=== PATIENT | male | born 1955 | race Caucasian/White ===

== ENCOUNTER 2018-04-15 19:11 | Emergency (ER) | payer SELFPAY ==
--- NOTE | 2018-04-15 20:57 | ER ---
Nurse's Notes [facility] Name: Jose Baig Age: 63 yrs Sex: Male : 1955 Arrival Date: 04/15/2018 Time: 19:13 Bed Waiting Private MD: Diagnosis: Presentation: 04/15 19:26 Presenting complaint: Patient states: swelling, redness to right elbow an forearm. pt ak1 stated swelling started 5 days DOWELER. pt with full ROM to right arm. Transition of care: patient was not received from another setting of care. Onset of symptoms is unknown. Risk Assessment: Do you want to hurt yourself or someone else? Patient reports no desire to harm self or others. Initial Sepsis Screen: Does the patient meet any 2 criteria? No. Patient's initial sepsis screen is negative. Does the patient have a suspected source of infection? No. Patient's initial sepsis screen is negative. Care prior to arrival: None. 19:26 Method Of Arrival: Ambulatory ak1 19:26 Acuity: SONIA 3 ak1 Triage Assessment: 19:28 General: Appears in no apparent distress. Behavior is cooperative, anxious. Pain: ak1 Complains of pain in right arm. EENT: No signs and/or symptoms were reported regarding the EENT system. Neuro: Level of Consciousness is awake, alert, obeys commands, Oriented to person, place, time, situation, Artificial Flowers [place] are equal bilaterally Moves all extremities. Cardiovascular: No deficits noted. Respiratory: No deficits noted. GI: No signs and/or symptoms were reported involving the gastrointestinal system. : No signs and/or symptoms were reported regarding the genitourinary system. Derm: No signs and/or symptoms reported regarding the dermatologic system. Musculoskeletal: Range of motion: intact in all extremities, Swelling present in right arm pt with swelling and redness to right elbow and right forearm. Historical: - Allergies: 19:28 No Known Allergies; ak1 - Home Meds: 19:28 Cymbalta 30 mg oral cpDR 1 cap once daily [Active]; ak1 - PMHx: 19:28 Bipolar disorder; Anxiety; ak1 - PSHx: 19:28 None; ak1 - Immunization history:: Adult Immunizations unknown. - Social history:: Smoking status: Patient uses tobacco products, smokes one pack cigarettes per day. - Ebola Screening: : No symptoms or risks identified at this time. Vital Signs: 19:28 BP 135 / 90; Pulse 90; Resp 18; Temp 98.3(TE); Pulse Ox 95% on R/A; Weight 79.38 kg ak1 (R); Height 5 ft. 10 in. (177.80 cm) (R); Pain 10/10; 19:28 Body Mass Index 25.11 (79.38 kg, 177.80 cm) ak1 ED Course: 19:13 Patient arrived in ED. es 19:27 Triage completed. ak1 19:28 Arm band placed on Patient placed in waiting room, Patient notified of wait time. ak1 20:46 Patient's name was called from ER lobby. No response. ak1 Administered Medications: No medications were administered Outcome: 20:57 Patient left the ED. ak1 Signatures: Kathryn Tirado Amber, RN RN ak1
[2018-04-15 22:41] VITALS: BP 135/90; TEMP 98.3; O2SAT 95
== END 2018-04-15 20:57 | disposition left against medical advice (07) ==
LOC: ER 19:11
DX: Z53.21 Procedure and treatment not carried out due to patient leaving prior to being seen by health care provider (principal)
CPT/HCPCS: 99281

== ENCOUNTER 2018-06-30 19:49 | Inpatient (IN) | payer OTHER ==
[2018-06-30] MEDS ORDERED: THIAMINE 200 MG/2 ML INJ ONE (20:04)
[2018-06-30] MEDS ORDERED: MULTIVITAMINS 10 ML VIAL (INJ) IV ONE (20:04)
[2018-06-30] MEDS ORDERED: NA CHLORIDE 0.9% 2,000 ML ONE (20:05)
[2018-06-30] MEDS ORDERED: FOLIC ACID 5 MG/ML VIAL ONE (20:05)
[2018-06-30] MEDS ORDERED: DIAZEPAM 10 MG/2 ML INJ SYRINGE ONE (20:15)
--- NOTE | 2018-06-30 20:36 | RAD REPORT ---
EXAM DESCRIPTION: RAD - Chest Single View - 06/30/2018 8:19 pm CLINICAL HISTORY: confusion, tachypnea Chest pain. COMPARISON: Chest Single View dated 12/14/2017; Chest Single View dated 12/13/2017; Chest Single View da saad 12/12/2017; Chest Single View dated 12/10/2017 FINDINGS: Portable technique limits examination quality. A small calcified granuloma seen in the left upper lobe. The lungs are otherwise grossly clear. The h eart is normal in size. No displaced fractures.Mildly tortuous thoracic aorta. IMPRESSION: No acute intrathoracic process suspected.
[2018-06-30 20:47] LABS: Absolute Lymphocytes (CBC) 0.9 K/uL (0.7-4.9); Absolute Neutrophil 15.7 K/uL (1.8-8.0); Basophils % 0.2 % (0-1.3); Hematocrit 44.3 % (39.6-49.0); MCH 34.1 pg (27.0-35.0); MCV 97.3 fL (80-100); MPV 8.5 fL (7.6-11.3); Monocytes % 10.9 % (3.3-12.3); RBC Red Blood Cell Count 4.56 M/uL (4.33-5.43)
[2018-06-30 20:53] LABS: Protime INR 1.11
--- NOTE | 2018-06-30 21:04 | RAD REPORT ---
EXAM DESCRIPTION: CT - Head Brain Wo Cont - 06/30/2018 8:44 pm CLINICAL HISTORY: CONFUSED Drowsiness COMPARISON: <Comparisons> TECHNIQUE: All CT scans are performed using dose optimization technique as appropriate and may inclu de automated exposure control or mA/KV adjustment according to patient size. FINDINGS: No intracranial hemorrhage, hydrocephalus or extra-axial fluid collection.Advanced general ized brain atrophy is present with mild periventricular and deep white matter chronic microvascular i schemic changes.No areas of brain edema or evidence of midline shift. The paranasal sinuses and mastoids are clear. The calvarium is intact. IMPRESSION: No acute intracranial abnormality.
--- NOTE | 2018-06-30 21:58 | ER ---
Nurse's Notes [facility] Name: Jose Baig Age: 63 yrs Sex: Male : 1955 Arrival Date: 06/30/2018 Time: 19:54 Bed 3 Private MD: Diagnosis: Alcohol dependence with withdrawal delirium;Dehydration Presentation: 06/30 19:50 Presenting complaint: EMS states: that pt is withdrawing from alcohol. He was found by fc his friends today that came down for a visit. Pt has had no alcohol in 2 days. Having tremors and is unable to walk. Has bite issa to his left tongue. Transition of care: patient was not received from another setting of care. Onset of symptoms was June 30, 2018. Risk Assessment: Do you want to hurt yourself or someone else? Patient reports no desire to harm self or others. Initial Sepsis Screen: Does the patient meet any 2 criteria? HR > 90 bpm. Yes Does the patient have a suspected source of infection? No. Patient's initial sepsis screen is negative. Care prior to arrival: Medication(s) given: Normal saline infusion, 500 mL, IV initiated. 18 GA, in the right forearm. 19:50 Method Of Arrival: EMS: [facility] 19:50 Acuity: SONIA 2 fc Historical: - Allergies: 20:06 No Known Allergies; fc - Home Meds: 20:06 Prozac Oral [Active]; fc - PMHx: 20:06 Anxiety; Bipolar disorder; Hepatitis; COPD; Ulcers; fc - Immunization history:: Last tetanus immunization: unknown. - Social history:: Smoking status: Patient uses tobacco products, smokes one-half pack cigarettes per day, Patient uses alcohol, on a daily basis. - Family history:: not pertinent. - Ebola Screening: : Patient negative for fever greater than or equal to 101.5 degrees Fahrenheit, and additional compatible Ebola Virus Disease symptoms Patient denies exposure to infectious person Patient denies travel to an Ebola-affected area in the 21 days before illness onset. - Hospitalizations: : No recent hospitalization is reported. Screenin:50 Abuse screen: Denies threats or abuse. Nutritional screening: No deficits noted. Tuberculosis screening: No symptoms or risk factors identified. Fall Risk Fall in past 12 months (25 points). Secondary diagnosis (15 points) ETOH abuse. IV access (20 points). Ambulatory Aid- Furniture (30 pts.). Gait- Weak (10 pts.). Mental Status- Overestimates/Forgets Limitations (15 pts.). Total Soler Fall Scale indicates High Risk Score (45 or more points). Fall prevention measures have been instituted. Side Rails Up X 2 Placed Close to Nursing Station Frequent Obs/Assessments Occuring As available patient and family educated on Fall Prevention Program and Strategies. Assessment: 20:00 General: Appears in no apparent distress. uncomfortable, Behavior is anxious, ao inappropriate for age. Pain: Denies pain. Neuro: Level of Consciousness is awake, alert, obeys commands, Oriented to person, place, time, situation, Appropriate for age Weakness Speech is normal, Facial symmetry appears normal, Pupils are PERRLA. Neuro: Cardiovascular: Heart tones S1 S2 Capillary refill < 3 seconds. Respiratory: Airway is patent Respiratory effort is even, unlabored, Respiratory pattern is regular, symmetrical. GI: Abdomen is non-distended. : No signs and/or symptoms were reported regarding the genitourinary system. EENT: No signs and/or symptoms were reported regarding the EENT system. Derm: No signs and/or symptoms reported regarding the dermatologic system. Musculoskeletal: Circulation, motion, and sensation intact. 21:07 Reassessment: Patient appears in no apparent distress at this time. Patient states ak1 symptoms have improved. pt resting with eyes closed, resp even and unlabored. will continue to monitor. . 22:27 Reassessment: Patient appears in no apparent distress at this time. Patient and/or ao family updated on plan of care and expected duration. Pain level reassessed. Patient sleeping with no SS of distress. Patient to be admitted to the hospital. Waiting on room assignment. Vital Signs: 19:50 BP 142 / 109; Pulse 101; Resp 20; Temp 99.0(O); Pulse Ox 96% on R/A; Weight 81.65 kg fc (R); Height 5 ft. 11 in. (180.34 cm) (R); Pain 3/10; 21:06 BP 135 / 98; Pulse 88; Resp 20; Temp 99; Pulse Ox 100% on R/A; Pain 0/10; ak1 22:27 BP 169 / 97; Pulse 91; Resp 16; Pulse Ox 92% ; ao 22:36 BP 158 / 86; Pulse 97; Resp 18; Pulse Ox 99% on R/A; Pain 0/10; ak1 19:50 Body Mass Index 25.10 (81.65 kg, 180.34 cm) ED Course: 19:50 Arm band placed on Patient placed in an exam room, on a stretcher. fc 19:50 Patient has correct armband on for positive identification. Bed in low position. Call fc light in reach. Side rails up X2. equipment monitor phototypesetting on. Pulse ox on. NIBP on. 19:50 Maintain EMS IV. Dressing intact. Good blood return noted. Site clean \T\ dry. Gauge \T\ fc site: 18 gauge to right forearm. 19:54 Patient arrived in ED. ao 19:54 Ian Reynaga MD is Attending Physician. rn 19:56 Fox Stein RN is Primary Nurse. ao 20:01 Triage completed. fc 20:18 XRAY Chest (1 view) In Process Unspecified. EDMS 20:27 Inserted saline lock: 22 gauge in right wrist, using aseptic technique. Blood collected.ao 20:44 CT Head Brain wo Cont In Process Unspecified. EDMS 21:56 Freddy Merchant MD is Hospitalizing Provider. rn 23:50 No provider procedures requiring assistance completed. Patient admitted, IV remains in ao place. Administered Medications: 20:26 Drug: Valium 10 mg Route: IVP; Site: right forearm; ao 22:00 Follow up: Response: No adverse reaction ao 22:37 Follow up: Response: No adverse reaction ak1 20:26 Drug: NS 0.9% 1000 ml Route: IV; Rate: 1 bolus; Site: right hand; ao 07/01 00:00 Follow up: IV Status: Completed infusion; IV Intake: 1000ml ao 06/30 20:27 Drug: Banana Bag - (NS 0.9% 1000 ml, foLIC Acid 1 mg, Thiamine 100 mg, Multivitamin 1 ao amp) Route: IV; Rate: calculated rate; Site: right forearm; 07/01 00:20 Follow up: IV Status: Infusion continued upon admission ao 00:10 Drug: Potassium Chloride 20 mEq Route: IV; Rate: calculated rate; Site: right ao antecubital; 00:19 Follow up: IV Status: Infusion continued upon admission ao Point of Care Testing: Blood Glucose: 06/30 20:37 Blood Glucose: 101 mg/dL; oe Ranges: Intake: 07/01 00:00 IV: 1000ml; Total: 1000ml. ao Outcome: 06/30 21:57 Decision to Hospitalize by Provider. rn 23:51 Admitted to ICU accompanied by nurse, room 1, on monitor, with chart. ao 23:51 Condition: stable 23:51 Instructed on the need for admit. 07/01 00:00 Patient left the ED. ao Signatures: Dispatcher [employer] EDMS Yenifer Maldonado RN RN Ian Hawley MD MD rn Krenek, Amber, RN RN ak1 Fox Stein RN RN ao Espinosa, Orlando oe
--- NOTE | 2018-06-30 21:58 | EDPHYS ---
Physician Documentation [facility] Name: Jose Baig Age: 63 yrs Sex: Male : 1955 Arrival Date: 06/30/2018 Time: 19:54 Bed 3 Private MD: ED Physician Ian Reynaga HPI: 06/30 19:58 This 63 yrs old Male presents to ER via Unassigned with complaints of Alcohol rn Withdrawal. 19:58 The patient presents with confusion, disorientation. Onset: The symptoms/episode rn began/occurred at an unknown time. Possible causes: alcohol, has apparently stopped drinking, for 2 day(s). Associated signs and symptoms: Pertinent positives: confusion, dizziness, palpitations. Current symptoms: In the emergency department the patient's symptoms are unchanged from the initial presentation. The patient has experienced similar episodes in the past. The patient has not recently seen a physician. Historical: - Allergies: 20:06 No Known Allergies; fc - Home Meds: 20:06 Prozac Oral [Active]; fc - PMHx: 20:06 Anxiety; Bipolar disorder; Hepatitis; COPD; Ulcers; fc - Immunization history:: Last tetanus immunization: unknown. - Social history:: Smoking status: Patient uses tobacco products, smokes one-half pack cigarettes per day, Patient uses alcohol, on a daily basis. - Family history:: not pertinent. - Ebola Screening: : Patient negative for fever greater than or equal to 101.5 degrees Fahrenheit, and additional compatible Ebola Virus Disease symptoms Patient denies exposure to infectious person Patient denies travel to an Ebola-affected area in the 21 days before illness onset. - Hospitalizations: : No recent hospitalization is reported. ROS: 19:58 Constitutional: Negative for fever, chills, and weight loss, Eyes: Negative for injury, rn pain, redness, and discharge, ENT: + tongue pain Neck: Negative for injury, pain, and swelling, Cardiovascular: + palpitations, no chest pain Respiratory: Negative for shortness of breath Abdomen/GI: + nausea, no abd pain Back: Negative for injury and pain, MS/Extremity: Negative for injury and deformity, Skin: Negative for injury, rash, and discoloration, Neuro: Negative for headache, and seizure. Exam: 19:58 Constitutional: This is a thin male appears poorly nourished Head/Face: rn Normocephalic, atraumatic. Eyes: Pupils equal round and reactive to light, extra-ocular motions intact ENT: dry blood on tongue, no deep lacerations noted Neck: Trachea midline, no thyromegaly or masses palpated, and no cervical lymphadenopathy. Supple, full range of motion without nuchal rigidity, or vertebral point tenderness. No Meningismus. Cardiovascular: tachycardic, regular, no murmur Respiratory: + faint exp wheezing noted bilaterally with mild tachypnea, speaking full sentences Abdomen/GI: Soft, non-tender Skin: + multiple ecchymosis pre-tibial regions MS/ Extremity: Pulses equal, no cyanosis. Neurovascular intact. 3/5 strength bilateral lower ext Neuro: awake, alert, oriented to person/place/time, 3/5 strength lower extremities, 5/5 strength bilateral upper ext, + extremity tremor, + tongue fasciculations. Vital Signs: 19:50 BP 142 / 109; Pulse 101; Resp 20; Temp 99.0(O); Pulse Ox 96% on R/A; Weight 81.65 kg fc (R); Height 5 ft. 11 in. (180.34 cm) (R); Pain 3/10; 21:06 BP 135 / 98; Pulse 88; Resp 20; Temp 99; Pulse Ox 100% on R/A; Pain 0/10; ak1 22:27 BP 169 / 97; Pulse 91; Resp 16; Pulse Ox 92% ; ao 22:36 BP 158 / 86; Pulse 97; Resp 18; Pulse Ox 99% on R/A; Pain 0/10; ak1 19:50 Body Mass Index 25.10 (81.65 kg, 180.34 cm) MDM: 19:54 Patient medically screened. rn 21:55 Differential Diagnosis: electrolyte abnormality, intracranial bleed, pneumonia, volume rn depletion, ETOH w/d. DT. Data reviewed: vital signs, nurses notes, lab test result(s), EKG, radiologic studies, CT scan, plain films, and as a result, I will admit patient. Counseling: I had a detailed discussion with the patient and/or guardian regarding: the historical points, exam findings, and any diagnostic results supporting the discharge/admit diagnosis, lab results, radiology results, the need for further work-up and treatment in the hospital. Response to treatment: the patient's symptoms have mildly improved after treatment, and as a result, I will admit patient. Admission orders: after a detailed discussion of the patient's condition and case, the admit orders are written by me. 06/30 19:55 Order name: CBC with Diff; Complete Time: 21:02 06/30 19:55 Order name: Basic Metabolic Panel 06/30 19:55 Order name: Protime (+inr); Complete Time: 21:02 06/30 19:55 Order name: Ptt, Activated; Complete Time: 21:02 06/30 19:55 Order name: AMMONIA; Complete Time: 21:51 06/30 19:55 Order name: Magnesium 06/30 19:55 Order name: CT Head Brain wo Cont; Complete Time: 21:11 06/30 19:57 Order name: CK 06/30 20:03 Order name: Creatine Phosphokinase [facility] 06/30 22:41 Order name: Alcohol Serum/Plasma [facility] 06/30 23:55 Order name: Basic Metabolic Panel [facility] 06/30 23:55 Order name: Creatine Phosphokinase [facility] 06/30 23:55 Order name: Magnesium [facility] 06/30 19:55 Order name: IV Start; Complete Time: 20:27 06/30 19:55 Order name: Glucose Level; Complete Time: 20:27 06/30 19:55 Order name: EKG; Complete Time: 19:56 06/30 19:55 Order name: EKG - Nurse/Tech; Complete Time: 21:17 06/30 19:56 Order name: XRAY Chest (1 view); Complete Time: 21:02 rn Administered Medications: 20: Drug: Valium 10 mg Route: IVP; Site: right forearm; ao 22:00 Follow up: Response: No adverse reaction ao 22:37 Follow up: Response: No adverse reaction ak1 20: Drug: NS 0.9% 1000 ml Route: IV; Rate: 1 bolus; Site: right hand; ao 07/01 00:00 Follow up: IV Status: Completed infusion; IV Intake: 1000ml ao 06/30 20:27 Drug: Banana Bag - (NS 0.9% 1000 ml, foLIC Acid 1 mg, Thiamine 100 mg, Multivitamin 1 ao amp) Route: IV; Rate: calculated rate; Site: right forearm; 07/01 00:20 Follow up: IV Status: Infusion continued upon admission ao 00:10 Drug: Potassium Chloride 20 mEq Route: IV; Rate: calculated rate; Site: right ao antecubital; 00:19 Follow up: IV Status: Infusion continued upon admission ao Point of Care Testing: Blood Glucose: 06/30 20:37 Blood Glucose: 101 mg/dL; oe Ranges: Critical Glucose Levels:Adult <50 mg/dl or >400 mg/dl <40 mg/dl or >180 mg/dl Disposition: 06/30/18 21:57 Hospitalization ordered by Freddy Merchant for Inpatient Admission. Preliminary diagnosis are Alcohol dependence with withdrawal delirium, Dehydration. - Bed requested for Intensive Care Unit. - Status is Inpatient Admission. ao - Condition is Stable. - Problem is new. - Symptoms have improved. UTI on Admission? No Signatures: Dispatcher [employer] EDUT Yenifer Maldonado RN RN fc Nieto, Roman, MD MD rn Ortiz, Alex, RN RN ao Thompson, Moriah mt Krenek, Amber RN ak1 Corrections: (The following items were deleted from the chart) 20:02 19:58 Creatine Phosphokinase ordered. [facility] EDUT 22:56 21:57 Hospitalization Ordered by Freddy Merchant MD for Inpatient Admission. Preliminary mi diagnosis is Alcohol dependence with withdrawal delirium; Dehydration. Bed requested for Intensive Care Unit. Status is Inpatient Admission. Condition is Stable. Problem is new. Symptoms have improved. UTI on Admission? No. rn 07/01 00:00 06/30 22:56 06/30/2018 21:57 Hospitalization Ordered by Freddy Merchant MD for Inpatient ao Admission. Preliminary diagnosis is Alcohol dependence with withdrawal delirium; Dehydration. Bed requested for Intensive Care Unit. Status is Inpatient Admission. Condition is Stable. Problem is new. Symptoms have improved. UTI on Admission? No. mt
--- NOTE | 2018-06-30 22:40 | P.HP ---
Certification for Inpatient Patient admitted to: Inpatient With expected LOS: >2 Midnights Practitioner: I am a practitioner with admitting privileges, knowledge of patient current condition, hospital course, and medical plan of care. Services: Services provided to patient in accordance with Admission requirements found in Title 42 Section 412.3 of the Code of Federal Regulations Patient History Date of Service: 06/30/18 Reason for admission: Acute encephalopathy, alcohol withdrawal History of Present Illness: Mr Baig is a 63-year-old male with history of alcohol abuse, hepatitis, hypertension, bipolar disorder, COPD, who was brought to the ED due to altered mental status. Apparently the patient last drink was 2 days ago, and he is now having alcohol withdrawal. The patient is sedated and unable to provide any history. At this point is unknown whether the patient intention is to quit drinking alcohol or not. Lab work remarkable for leukocytosis 18.7, chemistry is still pending Allergies No Known Allergies Allergy (Verified 04/07/14 16:40) Home medications list reviewed: Yes Home Medications: Duloxetine HCl 1 cap PO DAILY 12/08/17 Albuterol Sulfate [Ventolin Hfa] 1 puff IH TID PRN #1 hfa.aer.ad 12/14/17 Fluticasone/Salmeterol [Advair 250-50 Diskus] 1 each IH BID #1 blst.w.dev Folic Acid 1 mg PO DAILY #90 tablet 12/14/17 Furosemide [Lasix*] 40 mg PO BIDL #60 tab 12/14/17 Magnesium Oxide [Mag 0X*] 400 mg PO BID #60 tab 12/14/17 Metoprolol Tartrate [Lopressor*] 50 mg PO BID 6AM 6PM #120 tab 12/14/17 Pantoprazole [Protonix Tab*] 40 mg PO DAILYAC #30 tab 12/14/17 Penicillin Vk [Veetids (Pen-Vee K)*] 500 mg PO QID #40 tab 12/14/17 Potassium Oral Tab [Klor-Con 10 mEq Tab*] 20 meq PO BID #60 tab 12/14/17 Thiamine HCl [Vitamin B-1*] 100 mg PO DAILY #90 tablet 12/14/17 chlordiazePOXIDE HCl [Librium*] 10 mg PO BID #60 cap 12/14/17 metroNIDAZOLE [Flagyl*] 500 mg PO TID #30 tablet 12/14/17 predniSONE [Deltasone*] 10 mg PO SEECOM #15 tab 12/14/17 - Past Medical/Surgical History Diabetic: No -: Depression -: neuropathy -: bruised ribs -: torn rotator cuff(bilateral) -: Back surgery -: Tonsillectomy -: hand sx - Family History Mother -: Heart disease - Social History Alcohol use: Yes CD- Drugs: Yes Caffeine use: Yes Physical Examination - Studies Laboratory Data (last 24 hrs) 06/30/18 20:23: PT 13.1 H, INR 1.11, APTT 28.1 06/30/18 20:23: WBC 18.7 H, Hgb 15.5, Hct 44.3, Plt Count 277 Assessment and Plan - Problems (Diagnosis) (1) Acute encephalopathy Current Visit: Yes Status: Acute - Plan The patient will be admitted to ICU due to acute encephalopathy, possible secondary to alcohol withdrawal. Will order CIWA protocol. Pending alcohol level and urinary drug screen panel. - Advance Directives Does patient have a Living Will: No Does patient have a Durable POA for Healthcare: No - Code Status/Comfort Care Code Status Assessed: Yes Code Status: Full Code
[2018-06-30 23:53] LABS: Alcohol Serum/Plasma < 3 mg/dL (<3); BUN Blood Urea Nitrogen 35 mg/dL (7-18); Bicarbonate 31 mmol/L (21-32); Glucose Level 107 mg/dL (74-106); Magnesium 1.5 mg/dL (1.8-2.4); Sodium Level 141 mmol/L (136-145)
[2018-06-30 23:54] LABS: Creatine Phosphokinase 4958 U/L (39-308); Potassium 1.7 mmol/L (3.5-5.1)
[2018-06-30] MEDS ORDERED: FLUMAZENIL 0.1 MG/ML (5 mL VIAL) IV PRN (23:58)
[2018-06-30] MEDS ORDERED: HALOPERIDOL LACT 5 MG/ML INJ IM PRN (23:58)
[2018-06-30] MEDS ORDERED: LORazepam 2 MG/ML VIAL IV PRN (23:58)
[2018-06-30] MEDS ORDERED: ONDANSETRON 4 MG/2 ML VIAL IV PRN (23:58)
[2018-07-01] MEDS ORDERED: Magnesium Sulfate 2gm IVPB 2 G/50 ML BAG IV ONE (00:52)
[2018-07-01] MEDS: KCL 20 MEQ/100 mL IVPB 20 MEQ/100 ML BAG IV SCH ×8 (01:26→22:50)
[2018-07-01 05:08] LABS: Absolute Lymphocytes (CBC) 1.8 K/uL (0.7-4.9); Absolute Monocytes 2.3 K/uL (0.1-1.3); Absolute Neutrophil 11.4 K/uL (1.8-8.0); Basophils % 0.3 % (0-1.3); Eosinophils % 0.2 % (0-4.4); Hematocrit 37.9 % (39.6-49.0); Lymphocytes % 11.8 % (15.3-44.8); MCH 34.7 pg (27.0-35.0); MCV 95.3 fL (80-100); Monocytes % 14.5 % (3.3-12.3); RBC Red Blood Cell Count 3.98 M/uL (4.33-5.43)
[2018-07-01 05:55] LABS: Magnesium 2.4 mg/dL (1.8-2.4); Potassium 1.7 mmol/L (3.5-5.1)
[2018-07-01] MEDS ORDERED: D5 0.9 NS 1,000 ML IV SCH (06:00)
--- NOTE | 2018-07-01 09:41 | EKG ---
Test Date: 2018-06-30 Test Time: 20:25:49 Fitness Management Director: ASHLEY MEASUREMENT RESULTS: Intervals: Rate: 109 AZ: 214 QRSD: 102 QT: 306 QTc: 412 [place]: P: 91 AZ: 214 QRS: 70 T: 250 INTERPRETIVE STATEMENTS: Sinus tachycardia with 1st degree AV block with occasional premature ventricular complexes Cannot rule out Inferior infarct, age undetermined ST & T wave abnormality, consider lateral ischemia Abnormal ECG Compared to ECG 12/07/2017 19:16:47 Ventricular premature complex(es) now present First degree AV block now present Prolonged QT interval no longer present Myocardial infarct finding still present ST (T wave) deviation still present Possible ischemia still present Electronically Signed On 07-01-18 09:41:04 CDT by Cuong Morales
[2018-07-01] MEDS: IPRATROPIUM BROM 0.5MG/2.5ML NEB PRN (10:56)
[2018-07-01] MEDS: ALBUTEROL 2.5 MG/3 ML NEB SOL NEB PRN (10:56)
[2018-07-01] MEDS: NS KCL 20MEQ 20 MEQ/1,000 ML BAG IV SCH ×2 (14:00→22:50)
[2018-07-01] MEDS: HYDROCODONE/APAP 5/325 MG TAB PO PRN (14:09)
[2018-07-01] MEDS: FOLIC ACID 1 MG, MULTIVITAMINS INJ 10 ML, THIAMINE HCL 100 MG in NA CHLORIDE 0.9% 1,000 ML IV SCH (14:10)
[2018-07-01] MEDS: LORazepam 2 MG/ML VIAL IV PRN (14:44)
[2018-07-01] MEDS ORDERED: POTASSIUM CL SA 10 MEQ TAB PO ONE (16:00)
[2018-07-01] MEDS ORDERED: ENOXAPARIN 30 MG/0.3 ML SQ SCH (17:00)
--- NOTE | 2018-07-01 18:47 | PN ---
Date of Progress Note: 07/01/2018 Subjective: The patient seen and examined. Chart reviewed and case discussed with RN. The patient much more awake and alert this afternoon compared to this morning. He states that he has some severe neuropathy and fell and tripped over the stairs. However, he is a daily drinker and actively withdrawing currently. Review of Systems: Negative except as above. Medications: List reviewed. Physical Examination: Vital Signs: Temperature 98.1, heart rate 80, blood pressure 137/82, respirations 14. O2 98% on room air. General: Awake, alert, oriented x3, in some mild distress, appears older than stated age. Ill-appearing male. CV: S1, S2. No murmurs. Regular rate and rhythm. Peripheral pulses present. Respiratory: Moving air well bilaterally. No wheezing. No stridor. No use of accessory muscles. Gastrointestinal: Abdomen is soft, nontender, nondistended. Positive bowel sounds. Extremities: No clubbing, cyanosis, or edema. Neurologic: Nonfocal. Speech is somewhat slurred due to his alcohol withdrawal. The patient is having active tremors. Laboratory Data: Sodium 143, potassium 1.7, chloride 100, CO2 31, BUN 35, creatinine 1.9, glucose 93, calcium 7.3, magnesium 2.4. CK level 4200. WBC 15.6, H and H showed 13.8 and 37.9, platelets 225, neutrophils 73%. Assessment And Plan: A 63-year-old male with: 1. Acute metabolic encephalopathy, likely related to alcohol. We will continue with CIWA protocol. We will adjust Ativan level. Continue multivitamins. UDS pending. 2. Degenerative disk disease, cervical, lumbar spine with neuropathy. We will add [place] for pain. 3. Major depressive disorder. 4. Gastrointestinal and deep venous thrombosis prophylaxis addressed. 5. Hypokalemia, severe. We will replace and monitor. We will check potassium level this afternoon. 6. Acute rhabdomyolysis. traumatic. CK level improving. We will continue with IV fluid resuscitation. 7. Acute kidney injury. Creatinine is improving, currently 1.9. We will continue IV fluids and monitor kidney function. Continue monitoring in the ICU setting for withdrawal symptoms and active delirium tremens. SA/MODL Voice ID: [id number] Report ID: [id number] MTDD
[2018-07-02] MEDS: LORazepam 2 MG/ML VIAL IV PRN ×2 (01:10→09:55)
[2018-07-02] MEDS: HYDROCODONE/APAP 5/325 MG TAB PO PRN ×2 (03:32→20:48)
[2018-07-02 03:40] LABS: Barbiturates NEGATIVE (NEGATIVE); Benzodiazepines POSITIVE (NEGATIVE); Cocaine NEGATIVE (NEGATIVE); METHAMPHETAM NEGATIVE (NEGATIVE); Methadone NEGATIVE (NEGATIVE); Opiates NEGATIVE (NEGATIVE); Phencyclidine NEGATIVE (NEGATIVE); THC Cannibis NEGATIVE (NEGATIVE)
[2018-07-02 06:06] LABS: Absolute Lymphocytes (CBC) 1.7 K/uL (0.7-4.9); Absolute Monocytes 1.6 K/uL (0.1-1.3); Absolute Neutrophil 6.5 K/uL (1.8-8.0); Basophils % 0.9 % (0-1.3); Eosinophils % 1.4 % (0-4.4); Hematocrit 36.8 % (39.6-49.0); Lymphocytes % 16.6 % (15.3-44.8); MCH 34.5 pg (27.0-35.0); MCV 93.7 fL (80-100); MPV 8.1 fL (7.6-11.3); Monocytes % 15.7 % (3.3-12.3); RBC Red Blood Cell Count 3.93 M/uL (4.33-5.43)
[2018-07-02 07:01] LABS: ALT/SGPT 44 U/L (12-78); AST/SGOT 127 U/L (15-37); Albumin 2.7 g/dL (3.4-5.0); Alkaline Phosphatase 39 U/L (45-117); BUN Blood Urea Nitrogen 23 mg/dL (7-18); Bicarbonate 33 mmol/L (21-32); Bilirubin Total 1.3 mg/dL (0.2-1.0); Creatine Phosphokinase 1807 U/L (39-308); Glucose Level 93 mg/dL (74-106); Phosphorus 0.7 mg/dL (2.5-4.9); Protein, Total 6.2 g/dL (6.4-8.2); Sodium Level 144 mmol/L (136-145)
[2018-07-02 07:03] LABS: Potassium 1.9 mmol/L (3.5-5.1)
[2018-07-02] MEDS ORDERED: POTASSIUM PHOS 30 MM in NA CHLORIDE 0.9% 500 ML IV ONE ×2 (07:16→17:14)
[2018-07-02] MEDS ORDERED: POTASSIUM 25 MEQ EFFERV TAB PO ONE ×2 (07:48→17:14)
[2018-07-02] MEDS: NS KCL 20MEQ 20 MEQ/1,000 ML BAG IV SCH ×2 (07:51→17:27)
[2018-07-02] MEDS: PANTOPRAZOLE 40MG TABLET PO SCH (07:51)
[2018-07-02] MEDS: DULOXETINE 30 MG CAP PO SCH (07:51)
[2018-07-02 08:28] LABS: Blood Morphology Comment NOT SEEN (NOT SEEN); Platelet Estimate ADEQ
[2018-07-02 08:33] LABS: Urine White Blood Cell Casts OK
[2018-07-02] MEDS: chlordiazePOXIDE HCl 25 MG CAP PO SCH ×3 (08:42→17:27)
[2018-07-02] MEDS: FOLIC ACID 1 MG, MULTIVITAMINS INJ 10 ML, THIAMINE HCL 100 MG in NA CHLORIDE 0.9% 1,000 ML IV SCH (09:55)
[2018-07-02] MEDS ORDERED: KCL 20 MEQ/100 mL IVPB 20 MEQ/100 ML BAG IV SCH (13:00)
--- NOTE | 2018-07-02 13:20 | PN ---
Date of Progress Note: 07/02/2018 Subjective: The patient seen and examined, chart reviewed, and case discussed with RN. The patient having some back pain. Also complains of generalized muscle weakness. Has refractory hypokalemia. Able to tolerate his diet. Review of Systems: Negative except as above. Medications: List reviewed. Objective: Vital Signs: Temperature 98.6, heart rate 68, blood pressure 152/94, respirations 19, O2 99% on 2 L via nasal cannula. General: Awake, alert, oriented x3, in some acute distress, appears older than stated age, ill-appea ring male. CV: S1 and S2. No murmurs. Regular rate and rhythm. Peripheral pulses present. Respiratory: Moving air well bilaterally. No wheezing. Gastrointestinal: Abdomen is soft, nontender, nondistended. Positive bowel sounds. No guarding or rigidity. Extremities: No clubbing, cyanosis, or edema. Neuro: Generalized muscle weakness. Able to move all 4 extremities. Speech is normal. Has some tr emors from his withdrawal. Laboratory Data: Sodium 144, potassium 1.9, chloride 104, CO2 33, BUN 23, creatinine 0.8, glucose 93 , calcium 7.5, phosphorus 0.7, total bilirubin 1.3, AST 127, ALT 44, alkaline phosphatase 39. CK lev el down to 1807. Albumin 2.7. WBC 10, H and H 13.6, 36.8, platelets 223, neutrophils 65%. Assessment And Plan: A 63-year-old male with: 1.Acute metabolic encephalopathy related to alcohol dependence, in withdrawal, improving. The patie nt is now alert and oriented. We will continue IV fluids with banana bag. We will switch to Librium as the patient is tolerating p.o. Use Ativan p.r.n. 2.Acute alcohol withdrawal. Continue with Librium taper. The patient drinks a pint of whiskey with liquor daily. The patient has been counseled. 3.Refractive severe hypokalemia. We will replace. Continue to monitor. 4.Severe hypophosphatemia. We will replace and monitor. 5.Degenerative disk disease, cervical and lumbar spine with neuropathy. Continue to use [place] for p ain. 6.Major depressive disorder, on Cymbalta. 7.Acute rhabdomyolysis. CK levels trending down. We will continue IV fluids. 8.Acute kidney injury. Creatinine has normalized secondary to above. 9.Gastrointestinal and deep venous thrombosis prophylaxis, addressed. 10.Will need continued monitoring in the ICU setting, risk for arrhythmias due to his electrolyte di sturbances. Once improved, can step down. /LAURA Voice ID: [id number] Report ID: [id number]
[2018-07-02 16:51] LABS: Phosphorus 1.4 mg/dL (2.5-4.9)
[2018-07-02 16:56] LABS: Potassium 1.8 mmol/L (3.5-5.1)
[2018-07-02] MEDS: ENOXAPARIN 40 MG/0.4 ML SQ SCH (17:26)
[2018-07-02] MEDS ORDERED: POTASSIUM PHOS IN 0.9 % NACL 15 MMOL/250 ML BAG IV ONE (18:15)
[2018-07-02] MEDS: KCL 20 MEQ/100 mL IVPB 20 MEQ/100 ML BAG IV SCH ×2 (18:34→20:43)
[2018-07-02] MEDS: POTASSIUM 25 MEQ EFFERV TAB PO SCH ×3 (18:34→22:39)
[2018-07-02 18:42] LABS: Thyroid Stimulating Hormone 2.14 uIU/mL (0.36-3.74)
[2018-07-02] MEDS: Ringers Lactate 1,000 ML with POTASSIUM CL 20 MEQ IV SCH ×2 (22:38)
[2018-07-03] MEDS: chlordiazePOXIDE HCl 25 MG CAP PO SCH ×5 (00:44→23:33)
[2018-07-03] MEDS: POTASSIUM 25 MEQ EFFERV TAB PO SCH ×8 (02:00→14:00)
[2018-07-03] MEDS: LORazepam 2 MG/ML VIAL IV PRN (03:37)
[2018-07-03 06:03] LABS: Absolute Lymphocytes (CBC) 1.9 K/uL (0.7-4.9); Absolute Monocytes 1.8 K/uL (0.1-1.3); Absolute Neutrophil 6.2 K/uL (1.8-8.0); Basophils % 1.1 % (0-1.3); Eosinophils % 2.2 % (0-4.4); Hematocrit 35.8 % (39.6-49.0); Lymphocytes % 18.6 % (15.3-44.8); MCH 34.7 pg (27.0-35.0); MCV 94.2 fL (80-100); MPV 8.1 fL (7.6-11.3)
[2018-07-03] MEDS: Ringers Lactate 1,000 ML with POTASSIUM CL 20 MEQ IV SCH ×4 (06:23→14:12)
[2018-07-03 06:25] LABS: ALT/SGPT 44 U/L (12-78); AST/SGOT 109 U/L (15-37); Albumin 2.5 g/dL (3.4-5.0); Alkaline Phosphatase 41 U/L (45-117); BUN Blood Urea Nitrogen 8 mg/dL (7-18); Bicarbonate 39 mmol/L (21-32); Bilirubin Total 1.1 mg/dL (0.2-1.0); Glucose Level 88 mg/dL (74-106); Protein, Total 5.9 g/dL (6.4-8.2); Sodium Level 144 mmol/L (136-145)
[2018-07-03 06:26] LABS: Creatine Phosphokinase 1741 U/L (39-308); Potassium 2.5 mmol/L (3.5-5.1)
[2018-07-03 07:35] LABS: Phosphorus 2.6 mg/dL (2.5-4.9)
[2018-07-03 07:37] LABS: Magnesium 1.2 mg/dL (1.8-2.4)
[2018-07-03] MEDS ORDERED: Magnesium Sulfate 2gm IVPB 2 G/50 ML BAG IV ONE (07:41)
[2018-07-03] MEDS: SPIRONOLACTONE 25 MG TABLET PO SCH ×2 (08:13→20:09)
[2018-07-03] MEDS: DULOXETINE 30 MG CAP PO SCH (08:14)
[2018-07-03] MEDS: KCL 20 MEQ/100 mL IVPB 20 MEQ/100 ML BAG IV SCH ×4 (08:14→20:08)
[2018-07-03] MEDS: PANTOPRAZOLE 40MG TABLET PO SCH (08:14)
[2018-07-03] MEDS: FOLIC ACID 1 MG, MULTIVITAMINS INJ 10 ML, THIAMINE HCL 100 MG in NA CHLORIDE 0.9% 1,000 ML IV SCH (09:41)
[2018-07-03] MEDS ORDERED: MAGNESIUM 50% 3 GM in NA CHLORIDE 0.9% 100 ML IV ONE (09:51)
[2018-07-03] MEDS ORDERED: MAGNESIUM SULFATE 1 gm IVPB 1 GM/100 ML BAG IV ONE (10:29)
--- NOTE | 2018-07-03 12:40 | PN ---
Date of Progress Note: 07/03/2018 Subjective: The patient seen and examined, chart reviewed, and case discussed with RN and Dr. Claudia church. The patient is feeling slightly better, still complaining of some pain in his back and weakness. Review of Systems: Negative except as above. Medications: List reviewed. Objective: Vital Signs: Temperature 98.1, heart rate 78, blood pressure 144/98, respirations 19, O2 99% on room air. General: Awake, alert, oriented x3, in some mild distress. Appears older than stated age, ill-appea ring male. CV: S1, S2. No murmurs. Peripheral pulses present. respiratory: moving air well bilaterally. No wheezing or stridor. Gastrointestinal: Abdomen is soft, nontender, nondistended. Positive bowel sounds. Extremities: No clubbing, cyanosis, or edema. Neuro: The patient has generalized muscular weakness. No tremors. Psych: Mood is somewhat dysphoric. Affect is congruent with mood. Insight and judgment are poor. Laboratory Data: Sodium 144, potassium 2.5, chloride 99, CO2 39, BUN 8, creatinine 0.6, glucose 88, calcium 7.2, phosphorus 2.6, magnesium 1.2. CK level is 1741. WBC 10.3, H and H 13.2, 35.8, platele ts 16.1, neutrophils 60%, 18% monocytes. Assessment: A 63-year-old male with: 1.Acute metabolic encephalopathy related to alcohol withdrawal, resolved. 2.Acute alcohol withdrawal. Continue with Librium taper. Use Ativan p.r.n. No further tremors. 3.Severe hypokalemia. Continue to replace, improving, up to 2.5 today. 4.Hypophosphatemia, replaced. We will continue to monitor. 5.Hypomagnesemia. Replace and recheck in the afternoon. 6.Degenerative disk disease, cervical and lumbar spine with neuropathy. Continue [place] for pain. 7.Major depressive disorder, on Cymbalta. 8.Acute rhabdomyolysis, traumatic. CK levels improving. Continue with IV fluids. 9.Acute kidney injury. Creatinine normalized. We will continue to monitor. Avoid NSAIDs. 10.Gastrointestinal and deep venous thrombosis prophylaxis with PPI and Lovenox. Plan: Step-down to telemetry floor. Dr. York with Nephrology was consulted for severe refractor y electrolyte disturbances. Appreciate his input. /LAURA Voice ID: [id number] Report ID: [id number]
[2018-07-03 15:45] LABS: BUN Blood Urea Nitrogen 5 mg/dL (7-18); Bicarbonate 39 mmol/L (21-32); Glucose Level 104 mg/dL (74-106); Magnesium 2.1 mg/dL (1.8-2.4); Phosphorus 2.1 mg/dL (2.5-4.9); Potassium 3.1 mmol/L (3.5-5.1); Sodium Level 143 mmol/L (136-145)
[2018-07-03] MEDS: ENOXAPARIN 40 MG/0.4 ML SQ SCH (17:17)
[2018-07-03 19:36] LABS: Urine Appearance CLEAR; Urine Bilirubin NEGATIVE (NEG); Urine Blood TRACE (NEG); Urine Color YELLOW; Urine Glucose NEGATIVE (NEG); Urine Protein NEGATIVE (NEG); Urine pH 8.5 (5.0-7.0)
--- NOTE | 2018-07-03 20:01 | CON ---
Date of Consultation: 07/03/2018 Consulting Physician: Dr. Alexandra Ware. Reason For Consultation: Hypokalemia, hypomagnesemia, hypophosphatemia, rhabdo. History Of Present Illness: This is a pleasant 63-year-old gentleman with significant past medical h istory of alcohol abuse, hepatitis, hypertension, bipolar, COPD. The patient was brought to the ER a fter he fall almost 3 days back, found after 3 days, found to have severe rhabdo and alcohol withdraw al. For that reason, he was admitted, started on hydration. Got complicated with severe hypokalemia , hypomagnesemia, and hypophosphatemia even with aggressive replacement. For that reason, we have be en consulted. According to the patient, the patient denied taking any liquor, denied taking any herb al medication, or any diuretic. Over the night, his potassium was around 1.9. With aggressive supplement his potassium today is 2.5. Magnesium, received 2 g of yesterday, today magnesium up to 1.9. Hypophosphatemia started being co rrected. The patient denied any nausea, any vomiting, any shortness of breath. Allergies: NO KNOWN DRUG ALLERGIES. Home Medications: Include: 1.Folic acid. 2.Advair. 3.Lasix 40 b.i.d. 4.Metoprolol. 5.Pantoprazole. 6.Insulin. 7.KCl. 8.Metronidazole. Past Medical History: Include neuropathy, hypertension, back surgery, bipolar, COPD. Family History: Positive for carotid artery disease. Social History: Active alcohol and active smoker. Denies drug abuse. Review of Systems: Head and Neck: No red eye. No ear pain. GI: No nausea, no vomiting. : No polyuria. No dysuria. No hematuria. METAL SPINNER: Not applicable. Respiratory: No shortness of breath. Cardiovascular: No chest pain. Neuro: no weakness, confused. Has muscle cramps. Endocrine: No polydipsia. Skin: no rash. Physical Examination: General: When I saw the patient lying in bed, slow Vital Signs: blood pressure 130/78, pulse of 81 afebrile. The patient had good urine output of 1400 , positive of 3 L. Chest: Clear to auscultation. Heart: S1, S2 regular. Abdomen: Soft, nontender. EXTREMITIES: Trace edema with venous stasis bilateral Laboratory Data: WBC 10.3, H and H 13.2/35.8, platelets of 248. Sodium 144, potassium 2.5, bicarb 3 9, BUN 8, creatinine 0.6 calcium 7.2, phos 2.6, magnesium 1.2. CK down from 1800 to 1700. On admiss ion his CK was 4900. TSH 2.1. Urine drug screen was positive for benzo. INR 1.1. Current Medications: In the hospital include spironolactone, Lovenox, flumazenil, haloperidol loraze jena, breathing treatment Zofran, pantoprazole, sodium phosphate oral, LR with 20 KCl. Assessment And Plan: 1.Rhabdomyolysis secondary to fall secondary to alcohol drink, on recovery. I going to continue hyd ration, continue with the LR to establish more alkaline urine and will follow up. 2.Severe hypokalemia, hypomagnesemia, and hypophosphatemia. Hyperthyroidism have been ruled out. M ostly secondary to malnourished secondary to alcohol consumption. I am going to continue aggressive supplement. The patient is going to receive 140 mEq of potassium in the next 6 hours. We will reche ck. For the hypomagnesemia, we will replace for another 3 g and we will recheck. 3.For hypophosphatemia, start being corrected. 4.Alcohol withdrawal. Follow up with the primary. 5.Hypertension, controlled, optimal, keep holding the diuresis given the electrolyte wasting. Thank you Dr. Ware for allowing us to participate in the care of your patient. ALEK/LAURA Voice ID: [id number] Report ID: [id number]
[2018-07-03] MEDS: HYDROCODONE/APAP 5/325 MG TAB PO PRN (20:08)
[2018-07-03 20:32] LABS: Urine Microscopic Reflex ORDER UMIC
[2018-07-03 23:07] LABS: Urine Bacteria <20 /HPF (NONE SEEN); Urine Culture Reflex Order NOT NEEDED; Urine RBC <5 /HPF (NONE SEEN)
[2018-07-04] MEDS: Ringers Lactate 1,000 ML with POTASSIUM CL 20 MEQ IV SCH ×8 (00:18→20:30)
[2018-07-04] MEDS: LORazepam 2 MG/ML VIAL IV PRN ×6 (05:12→23:11)
[2018-07-04 05:29] LABS: Absolute Lymphocytes (CBC) 2.1 K/uL (0.7-4.9); Absolute Monocytes 3.2 K/uL (0.1-1.3); Absolute Neutrophil 8.7 K/uL (1.8-8.0); Basophils % 0.7 % (0-1.3); Eosinophils % 0.4 % (0-4.4); Hematocrit 40.6 % (39.6-49.0); Lymphocytes % 14.6 % (15.3-44.8); MCH 34.3 pg (27.0-35.0); MCV 96.4 fL (80-100); MPV 8.2 fL (7.6-11.3); Monocytes % 22.8 % (3.3-12.3); RBC Red Blood Cell Count 4.21 M/uL (4.33-5.43)
[2018-07-04] MEDS: chlordiazePOXIDE HCl 25 MG CAP PO SCH (05:49)
[2018-07-04 06:18] LABS: Blood Morphology Comment NOT SEEN (NOT SEEN); Platelet Estimate ADEQ
[2018-07-04 06:24] LABS: ALT/SGPT 48 U/L (12-78); AST/SGOT 103 U/L (15-37); Albumin 2.7 g/dL (3.4-5.0); Alkaline Phosphatase 48 U/L (45-117); BUN Blood Urea Nitrogen 3 mg/dL (7-18); Bicarbonate 35 mmol/L (21-32); Bilirubin Total 1.3 mg/dL (0.2-1.0); Glucose Level 98 mg/dL (74-106); Potassium 3.4 mmol/L (3.5-5.1); Protein, Total 6.7 g/dL (6.4-8.2); Sodium Level 138 mmol/L (136-145)
[2018-07-04 06:25] LABS: Creatine Phosphokinase 1891 U/L (39-308)
[2018-07-04 07:06] LABS: Magnesium 1.5 mg/dL (1.8-2.4); Phosphorus 2.4 mg/dL (2.5-4.9)
[2018-07-04] MEDS: HYDROCODONE/APAP 5/325 MG TAB PO PRN (07:22)
[2018-07-04] MEDS ORDERED: Magnesium Sulfate 2gm IVPB 2 G/50 ML BAG IV ONE (07:36)
[2018-07-04] MEDS ORDERED: POTASSIUM CL SA 10 MEQ TAB PO ONE (07:37)
[2018-07-04] MEDS: SPIRONOLACTONE 25 MG TABLET PO SCH ×2 (08:13→22:07)
[2018-07-04] MEDS: DULOXETINE 30 MG CAP PO SCH (08:14)
[2018-07-04] MEDS: PANTOPRAZOLE 40MG TABLET PO SCH (08:14)
[2018-07-04] MEDS: IPRATROPIUM BROM 0.5MG/2.5ML NEB PRN (08:21)
[2018-07-04] MEDS: ALBUTEROL 2.5 MG/3 ML NEB SOL NEB PRN (08:21)
[2018-07-04] MEDS: DULERA 100/5 (MOMETASONE/FORMOTEROL) INHALER IH SCH ×2 (09:20→22:15)
[2018-07-04] MEDS: LOPERAMIDE HCL 2 MG CAPSULE PO PRN (09:20)
[2018-07-04] MEDS: FOLIC ACID 1 MG, MULTIVITAMINS INJ 10 ML, THIAMINE HCL 100 MG in NA CHLORIDE 0.9% 1,000 ML IV SCH (09:54)
[2018-07-04] MEDS: chlordiazePOXIDE HCl 5 MG CAP PO SCH ×2 (09:54→22:07)
--- NOTE | 2018-07-04 10:57 | RAD REPORT ---
EXAM DESCRIPTION: RAD - Chest Single View - 07/04/2018 8:58 am CLINICAL HISTORY: cough Chest pain. COMPARISON: Chest Single View dated 06/30/2018; Chest Single View dated 12/14/2017; Chest Single View d ated 12/13/2017; Chest Single View dated 12/12/2017 FINDINGS: Portable technique limits examination quality. Airspace opacity present in both lung bases, greater on the left likely representing pneumonia/aspira tion. The heart is normal in size. No displaced fractures.Tortuous thoracic aorta. IMPRESSION: Bibasilar lung opacities are present, greater on the left, likely representing pneumonia /aspiration.
--- NOTE | 2018-07-04 13:23 | PN ---
Date of Progress Note: 07/04/2018 Subjective: The patient seen and examined, chart reviewed, and case discussed with RN and Dr. Claudia church. The patient is having some cough and asking for his inhalers. Review of Systems: Negative except as above. Medications: Reviewed. Physical Examination: Vital Signs: Temperature 99.1, heart rate 106, blood pressure 144/98, respirations 22, O2 94% on 2 L via nasal cannula. General: Awake, alert, oriented x3. Some mild distress. Appears older than stated age male. CV: S1, S2. Sinus tachycardia. No murmurs. Peripheral pulses present. Respiratory: Moving air well bilaterally. No wheezing. Gastrointestinal: Abdomen is soft, nontender, nondistended. Positive bowel sounds. Extremities: No clubbing, cyanosis, edema. Neurologic: Nonfocal. No tremors. Laboratory Data: Sodium 138, potassium 3.4, chloride 97, CO2 35, BUN 3, creatinine 0.7, glucose 98, calcium 7.6, phosphorus 2.4, magnesium 1.5. CK level is 1891. Albumin 2.7. WBC 14.2, H and H 14.5 and 40.6, platelets 305, neutrophils 61%. Assessment And Plan: A 63-year-old male with: 1.Acute metabolic encephalopathy secondary to alcohol withdrawal, resolved. 2.Acute alcohol withdrawal. Continue with Librium taper. Use Ativan p.r.n. 3.Severe hypokalemia, improved. We will continue to monitor and replace as needed. 4.Hypophosphatemia. We will replace. We will monitor. 5.Hypomagnesemia. We will replete and recheck. 6.Cough, dyspnea. The patient is on supplemental oxygen. We will obtain chest x-ray. We will add [place]al[place] Perles and continue with albuterol nebulizer. The patient does take Advair as an outpatient , and we will add Advair. 7.Major depressive disorder. Continue Cymbalta. 8.Degenerative disk disease, cervical lumbar spine with neuropathy. Continue [place]. 9.Acute rhabdomyolysis, traumatic. CK level is still elevated. Continue with IV fluid and hydratio n. 10.Acute kidney injury, resolved. Continue to monitor creatinine level. Gastrointestinal and deep vein thrombosis prophylaxis with PPI and Lovenox. Plan: The patient has been step-down yesterday, however, no beds available on the regular floor. We will continue to monitor electrolytes closely and obtain chest x-ray and followup. /LAURA Voice ID: [id number] Report ID: [id number]
[2018-07-04 14:19] LABS: Magnesium 1.8 mg/dL (1.8-2.4); Potassium 3.4 mmol/L (3.5-5.1)
[2018-07-04] MEDS: PIPER/TAZO/NS 3.375gm 3.375 GM/100 ML BAG IVPB SCH (16:48)
[2018-07-04] MEDS: ENOXAPARIN 40 MG/0.4 ML SQ SCH (16:51)
[2018-07-04] MEDS: POTASSIUM CL SA 10 MEQ TAB PO ONE ×2 (18:01→18:14)
[2018-07-04] MEDS ORDERED: MAGNESIUM SULFATE 1 gm IVPB 1 GM/100 ML BAG IV ONE (18:02)
[2018-07-04] MEDS: KCL 20 MEQ/100 mL IVPB 20 MEQ/100 ML BAG IV SCH ×2 (22:00→22:17)
[2018-07-04] MEDS ORDERED: LORazepam 2 MG/ML VIAL ONE (23:14)
[2018-07-05] MEDS ORDERED: POTASSIUM CL SA 10 MEQ TAB PO ONE (00:14)
[2018-07-05] MEDS: PIPER/TAZO/NS 3.375gm 3.375 GM/100 ML BAG IVPB SCH ×3 (00:48→17:01)
--- NOTE | 2018-07-05 02:26 | PN ---
Date of Progress Note: 07/04/2018 Chief Complaint: Electrolytes abnormalities, prerenal azotemia. History Of Present Illness: The patient has multiple medical problems. He has history of COPD, hype rtension, bipolar disorder, hepatitis, and alcohol abuse. He was brought to emergency room after sta tus post fall. He was found to have rhabdomyolysis and has been treated for alcohol withdrawal. Review of Systems: Unobtainable. The patient remains confused. He is arousable, follows some commands. He was found t o have severe hypokalemia. Potassium was 1.9. The patient received replacement for hypomagnesemia, hypophosphatemia, and hypokalemia. Physical Examination: Lungs: Clear to auscultation bilaterally. Heart: S1, S2. Abdomen: Soft, benign. Extremities: No edema. Laboratory Data: Sodium 138, potassium 3.4, chloride 97, CO2 35, BUN 3, creatinine 0.7, phosphorus 2 .4, calcium 7.6. CK level 1891. Impression And Plan: 1.Rhabdomyolysis. Continue IV fluids and monitor electrolytes closely. Replace potassium, magnesiu m, and phosphorus according to lab results. 2.Alcohol withdrawal. Treatment per primary team. 3.Hypertension. Monitor blood pressure. Adjust medications. EB/MODL Voice ID: [id number] Report ID: [id number]
[2018-07-05] MEDS: LORazepam 2 MG/ML VIAL IV PRN ×4 (03:01→13:10)
[2018-07-05] MEDS: Ringers Lactate 1,000 ML with POTASSIUM CL 20 MEQ IV SCH ×6 (03:01→16:42)
[2018-07-05] MEDS: LOPERAMIDE HCL 2 MG CAPSULE PO PRN (03:35)
[2018-07-05] MEDS: BENZONATATE 100 MG CAP PO PRN (03:35)
[2018-07-05 06:46] LABS: Absolute Lymphocytes (CBC) 1.5 K/uL (0.7-4.9); Absolute Monocytes 2.9 K/uL (0.1-1.3); Absolute Neutrophil 9.1 K/uL (1.8-8.0); Basophils % 1.1 % (0-1.3); Eosinophils % 0.2 % (0-4.4); Hematocrit 39.5 % (39.6-49.0); Lymphocytes % 11.2 % (15.3-44.8); MCH 34.8 pg (27.0-35.0); MCV 97.4 fL (80-100); Monocytes % 20.9 % (3.3-12.3); RBC Red Blood Cell Count 4.06 M/uL (4.33-5.43)
[2018-07-05 07:06] LABS: ALT/SGPT 43 U/L (12-78); AST/SGOT 87 U/L (15-37); Albumin 2.6 g/dL (3.4-5.0); Alkaline Phosphatase 44 U/L (45-117); BUN Blood Urea Nitrogen 5 mg/dL (7-18); Bicarbonate 30 mmol/L (21-32); Bilirubin Total 1.4 mg/dL (0.2-1.0); Glucose Level 106 mg/dL (74-106); Magnesium 1.9 mg/dL (1.8-2.4); Potassium 4.1 mmol/L (3.5-5.1); Protein, Total 6.6 g/dL (6.4-8.2); Sodium Level 138 mmol/L (136-145)
[2018-07-05 07:14] LABS: Creatine Phosphokinase 1732 U/L (39-308)
[2018-07-05] MEDS: PANTOPRAZOLE 40MG TABLET PO SCH (07:57)
[2018-07-05] MEDS: SPIRONOLACTONE 25 MG TABLET PO SCH ×2 (08:33→21:50)
[2018-07-05] MEDS: chlordiazePOXIDE HCl 5 MG CAP PO SCH ×2 (08:33→21:50)
[2018-07-05] MEDS: DULOXETINE 30 MG CAP PO SCH (08:34)
[2018-07-05] MEDS: DULERA 100/5 (MOMETASONE/FORMOTEROL) INHALER IH SCH ×2 (08:35→21:51)
[2018-07-05] MEDS: FOLIC ACID 1 MG, MULTIVITAMINS INJ 10 ML, THIAMINE HCL 100 MG in NA CHLORIDE 0.9% 1,000 ML IV SCH (13:05)
[2018-07-05] MEDS: ENOXAPARIN 40 MG/0.4 ML SQ SCH (17:00)
--- NOTE | 2018-07-05 22:24 | PN ---
Date of Progress Note: 07/05/2018 Subjective: The patient seen and examined. Chart reviewed and case discussed with RN. The patient looking more confused today, was found urinating on himself in the bed this morning, still having getachew e cough, but no sputum production. Review of Systems: Limited due to the patient's medical condition. Medications: List reviewed. Physical Examination: Vital Signs: Temperature 97.8, heart rate 117, respirations 20, O2 93% on room air, blood pressure 1 11/78. General: Awake, alert, oriented to self and place, some mild distress, ill-appearing male. CV: S1, S2. Sinus tachycardia. No murmurs. Peripheral pulses present. Respiratory: Moving air well. Bilateral apices. Some diminished breath sounds at the bases. Gastrointestinal: Abdomen is soft, nontender, nondistended. Positive bowel sounds. No guarding or rigidity. Extremities: No clubbing, cyanosis. The patient does have some trace pedal edema. NEURO: Nonfocal, some generalized muscular weakness. Laboratory Data: Sodium 138, potassium 4.1, chloride 101, CO2 30, BUN 5, creatinine 0.8, glucose 106 , lactate 1.6, calcium 8, magnesium 1.9. CK 1732. WBC 13.7, H and H 14.1/39.5, platelets 320, neutr ophils 56%. Blood cultures pending. Assessment And Plan: A 63-year-old male with: 1.Acute metabolic encephalopathy secondary to alcohol withdrawal, fluctuating. 2.Acute alcohol withdrawal. Continue Librium taper. The patient was switched over to Librium 10 q. 12. The patient is currently tachycardic and tachypneic and slightly more confused. Will use Ativan p.r.n., keep at 10 mg b.i.d. 3.Severe hypokalemia, corrected. We will continue to monitor. 4.Hypophosphatemia, replaced. 5.Hypomagnesemia, replaced. We will monitor. 6.Bibasilar pneumonia, likely aspiration pneumonia. We will continue IV antibiotics. Follow up on cultures. 7.Major depressive disorder. Continue Cymbalta. 8.Degenerative disk disease, cervical, lumbar spine with neuropathy. Continue pain medications. 9.Acute rhabdomyolysis, traumatic. We will monitor CK level, improving slightly. Continue IV fluid hydration. 10.Acute kidney injury, resolved. Appreciate Nephrology input. 11.Gastrointestinal and deep venous thrombosis prophylaxis addressed. SA/MODL Voice ID: [id number] Report ID: [id number]
[2018-07-06] MEDS: LORazepam 2 MG/ML VIAL IV PRN (01:54)
--- NOTE | 2018-07-06 04:14 | PN ---
Date of Progress Note: 07/05/2018 Subjective: The patient confused, today agitated. Physical Examination: Vital Signs: Blood pressure of 105/66, pulse of 92, afebrile. Chest: Clear to auscultation. Heart: S1, S2. Regular. Abdomen: Soft, nontender. Extremities: Trace edema. Laboratory Data: WBC 13.7, H and H 14.1/39.4, sodium 139, potassium 4.1, bicarb 30, BUN 5, creatinin e 0.8, calcium 8. CK 1700. Current Medications: The patient on its include: 1.Zosyn. 2.Albuterol. 3.Lovenox. 4.Wellbutrin. 5.Flumazenil. 6.Lorazepam. 7.Breathing treatment. 8.Loperamide. 9.Pantoprazole. Assessment And Plan: 1.Acute kidney injury secondary to rhabdomyolysis, recovered, resolved. 2.Rhabdomyolysis on the recovery. 3.Hypokalemia, hypomagnesemia, hypophosphatemia, start improving, resolved. Continue supplement as needed. 4.Hypertension, controlled, optimal. Continue current medication. 5.Alcohol withdrawal as by primary. ALEK/LAURA Voice ID: [id number] Report ID: [id number]
[2018-07-06] MEDS: LOPERAMIDE HCL 2 MG CAPSULE PO PRN (05:55)
[2018-07-06 06:10] LABS: BUN Blood Urea Nitrogen 7 mg/dL (7-18); Bicarbonate 29 mmol/L (21-32); Creatine Phosphokinase 719 U/L (39-308); Glucose Level 90 mg/dL (74-106); Magnesium 1.7 mg/dL (1.8-2.4); Potassium 3.4 mmol/L (3.5-5.1); Sodium Level 140 mmol/L (136-145)
[2018-07-06] MEDS ORDERED: MAGNESIUM SULFATE 1 gm IVPB 1 GM/100 ML BAG IV ONE ×2 (06:22→11:59)
[2018-07-06] MEDS ORDERED: POTASSIUM 25 MEQ EFFERV TAB PO ONE (06:24)
[2018-07-06] MEDS: chlordiazePOXIDE HCl 5 MG CAP PO SCH ×2 (08:08→20:51)
[2018-07-06] MEDS: PANTOPRAZOLE 40MG TABLET PO SCH (08:08)
[2018-07-06] MEDS: DULOXETINE 30 MG CAP PO SCH (08:08)
[2018-07-06] MEDS: SPIRONOLACTONE 25 MG TABLET PO SCH ×2 (08:08→20:51)
[2018-07-06] MEDS: PIPER/TAZO/NS 3.375gm 3.375 GM/100 ML BAG IVPB SCH ×3 (08:08→16:11)
[2018-07-06] MEDS: DULERA 100/5 (MOMETASONE/FORMOTEROL) INHALER IH SCH ×2 (09:40→20:52)
[2018-07-06] MEDS: FOLIC ACID 1 MG, MULTIVITAMINS INJ 10 ML, THIAMINE HCL 100 MG in NA CHLORIDE 0.9% 1,000 ML IV SCH (09:40)
--- NOTE | 2018-07-06 11:44 | P.PN ---
Subjective Date of Service: 07/06/18 Chief Complaint: Acute encephalopathy, alcohol withdrawal Subjective: Improving (Is doing well is somewhat alert although confused status post alcohol withdrawal) Review of Systems is unable to be obtained Physical Examination - Vital Signs Temperature: 99.5 F Blood Pressure: 142/104 Pulse: 110 Respirations: 20 Pulse Ox (%): 98 - Physical Exam General: Alert, Cooperative Neck: Supple Respiratory: Clear to auscultation bilaterally Cardiovascular: No edema, Regular rate/rhythm, Normal S1 S2 Assessment & Plan - Problems (Diagnosis) (1) Alcohol withdrawal Onset Date: 12/10/17 Current Visit: No Status: Acute Plan: Patient is 63 years of age admitted with alcohol withdrawal Qualifiers: Complication of substance-induced condition: uncomplicated Qualified Code(s ): F10.230 - Alcohol dependence with withdrawal, uncomplicated (2) Rhabdomyolysis Onset Date: 12/10/17 Current Visit: No Status: Acute Plan: Patient's CBG is improving continue with IV fluids Qualifiers: Rhabdomyolysis type: non-traumatic Qualified Code(s): M62.82 - Rhabdomyolysis
[2018-07-06] MEDS: Ringers Lactate 1,000 ML with POTASSIUM CL 20 MEQ IV SCH ×6 (15:23→23:00)
[2018-07-06] MEDS: ENOXAPARIN 40 MG/0.4 ML SQ SCH (16:11)
[2018-07-06] MEDS ORDERED: POTASSIUM CL SA 10 MEQ TAB PO ONE (19:16)
[2018-07-07] MEDS: Ringers Lactate 1,000 ML with POTASSIUM CL 20 MEQ IV SCH ×6 (01:42→19:12)
[2018-07-07] MEDS: PIPER/TAZO/NS 3.375gm 3.375 GM/100 ML BAG IVPB SCH ×2 (01:43→08:36)
[2018-07-07] MEDS: BENZONATATE 100 MG CAP PO PRN (02:18)
--- NOTE | 2018-07-07 02:26 | PN ---
Date of Progress Note: 07/06/2018 Subjective: The patient more awake today. Still has tremor on the hands. Physical Examination: Vital Signs: Blood pressure of 131/90, pulse of 83, T-max of 101. Chest: Clear to auscultation. Heart: S1, S2. Regular. Abdomen: Soft, nontender. Extremities: Trace edema. Laboratory Data: WBC 13.7, H and H 14.1/39.5, platelet 320. Sodium 140, potassium 3.4, bicarb 29, BUN 7, creatinine 0.8, calcium of 8, magnesium of 1.7. CK of 700. Assessment And Plan: 1. Rhabdomyolysis, recovered, resolved. 2. Hypokalemia, hypophosphatemia, and hypomagnesemia. We will continue supplement. 3. Hypertension, controlled, optimal. 4. Alcohol withdrawal as by primary. LUDA Voice ID: [id number] Report ID: [id number] JORDIN
[2018-07-07] MEDS ORDERED: POTASSIUM CL SA 10 MEQ TAB PO ONE ×3 (02:51→11:17)
[2018-07-07] MEDS: HYDROCODONE/APAP 5/325 MG TAB PO PRN ×2 (04:21→16:32)
[2018-07-07 06:16] LABS: Magnesium 1.8 mg/dL (1.8-2.4); Potassium 3.8 mmol/L (3.5-5.1)
[2018-07-07] MEDS ORDERED: MAGNESIUM SULFATE 1 gm IVPB 1 GM/100 ML BAG IV ONE ×2 (07:12→11:16)
[2018-07-07] MEDS: DULERA 100/5 (MOMETASONE/FORMOTEROL) INHALER IH SCH ×2 (08:35→21:00)
[2018-07-07] MEDS: SPIRONOLACTONE 25 MG TABLET PO SCH ×2 (08:36→21:00)
[2018-07-07] MEDS: PANTOPRAZOLE 40MG TABLET PO SCH (08:36)
[2018-07-07] MEDS: DULOXETINE 30 MG CAP PO SCH (08:36)
[2018-07-07] MEDS: chlordiazePOXIDE HCl 5 MG CAP PO SCH (08:37)
[2018-07-07] MEDS: FOLIC ACID 1 MG, MULTIVITAMINS INJ 10 ML, THIAMINE HCL 100 MG in NA CHLORIDE 0.9% 1,000 ML IV SCH (10:27)
--- NOTE | 2018-07-07 10:40 | P.PN ---
Subjective Date of Service: 07/07/18 Chief Complaint: Acute encephalopathy, alcohol withdrawal Subjective: Improving (Patient is doing much better ambulating no new complaints ) Review of Systems Unremarkable Physical Examination - Vital Signs Temperature: 98.5 F Blood Pressure: 130/89 Pulse: 97 Respirations: 18 Pulse Ox (%): 97 - Physical Exam General: Alert, Oriented x3 Respiratory: Clear to auscultation bilaterally Cardiovascular: No edema, Normal S1 S2 Gastrointestinal: Normal bowel sounds, Soft and benign Assessment & Plan - Problems (Diagnosis) (1) Alcohol withdrawal Onset Date: 12/10/17 Current Visit: No Status: Acute Plan: Patient is 63 years of age admitted with alcohol withdrawal he is doing much better check room air pulse ox ambulate Qualifiers: Complication of substance-induced condition: uncomplicated Qualified Code(s ): F10.230 - Alcohol dependence with withdrawal, uncomplicated (2) Rhabdomyolysis Onset Date: 12/10/17 Current Visit: No Status: Acute Plan: Improving continue with IV fluids Qualifiers: Rhabdomyolysis type: non-traumatic Qualified Code(s): M62.82 - Rhabdomyolysis (3) Pneumonia Current Visit: Yes Status: Acute Plan: Change to p.o. antibiotics change to p.o. went in possible discharge tomorrow on all Augmentin for another 7 days white count is declining cultures are negative so far Qualifiers: Pneumonia type: due to unspecified organism
[2018-07-07] MEDS: ENOXAPARIN 40 MG/0.4 ML SQ SCH (16:31)
[2018-07-07] MEDS: LOPERAMIDE HCL 2 MG CAPSULE PO PRN (16:32)
--- NOTE | 2018-07-07 16:49 | PN ---
Date of Progress Note: 07/07/2018 Subjective: The patient is doing well. No nausea. No vomiting. More awake today. Physical Examination: Vital Signs: Blood pressure 130/89, pulse of 97. Afebrile. Chest: Clear to auscultation. Heart: S1, S2. Regular. Abdomen: Soft, nontender. Extremities: Trace edema. Laboratory Data: H and H 14.1/39.5. Sodium 141, potassium 3.8, bicarb 26, BUN 6, creatinine 0.9, ca lcium 8.2, magnesium 1.8. Medications: Current medications include Augmentin, spironolactone, loperamide, pantoprazole. Assessment And Plan: 1.Acute kidney injury secondary to prerenal, recovered, resolved. 2.Rhabdomyolysis, recovered, resolved. 3.Hypokalemia and hypomagnesemia. We will continue supplement. 4.Alcohol withdrawal as by primary. LUDA Voice ID: [id number] Report ID: [id number]
[2018-07-07] MEDS: AMOX/K CLAV 500 MG TAB PO SCH (21:00)
[2018-07-08] MEDS: BENZONATATE 100 MG CAP PO PRN ×2 (00:16→08:59)
[2018-07-08] MEDS: IPRATROPIUM BROM 0.5MG/2.5ML NEB PRN ×2 (00:20→21:01)
[2018-07-08] MEDS: ALBUTEROL 2.5 MG/3 ML NEB SOL NEB PRN (00:20)
[2018-07-08] MEDS: LORazepam 2 MG/ML VIAL IV PRN ×6 (00:34→23:50)
[2018-07-08] MEDS: chlordiazePOXIDE HCl 5 MG CAP PO PRN ×2 (04:15→17:05)
[2018-07-08] MEDS: Ringers Lactate 1,000 ML with POTASSIUM CL 20 MEQ IV SCH ×6 (04:16→15:24)
[2018-07-08 04:23] LABS: Hematocrit 36.2 % (39.6-49.0); MCV 98.6 fL (80-100); MPV 9.3 fL (7.6-11.3); RBC Red Blood Cell Count 3.68 M/uL (4.33-5.43)
[2018-07-08 05:12] LABS: ALT/SGPT 29 U/L (12-78); AST/SGOT 29 U/L (15-37); Albumin 2.5 g/dL (3.4-5.0); Alkaline Phosphatase 36 U/L (45-117); BUN Blood Urea Nitrogen 4 mg/dL (7-18); Bicarbonate 26 mmol/L (21-32); Bilirubin Total 0.8 mg/dL (0.2-1.0); Creatine Phosphokinase 280 U/L (39-308); Glucose Level 97 mg/dL (74-106); Protein, Total 6.3 g/dL (6.4-8.2); Sodium Level 141 mmol/L (136-145)
[2018-07-08] MEDS: DULOXETINE 30 MG CAP PO SCH (08:58)
[2018-07-08] MEDS: AMOX/K CLAV 500 MG TAB PO SCH ×2 (08:59→20:53)
[2018-07-08] MEDS: PANTOPRAZOLE 40MG TABLET PO SCH (08:59)
[2018-07-08] MEDS: SPIRONOLACTONE 25 MG TABLET PO SCH ×2 (08:59→20:53)
[2018-07-08] MEDS: HYDROCODONE/APAP 5/325 MG TAB PO PRN ×3 (08:59→23:47)
[2018-07-08] MEDS: FOLIC ACID 1 MG, MULTIVITAMINS INJ 10 ML, THIAMINE HCL 100 MG in NA CHLORIDE 0.9% 1,000 ML IV SCH (09:00)
[2018-07-08] MEDS: DULERA 100/5 (MOMETASONE/FORMOTEROL) INHALER IH SCH ×2 (09:00→20:54)
[2018-07-08 10:11] LABS: Absolute Lymphocytes (CBC) 1.8 K/uL (0.7-4.9); Absolute Monocytes 1.3 K/uL (0.1-1.3); Basophils % 0.5 % (0-1.3); Eosinophils % 1.7 % (0-4.4); Hematocrit 36.1 % (39.6-49.0); Lymphocytes % 15.6 % (15.3-44.8); MCH 34.9 pg (27.0-35.0); MCV 98.6 fL (80-100); MPV 8.9 fL (7.6-11.3); Monocytes % 11.7 % (3.3-12.3); RBC Red Blood Cell Count 3.66 M/uL (4.33-5.43)
[2018-07-08 10:29] LABS: Albumin 2.5 g/dL (3.4-5.0); Bilirubin Total 0.8 mg/dL (0.2-1.0); Potassium 4.3 mmol/L (3.5-5.1); Protein, Total 6.5 g/dL (6.4-8.2)
[2018-07-08] MEDS: LABETALOL HCL 100 MG/20 ML IV PRN ×2 (11:07→18:17)
--- NOTE | 2018-07-08 13:33 | PN ---
Subjective: The patient seen and examined, chart reviewed, and case discussed with RN. The patient has been doing better. He has been ambulating over the weekend, however, still continues to be sligh tly confused, urinating on the floor and in the bed, flagging for sepsis. States that he has to pay his rent today and has to sampler pickup his dog. He understands that he cannot leave the hospital at this time as he is not stable. Review of Systems: Negative except as above. Medications: List reviewed. Physical Examination: Vital Signs: Temperature 99, heart rate 108, blood pressure 150/103, respirations 36, O2 93% on 3 L via nasal cannula. General: Awake, alert, oriented x2. Some mild distress, confused male. CV: S1, S2. Sinus tachycardia. Peripheral pulses present. Respiratory: Moving air well bilaterally. No wheezing. The patient is tachypneic. Gastrointestinal: Abdomen is soft, nontender, nondistended. Positive bowel sounds. Extremities: No clubbing, cyanosis, edema. Neurologic: Nonfocal. No tremors. Skin: The patient has multiple abrasions from his recent fall, healing. Laboratory Data: Sodium 140, potassium 4.3, chloride 108, CO2 23, BUN 4, creatinine 0.9, BUN 4. [place] 1.9, calcium 8.2, albumin 2 5. WBC 11.4, H and H 12.8, 36.1, platelets 442. Blood cultures, no growth to date. Assessment: A 63-year-old male with: 1.Acute metabolic encephalopathy, improving, secondary to alcohol withdrawal. The patient is still urinating in the bed and on the floor, however much more oriented, making sense. 2.Acute alcohol withdrawal. The patient on Librium taper, currently at 10 mg q.12 hours. The patie nt is still requiring Ativan p.r.n. The patient is tachycardic, tachypneic, doubt any systemic infla mmatory response syndrome. Lactate is negative. Blood cultures are negative. White count is only 1 1.4. We will continue with IV fluids. 3.Multiple electrolyte abnormalities including hypokalemia, corrected. 4.Hypophosphatemia, replaced. 5.Hypomagnesemia. We will replace and monitor. 6.Bibasilar pneumonia, likely aspiration pneumonia. We will continue antibiotics. The patient not very cooperative with speech therapy evaluation. We will obtain modified barium swallow study to rul e out aspiration. 7.Major depressive disorder. Continue Cymbalta. 8.Degenerative disk disease of cervical and lumbar spine with neuropathy. Continue pain medications . 9.Acute rhabdomyolysis, traumatic, resolved. 10.Acute kidney injury, resolved. 11.Status post fall. 12.Gastrointestinal and deep venous thrombosis prophylaxis, addressed. Plan: Follow up on modified barium swallow study. IV fluids. Continue to use Ativan p.r.n. /LAURA Voice ID: [id number] Report ID: [id number]
[2018-07-08] MEDS: LOPERAMIDE HCL 2 MG CAPSULE PO PRN ×2 (14:00→20:53)
--- NOTE | 2018-07-08 15:55 | RAD REPORT ---
EXAM DESCRIPTION: RAD - Barium Swallow Modified - 07/08/2018 3:43 pm CLINICAL HISTORY: coughing with food/fluids FINDINGS: : no penetration or aspiration abserved , Pureed bolus passed into the lower esophagus without incident fluoro time 2.40 min Thirteen fluoroscopic series were obtained
[2018-07-08] MEDS: ENOXAPARIN 40 MG/0.4 ML SQ SCH (17:06)
--- NOTE | 2018-07-08 20:04 | PN ---
Date of Progress Note: 07/08/2018 Chief Complaint: Acute kidney injury with prerenal azotemia. History Of Present Illness: The patient presented to the hospital because of altered mental status. He was found to have rhabdomyolysis. He was treated with IV fluids and received replacement for sev ere hypokalemia and hypomagnesemia. The patient is on supplementation to control hypokalemia and hyp omagnesemia. Review of Systems: The patient is undergoing study with barium swallow today. He denies chest pain, palpitation. Denie s nausea or vomiting. Physical Examination: Lungs: Clear to auscultation bilaterally. Heart: S1, S2. Abdomen: Soft. Benign. Extremities: No edema. Laboratory Data: Sodium 141, potassium 3.6, bicarbonate is 26, BUN 6, creatinine 0.9, magnesium 1.8, calcium 8.2. Impression And Plan: 1.Acute kidney injury with prerenal azotemia. Continue hydration. Monitor electrolytes closely, pr erenal azotemia has resolved. 2.Rhabdomyolysis. The patient recovered. Monitor phosphorus level. 3.Hypokalemia and hypomagnesemia. Continue supplementation. 4.Alcohol withdrawal per primary team. 5.Hypertension. Blood pressure controlled. Continue current treatment. AJAY/LAURA Voice ID: [id number] Report ID: [id number]
[2018-07-09] MEDS: Ringers Lactate 1,000 ML with POTASSIUM CL 20 MEQ IV SCH ×4 (01:30→11:36)
[2018-07-09 04:50] LABS: Absolute Lymphocytes (CBC) 2.3 K/uL (0.7-4.9); Absolute Monocytes 1.2 K/uL (0.1-1.3); Basophils % 1.5 % (0-1.3); Eosinophils % 3.1 % (0-4.4); Hematocrit 34.7 % (39.6-49.0); Lymphocytes % 20.6 % (15.3-44.8); MCH 35.1 pg (27.0-35.0); MPV 9.5 fL (7.6-11.3); Monocytes % 11.3 % (3.3-12.3)
[2018-07-09 05:06] LABS: ALT/SGPT 27 U/L (12-78); AST/SGOT 25 U/L (15-37); Albumin 2.4 g/dL (3.4-5.0); Alkaline Phosphatase 38 U/L (45-117); BUN Blood Urea Nitrogen 4 mg/dL (7-18); Bicarbonate 24 mmol/L (21-32); Bilirubin Total 0.9 mg/dL (0.2-1.0); Glucose Level 92 mg/dL (74-106); Potassium 3.9 mmol/L (3.5-5.1); Protein, Total 6.2 g/dL (6.4-8.2); Sodium Level 141 mmol/L (136-145)
[2018-07-09] MEDS ORDERED: POTASSIUM 25 MEQ EFFERV TAB PO ONE (06:34)
[2018-07-09] MEDS: DULERA 100/5 (MOMETASONE/FORMOTEROL) INHALER IH SCH ×2 (09:00→21:00)
[2018-07-09] MEDS: PANTOPRAZOLE 40MG TABLET PO SCH (09:47)
[2018-07-09] MEDS: SPIRONOLACTONE 25 MG TABLET PO SCH ×2 (09:47→21:20)
[2018-07-09] MEDS: AMOX/K CLAV 500 MG TAB PO SCH ×2 (09:48→21:20)
[2018-07-09] MEDS: chlordiazePOXIDE HCl 5 MG CAP PO PRN (09:48)
[2018-07-09] MEDS: DULOXETINE 30 MG CAP PO SCH (09:49)
[2018-07-09] MEDS: FOLIC ACID 1 MG, MULTIVITAMINS INJ 10 ML, THIAMINE HCL 100 MG in NA CHLORIDE 0.9% 1,000 ML IV SCH (09:56)
[2018-07-09] MEDS: LABETALOL HCL 100 MG/20 ML IV PRN (12:22)
[2018-07-09] MEDS: BENZONATATE 100 MG CAP PO PRN (12:46)
[2018-07-09] MEDS: IPRATROPIUM BROM 0.5MG/2.5ML NEB PRN (13:03)
[2018-07-09] MEDS: ALBUTEROL 2.5 MG/3 ML NEB SOL NEB PRN (13:03)
[2018-07-09] MEDS: LOPERAMIDE HCL 2 MG CAPSULE PO PRN ×2 (13:38→21:20)
[2018-07-09] MEDS ORDERED: POTASSIUM CL SA 10 MEQ TAB PO ONE (13:49)
[2018-07-09] MEDS: LORazepam 2 MG/ML VIAL IV PRN ×3 (14:24→21:20)
[2018-07-09] MEDS ORDERED: FUROSEMIDE 20 MG/ 2ML VIAL IV ONE (15:11)
[2018-07-09] MEDS: PROPRANOLOL HCL 60 MG SA CAP PO SCH (16:04)
[2018-07-09] MEDS: ENOXAPARIN 40 MG/0.4 ML SQ SCH (16:54)
--- NOTE | 2018-07-09 18:08 | P.PN ---
Subjective Date of Service: 07/09/18 Primary Care Provider: None Chief Complaint: Acute encephalopathy, alcohol withdrawal Subjective: Other (Patient doing better today.) Physical Examination - Vital Signs Temperature: 99.6 F Blood Pressure: 171/81 Pulse: 91 Respirations: 18 Pulse Ox (%): 93 - Physical Exam General: Alert, Cooperative HEENT: Atraumatic Neck: Supple Respiratory: Clear to auscultation bilaterally, Normal air movement Cardiovascular: Normal pulses, Regular rate/rhythm Gastrointestinal: Normal bowel sounds, Soft and benign, Non-distended, No masses , No rebound, No guarding Musculoskeletal: No erythema, No tenderness, No warmth - Studies Medications List Reviewed: Yes Assessment & Plan Physician Review Additional Text: Impression: Alcohol abuse Alcohol withdrawal Hypertension COPD Bipolar disorder Pneumonia Rhabdomyolysis Plan: Patient continues to improve. Will monitor closely. Will continue physical therapy. Spoke with older adult social work specialist about plan of care. Patient likely not able to take care of himself. Patient may require skilled placement verses long-term care. Time Spent Managing Pts Care (In Minutes): 55
--- NOTE | 2018-07-09 20:49 | PN ---
Date of Progress Note: 07/07/2018 Subjective: The patient is doing better. More awake. Physical Examination: Vital Signs: Blood pressure 167/83, pulse of 84 afebrile. The patient had good urine output. Chest: Clear to auscultation. Heart: S1, S2. Regular. Abdomen: Soft, nontender. Extremity: Trace edema. Laboratory Data: WBC 10.9, H and H 12.3/34.7, platelets 521. Sodium 141, potassium 3.9, bicarb 24, BUN 4, creatinine 0.8, calcium 8.2. Medications: Current medications the patient on, it include: 1.Augmentin. 2.Labetalol. 3.Spironolactone. 4.Flumazenil. 5.Folic acid. 6.Pantoprazole. 7.KCl. 8.LR. Assessment And Plan: 1.Acute kidney injury secondary to rhabdomyolysis, resolved. 2.Rhabdomyolysis, resolved. 3.Alcohol withdrawal, stable. 4.Hypokalemia, hypophosphatemia, hypomagnesemia. Continue supplement. 5.Hypertension. I am going to add to the patient Inderal and we will dose the patient with single d ose of Lasix. We will follow up. LUDA Voice ID: [id number] Report ID: [id number]
[2018-07-09] MEDS: HYDROCODONE/APAP 5/325 MG TAB PO PRN (21:27)
[2018-07-10] MEDS: LOPERAMIDE HCL 2 MG CAPSULE PO PRN ×2 (08:08→17:02)
[2018-07-10] MEDS: PANTOPRAZOLE 40MG TABLET PO SCH (08:08)
[2018-07-10] MEDS: SPIRONOLACTONE 25 MG TABLET PO SCH ×2 (08:08→20:15)
[2018-07-10] MEDS: DULOXETINE 30 MG CAP PO SCH (08:08)
[2018-07-10] MEDS: PROPRANOLOL HCL 60 MG SA CAP PO SCH (08:08)
[2018-07-10] MEDS: AMOX/K CLAV 500 MG TAB PO SCH ×2 (08:08→20:15)
[2018-07-10] MEDS: DULERA 100/5 (MOMETASONE/FORMOTEROL) INHALER IH SCH ×2 (08:39→20:15)
[2018-07-10] MEDS: LORazepam 2 MG/ML VIAL IV PRN ×2 (10:44→14:27)
[2018-07-10] MEDS: FOLIC ACID 1 MG, MULTIVITAMINS INJ 10 ML, THIAMINE HCL 100 MG in NA CHLORIDE 0.9% 1,000 ML IV SCH (10:50)
--- NOTE | 2018-07-10 14:06 | P.PN ---
Subjective Date of Service: 07/10/18 Primary Care Provider: None Chief Complaint: Acute encephalopathy, alcohol withdrawal Subjective: Improving Physical Examination - Vital Signs Temperature: 98.5 F Blood Pressure: 124/81 Pulse: 75 Respirations: 18 Pulse Ox (%): 99 - Physical Exam General: Alert, Other (Patient slowly improving. Less confused) HEENT: Atraumatic Neck: Supple Respiratory: Clear to auscultation bilaterally, Normal air movement Cardiovascular: Normal pulses, Regular rate/rhythm Gastrointestinal: Normal bowel sounds, Soft and benign, Non-distended, No tenderness, No masses, No rebound, No guarding Musculoskeletal: No erythema, No tenderness, No warmth Integumentary: No tenderness/swelling, No erythema, No warmth, No cyanosis Neurological: Normal speech, Normal strength at 5/5 x4 extr, Normal tone, Normal affect - Studies Medications List Reviewed: Yes Assessment & Plan - Problems (Diagnosis) (1) Acute encephalopathy Onset Date: 07/01/18 Current Visit: Yes Status: Acute (2) Pneumonia Current Visit: Yes Status: Acute Qualifiers: Pneumonia type: due to unspecified organism Laterality: bilateral Lung location: lower lobe of lung Qualified Code(s): J18.1 - Lobar pneumonia, unspecified organism (3) Alcohol abuse Current Visit: No Status: Acute (4) Alcohol withdrawal Onset Date: 12/10/17 Current Visit: No Status: Acute Qualifiers: Complication of substance-induced condition: uncomplicated Qualified Code(s ): F10.230 - Alcohol dependence with withdrawal, uncomplicated (5) Anemia Current Visit: No Status: Acute Qualifiers: Anemia type: other cause Other causes of anemia: other cause, not classified Qualified Code(s): D64.89 - Other specified anemias (6) COPD (chronic obstructive pulmonary disease) Current Visit: No Status: Acute Qualifiers: COPD type: COPD with acute exacerbation Qualified Code(s): J44.1 - Chronic obstructive pulmonary disease with (acute) exacerbation (7) Rhabdomyolysis Onset Date: 12/10/17 Current Visit: No Status: Acute Qualifiers: Rhabdomyolysis type: non-traumatic Qualified Code(s): M62.82 - Rhabdomyolysis (8) Depression Current Visit: No Status: Chronic Qualifiers: Depression Type: unspecified Qualified Code(s): F32.9 - Major depressive disorder, single episode, unspecified (9) GERD (gastroesophageal reflux disease) Current Visit: No Status: Chronic Qualifiers: Esophagitis presence: esophagitis presence not specified Qualified Code(s) : K21.9 - Gastro-esophageal reflux disease without esophagitis (10) Hypertension Current Visit: No Status: Chronic Qualifiers: Hypertension type: essential hypertension Qualified Code(s): I10 - Essential (primary) hypertension Discharge Plan: Other (Skilled placement) Plan to discharge in: 24 Hours Physician Review Additional Text: Plan: Patient continues to improve. Patient is working with physical therapy. environmental services assistant spoke to her sister. Will tried to see if the patient qualifies for skilled placement as the patient is high risk for falls at home. Patient still not ready to be alone at home. Case discussed with patient who somewhat agrees. Will continue to work with social work therapist to help in this process Time Spent Managing Pts Care (In Minutes): 55
[2018-07-10] MEDS: ENOXAPARIN 40 MG/0.4 ML SQ SCH (17:02)
--- NOTE | 2018-07-10 22:08 | PN ---
Date of Progress Note: 07/10/2018 Subjective: The patient doing well, more awake. Physical Examination: Vital Signs: Blood pressure 124/81, pulse of 75. Chest: Clear to auscultation. Heart: S1, S2. Regular. Abdomen: Soft, nontender. Extremities: No edema. Laboratory Data: H and H 12.3/34.7. Sodium 142, potassium 4, bicarb 26, BUN 6, creatinine 0.9, calc ium 8.7. Current Medications: Inderal 60 mg daily, spironolactone 25 b.i.d., breathing treatment, pantoprazol e. Assessment And Plan: 1.Rhabdomyolysis, resolved. 2.Hypokalemia, hypophosphatemia, hypomagnesemia, resolved. 3.Hypertension, better controlled. Continue Inderal and spironolactone. 4.Alcohol withdrawal. Follow up with the primary. LUDA Voice ID: [id number] Report ID: [id number]
[2018-07-11] MEDS: LORazepam 2 MG/ML VIAL IV PRN ×2 (03:52→16:42)
--- NOTE | 2018-07-11 08:49 | P.PN ---
Subjective Date of Service: 07/11/18 Primary Care Provider: None Chief Complaint: Acute encephalopathy, alcohol withdrawal Subjective: Other (Patient continues to improve.) Physical Examination - Vital Signs Temperature: 98.6 F Blood Pressure: 149/80 Pulse: 70 Respirations: 20 Pulse Ox (%): 96 - Physical Exam General: Alert, In no apparent distress, Cooperative, Confused (Slightly confused ) HEENT: Atraumatic Neck: Supple Respiratory: Clear to auscultation bilaterally, Normal air movement Cardiovascular: Normal pulses, Regular rate/rhythm Gastrointestinal: Normal bowel sounds, Soft and benign, Non-distended, No tenderness, No masses, No rebound, No guarding Musculoskeletal: No erythema, No tenderness, No warmth Integumentary: No erythema, No warmth, No cyanosis Neurological: Normal speech, Normal strength at 5/5 x4 extr, Normal tone, Normal affect (Patient improve still with some slight confusion.) - Studies Medications List Reviewed: Yes Assessment & Plan - Problems (Diagnosis) (1) Acute encephalopathy Onset Date: 07/01/18 Current Visit: Yes Status: Acute (2) Pneumonia Current Visit: Yes Status: Acute Qualifiers: Pneumonia type: due to unspecified organism Laterality: bilateral Lung location: lower lobe of lung Qualified Code(s): J18.1 - Lobar pneumonia, unspecified organism (3) Alcohol abuse Current Visit: No Status: Acute (4) Alcohol withdrawal Onset Date: 12/10/17 Current Visit: No Status: Acute Qualifiers: Complication of substance-induced condition: uncomplicated Qualified Code(s ): F10.230 - Alcohol dependence with withdrawal, uncomplicated (5) Anemia Current Visit: No Status: Acute Qualifiers: Anemia type: other cause Other causes of anemia: other cause, not classified Qualified Code(s): D64.89 - Other specified anemias (6) COPD (chronic obstructive pulmonary disease) Current Visit: No Status: Acute Qualifiers: COPD type: COPD with acute exacerbation Qualified Code(s): J44.1 - Chronic obstructive pulmonary disease with (acute) exacerbation (7) Rhabdomyolysis Onset Date: 12/10/17 Current Visit: No Status: Acute Qualifiers: Rhabdomyolysis type: non-traumatic Qualified Code(s): M62.82 - Rhabdomyolysis (8) Depression Current Visit: No Status: Chronic Qualifiers: Depression Type: unspecified Qualified Code(s): F32.9 - Major depressive disorder, single episode, unspecified (9) GERD (gastroesophageal reflux disease) Current Visit: No Status: Chronic Qualifiers: Esophagitis presence: esophagitis presence not specified Qualified Code(s) : K21.9 - Gastro-esophageal reflux disease without esophagitis (10) Hypertension Current Visit: No Status: Chronic Qualifiers: Hypertension type: essential hypertension Qualified Code(s): I10 - Essential (primary) hypertension Discharge Plan: Prison Plan to discharge in: 24 Hours Physician Review Additional Text: Plan: Patient continues to make progress. Patient continues to work with physical therapy. He is still confused at times. Social work spoke to sister yesterday concerning the possible need for skilled placement. I tried to reach out to family but not able to reach family with multiple phone numbers. Patient still at risk for falls at home. Still unsafe to go home alone. Will recommend to continue with physical therapy and pursue skilled placement. Will discuss further with social service liaison and arrange for family discussion concerning his care. Time Spent Managing Pts Care (In Minutes): 55
[2018-07-11] MEDS: SPIRONOLACTONE 25 MG TABLET PO SCH ×2 (08:50→21:24)
[2018-07-11] MEDS: PROPRANOLOL HCL 60 MG SA CAP PO SCH (08:50)
[2018-07-11] MEDS: DULOXETINE 30 MG CAP PO SCH (08:50)
[2018-07-11] MEDS: PANTOPRAZOLE 40MG TABLET PO SCH (08:50)
[2018-07-11] MEDS: DULERA 100/5 (MOMETASONE/FORMOTEROL) INHALER IH SCH ×2 (08:52→21:25)
[2018-07-11] MEDS: FOLIC ACID 1 MG, MULTIVITAMINS INJ 10 ML, THIAMINE HCL 100 MG in NA CHLORIDE 0.9% 1,000 ML IV SCH (09:00)
[2018-07-11] MEDS: HYDROCODONE/APAP 5/325 MG TAB PO PRN (11:27)
[2018-07-11] MEDS: AMOX/K CLAV 500 MG TAB PO SCH ×2 (11:27→21:24)
[2018-07-11] MEDS: ENOXAPARIN 40 MG/0.4 ML SQ SCH (17:00)
[2018-07-11] MEDS: FOLIC ACID 1 MG TABLET PO SCH (17:53)
[2018-07-11] MEDS: THIAMINE HCL 100 MG TABLET PO SCH (17:53)
--- NOTE | 2018-07-11 18:41 | RAD REPORT ---
EXAM DESCRIPTION: US - UPPER EXTREMITY VENOUS UNILATE - 07/11/2018 6:30 pm CLINICAL HISTORY: Left arm swelling COMPARISON: None FINDINGS: Echogenic material consistent with thrombus is present within the left cephalic vein withi n the proximal upper arm measuring approximately 8 centimeters in cranial caudal length. The vein is noncompressible. The left internal jugular, subclavian, axillary, brachial, basilic, radial and ulnar veins are compre ssible and demonstrate augmentation. Doppler demonstrates good flow IMPRESSION: Acute thrombus within the left cephalic vein
--- NOTE | 2018-07-12 03:04 | PN ---
Date of Progress Note: 07/11/2018 Chief Complaint: Acute kidney injury associated with renal hypoperfusion. Renal function has improved. The patient was found to have multiple electrolyte abnormalities including hypokalemia and received replacement. Rhabdomyolysis resolved. The patient was admitted with alcohol withdrawal, was found to have hypokalemia, hypophosphatemia, and hypomagnesemia, and remains on supplementation. Review of Systems: Constitutional: Denies fever, chills. Eyes: Denies vision changes. Ears, Nose, Mouth, and Throat: Denies sore throat or earache. Physical Examination: Lungs: Clear to auscultation bilaterally. Heart: S1, S2. Abdomen: Soft, benign. Extremities: Minimal edema in both legs. Laboratory Data: Hemoglobin 12.3, WBC 10.9, platelet count is 521,000. Sodium 142, potassium 4.0, chloride 109, CO2 26, BUN 6, creatinine 0.9, glucose 87, calcium 8.7, albumin 2.4. Impression And Plan: 1. Acute kidney injury. Renal function improved to baseline. Monitor renal function and fluid balance. Continue adequate hydration by mouth. The patient tolerates p.o. intake. 2. Hypoalbuminemia, increase p.o. protein intake. 3. Hypophosphatemia, hypomagnesemia. Magnesium level improved to 2.0. Reevaluate phosphorus level. AJAY/LAURA Voice ID: [id number] Report ID: [id number] JORDIN
[2018-07-12] MEDS: LORazepam 2 MG/ML VIAL IV PRN ×2 (04:18→12:11)
[2018-07-12 06:05] LABS: BUN Blood Urea Nitrogen 5 mg/dL (7-18); Bicarbonate 24 mmol/L (21-32); Glucose Level 93 mg/dL (74-106); Phosphorus 4.4 mg/dL (2.5-4.9); Potassium 3.7 mmol/L (3.5-5.1); Sodium Level 143 mmol/L (136-145)
[2018-07-12 06:29] VITALS: BMI 25.4
[2018-07-12] MEDS ORDERED: POTASSIUM 25 MEQ EFFERV TAB PO ONE (06:33)
[2018-07-12] MEDS ORDERED: ENOXAPARIN 80 MG/0.8 ML SQ SCH (07:00)
[2018-07-12] MEDS ORDERED: APIXABAN 5 MG TABLET PO SCH (09:00)
[2018-07-12] MEDS ORDERED: FOLIC ACID 5 MG/ML VIAL IVP SCH (09:00)
[2018-07-12] MEDS: PROPRANOLOL HCL 60 MG SA CAP PO SCH (09:37)
[2018-07-12] MEDS: DULERA 100/5 (MOMETASONE/FORMOTEROL) INHALER IH SCH (09:38)
[2018-07-12] MEDS: AMOX/K CLAV 500 MG TAB PO SCH (09:38)
[2018-07-12] MEDS: SPIRONOLACTONE 25 MG TABLET PO SCH (09:38)
[2018-07-12] MEDS: PANTOPRAZOLE 40MG TABLET PO SCH (09:39)
[2018-07-12] MEDS: THIAMINE HCL 100 MG TABLET PO SCH (09:39)
[2018-07-12] MEDS: FOLIC ACID 1 MG TABLET PO SCH (09:39)
[2018-07-12] MEDS: LOPERAMIDE HCL 2 MG CAPSULE PO PRN (09:39)
[2018-07-12] MEDS: DULOXETINE 30 MG CAP PO SCH (09:39)
[2018-07-12] MEDS: chlordiazePOXIDE HCl 5 MG CAP PO PRN (09:43)
[2018-07-12 10:27] VITALS: O2SAT 94
[2018-07-12 12:38] VITALS: BP 156/91; TEMP 99.1
--- NOTE | 2018-07-12 14:34 | P.PN ---
Subjective Date of Service: 07/12/18 Primary Care Provider: None Chief Complaint: Acute encephalopathy, alcohol withdrawal Subjective: Doing well (Still with some confusion.) Physical Examination - Vital Signs Temperature: 99.1 F Blood Pressure: 156/91 Pulse: 80 Respirations: 18 Pulse Ox (%): 96 - Physical Exam General: Alert, In no apparent distress, Cooperative, Confused Neck: Supple Respiratory: Clear to auscultation bilaterally, Normal air movement Cardiovascular: Normal pulses, Regular rate/rhythm Gastrointestinal: Normal bowel sounds, Non-distended, No masses, No rebound, No guarding Musculoskeletal: No tenderness, No warmth Integumentary: Other (Swelling to the left upper extremity noted.) Neurological: Normal speech, Normal strength at 5/5 x4 extr, Normal tone - Studies Medications List Reviewed: Yes Assessment & Plan - Problems (Diagnosis) (1) Acute encephalopathy Onset Date: 07/01/18 Current Visit: Yes Status: Acute (2) Pneumonia Current Visit: Yes Status: Acute Qualifiers: Pneumonia type: due to unspecified organism Laterality: bilateral Lung location: lower lobe of lung Qualified Code(s): J18.1 - Lobar pneumonia, unspecified organism (3) Alcohol abuse Current Visit: No Status: Acute (4) Alcohol withdrawal Onset Date: 12/10/17 Current Visit: No Status: Acute Qualifiers: Complication of substance-induced condition: uncomplicated Qualified Code(s ): F10.230 - Alcohol dependence with withdrawal, uncomplicated (5) Anemia Current Visit: No Status: Acute Qualifiers: Anemia type: other cause Other causes of anemia: other cause, not classified Qualified Code(s): D64.89 - Other specified anemias (6) COPD (chronic obstructive pulmonary disease) Current Visit: No Status: Acute Qualifiers: COPD type: COPD with acute exacerbation Qualified Code(s): J44.1 - Chronic obstructive pulmonary disease with (acute) exacerbation (7) Rhabdomyolysis Onset Date: 12/10/17 Current Visit: No Status: Acute Qualifiers: Rhabdomyolysis type: non-traumatic Qualified Code(s): M62.82 - Rhabdomyolysis (8) Depression Current Visit: No Status: Chronic Qualifiers: Depression Type: unspecified Qualified Code(s): F32.9 - Major depressive disorder, single episode, unspecified (9) GERD (gastroesophageal reflux disease) Current Visit: No Status: Chronic Qualifiers: Esophagitis presence: esophagitis presence not specified Qualified Code(s) : K21.9 - Gastro-esophageal reflux disease without esophagitis (10) Hypertension Current Visit: No Status: Chronic Qualifiers: Hypertension type: essential hypertension Qualified Code(s): I10 - Essential (primary) hypertension (11) DVT (deep venous thrombosis) Current Visit: Yes Status: Acute Qualifiers: DVT location: upper extremity Chronicity: acute Laterality: left Discharge Plan: Other (Skilled placement) Plan to discharge in: 48 Hours Physician Review Additional Text: Plan: Patient continues to make progress. Patient found to have left cephalic vein thrombus. Will start anti coalition therapy. Will discuss with hematology concerning treatment. Patient will likely need 3 months of therapy. Still trying to get the patient to go to a skilled facility. This was addressed with family members present yesterday. Will continue with physical therapy. Will monitor patient closely. Patient still not ready to go home as the patient is still confused. Patient high risk for falls especially since he is on anti coagulation therapy and will need to continue anti coagulation therapy for least 3 months. Time Spent Managing Pts Care (In Minutes): 55
[2018-07-12] MEDS ORDERED: ALPRAZOLAM 0.5 MG TABLET PO ONE (15:35)
[2018-07-12] MEDS: HYDROCODONE/APAP 5/325 MG TAB PO PRN (16:42)
--- NOTE | 2018-07-13 04:38 | P.DS ---
Admission Date: 06/30/18 Discharge Date: 07/12/18 Primary Care Provider: None Disposition: AMA-LEFT AGAINST MEDICAL ADVIC Reason for Admission: Acute encephalopathy, alcohol withdrawal - Problems (1) Acute encephalopathy Onset Date: 07/01/18 Status: Acute Brief History of Present Illness: Mr Baig is a 63-year-old male with history of alcohol abuse, hepatitis, hypertension, bipolar disorder, COPD, who was brought to the ED due to altered mental status. Apparently the patient last drink was 2 days ago, and he is now having alcohol withdrawal. The patient is sedated and unable to provide any history. At this point is unknown whether the patient intention is to quit drinking alcohol or not. Lab work remarkable for leukocytosis 18.7, chemistry is still pending Hospital Course: Mr Baig was admitted to the hospital due to alcohol withdrawal. He had also acute renal injury secondary to rhabdomyolisis. The patient was initially treated in ICU, for close monitoring. During his admission, renal function gradually improved, CK decreased to normal limits. As complication he had upper extremity DVT, he was started on anticoagulation treatment. Despite, his slow clinical improvement, the patient remain confused. He was not safe to be discharged home. The plan was to discharge the patient to a SNF when clinically more stable, however, become more irritable today, and was asking to go home. Dr Pimentel had explained to the patient that is not safe for him to go home since he require anticoagulation therapy and was still at significant risk of fall. Despite all the advises, the patient signed AMA form, in front of his family members, and subsequently left the hospital. Vital Signs/Physical Exam: Temp Pulse Resp BP Pulse Ox 99.1 F 80 18 156/91 H 96 07/12/18 14:34 07/12/18 14:34 07/12/18 14:34 07/12/18 14:34 07/12/18 14:34 Laboratory Data at Discharge: WBC 10.9 K/uL (4.3-10.9) 07/09/18 04:07 Hgb 12.3 g/dL (13.6-17.9) L 07/09/18 04:07 Hct 34.7 % (39.6-49.0) L 07/09/18 04:07 Plt Count 521 K/uL (152-406) H 07/09/18 04:07 PT 13.1 SECONDS (9.5-12.5) H 06/30/18 20:23 INR 1.11 06/30/18 20:23 APTT 28.1 SECONDS (24.3-36.9) 06/30/18 20:23 Sodium 143 mmol/L (136-145) 07/12/18 05:35 Potassium 3.7 mmol/L (3.5-5.1) 07/12/18 05:35 BUN 5 mg/dL (7-18) L 07/12/18 05:35 Creatinine 0.80 mg/dL (0.55-1.3) 07/12/18 05:35 Glucose 93 mg/dL (74-106) 07/12/18 05:35 Phosphorus 4.4 mg/dL (2.5-4.9) 07/12/18 05:35 Magnesium 2.0 mg/dL (1.8-2.4) 07/08/18 03:47 Total Bilirubin 0.9 mg/dL (0.2-1.0) 07/09/18 04:07 AST 25 U/L (15-37) 07/09/18 04:07 ALT 27 U/L (12-78) 07/09/18 04:07 Alkaline Phosphatase 38 U/L (45-117) L 07/09/18 04:07 Home Medications: Duloxetine HCl 30 mg PO DAILY 07/01/18 Apixaban [Eliquis] 10 mg PO BID #110 tablet 07/12/18 New Medications: Apixaban [Eliquis] 10 mg PO BID #110 tablet
--- NOTE | 2018-07-13 09:50 | PN ---
Date of Progress Note: 07/12/2018 Chief Complaint: Acute kidney injury associated with renal hypoperfusion. History Of Present Illness: The patient has history of malnutrition, electrolytes abnormalities due to alcohol. The patient was found to have hypokalemia, hypophosphatemia, and hypomagnesemia. Receiv ed supplements. The patient was admitted for alcohol withdrawal. Review of Systems: Denies new complaints. Physical Examination: Lungs: Normal respiratory effort. Extremities: No edema. Laboratory Data: Hemoglobin 12.3, albumin 2.4, creatinine 0.9, BUN 6, CO2 26. Impression And Plan: 1.Acute kidney injury. Renal function improved to baseline and monitor renal function. Continue p. o. hydration. The patient tolerates p.o. intake. 2.Hypoalbuminemia. Increase p.o. protein intake. 3.Hypophosphatemia, hypomagnesemia. Magnesium improved to 2.0. Monitor electrolytes. The patient will require followup outpatient. AJAY/LAURA Voice ID: [id number] Report ID: [id number]
== END 2018-07-12 19:52 | disposition left against medical advice (07) | DRG 894 ==
LOC: ER 19:49 → ERHOLD 22:37 → 3RD-ICU 23:53 → 4TH 07-04 12:15
PROVIDERS: ADMIT Internal Medicine; ATTEND Family Medicine
DX: F10.231 Alcohol dependence with withdrawal delirium (principal); J18.9 Pneumonia, unspecified organism; G93.41 Metabolic encephalopathy; N17.9 Acute kidney failure, unspecified; E46 Unspecified protein-calorie malnutrition; M62.82 Rhabdomyolysis; I82.622 Acute embolism and thrombosis of deep veins of left upper extremity; J44.1 Chronic obstructive pulmonary disease with (acute) exacerbation; M50.00 Cervical disc disorder with myelopathy, unspecified cervical region; M51.06 Intervertebral disc disorders with myelopathy, lumbar region; E87.6 Hypokalemia; E83.39 Other disorders of phosphorus metabolism; E83.42 Hypomagnesemia; K75.9 Inflammatory liver disease, unspecified; I10 Essential (primary) hypertension; D64.89 Other specified anemias; F32.9 Major depressive disorder, single episode, unspecified; F17.210 Nicotine dependence, cigarettes, uncomplicated
CPT/HCPCS: 36415; 70450; 71045; 74230; 80048; 80053; 80307; 80320; 81003; 81015; 82140; 82550; 82570; 82962; 83605; 83735; 83935; 84100; 84132; 84156; 84300; 84443; 85025; 85027; 85610; 85730; 87040; 87493; 93005; 93971; 94640; 94760; 97163; 99285; J1650; J1940; J2543; J3360; J3411; J3475; J7030; J7606

== ENCOUNTER 2019-03-08 18:26 | Inpatient (IN) | payer OTHER ==
[2019-03-08 19:34] LABS: Absolute Lymphocytes (CBC) 0.9 K/uL (0.7-4.9); Absolute Monocytes 0.8 K/uL (0.1-1.3); Absolute Neutrophil 6.8 K/uL (1.8-8.0); Hematocrit 41.7 % (39.6-49.0); Lymphocytes % 10.2 % (15.3-44.8); MPV 7.4 fL (7.6-11.3); Monocytes % 9.4 % (3.3-12.3)
[2019-03-08] MEDS ORDERED: NA CHLORIDE 0.9% 1,000 ML ONE (19:39)
[2019-03-08] MEDS ORDERED: LORazepam 2 MG/ML VIAL ONE ×2 (19:39→21:40)
[2019-03-08 19:46] LABS: Albumin 3.8 g/dL (3.4-5.0); Bilirubin Total 2.6 mg/dL (0.2-1.0); Protein, Total 7.8 g/dL (6.4-8.2)
[2019-03-08 19:50] LABS: Potassium 2.2 mmol/L (3.5-5.1)
[2019-03-08] MEDS ORDERED: LEVALBUTEROL 1.25 MG/3 ML NEB ONE (20:07)
[2019-03-08] MEDS ORDERED: KCL 20 MEQ/100 mL IVPB 20 MEQ/100 ML BAG IV ONE (20:39)
--- NOTE | 2019-03-08 20:56 | RAD REPORT ---
EXAM DESCRIPTION: CT - Abdomen Pelvis W Contrast - 03/08/2019 8:21 pm CLINICAL HISTORY: Abdominal pain COMPARISON: none. TECHNIQUE: Computed axial tomography of the abdomen pelvis was obtained. 100 cc Isovue-300 was admin istered intravenously. Oral contrast was not requested which limits evaluation of bowel. All CT scans are performed using dose optimization technique as appropriate and may include automated exposure control or mA/KV adjustment according to patient size. FINDINGS: Fatty liver. 14 millimeter lesion within posterior segment right lobe Splenic granulomata. Punctate pancreatic calcification. Adrenals and right kidney are unremarkable. Small left renal cyst There is no evidence of diverticulitis. Normal appendix Prostate gland is mildly enlarged. Small bilateral hernias contain fat Wall of the right and transverse colon appears mildly thickened Right lower lobe granuloma Small lipoma right erector spinae muscle IMPRESSION: Apparent thickening of the wall of the right and transverse colon may indicate a mild co litis or be secondary to incomplete distention Fatty liver 14 millimeter hepatic lesion. This is nonspecific. It may represent a hemangioma. It is recommended t hat the patient have a followup ultrasound in 3 months
--- NOTE | 2019-03-08 20:57 | RAD REPORT ---
EXAM DESCRIPTION: Karen Single View03/08/2019 7:30 pm CLINICAL HISTORY: Chest pain COMPARISON: June 2018 FINDINGS: The lungs appear clear of acute infiltrate. The heart is normal size IMPRESSION: No acute abnormalities displayed
--- NOTE | 2019-03-08 21:03 | EDPHYS ---
Physician Documentation [facility] Name: Jose Baig Age: 64 yrs Sex: Male : 1955 Arrival Date: 03/08/2019 Time: 18:29 Bed 18 Private MD: ED Physician Ian Reynaga HPI: 03/08 19:38 This 64 yrs old Male presents to ER via EMS with complaints of Rib pain, rn diarrhea, vomiting. 19:38 The patient presents to the emergency department with nausea, vomiting, diarrhea. rn Onset: The symptoms/episode began/occurred 6 day(s) ago. Possible causes: unknown. The symptoms are aggravated by nothing. The symptoms are alleviated by nothing. Associated signs and symptoms: Pertinent positives: diarrhea, nausea, vomiting. Severity of symptoms: At their worst the symptoms were moderate in the emergency department the symptoms are unchanged. The patient has not experienced similar symptoms in the past. The patient has not recently seen a physician. Reports nausea/vomiting/diarrhea, for 6 days, reports weakness, and fell recently, striking chest on furniture/floor, is wondering if broke ribs. Denies head injury or LOC. Also a heavy drinker and last drink today. + hx of withdrawal but no seizures. NO blood in stool or emesis. . Historical: - Allergies: 18:33 No Known Allergies; aj1 - Home Meds: 18:33 Omeprazole Oral [Active]; duloxetine oral oral [Active]; Advair Diskus Inhl [Active]; aj1 - PMHx: 18:33 Anxiety; Bipolar disorder; COPD; Hepatitis; Ulcers; aj1 - Immunization history:: Flu vaccine is not up to date. - Social history:: Smoking status: Patient uses tobacco products, smokes one-half pack cigarettes per day, Patient uses alcohol, Reports drinking 4 glasses of whiskey per day. - Ebola Screening: : Patient denies travel to an Ebola-affected area in the 21 days before illness onset. - Family history:: not pertinent. - Hospitalizations: : No recent hospitalization is reported. ROS: 19:43 Constitutional: Negative for fever, chills, and weight loss, Eyes: Negative for injury, rn pain, redness, and discharge, Neck: Negative for injury, pain, and swelling, Cardiovascular: + palpitations Respiratory: + sob and cough Abdomen/GI: + nausea/vomiting/diarrhea Back: Negative for injury and pain, MS/Extremity: Negative for injury and deformity, Skin: Negative for injury, rash, and discoloration, Neuro: + generalized weakness Exam: 19:43 Constitutional: This is a well developed, well nourished patient who is awake, alert, rn seems intoxicated and weak Head/Face: Normocephalic, atraumatic. Eyes: Pupils equal round and reactive to light, extra-ocular motions intact. Lids and lashes normal. Conjunctiva and sclera are non-icteric and not injected. Cornea within normal limits. Periorbital areas with no swelling, redness, or edema. ENT: dry MM Neck: Trachea midline, no thyromegaly or masses palpated, and no cervical lymphadenopathy. Supple, full range of motion without nuchal rigidity, or vertebral point tenderness. No Meningismus. Cardiovascular: tachycardic, regular, no murmur Respiratory: + mild tachypnea with diffuse wheezing, no retractions, + bilateral ecchymosis of anterior/inferior ribs Abdomen/GI: soft, non-tende,r no masses Skin: Warm, dry MS/ Extremity: Pulses equal, no cyanosis. Neurovascular intact. Full, normal range of motion. Equal circumference. Neuro: Awake and alert, GCS 15, oriented to person, place, time, and situation. Cranial nerves II-XII grossly intact. Motor strength 5/5 in all extremities. Sensory grossly intact. + coarse extremity tremors. Vital Signs: 18:33 BP 139 / 72; Pulse 99; Resp 18; Temp 97.5(O); Pulse Ox 100% on R/A; Height 5 ft. 11 in. aj1 (180.34 cm) (R); Pain 8/10; 19:30 BP 141 / 96; Pulse 87; Resp 18; Pulse Ox 98% on R/A; aj1 20:30 BP 154 / 92; Pulse 88; Resp 18; Pulse Ox 100% on R/A; aj1 21:30 BP 164 / 94; Pulse 82; Resp 18; Pulse Ox 99% on R/A; aj1 22:18 BP 174 / 102; Pulse 78; Resp 18; Pulse Ox 99% on R/A; aj1 23:08 BP 160 / 103; Pulse 85; Resp 20; Temp 98.0(O); Pulse Ox 98% on R/A; aj1 MDM: 18:55 Patient medically screened. rn 21:01 Differential diagnosis: Nonspecific abd pain, gastritis, diverticulitis, viral rn gastroenteritis, gastroenteritis. Data reviewed: vital signs, nurses notes, lab test result(s), radiologic studies, CT scan, plain films, and as a result, I will admit patient. Counseling: I had a detailed discussion with the patient and/or guardian regarding: the historical points, exam findings, and any diagnostic results supporting the discharge/admit diagnosis, lab results, radiology results, the need for further work-up and treatment in the hospital. Response to treatment: the patient's symptoms have mildly improved after treatment, and as a result, I will admit patient. Admission orders: after a detailed discussion of the patient's condition and case, the admit orders are written by me. ED course: Admit for colitis, ETOH withdrawal, dehydration, hypokalemia, admitted to Dr. Sanon. . 03/08 19:04 Order name: CBC with Diff; Complete Time: 19:42 rn 03/08 19:04 Order name: Basic Metabolic Panel; Complete Time: 20:03 rn 03/08 19:04 Order name: Procalcitonin; Complete Time: 20:03 rn 03/08 19:04 Order name: Hepatic Function; Complete Time: 20:03 rn 03/08 19:04 Order name: Lipase; Complete Time: 20:03 rn 03/08 22:21 Order name: Alcohol Serum/Plasma EDNC 03/08 19:04 Order name: XRAY Chest (1 view); Complete Time: 20:59 rn 03/08 19:04 Order name: CT Abd/Pelvis - W/Contrast; Complete Time: 20:59 rn 03/08 19:04 Order name: IV Start; Complete Time: 19:31 rn 03/08 19:04 Order name: Labs collected and sent; Complete Time: 19:31 rn 03/08 19:04 Order name: EKG; Complete Time: 19:05 rn 03/08 19:04 Order name: EKG - Nurse/Tech; Complete Time: 19:23 rn Administered Medications: 19:31 Drug: NS 0.9% 1000 ml Route: IV; Rate: 1000 ml; Site: left antecubital; aj1 22:35 Follow up: IV Status: Completed infusion; IV Intake: 1000ml [facility] 19:31 Drug: Ativan 1 mg Route: IVP; Site: left antecubital; aj1 20:00 Follow up: Response: No adverse reaction aj1 19:56 Drug: Xopenex (3) 1.25 mg Route: Inhalation; aj1 20:58 Drug: Potassium Chloride 20 mEq Route: IV; Rate: calculated rate; Site: left forearm; aj1 23:07 Follow up: IV Status: Completed infusion; IV Intake: 100ml aj1 21:34 Drug: Cipro 400 mg Volume: 200 ml; Route: IVPB; Infused Over: 60 mins; Site: left aj antecubital; 23:07 Follow up: IV Status: Completed infusion; IV Intake: 200ml aj1 21:34 Drug: Ativan 1 mg Route: IVP; Site: left antecubital; aj1 22:35 Follow up: Response: No adverse reaction 1 23:03 Drug: Flagyl 500 mg Volume: 100 ml; Route: IVPB; Rate: 200 ml/hr; Infused Over: 30 wh mins; Site: left antecubital; 03/09 00:16 Follow up: Response: No adverse reaction; IV Status: Completed infusion Disposition: 03/08/19 21:02 Hospitalization ordered by Freddy Merchant for Inpatient Admission. Preliminary diagnosis are Colitis, Alcohol dependence with withdrawal, Dehydration, Hypokalemia. - Bed requested for Telemetry/MedSurg (Inpatient). - Status is Inpatient Admission. - Condition is Stable. - Problem is new. - Symptoms have improved. UTI on Admission? No Signatures: Dispatcher [employer] EDNC Myla Macias RN RN aj1 Ian Reynaga MD MD rn Garcia, Cindy, RN RN Gail Hawk Corrections: (The following items were deleted from the chart) 03/08 22:28 21:02 Hospitalization Ordered by Freddy Merchant MD for Inpatient Admission. Preliminary diagnosis is Colitis; Alcohol dependence with withdrawal; Dehydration; Hypokalemia. Bed requested for Telemetry/MedSurg (Inpatient). Status is Inpatient Admission. Condition is Stable. Problem is new. Symptoms have improved. UTI on Admission? No. rn 22:29 22:28 03/08/2019 21:02 Hospitalization Ordered by Freddy Merchant MD for Inpatient cg Admission. Preliminary diagnosis is Colitis; Alcohol dependence with withdrawal; Dehydration; Hypokalemia. Bed requested for Telemetry/MedSurg (Inpatient). Status is Inpatient Admission. Condition is Stable. Problem is new. Symptoms have improved. UTI on Admission? No. cg 03/09 00:14 03/08 22:29 03/08/2019 21:02 Hospitalization Ordered by Freddy Merchant MD for Inpatient Admission. Preliminary diagnosis is Colitis; Alcohol dependence with withdrawal; Dehydration; Hypokalemia. Bed requested for Telemetry/MedSurg (Inpatient). Status is Inpatient Admission. Condition is Stable. Problem is new. Symptoms have improved. UTI on Admission? No.
--- NOTE | 2019-03-08 21:03 | ER ---
Nurse's Notes [facility] Name: Jose Baig Age: 64 yrs Sex: Male : 1955 Arrival Date: 03/08/2019 Time: 18:29 Bed 18 Private MD: Diagnosis: Colitis;Alcohol dependence with withdrawal;Dehydration;Hypokalemia Presentation: 03/08 18:29 Presenting complaint: Patient states: He was on the way to the bathroom 2 days ago when aj1 he tripped and hit the cabinet in the left rib area. Patient reports pain to left side. Bruising noted to right side. Patient also reports diarrhea for the past 5 days and vomiting that started today. Patient also reports shortness of breath for the past 6 months. States that he wears O2 at home as needed. Transition of care: patient was not received from another setting of care. Onset of symptoms was March 08, 2019. Risk Assessment: Do you want to hurt yourself or someone else? Patient reports no desire to harm self or others. Initial Sepsis Screen: Does the patient meet any 2 criteria? HR > 90 bpm. No. Patient's initial sepsis screen is negative. Does the patient have a suspected source of infection? No. Patient's initial sepsis screen is negative. Care prior to arrival: None. 18:29 Method Of Arrival: EMS: [facility] 18:29 Acuity: SONIA 3 aj1 Triage Assessment: 18:33 General: Appears in no apparent distress. uncomfortable, Behavior is cooperative, aj1 agitated, restless. Pain: Complains of pain in right lateral anterior chest Pain does not radiate. Pain currently is 8 out of 10 on a pain scale. Quality of pain is described as aching, Aggravated by deep breathing. Historical: - Allergies: 18:33 No Known Allergies; aj1 - Home Meds: 18:33 Omeprazole Oral [Active]; duloxetine oral oral [Active]; Advair Diskus Inhl [Active]; aj1 - PMHx: 18:33 Anxiety; Bipolar disorder; COPD; Hepatitis; Ulcers; aj1 - Immunization history:: Flu vaccine is not up to date. - Social history:: Smoking status: Patient uses tobacco products, smokes one-half pack cigarettes per day, Patient uses alcohol, Reports drinking 4 glasses of whiskey per day. - Ebola Screening: : Patient denies travel to an Ebola-affected area in the 21 days before illness onset. - Family history:: not pertinent. - Hospitalizations: : No recent hospitalization is reported. Screenin:35 Abuse screen: Denies threats or abuse. Denies injuries from another. Nutritional aj1 screening: No deficits noted. Tuberculosis screening: No symptoms or risk factors identified. 23:06 Fall Risk None identified. aj1 Assessment: 18:35 General: Appears in no apparent distress. uncomfortable, Behavior is cooperative, aj1 agitated. Pain: Complains of pain in left lateral anterior chest. Neuro: Level of Consciousness is awake, alert, obeys commands, Oriented to person, place, time, situation, Denies LOC. Cardiovascular: Heart tones S1 S2 present Patient's skin is warm and dry. Rhythm is sinus rhythm. Respiratory: Reports shortness of breath for the past 6 months Airway is patent Respiratory effort is even, unlabored, Respiratory pattern is regular, symmetrical, Breath sounds are clear bilaterally. GI: Abdomen is flat, non-distended, Bowel sounds present X 4 quads. Reports diarrhea, nausea, vomiting. : No signs and/or symptoms were reported regarding the genitourinary system. EENT: Reports nasal congestion. Derm: Bruising that is on right lateral anterior chest. Musculoskeletal: Range of motion: intact in all extremities. 19:30 Reassessment: Patient appears in no apparent distress at this time. No changes from aj1 previously documented assessment. Patient and/or family updated on plan of care and expected duration. Pain level reassessed. Patient is alert, oriented x 3, equal unlabored respirations, skin warm/dry/pink. 20:07 Reassessment: Patient transported to OR via wheelchair. aj1 20:30 Reassessment: Patient and/or family updated on plan of care and expected duration. Pain aj1 level reassessed. General: Appears in no apparent distress. uncomfortable, Behavior is calm, cooperative. Neuro: Level of Consciousness is awake, alert, obeys commands, Oriented to person, place, time, situation. Cardiovascular: Heart tones S1 S2 present Patient's skin is warm and dry. Rhythm is sinus rhythm. Respiratory: Airway is patent Respiratory effort is even, unlabored, Respiratory pattern is regular, symmetrical. GI: Abdomen is flat, non-distended. Derm:. Musculoskeletal: Range of motion: intact in all extremities. 21:30 Reassessment: Patient appears in no apparent distress at this time. No changes from aj1 previously documented assessment. Patient and/or family updated on plan of care and expected duration. Pain level reassessed. Patient is alert, oriented x 3, equal unlabored respirations, skin warm/dry/pink. 21:45 Reassessment: Dr Merchant at bedside. aj1 22:34 Reassessment: Patient appears in no apparent distress at this time. No changes from aj1 previously documented assessment. Patient and/or family updated on plan of care and expected duration. Pain level reassessed. Patient is alert, oriented x 3, equal unlabored respirations, skin warm/dry/pink. 23:08 Reassessment: Charge nurse is verifying with director how patient will be moved aj upstairs due to bed bugs being present. Report given to JAH Reynolds who will care for patient until patient is transported upstairs. 23:34 Reassessment: Patient appears in no apparent distress at this time. No changes from previously documented assessment. Patient and/or family updated on plan of care and expected duration. Pain level reassessed. Patient is alert, oriented x 3, equal unlabored respirations, skin warm/dry/pink. Vital Signs: 18:33 BP 139 / 72; Pulse 99; Resp 18; Temp 97.5(O); Pulse Ox 100% on R/A; Height 5 ft. 11 in. aj1 (180.34 cm) (R); Pain 8/10; 19:30 BP 141 / 96; Pulse 87; Resp 18; Pulse Ox 98% on R/A; aj1 20:30 BP 154 / 92; Pulse 88; Resp 18; Pulse Ox 100% on R/A; aj1 21:30 BP 164 / 94; Pulse 82; Resp 18; Pulse Ox 99% on R/A; aj1 22:18 BP 174 / 102; Pulse 78; Resp 18; Pulse Ox 99% on R/A; aj1 23:08 BP 160 / 103; Pulse 85; Resp 20; Temp 98.0(O); Pulse Ox 98% on R/A; aj1 ED Course: 18:29 Patient arrived in ED. aj1 18:32 Triage completed. aj1 18:33 Arm band placed on. aj1 18:35 Patient has correct armband on for positive identification. Bed in low position. Call aj1 light in reach. Side rails up X 1. tunnel kiln operator on. Pulse ox on. NIBP on. 18:35 No provider procedures requiring assistance completed. aj1 18:50 Inserted saline lock: 20 gauge in left antecubital area, using aseptic technique. Blood aj1 collected. 18:55 Ian Reynaga MD is Attending Physician. rn 19:03 Myla Macias RN is Primary Nurse. aj1 19:30 XRAY Chest (1 view) In Process Unspecified. EDMS 19:49 Notified ED physician of a critical lab result(s). potassium of 2.2. ss 20:19 CT completed. Patient tolerated procedure well. Patient moved back from CT. bq 20:21 CT Abd/Pelvis - W/Contrast In Process Unspecified. EDMS 21:01 Freddy Merchant MD is Hospitalizing Provider. rn 23:05 IV discontinued, intact, bleeding controlled, No redness/swelling at site. Pressure aj1 dressing applied. 23:07 Report given to Wendy Luna LVN. aj1 Administered Medications: 19:31 Drug: NS 0.9% 1000 ml Route: IV; Rate: 1000 ml; Site: left antecubital; aj1 22:35 Follow up: IV Status: Completed infusion; IV Intake: 1000ml aj1 19:31 Drug: Ativan 1 mg Route: IVP; Site: left antecubital; aj1 20:00 Follow up: Response: No adverse reaction aj1 19:56 Drug: Xopenex (3) 1.25 mg Route: Inhalation; aj1 20:58 Drug: Potassium Chloride 20 mEq Route: IV; Rate: calculated rate; Site: left forearm; aj1 23:07 Follow up: IV Status: Completed infusion; IV Intake: 100ml aj1 21:34 Drug: Cipro 400 mg Volume: 200 ml; Route: IVPB; Infused Over: 60 mins; Site: left aj1 antecubital; 23:07 Follow up: IV Status: Completed infusion; IV Intake: 200ml aj1 21:34 Drug: Ativan 1 mg Route: IVP; Site: left antecubital; aj1 22:35 Follow up: Response: No adverse reaction aj1 23:03 Drug: Flagyl 500 mg Volume: 100 ml; Route: IVPB; Rate: 200 ml/hr; Infused Over: 30 wh mins; Site: left antecubital; 03/09 00:16 Follow up: Response: No adverse reaction; IV Status: Completed infusion Intake: 03/08 22:35 IV: 1000ml; Total: 1000ml. aj 23:07 IV: 100ml; Total: 1100ml. aj1 23:07 IV: 200ml; Total: 1300ml. aj1 Outcome: 21:02 Decision to Hospitalize by Provider. rn 03/09 00:13 Admitted to Med/surg accompanied by tech, via wheelchair, room 222, with chart, Report wh called to Wendy Luna LVN by Myla TYSON 00:14 Condition: good 00:14 Instructed on the need for admit. 00:14 Patient left the ED. Signatures: Dispatcher [employer] EDMyla Chan RN RN aj1 Irma Pires Roman, MD MD rn Smirch, Shelby, RN RN ss Habalo, Winsy Corrections: (The following items were deleted from the chart) 03/08 23:04 18:29 Presenting complaint: Patient states: He was on the way to the bathroom 2 days aj1 ago when he tripped and hit the cabinet in the right rib area. Patient reports pain to right side. Bruising noted to left side. Patient also reports diarrhea for the past 5 days and vomiting that started today. Patient also reports shortness of breath for the past 6 months. States that he wears O2 at home as needed. aj11 27: 18:35 Pain: Complains of pain in right lateral anterior chest aj1 aj1
[2019-03-08] MEDS ORDERED: NA CHLORIDE 0.9% 500 ML ONE (21:05)
[2019-03-08] MEDS ORDERED: CIPROFLOXACIN 400mg IV 400 MG/200 ML BAG IV ONE (21:40)
--- NOTE | 2019-03-08 22:26 | P.HP ---
Certification for Inpatient Patient admitted to: Inpatient With expected LOS: >2 Midnights Practitioner: I am a practitioner with admitting privileges, knowledge of patient current condition, hospital course, and medical plan of care. Services: Services provided to patient in accordance with Admission requirements found in Title 42 Section 412.3 of the Code of Federal Regulations Patient History Date of Service: 03/08/19 Reason for admission: colitis, alcohol withdrawal History of Present Illness: Mr Baig is a 64 years old male with history of alcohol abuse, COPD, HTN, GERD, who start about 6 days with diarrhea. Then he start having nausea and vomiting. He was not able to keep solids down. His last alcohol drink was this morning. He is not able to provide very coherent history, he is shaking and difficult to find the right word. Lab work remarkable for hypokalemia, abnormal liver enzymes, WBC count within normal limits. CT abd/pelvis shows mild colitis. Allergies No Known Allergies Allergy (Verified 04/07/14 16:40) Home medications list reviewed: Yes Home Medications: Duloxetine HCl 30 mg PO DAILY 07/01/18 Apixaban [Eliquis] 10 mg PO BID #110 tablet 07/12/18 - Past Medical/Surgical History Diabetic: No -: Depression -: neuropathy -: bruised ribs -: torn rotator cuff(bilateral) -: Back surgery -: Tonsillectomy -: hand sx - Family History Mother -: Heart disease - Social History Smoking Status: Current every day smoker Counseled patient to stop smoking for: less than 10 minutes Alcohol use: Yes CD- Drugs: No Caffeine use: Yes Place of Residence: Home Review of Systems 10-point ROS is otherwise unremarkable Physical Examination - Physical Exam General: Alert, Mild distress, Confused HEENT: Atraumatic, PERRLA, Mucous membr. moist/pink, Sclerae nonicteric Neck: Supple, 2+ carotid pulse no bruit, No LAD, Without JVD or thyroid abnormality Respiratory: Clear to auscultation bilaterally, Normal air movement Cardiovascular: Regular rate/rhythm, Normal S1 S2 Gastrointestinal: Normal bowel sounds, No tenderness Musculoskeletal: No tenderness Integumentary: Rash(es), Skin lesion (whole body ) Neurological: Normal strength at 5/5 x4 extr, Normal tone, Normal affect Lymphatics: No axilla or inguinal lymphadenopathy - Studies Laboratory Data (last 24 hrs) 03/08/19 19:20: Sodium 134 L, Potassium 2.2 L*, BUN 4 L, Creatinine 0.92, Glucose 79, Total Bilirubin 2.6 H, AST 196 H, ALT 51, Alkaline Phosphatase 73, Lipase 236 03/08/19 19:20: WBC 8.6, Hgb 14.7, Hct 41.7, Plt Count 228 Assessment and Plan - Problems (Diagnosis) (1) Colitis Current Visit: Yes Status: Acute (2) Acute encephalopathy Onset Date: 07/01/18 Current Visit: No Status: Acute (3) COPD (chronic obstructive pulmonary disease) Current Visit: No Status: Acute Qualifiers: COPD type: COPD with acute exacerbation Qualified Code(s): J44.1 - Chronic obstructive pulmonary disease with (acute) exacerbation (4) Hypokalemia Onset Date: 12/10/17 Current Visit: No Status: Acute (5) GERD (gastroesophageal reflux disease) Current Visit: No Status: Chronic Qualifiers: Esophagitis presence: esophagitis presence not specified Qualified Code(s) : K21.9 - Gastro-esophageal reflux disease without esophagitis - Plan Will admit the patient due to colitis and alcohol withdrawal. Start empiric treatment with Cipro and Flagyl, he has no leukocytosis or fever, however, his symptom started 6 days ago and currently are getting worse. watch for DT's, order benzodiazepines per alcohol withdrawal protocol. - Advance Directives Does patient have a Living Will: No Does patient have a Durable POA for Healthcare: No - Code Status/Comfort Care Code Status Assessed: Yes Code Status: Full Code
[2019-03-08] MEDS ORDERED: METRONIDAZOLE 500mg IVPB 500 MG/100 ML BAG IV ONE (23:10)
[2019-03-08] MEDS ORDERED: LORazepam 2 MG/ML VIAL IV SCH (23:56)
[2019-03-08] MEDS ORDERED: ONDANSETRON 4 MG/2 ML VIAL IV PRN (23:56)
[2019-03-08] MEDS ORDERED: FLUMAZENIL 0.1 MG/ML (5 mL VIAL) IV PRN (23:56)
[2019-03-08] MEDS ORDERED: D5 0.9 NS 1,000 ML IV SCH (23:56)
[2019-03-09 01:15] VITALS: BMI 22.1
[2019-03-09] MEDS: LORazepam 2 MG/ML VIAL IV SCH ×2 (01:34→05:57)
[2019-03-09 06:21] LABS: Absolute Lymphocytes (CBC) 1.3 K/uL (0.7-4.9); Absolute Monocytes 0.8 K/uL (0.1-1.3); Eosinophils % 0.3 % (0-4.4); Hematocrit 38.7 % (39.6-49.0); Lymphocytes % 18.3 % (15.3-44.8); MPV 7.9 fL (7.6-11.3); Monocytes % 10.8 % (3.3-12.3); RBC Red Blood Cell Count 4.08 M/uL (4.33-5.43)
[2019-03-09 06:46] LABS: BUN Blood Urea Nitrogen 2 mg/dL (7-18); Bicarbonate 29 mmol/L (21-32); Glucose Level 102 mg/dL (74-106); Sodium Level 133 mmol/L (136-145)
[2019-03-09] MEDS ORDERED: ALBUTEROL 2.5 MG/3 ML NEB SOL NEB PRN (07:07)
[2019-03-09 07:13] LABS: Potassium 2.7 mmol/L (3.5-5.1)
[2019-03-09 07:19] LABS: Urine Appearance CLEAR; Urine Bilirubin NEGATIVE (NEG); Urine Blood NEGATIVE (NEG); Urine Color DK YELLOW; Urine Glucose NEGATIVE (NEG); Urine Protein NEGATIVE (NEG)
[2019-03-09 07:36] LABS: Urine Microscopic Reflex ORDER UMIC
[2019-03-09 07:37] LABS: Urine Bacteria <20 /HPF (NONE SEEN); Urine Culture Reflex Order REFLEXED; Urine RBC <5 /HPF (NONE SEEN)
[2019-03-09] MEDS ORDERED: MAGNESIUM 50% 3 GM in NA CHLORIDE 0.9% 100 ML IV ONE ×2 (07:45→08:30)
[2019-03-09] MEDS: KCL 20 MEQ/100 mL IVPB 20 MEQ/100 ML BAG IV SCH ×2 (08:00→10:00)
[2019-03-09 08:16] LABS: Thyroid Stimulating Hormone 3.65 uIU/mL (0.360-3.740)
[2019-03-09] MEDS ORDERED: HYDRALAZINE HCL 20 MG/ML VIAL IV PRN (08:49)
[2019-03-09] MEDS: ARFORMOTEROL TARTRATE 15 MCG/2 ML VIAL.NEB NEB SCH ×2 (08:55→20:00)
[2019-03-09] MEDS ORDERED: D5 0.9 NS 1,000 ML with POTASSIUM CL 10 MEQ IV SCH ×2 (09:00)
--- NOTE | 2019-03-09 09:01 | P.PN ---
Subjective Date of Service: 03/09/19 Primary Care Provider: none Chief Complaint: colitis, alcohol withdrawal Subjective: Other (Patient appears less agitated. Patient disheveled) Physical Examination - Vital Signs Temperature: 98.5 F Blood Pressure: 162/93 Pulse: 79 Respirations: 20 Pulse Ox (%): 96 - Physical Exam General: Alert, Disheveled, Other (Less agitation noted this morning) HEENT: Atraumatic Neck: Supple Respiratory: Clear to auscultation bilaterally, Normal air movement Cardiovascular: Normal pulses, Regular rate/rhythm Gastrointestinal: Normal bowel sounds, Soft and benign, Non-distended, No tenderness, No masses, No rebound, No guarding Musculoskeletal: No tenderness, No warmth Integumentary: No erythema, No warmth, No cyanosis Neurological: Normal speech, Normal strength at 5/5 x4 extr, Normal tone, Normal affect - Studies Laboratory Data (last 24 hrs) 03/08/19 19:20: Sodium 134 L, Potassium 2.2 L*, BUN 4 L, Creatinine 0.92, Glucose 79, Total Bilirubin 2.6 H, AST 196 H, ALT 51, Alkaline Phosphatase 73, Lipase 236 03/08/19 19:20: WBC 8.6, Hgb 14.7, Hct 41.7, Plt Count 228 Medications List Reviewed: Yes Assessment & Plan Discharge Plan: Home Plan to discharge in: Greater than 2 days Physician Review Additional Text: Impression: Nausea, vomiting and diarrhea secondary to the right and transverse colitis complicated with dehydration and alcohol withdrawal Alcohol abuse with alcohol withdrawal Hypokalemia, hypomagnesium secondary to dehydration Hypertension GERD COPD Hepatic lesion likely hemangioma Bed bugs Plan: Nausea, vomiting and diarrhea secondary to the right and transverse colitis complicated with dehydration and alcohol withdrawal: Continue IV fluids, IV banana bag and IV antibiotic therapy. Will start DVT prophylaxis. Will continue monitor closely. Will adjust medication for alcohol withdrawal. Will place on scheduled doses of Librium. Will provide IV Ativan as needed. Will need to monitor for severe alcohol withdrawal. Electrolytes to be monitored and replaced closely. Will start with a clear liquid diet and advance slowly. Patient also with bedbugs. Will need to use precautions. Will continue to reassess. Likely start physical therapy tomorrow. Will need to obtain more information on his social situation. Consult social media executive to help in this process. Alcohol abuse with alcohol withdrawal: Continue with IV fluids/banana bag and IV Ativan as needed for agitation. Will start skater doses of Librium. Will continue monitor closely. Will monitor for severe alcohol withdrawal. Hypokalemia, hypomagnesium secondary to dehydration: Patient with severe hypokalemia and hypomagnesium. Will continue monitor and replace closely. Will provide IV fluids. Hypertension: Will start metoprolol. Will provide IV medication as needed. GERD: Will provide medication. COPD: Will start COPD medication. Hepatic lesion likely hemangioma: This can be worked up as an outpatient. Bed bugs: Contact precautions to be enforced. Time Spent Managing Pts Care (In Minutes): 55
[2019-03-09] MEDS: FOLIC ACID 1 MG, MULTIVITAMINS INJ 10 ML, THIAMINE HCL 100 MG in NA CHLORIDE 0.9% 1,000 ML IV SCH (10:08)
[2019-03-09] MEDS: CIPROFLOXACIN 400mg IV 400 MG/200 ML BAG IV SCH ×2 (10:10→20:21)
[2019-03-09] MEDS: METRONIDAZOLE 500mg IVPB 500 MG/100 ML BAG IV SCH ×2 (10:11→17:32)
[2019-03-09] MEDS: FAMOTIDINE 20 MG/2 ML VIAL IV SCH ×2 (10:13→20:22)
[2019-03-09] MEDS ORDERED: POTASSIUM CL SA 10 MEQ TAB PO ONE ×2 (10:30→18:00)
[2019-03-09] MEDS: LORazepam 2 MG/ML VIAL IV PRN ×3 (10:45→20:23)
[2019-03-09 12:23] LABS: Magnesium 1.5 mg/dL (1.8-2.4)
[2019-03-09 12:27] LABS: Potassium 2.2 mmol/L (3.5-5.1)
[2019-03-09] MEDS: chlordiazePOXIDE HCl 25 MG CAP PO SCH ×2 (12:31→17:35)
[2019-03-09 16:04] LABS: Magnesium 1.7 mg/dL (1.8-2.4)
[2019-03-09 16:14] LABS: Potassium 2.2 mmol/L (3.5-5.1)
[2019-03-09] MEDS: ENOXAPARIN 40 MG/0.4 ML SQ SCH (17:32)
[2019-03-09] MEDS: METOPROLOL TAR 25 MG TAB PO SCH (17:33)
[2019-03-09] MEDS ORDERED: MAGNESIUM SULFATE 1 gm IVPB 1 GM/100 ML BAG IV ONE (18:00)
[2019-03-09] MEDS: D5 0.9 NS 1,000 ML IV SCH ×2 (18:23→20:21)
--- NOTE | 2019-03-09 21:03 | EKG ---
Test Date: 2019-03-08 Test Time: 19:19:56 Service Desk Lead: ASHLEY MEASUREMENT RESULTS: Intervals: Rate: 95 [place]: 164 QRSD: 96 QT: 410 QTc: 515 [place]: P: 67 [place]: 164 QRS: 78 T: -27 INTERPRETIVE STATEMENTS: Normal sinus rhythm ST & T wave abnormality, consider inferior ischemia Prolonged QT Abnormal ECG Compared to ECG 06/30/2018 20:25:49 Prolonged QT interval now present Sinus tachycardia no longer present Ventricular premature complex(es) no longer present First degree AV block no longer present Myocardial infarct finding no longer present Electronically Signed On 03-09-19 21:03:26 CDT by Cuong Morales
[2019-03-10] MEDS: METRONIDAZOLE 500mg IVPB 500 MG/100 ML BAG IV SCH ×2 (00:32→07:45)
[2019-03-10] MEDS: chlordiazePOXIDE HCl 25 MG CAP PO SCH ×5 (00:33→17:28)
[2019-03-10] MEDS: LORazepam 2 MG/ML VIAL IV PRN ×3 (01:44→13:00)
[2019-03-10] MEDS: METOPROLOL TAR 25 MG TAB PO SCH ×3 (05:33→17:28)
[2019-03-10 05:44] LABS: ALT/SGPT 35 U/L (12-78); AST/SGOT 89 U/L (15-37); Albumin 3.3 g/dL (3.4-5.0); Alkaline Phosphatase 58 U/L (45-117); BUN Blood Urea Nitrogen 2 mg/dL (7-18); Bicarbonate 34 mmol/L (21-32); Bilirubin Total 3.2 mg/dL (0.2-1.0); Glucose Level 145 mg/dL (74-106); Magnesium 1.6 mg/dL (1.8-2.4); Potassium 2.1 mmol/L (3.5-5.1); Protein, Total 6.7 g/dL (6.4-8.2); Sodium Level 136 mmol/L (136-145)
[2019-03-10] MEDS: KCL 20 MEQ/100 mL IVPB 20 MEQ/100 ML BAG IV SCH ×5 (06:27→21:42)
[2019-03-10] MEDS: D5 0.9 NS 1,000 ML IV SCH ×2 (06:37→17:28)
[2019-03-10] MEDS: FAMOTIDINE 20 MG/2 ML VIAL IV SCH ×2 (07:45→21:42)
[2019-03-10] MEDS: FOLIC ACID 1 MG, MULTIVITAMINS INJ 10 ML, THIAMINE HCL 100 MG in NA CHLORIDE 0.9% 1,000 ML IV SCH (08:02)
[2019-03-10] MEDS: CIPROFLOXACIN 400mg IV 400 MG/200 ML BAG IV SCH (08:10)
[2019-03-10] MEDS: ARFORMOTEROL TARTRATE 15 MCG/2 ML VIAL.NEB NEB SCH ×2 (08:30→20:00)
[2019-03-10 10:17] LABS: Barbiturates NEGATIVE (NEGATIVE); Benzodiazepines POSITIVE (NEGATIVE); Cocaine NEGATIVE (NEGATIVE); METHAMPHETAM NEGATIVE (NEGATIVE); Methadone NEGATIVE (NEGATIVE); Opiates NEGATIVE (NEGATIVE); Phencyclidine NEGATIVE (NEGATIVE); THC Cannibis NEGATIVE (NEGATIVE)
[2019-03-10] MEDS ORDERED: MAGNESIUM SULFATE 1 gm IVPB 1 GM/100 ML BAG IV ONE (12:00)
--- NOTE | 2019-03-10 14:41 | P.PN ---
Subjective Date of Service: 03/10/19 Primary Care Provider: none Chief Complaint: colitis, alcohol withdrawal Subjective: Other (Patient was agitated last night. Patient requires 1 on 1 due to high risk for fall. There was some concern that a friend was bringing and alcohol to the hospital for the patient last night) Physical Examination - Vital Signs Temperature: 98.2 F Blood Pressure: 158/94 Pulse: 87 Respirations: 12 Pulse Ox (%): 92 - Physical Exam General: Alert, Confused HEENT: Atraumatic Neck: Supple Respiratory: Clear to auscultation bilaterally, Normal air movement Cardiovascular: Normal pulses, Regular rate/rhythm Gastrointestinal: Normal bowel sounds, Soft and benign, Non-distended, No masses , No rebound, No guarding Neurological: Normal strength at 5/5 x4 extr - Studies Medications List Reviewed: Yes Assessment & Plan Discharge Plan: Other (Skilled placement facility) Plan to discharge in: Greater than 2 days Physician Review Additional Text: Impression: Nausea, vomiting and diarrhea secondary to the right and transverse C diff colitis complicated with dehydration and alcohol withdrawal Alcohol abuse with alcohol withdrawal Hypokalemia, hypomagnesium secondary to dehydration Hypertension GERD COPD Hepatic lesion likely hemangioma Bed bugs High risk for fall: Plan: Nausea, vomiting and diarrhea secondary to the right and transverse C diff colitis complicated with dehydration and alcohol withdrawal: Continue IV fluids and banana bag. Continue to replace electrolytes. Patient transitioned to oral vancomycin. Will continue with scheduled doses of Librium. Will provide IV Ativan as needed. Patient also with bed bugs. Will use precaution. Will advance diet as tolerated. Will provide 1 on 1 care as the patient is high risk for fall. Will need to monitor and make sure patient does not get any alcohol from friends. Will have physical therapy assess ambulation. Anticipate skilled placement facility at discharge. Will contact social insurance analyst for discharge planning. Patient may require adult protective services evaluation. Will turn the service over to Dr. Mello tomorrow. I will go over the plan of care with her. Alcohol abuse with alcohol withdrawal: Continue with IV fluids/banana bag and IV Ativan as needed for agitation. Continue with Librium. Will continue monitor closely. Will monitor for severe alcohol withdrawal. Hypokalemia, hypomagnesium secondary to dehydration: Patient with severe hypokalemia and hypomagnesium. Will continue monitor and replace closely. Continue to replace. Hypertension: Will start metoprolol. Will provide IV medication as needed. GERD: Will continue with medication. COPD: Will continue with COPD medication. Hepatic lesion likely hemangioma: This can be worked up as an outpatient. Bed bugs: Contact precautions to be enforced. High risk for fall: Patient will need 1 on 1 care Time Spent Managing Pts Care (In Minutes): 55
[2019-03-10] MEDS: ENOXAPARIN 40 MG/0.4 ML SQ SCH (17:28)
[2019-03-10] MEDS: VANCOMYCIN ORAL SOLN 250 MG/5 ML OSYR PO SCH (17:29)
[2019-03-10] MEDS ORDERED: ZIPRASIDONE MESYLA 20 MG/VIAL IM ONE (20:13)
[2019-03-10] MEDS ORDERED: WATER FOR INJ,STERILE 10 ML IM PRN ×2 (20:13→21:24)
[2019-03-10] MEDS ORDERED: WATER FOR INJ,STERILE 10 ML ONE (20:29)
[2019-03-10] MEDS ORDERED: LORazepam 2 MG/ML VIAL IV SCH (22:18)
[2019-03-11] MEDS: D5 0.9 NS 1,000 ML IV SCH ×3 (01:55→19:56)
[2019-03-11] MEDS: KCL 20 MEQ/100 mL IVPB 20 MEQ/100 ML BAG IV SCH ×4 (02:53→19:58)
[2019-03-11] MEDS ORDERED: KCL 20 MEQ/100 mL IVPB 20 MEQ/100 ML BAG IV SCH (03:00)
[2019-03-11] MEDS ORDERED: LORazepam 2 MG/ML VIAL IV SCH (04:00)
[2019-03-11] MEDS: chlordiazePOXIDE HCl 25 MG CAP PO SCH ×6 (05:32→23:20)
[2019-03-11] MEDS: VANCOMYCIN ORAL SOLN 250 MG/5 ML OSYR PO SCH ×5 (06:00→23:19)
[2019-03-11] MEDS: METOPROLOL TAR 25 MG TAB PO SCH ×2 (06:00→17:14)
[2019-03-11 06:25] LABS: Absolute Lymphocytes (CBC) 1.7 K/uL (0.7-4.9); Absolute Monocytes 0.7 K/uL (0.1-1.3); Absolute Neutrophil 3.3 K/uL (1.8-8.0); Basophils % 0.7 % (0-1.3); Hematocrit 34.4 % (39.6-49.0); Lymphocytes % 28.6 % (15.3-44.8); MPV 8.7 fL (7.6-11.3); Monocytes % 11.9 % (3.3-12.3)
[2019-03-11 06:52] LABS: ALT/SGPT 29 U/L (12-78); AST/SGOT 73 U/L (15-37); Albumin 2.8 g/dL (3.4-5.0); Alkaline Phosphatase 50 U/L (45-117); BUN Blood Urea Nitrogen 3 mg/dL (7-18); Bicarbonate 32 mmol/L (21-32); Glucose Level 112 mg/dL (74-106); Magnesium 1.5 mg/dL (1.8-2.4); Sodium Level 143 mmol/L (136-145)
[2019-03-11 06:53] LABS: Potassium 2.4 mmol/L (3.5-5.1)
[2019-03-11] MEDS ORDERED: POTASSIUM 25 MEQ EFFERV TAB PO ONE (07:04)
[2019-03-11] MEDS ORDERED: Magnesium Sulfate 2gm IVPB 2 G/50 ML BAG IV ONE (07:06)
[2019-03-11] MEDS: MORPHINE 2 MG/ML SYR IV PRN ×3 (07:46→21:29)
[2019-03-11] MEDS ORDERED: POTASSIUM CL 40 MEQ in NA CHLORIDE 0.9% 500 ML IV SCH (08:00)
[2019-03-11] MEDS: FAMOTIDINE 20 MG/2 ML VIAL IV SCH ×2 (08:33→19:59)
[2019-03-11] MEDS: FOLIC ACID 1 MG, MULTIVITAMINS INJ 10 ML, THIAMINE HCL 100 MG in NA CHLORIDE 0.9% 1,000 ML IV SCH (08:33)
[2019-03-11] MEDS: IPRATROPIUM BROM 0.5MG/2.5ML NEB PRN ×2 (09:08→21:07)
[2019-03-11] MEDS: ARFORMOTEROL TARTRATE 15 MCG/2 ML VIAL.NEB NEB SCH ×2 (09:08→20:00)
[2019-03-11] MEDS: LORazepam 2 MG/ML VIAL IV PRN ×6 (10:17→19:54)
[2019-03-11 15:52] LABS: Magnesium 1.9 mg/dL (1.8-2.4)
[2019-03-11 15:53] LABS: Potassium 2.8 mmol/L (3.5-5.1)
--- NOTE | 2019-03-11 16:03 | P.PN ---
Subjective Date of Service: 03/11/19 Primary Care Provider: none Chief Complaint: colitis, alcohol withdrawal Patient seen and examined at bedside with RN. Chart reviewed. Case discussed with GI. Patient at this time was using bedside commode has had 4 episodes of diarrhea overnight. Does report that he is homeless now. He is worried about his cat and dog at home. No evidence of bed bugs noted at this time Review of Systems 10-point ROS is otherwise unremarkable Physical Examination - Vital Signs Temperature: 97.9 F Blood Pressure: 155/92 Pulse: 92 Respirations: 18 Pulse Ox (%): 98 - Physical Exam General: Alert, In no apparent distress HEENT: Atraumatic, PERRLA, EOMI Neck: Supple, JVD not distended Respiratory: Clear to auscultation bilaterally, Normal air movement Cardiovascular: Regular rate/rhythm, Normal S1 S2 Gastrointestinal: Normal bowel sounds, No tenderness Musculoskeletal: No tenderness Integumentary: No rashes Neurological: Normal speech, Normal tone, Normal affect Lymphatics: No axilla or inguinal lymphadenopathy - Studies Medications List Reviewed: Yes Assessment And Plan - Current Problems (Diagnosis) (1) C. difficile colitis Current Visit: No Status: Acute Plan: Patient with nausea vomiting and abdominal pain -C. difficile culture positive -abdominal CT consistent with colitis -patient currently on p.o. vancomycin -diarrhea is improving at this time -will continue monitor closely (2) Alcohol abuse Current Visit: No Status: Acute Plan: Patient with history of chronic alcohol abuse. -concern for alcohol intake here in the hospital. Currently has 1-1 due to high risk for fall and close monitoring -educated on alcohol abstinence at this time (3) CHF (congestive heart failure) Current Visit: No Status: Chronic Plan: Stable at this time Qualifiers: Qualified Code(s): I50.31 - Acute diastolic (congestive) heart failure (4) COPD (chronic obstructive pulmonary disease) Current Visit: No Status: Chronic Qualifiers: COPD type: chronic bronchitis Chronic bronchitis type: mucopurulent Qualified Code(s): J41.1 - Mucopurulent chronic bronchitis (5) DVT (deep venous thrombosis) Current Visit: No Status: Chronic Qualifiers: DVT location: upper extremity Chronicity: acute Laterality: left (6) GERD (gastroesophageal reflux disease) Current Visit: No Status: Chronic Qualifiers: Esophagitis presence: with esophagitis Qualified Code(s): K21.0 - Gastro- esophageal reflux disease with esophagitis (7) Hypertension Current Visit: No Status: Chronic Qualifiers: Hypertension type: essential hypertension Qualified Code(s): I10 - Essential (primary) hypertension - Plan Pending clinical improvement at this time. Will continue with p.o. vancomycin. Patient worked with physical therapy at this time. Most likely will need care home facility placement. Patient will talk to case management today and provide with choices for his care home facility. Discharge Plan: Home Plan to discharge in: 48 Hours - Code Status/Comfort Care Code Status Assessed: Yes Critical Care: No
[2019-03-11] MEDS: ENOXAPARIN 40 MG/0.4 ML SQ SCH (16:10)
[2019-03-11] MEDS: ZIPRASIDONE MESYLA 20 MG/VIAL IM PRN (22:14)
[2019-03-12] MEDS: LORazepam 2 MG/ML VIAL IV PRN ×6 (01:24→20:54)
[2019-03-12] MEDS: VANCOMYCIN ORAL SOLN 250 MG/5 ML OSYR PO SCH ×3 (05:03→17:17)
[2019-03-12] MEDS: chlordiazePOXIDE HCl 25 MG CAP PO SCH ×3 (05:04→17:17)
[2019-03-12] MEDS: METOPROLOL TAR 25 MG TAB PO SCH ×2 (05:09→17:17)
[2019-03-12 06:21] LABS: ALT/SGPT 29 U/L (12-78); AST/SGOT 69 U/L (15-37); Alkaline Phosphatase 51 U/L (45-117); Bicarbonate 32 mmol/L (21-32); Bilirubin Total 1.7 mg/dL (0.2-1.0); Glucose Level 101 mg/dL (74-106); Magnesium 1.7 mg/dL (1.8-2.4); Protein, Total 6.3 g/dL (6.4-8.2); Sodium Level 140 mmol/L (136-145)
[2019-03-12 06:22] LABS: BUN Blood Urea Nitrogen < 1 mg/dL (7-18)
[2019-03-12 06:23] LABS: Potassium 2.4 mmol/L (3.5-5.1)
[2019-03-12 06:27] LABS: Absolute Lymphocytes (CBC) 1.8 K/uL (0.7-4.9); Absolute Monocytes 0.9 K/uL (0.1-1.3); Absolute Neutrophil 3.1 K/uL (1.8-8.0); Basophils % 1.3 % (0-1.3); Eosinophils % 5.1 % (0-4.4); Hematocrit 34.4 % (39.6-49.0); Lymphocytes % 28.3 % (15.3-44.8); MPV 8.5 fL (7.6-11.3); Monocytes % 14.6 % (3.3-12.3); RBC Red Blood Cell Count 3.55 M/uL (4.33-5.43)
[2019-03-12] MEDS ORDERED: MAGNESIUM SULFATE 1 gm IVPB 1 GM/100 ML BAG IV ONE (07:00)
[2019-03-12] MEDS: KCL 20 MEQ/100 mL IVPB 20 MEQ/100 ML BAG IV SCH ×3 (08:11→12:10)
[2019-03-12] MEDS: FAMOTIDINE 20 MG/2 ML VIAL IV SCH ×2 (08:11→21:00)
[2019-03-12] MEDS: D5 0.9 NS 1,000 ML IV SCH (08:12)
[2019-03-12] MEDS: ARFORMOTEROL TARTRATE 15 MCG/2 ML VIAL.NEB NEB SCH ×2 (10:05→20:00)
[2019-03-12] MEDS: FOLIC ACID 1 MG, MULTIVITAMINS INJ 10 ML, THIAMINE HCL 100 MG in NA CHLORIDE 0.9% 1,000 ML IV SCH (10:18)
--- NOTE | 2019-03-12 11:34 | P.PN ---
Subjective Date of Service: 03/12/19 Primary Care Provider: none Chief Complaint: colitis, alcohol withdrawal Patient seen and examined at bedside with RN. Chart reviewed. Case discussed with GI. Patient overnight became very agitated and was given Ativan and Geodon last night to help him with his agitation. This morning patient does not appear to be agitated alert and oriented x2. Things that he is currently at alf home however after being told that he is at the hospital patient did oriented to place, person and time. Patient currently agree[facility] needs. Does have intermittent confusion which could be secondary to sundowning effect. No bed bugs noted today as well. 2 rounds of diarrhea last night. None this AM Review of Systems 10-point ROS is otherwise unremarkable Physical Examination - Vital Signs Temperature: 98.1 F Blood Pressure: 145/74 Pulse: 83 Respirations: 18 Pulse Ox (%): 95 - Physical Exam General: Alert, Oriented x2, Disheveled HEENT: Atraumatic, PERRLA Neck: Supple, JVD not distended Respiratory: Normal air movement, Expiratory wheezes, Inspiratory wheezes Cardiovascular: Regular rate/rhythm, Normal S1 S2 Gastrointestinal: Normal bowel sounds, No tenderness Musculoskeletal: No tenderness Integumentary: No rashes Neurological: Normal speech, Normal tone, Normal affect Lymphatics: No axilla or inguinal lymphadenopathy - Studies Medications List Reviewed: Yes Assessment And Plan - Current Problems (Diagnosis) (1) C. difficile colitis Current Visit: No Status: Acute Plan: Patient with nausea vomiting and abdominal pain -C. difficile culture positive -abdominal CT consistent with colitis -patient currently on p.o. vancomycin -diarrhea is improving at this time -will continue monitor closely (2) Alcohol abuse Current Visit: No Status: Acute Plan: Patient with history of chronic alcohol abuse. -concern for alcohol intake here in the hospital. Currently has 1-1 due to high risk for fall and close monitoring -educated on alcohol abstinence at this time (3) CHF (congestive heart failure) Current Visit: No Status: Chronic Plan: Stable at this time Qualifiers: Qualified Code(s): I50.31 - Acute diastolic (congestive) heart failure (4) COPD (chronic obstructive pulmonary disease) Current Visit: No Status: Chronic Qualifiers: COPD type: chronic bronchitis Chronic bronchitis type: mucopurulent Qualified Code(s): J41.1 - Mucopurulent chronic bronchitis (5) DVT (deep venous thrombosis) Current Visit: No Status: Chronic Qualifiers: DVT location: upper extremity Chronicity: acute Laterality: left (6) GERD (gastroesophageal reflux disease) Current Visit: No Status: Chronic Qualifiers: Esophagitis presence: with esophagitis Qualified Code(s): K21.0 - Gastro- esophageal reflux disease with esophagitis (7) Hypertension Current Visit: No Status: Chronic Qualifiers: Hypertension type: essential hypertension Qualified Code(s): I10 - Essential (primary) hypertension - Plan Pending clinical improvement and placement at this time. Will continue with p.o. vancomycin. Patient worked with physical therapy at this time. Patient agreeable to go to [facility]. Case management currently working on placement. Discharge Plan: Home Plan to discharge in: 48 Hours - Code Status/Comfort Care Code Status Assessed: Yes Critical Care: No
[2019-03-12 11:38] LABS: HIV AG/AB 4TH GEN Non-reactive (Non-reactive)
[2019-03-12] MEDS: ENOXAPARIN 40 MG/0.4 ML SQ SCH (17:17)
[2019-03-12] MEDS: TRAMADOL HCL 50 MG TAB PO PRN (17:59)
[2019-03-12] MEDS ORDERED: KCL 20 MEQ/100 mL IVPB 20 MEQ/100 ML BAG IV SCH (18:00)
[2019-03-12] MEDS ORDERED: POTASSIUM CL SA 10 MEQ TAB PO ONE (18:00)
[2019-03-12 19:19] LABS: HBsAG Nonreactive (Nonreactive); Hepatitis A IgM Antibody Nonreactive
--- NOTE | 2019-03-12 20:30 | EKG ---
Test Date: 2019-03-12 Test Time: 17:07:56 Primer Inserting Machine Adjuster: HONORIO MEASUREMENT RESULTS: Intervals: Rate: 99 [place]: 122 QRSD: 88 QT: 396 QTc: 508 [place]: P: 55 [place]: 122 QRS: 70 T: 10 INTERPRETIVE STATEMENTS: Sinus rhythm with premature atrial complexes with aberrant conduction ST abnormality, possible digitalis effect Prolonged QT Abnormal ECG Compared to ECG 03/08/2019 19:19:56 Atrial premature complex(es) now present Aberrant conduction of supraventricular beat(s) now present Possible ischemia no longer present ST (T wave) deviation still present Electronically Signed On 03-12-19 20:29:18 CDT by Cuong Morales
[2019-03-12] MEDS ORDERED: WATER FOR INJ,STERILE 10 ML ONE (21:01)
[2019-03-12] MEDS: ZIPRASIDONE MESYLA 20 MG/VIAL IM PRN (21:18)
[2019-03-13] MEDS: VANCOMYCIN ORAL SOLN 250 MG/5 ML OSYR PO SCH ×5 (01:26→23:30)
[2019-03-13] MEDS: LORazepam 2 MG/ML VIAL IV PRN (01:29)
[2019-03-13] MEDS: ZIPRASIDONE MESYLA 20 MG/VIAL IM PRN ×2 (02:41→19:48)
[2019-03-13] MEDS: METOPROLOL TAR 25 MG TAB PO SCH ×2 (05:54→17:42)
[2019-03-13] MEDS: chlordiazePOXIDE HCl 25 MG CAP PO SCH ×5 (05:54→23:31)
[2019-03-13 06:55] LABS: BUN Blood Urea Nitrogen 2 mg/dL (7-18); Bicarbonate 28 mmol/L (21-32); Glucose Level 91 mg/dL (74-106); Magnesium 1.6 mg/dL (1.8-2.4); Sodium Level 137 mmol/L (136-145)
[2019-03-13 07:08] LABS: Potassium 2.8 mmol/L (3.5-5.1)
[2019-03-13] MEDS: FAMOTIDINE 20 MG/2 ML VIAL IV SCH (07:49)
[2019-03-13] MEDS ORDERED: POTASSIUM CL 60 MEQ in NA CHLORIDE 0.9% 1,000 ML IV ONE (08:00)
[2019-03-13] MEDS ORDERED: MAGNESIUM SULFATE 1 gm IVPB 1 GM/100 ML BAG IV ONE (08:00)
[2019-03-13] MEDS: ARFORMOTEROL TARTRATE 15 MCG/2 ML VIAL.NEB NEB SCH ×2 (08:10→20:00)
[2019-03-13] MEDS: FOLIC ACID 1 MG, MULTIVITAMINS INJ 10 ML, THIAMINE HCL 100 MG in NA CHLORIDE 0.9% 1,000 ML IV SCH (09:55)
[2019-03-13 11:28] LABS: Arterial Blood Carboxyhemoglob 2.8 % (0-1.5); Blood Gas Oxyhemoglobin 89.8 % (94-97); Blood O2 Saturation 92.8 % (92-98.5)
--- NOTE | 2019-03-13 13:29 | P.PN ---
Subjective Date of Service: 03/13/19 Primary Care Provider: none Chief Complaint: colitis, alcohol withdrawal Patient seen and examined at bedside with RN. Chart reviewed. Case discussed with GI. Pt this morning AAOx 2 but does appear to be lethargic. Denies Fever/ chills/Nausea and vomiting. Overnight did have an episode of agitation and was given geodon x 1. Did well after that. Pending placement. Review of Systems 10-point ROS is otherwise unremarkable Physical Examination - Vital Signs Temperature: 98.9 F Blood Pressure: 128/78 Pulse: 98 Respirations: 20 Pulse Ox (%): 94 - Physical Exam General: Alert, Oriented x2, Disheveled, Mild distress Neck: Supple Respiratory: Normal air movement, Expiratory wheezes, Inspiratory wheezes Cardiovascular: Regular rate/rhythm, Normal S1 S2 Gastrointestinal: Normal bowel sounds, No tenderness Musculoskeletal: No tenderness Integumentary: No rashes Neurological: Abnormal speech, Abnormal strength Lymphatics: No axilla or inguinal lymphadenopathy - Studies Medications List Reviewed: Yes Assessment And Plan - Current Problems (Diagnosis) (1) C. difficile colitis Current Visit: No Status: Acute Plan: Patient with nausea vomiting and abdominal pain -C. difficile culture positive -abdominal CT consistent with colitis -patient currently on p.o. vancomycin -diarrhea is improving at this time only 1 episode overnight -will continue monitor closely (2) Alcohol abuse Current Visit: No Status: Acute Plan: Patient with history of chronic alcohol abuse. -concern for alcohol intake here in the hospital. Currently has 1-1 due to high risk for fall and close monitoring -educated on alcohol abstinence at this time -Currently being monitor for DT's. Ativan and Librium PRN. (3) CHF (congestive heart failure) Current Visit: No Status: Chronic Plan: Stable at this time Qualifiers: Qualified Code(s): I50.31 - Acute diastolic (congestive) heart failure (4) COPD (chronic obstructive pulmonary disease) Current Visit: No Status: Chronic Qualifiers: COPD type: chronic bronchitis Chronic bronchitis type: mucopurulent Qualified Code(s): J41.1 - Mucopurulent chronic bronchitis (5) DVT (deep venous thrombosis) Current Visit: No Status: Chronic Qualifiers: DVT location: upper extremity Chronicity: acute Laterality: left (6) GERD (gastroesophageal reflux disease) Current Visit: No Status: Chronic Qualifiers: Esophagitis presence: with esophagitis Qualified Code(s): K21.0 - Gastro- esophageal reflux disease with esophagitis (7) Hypertension Current Visit: No Status: Chronic Qualifiers: Hypertension type: essential hypertension Qualified Code(s): I10 - Essential (primary) hypertension - Plan Pending clinical improvement and placement at this time. Will continue with p.o. vancomycin. Patient working with physical therapy at this time. Patient agreeable to go to [facility] residential facility. Case management currently working on placement. Discharge Plan: Correction Plan to discharge in: 48 Hours - Code Status/Comfort Care Code Status Assessed: Yes Critical Care: No
--- NOTE | 2019-03-13 14:45 | RAD REPORT ---
EXAM DESCRIPTION: CT - Head Brain Wo Cont - 03/13/2019 2:23 pm CLINICAL HISTORY: Lethargy, transient alteration of awareness COMPARISON: CT study June 2018 TECHNIQUE: Axial 5 mm thick images of the head were obtained without IV contrast. All CT scans are performed using dose optimization technique as appropriate and may include automated exposure control or mA/KV adjustment according to patient size. FINDINGS: No intracranial hemorrhage, mass, edema or shift of mid-line structures. No acute infarcti on changes seen. No cortical edema or sulcal effacement. The patient has atrophy and chronic ischemic pattern is similar to 2018. Ventricles are in proportion to the volume loss. Arterial and physiologi c calcifications are present. Mastoid air cells and visualized portions of the paranasal sinuses are clear of acute findings. No acute bony findings. IMPRESSION: Prominent for age atrophy and chronic ischemic change similar to 2018. No acute intracranial finding seen.
[2019-03-13 15:02] LABS: Hep C Virus RNA (PCR)log <1.18 log IU/mL
--- NOTE | 2019-03-13 15:27 | RAD REPORT ---
EXAM DESCRIPTION: RAD - Chest Single View - 03/13/2019 3:03 pm CLINICAL HISTORY: SOB Chest pain. COMPARISON: Chest Single View dated 03/08/2019; Chest Single View dated 07/04/2018; Chest Single View d ated 06/30/2018; Chest Single View dated 12/14/2017 FINDINGS: Portable technique limits examination quality. The lungs are underinflated but grossly clear of acute infiltrate. The heart is normal in size. No di splaced fractures. IMPRESSION: Underinflated lungs.
[2019-03-13] MEDS: PIPER/TAZO/NS 2.25gm 2.25 GM/50 ML BAG IVPB SCH ×2 (15:28→17:42)
[2019-03-13] MEDS: ENOXAPARIN 40 MG/0.4 ML SQ SCH (17:42)
--- NOTE | 2019-03-13 18:31 | RAD REPORT ---
EXAM DESCRIPTION: US - UPPER EXTREMITY VENOUS UNILATE - 03/13/2019 6:20 pm CLINICAL HISTORY: redness, swelling, and warmth Leg swelling and edema. COMPARISON: UPPER EXTREMITY VENOUS UNILATE dated 07/11/2018UPPER EXTREMITY VENOUS UNILATE dated 07/11/20 18 FINDINGS: Right upper extremity venous system was interrogated with Doppler technique. Normal flow, compressibility and augmentation was noted. There is no DVT present. IMPRESSION: No evidence of right upper extremity deep venous thrombosis.
[2019-03-13] MEDS ORDERED: WATER FOR INJ,STERILE 10 ML ONE (19:52)
[2019-03-13] MEDS ORDERED: NA CHLORIDE 0.9% 500 ML ONE (20:08)
[2019-03-13] MEDS: KCL 20 MEQ/100 mL IVPB 20 MEQ/100 ML BAG IV SCH ×2 (20:58→22:43)
[2019-03-14] MEDS: PIPER/TAZO/NS 2.25gm 2.25 GM/50 ML BAG IVPB SCH ×3 (00:06→11:32)
[2019-03-14] MEDS: ACETAMINOPHEN 325 MG TABLET PO PRN ×2 (01:28→02:04)
[2019-03-14] MEDS: VANCOMYCIN ORAL SOLN 250 MG/5 ML OSYR PO SCH ×4 (05:30→23:32)
[2019-03-14] MEDS: PANTOPRAZOLE 40MG TABLET PO SCH (05:30)
[2019-03-14] MEDS: chlordiazePOXIDE HCl 25 MG CAP PO SCH ×3 (05:30→17:33)
[2019-03-14] MEDS: METOPROLOL TAR 25 MG TAB PO SCH ×2 (05:30→18:19)
[2019-03-14 06:30] LABS: BUN Blood Urea Nitrogen 6 mg/dL (7-18); Bicarbonate 22 mmol/L (21-32); Glucose Level 105 mg/dL (74-106); Potassium 3.4 mmol/L (3.5-5.1); Sodium Level 138 mmol/L (136-145)
[2019-03-14] MEDS: KCL 20 MEQ/100 mL IVPB 20 MEQ/100 ML BAG IV SCH ×2 (06:38→09:12)
[2019-03-14] MEDS: TRAMADOL HCL 50 MG TAB PO PRN ×2 (08:02→20:06)
[2019-03-14] MEDS: DULOXETINE 30 MG CAP PO SCH (08:17)
[2019-03-14] MEDS: ARFORMOTEROL TARTRATE 15 MCG/2 ML VIAL.NEB NEB SCH ×2 (08:35→19:30)
[2019-03-14] MEDS ORDERED: PROMETHAZINE 25 MG/ML VIAL IV ONE (09:21)
[2019-03-14] MEDS: FOLIC ACID 1 MG, MULTIVITAMINS INJ 10 ML, THIAMINE HCL 100 MG in NA CHLORIDE 0.9% 1,000 ML IV SCH (09:29)
--- NOTE | 2019-03-14 13:27 | P.PN ---
Subjective Date of Service: 03/14/19 Primary Care Provider: none Chief Complaint: colitis, alcohol withdrawal Patient seen and examined at bedside with RN. Chart reviewed. Case discussed with GI. Pt this morning AAOx 2 but does appear to be lethargic. Denies Fever/ chills/Nausea and vomiting. Overnight did have an episode of agitation again and was given geodon x 1. Did well after that. Currently still requiring 1-1 Pending placement. Review of Systems 10-point ROS is otherwise unremarkable Physical Examination - Vital Signs Temperature: 97.3 F Blood Pressure: 163/100 Pulse: 85 Respirations: 20 Pulse Ox (%): 98 - Physical Exam General: In no apparent distress, Oriented x2, Other (Lethargic) Respiratory: Clear to auscultation bilaterally, Normal air movement Cardiovascular: Regular rate/rhythm, Normal S1 S2 Gastrointestinal: Normal bowel sounds, No tenderness Musculoskeletal: No tenderness Integumentary: No rashes Neurological: Normal speech, Normal tone, Normal affect Lymphatics: No axilla or inguinal lymphadenopathy - Studies Medications List Reviewed: Yes Assessment And Plan - Current Problems (Diagnosis) (1) C. difficile colitis Current Visit: No Status: Acute Plan: Patient with nausea vomiting and abdominal pain -C. difficile culture positive -abdominal CT consistent with colitis -patient currently on p.o. vancomycin -diarrhea x3 last night. IV fluids to replace electrolyte -will continue monitor closely (2) Alcohol abuse Current Visit: No Status: Acute Plan: Patient with history of chronic alcohol abuse. -concern for alcohol intake here in the hospital. Currently has 1-1 due to high risk for fall and close monitoring -educated on alcohol abstinence at this time -Currently being monitor for DT's. -increase Librium to scheduled 50 mg every 6 hr (3) CHF (congestive heart failure) Current Visit: No Status: Chronic Plan: Stable at this time Qualifiers: Qualified Code(s): I50.31 - Acute diastolic (congestive) heart failure (4) COPD (chronic obstructive pulmonary disease) Current Visit: No Status: Chronic Plan: Duo nebs, oxygen at this time Qualifiers: COPD type: chronic bronchitis Chronic bronchitis type: mucopurulent Qualified Code(s): J41.1 - Mucopurulent chronic bronchitis (5) GERD (gastroesophageal reflux disease) Current Visit: No Status: Chronic Qualifiers: Esophagitis presence: with esophagitis Qualified Code(s): K21.0 - Gastro- esophageal reflux disease with esophagitis (6) Hypertension Current Visit: No Status: Chronic Plan: Stable at this time -restarted on the home medicine Qualifiers: Hypertension type: essential hypertension Qualified Code(s): I10 - Essential (primary) hypertension - Plan Pending clinical improvement and placement at this time. Will continue with p.o. vancomycin. Patient working with physical therapy at this time. Patient agreeable to go to [facility] for care home facility. Case management currently working on placement however since patient is currently still requiring one-to-one and geodon at night placement is pending Discharge Plan: Home Plan to discharge in: 48 Hours - Code Status/Comfort Care Code Status Assessed: Yes Critical Care: No
[2019-03-14] MEDS: ENOXAPARIN 40 MG/0.4 ML SQ SCH (17:33)
[2019-03-14] MEDS ORDERED: NA CHLORIDE 0.9% 250 ML ONE (19:50)
[2019-03-14] MEDS: ENSURE HIGH PROTEIN 237 ML CAN PO SCH (20:06)
[2019-03-14] MEDS ORDERED: KCL 20 MEQ/100 mL IVPB 20 MEQ/100 ML BAG IV SCH (21:00)
[2019-03-14] MEDS: ZIPRASIDONE MESYLA 20 MG/VIAL IM PRN (23:31)
[2019-03-14] MEDS ORDERED: WATER FOR INJ,STERILE 10 ML ONE (23:43)
[2019-03-15] MEDS: chlordiazePOXIDE HCl 25 MG CAP PO SCH ×6 (05:00→23:09)
[2019-03-15] MEDS: METOPROLOL TAR 25 MG TAB PO SCH ×2 (05:08→17:00)
[2019-03-15] MEDS: VANCOMYCIN ORAL SOLN 250 MG/5 ML OSYR PO SCH ×4 (05:09→23:09)
[2019-03-15 06:12] LABS: BUN Blood Urea Nitrogen 6 mg/dL (7-18); Bicarbonate 25 mmol/L (21-32); Glucose Level 114 mg/dL (74-106); Potassium 3.1 mmol/L (3.5-5.1); Sodium Level 138 mmol/L (136-145)
[2019-03-15] MEDS: PANTOPRAZOLE 40MG TABLET PO SCH (06:14)
[2019-03-15] MEDS ORDERED: KCL 20 MEQ/100 mL IVPB 20 MEQ/100 ML BAG IV SCH (07:30)
[2019-03-15] MEDS ORDERED: POTASSIUM CL SA 10 MEQ TAB PO ONE ×2 (08:00→17:37)
[2019-03-15] MEDS: DULOXETINE 30 MG CAP PO SCH (08:31)
[2019-03-15] MEDS: ENSURE HIGH PROTEIN 237 ML CAN PO SCH ×2 (08:31→22:12)
[2019-03-15] MEDS: TRAMADOL HCL 50 MG TAB PO PRN (08:32)
[2019-03-15] MEDS: ARFORMOTEROL TARTRATE 15 MCG/2 ML VIAL.NEB NEB SCH ×2 (08:35→20:00)
[2019-03-15] MEDS: ZIPRASIDONE MESYLA 20 MG/VIAL IM PRN (09:42)
[2019-03-15] MEDS ORDERED: WATER FOR INJ,STERILE 10 ML ONE (09:53)
[2019-03-15] MEDS: FOLIC ACID 1 MG, MULTIVITAMINS INJ 10 ML, THIAMINE HCL 100 MG in NA CHLORIDE 0.9% 1,000 ML IV SCH (09:55)
--- NOTE | 2019-03-15 11:38 | P.PN ---
Subjective Date of Service: 03/15/19 Primary Care Provider: none Chief Complaint: colitis, alcohol withdrawal Patient seen and examined at bedside with RN. Chart reviewed. Case discussed with GI. Pt is currently sleeping after receiving geodon x 2 last night. Denies Fever/chills/Nausea and vomiting. Overnight still continues to be agitated. Did well after that. Currently still requiring 1-1 Pending placement. Review of Systems 10-point ROS is otherwise unremarkable Physical Examination - Vital Signs Temperature: 97.8 F Blood Pressure: 158/88 Pulse: 88 Respirations: 18 Pulse Ox (%): 96 - Physical Exam General: Delirious, Other HEENT: Atraumatic, PERRLA, EOMI Neck: Supple, JVD not distended Respiratory: Clear to auscultation bilaterally, Normal air movement Cardiovascular: Regular rate/rhythm, Normal S1 S2 Gastrointestinal: Normal bowel sounds, No tenderness Musculoskeletal: No tenderness Integumentary: No rashes Neurological: Normal speech, Normal tone, Normal affect Lymphatics: No axilla or inguinal lymphadenopathy - Studies Medications List Reviewed: Yes Assessment And Plan - Current Problems (Diagnosis) (1) C. difficile colitis Current Visit: No Status: Acute Plan: Patient with nausea vomiting and abdominal pain -C. difficile culture positive -abdominal CT consistent with colitis -patient currently on p.o. vancomycin -Improving now. (2) Alcohol abuse Current Visit: No Status: Acute Plan: Patient with history of chronic alcohol abuse. -concern for alcohol intake here in the hospital. Currently has 1-1 due to high risk for fall and close monitoring -educated on alcohol abstinence at this time -Currently being monitor for DT's. -Now on Librium 50mg q6h. Still requiring Geodon. -Thiamine, FA and B1 (3) CHF (congestive heart failure) Current Visit: No Status: Chronic Plan: Stable at this time Qualifiers: Qualified Code(s): I50.31 - Acute diastolic (congestive) heart failure (4) COPD (chronic obstructive pulmonary disease) Current Visit: No Status: Chronic Plan: Duo nebs, oxygen at this time Qualifiers: COPD type: chronic bronchitis Chronic bronchitis type: mucopurulent Qualified Code(s): J41.1 - Mucopurulent chronic bronchitis (5) GERD (gastroesophageal reflux disease) Current Visit: No Status: Chronic Qualifiers: Esophagitis presence: with esophagitis Qualified Code(s): K21.0 - Gastro- esophageal reflux disease with esophagitis (6) Hypertension Current Visit: No Status: Chronic Plan: Stable at this time -On the home medicine Qualifiers: Hypertension type: essential hypertension Qualified Code(s): I10 - Essential (primary) hypertension - Plan Pending clinical improvement and placement at this time. Will continue with p.o. vancomycin. Patient working with physical therapy at this time. Patient agreeable to go to [facility] for intermediate facility. Case management currently working on placement however since patient is currently still requiring one-to-one and geodon at night placement is pending Discharge Plan: Home Plan to discharge in: 48 Hours - Code Status/Comfort Care Code Status Assessed: Yes Critical Care: No
[2019-03-15] MEDS: ENOXAPARIN 40 MG/0.4 ML SQ SCH (16:28)
[2019-03-15] MEDS ORDERED: PANTOPRAZOLE 40MG TABLET PO ONE (17:36)
[2019-03-16] MEDS: ACETAMINOPHEN 325 MG TABLET PO PRN (01:37)
[2019-03-16] MEDS: chlordiazePOXIDE HCl 25 MG CAP PO SCH ×3 (06:16→17:30)
[2019-03-16] MEDS: METOPROLOL TAR 25 MG TAB PO SCH ×2 (06:16→17:29)
[2019-03-16] MEDS: PANTOPRAZOLE 40MG TABLET PO SCH (06:16)
[2019-03-16] MEDS: VANCOMYCIN ORAL SOLN 250 MG/5 ML OSYR PO SCH ×3 (06:17→17:29)
[2019-03-16] MEDS: ARFORMOTEROL TARTRATE 15 MCG/2 ML VIAL.NEB NEB SCH ×2 (08:00→20:30)
[2019-03-16] MEDS: ENSURE HIGH PROTEIN 237 ML CAN PO SCH ×2 (09:00→22:27)
[2019-03-16 09:13] LABS: BUN Blood Urea Nitrogen 7 mg/dL (7-18); Bicarbonate 25 mmol/L (21-32); Glucose Level 84 mg/dL (74-106); Potassium 3.6 mmol/L (3.5-5.1); Sodium Level 143 mmol/L (136-145)
[2019-03-16] MEDS: DULOXETINE 30 MG CAP PO SCH (09:14)
[2019-03-16] MEDS: FOLIC ACID 1 MG, MULTIVITAMINS INJ 10 ML, THIAMINE HCL 100 MG in NA CHLORIDE 0.9% 1,000 ML IV SCH (09:15)
[2019-03-16] MEDS ORDERED: POTASSIUM CL SA 10 MEQ TAB PO ONE (09:25)
--- NOTE | 2019-03-16 09:43 | P.PN ---
Subjective Date of Service: 03/16/19 Primary Care Provider: none Chief Complaint: colitis, alcohol withdrawal Patient seen and examined at bedside with RN. Chart reviewed. Pt doing much better today. Has not required any geodon last night. This AM pt is AAox2. denies having Chills, fever , N/V Review of Systems 10-point ROS is otherwise unremarkable Physical Examination - Vital Signs Temperature: 97.1 F Blood Pressure: 156/87 Pulse: 64 Respirations: 18 Pulse Ox (%): 95 - Physical Exam General: Alert, In no apparent distress, Oriented x2 HEENT: Atraumatic, PERRLA, EOMI Neck: Supple, JVD not distended Respiratory: Clear to auscultation bilaterally, Normal air movement Cardiovascular: Regular rate/rhythm, Normal S1 S2 Gastrointestinal: Normal bowel sounds, No tenderness Musculoskeletal: No tenderness Integumentary: No rashes Neurological: Normal speech, Normal tone, Normal affect Lymphatics: No axilla or inguinal lymphadenopathy - Studies Medications List Reviewed: Yes Assessment And Plan - Current Problems (Diagnosis) (1) C. difficile colitis Current Visit: No Status: Acute Plan: Patient with nausea vomiting and abdominal pain -C. difficile culture positive -abdominal CT consistent with colitis -patient currently on p.o. vancomycin -Improving now. (2) Alcohol abuse Current Visit: No Status: Acute Plan: Patient with history of chronic alcohol abuse. -concern for alcohol intake here in the hospital. Currently has 1-1 due to high risk for fall and close monitoring -educated on alcohol abstinence at this time -Currently being monitor for DT's. -Now on Librium 50mg q6h. -Thiamine, FA and B1 (3) CHF (congestive heart failure) Current Visit: No Status: Chronic Plan: Stable at this time Qualifiers: Qualified Code(s): I50.31 - Acute diastolic (congestive) heart failure (4) COPD (chronic obstructive pulmonary disease) Current Visit: No Status: Chronic Plan: Duo nebs, oxygen at this time Qualifiers: COPD type: chronic bronchitis Chronic bronchitis type: mucopurulent Qualified Code(s): J41.1 - Mucopurulent chronic bronchitis (5) GERD (gastroesophageal reflux disease) Current Visit: No Status: Chronic Qualifiers: Esophagitis presence: with esophagitis Qualified Code(s): K21.0 - Gastro- esophageal reflux disease with esophagitis (6) Hypertension Current Visit: No Status: Chronic Plan: Stable at this time -On the home medicine Qualifiers: Hypertension type: essential hypertension Qualified Code(s): I10 - Essential (primary) hypertension - Plan Pending clinical improvement and placement at this time. Will continue with p.o. vancomycin. Patient working with physical therapy at this time. Patient agreeable to go to [facility] for care home facility. Case management currently working on placement however since patient is currently still requiring one-to-one and geodon at night placement is pending Discharge Plan: Home Plan to discharge in: 48 Hours - Code Status/Comfort Care Code Status Assessed: Yes Critical Care: No
[2019-03-16] MEDS ORDERED: LORazepam 2 MG/ML VIAL IV ONE (16:47)
[2019-03-16] MEDS ORDERED: WATER FOR INJ,STERILE 10 ML IM PRN (16:59)
[2019-03-16] MEDS ORDERED: ZIPRASIDONE MESYLA 20 MG/VIAL IM ONE (16:59)
[2019-03-16] MEDS: ENOXAPARIN 40 MG/0.4 ML SQ SCH (17:28)
[2019-03-17] MEDS: VANCOMYCIN ORAL SOLN 250 MG/5 ML OSYR PO SCH ×4 (00:16→17:06)
[2019-03-17] MEDS: chlordiazePOXIDE HCl 25 MG CAP PO SCH ×5 (00:17→17:06)
[2019-03-17] MEDS: ACETAMINOPHEN 325 MG TABLET PO PRN (04:01)
[2019-03-17] MEDS: PANTOPRAZOLE 40MG TABLET PO SCH (06:07)
[2019-03-17 06:15] LABS: BUN Blood Urea Nitrogen 5 mg/dL (7-18); Bicarbonate 28 mmol/L (21-32); Glucose Level 95 mg/dL (74-106); Potassium 3.6 mmol/L (3.5-5.1); Sodium Level 144 mmol/L (136-145)
[2019-03-17] MEDS: METOPROLOL TAR 25 MG TAB PO SCH ×2 (06:19→17:05)
[2019-03-17] MEDS: ARFORMOTEROL TARTRATE 15 MCG/2 ML VIAL.NEB NEB SCH ×2 (08:15→20:00)
[2019-03-17] MEDS ORDERED: POTASSIUM CL SA 10 MEQ TAB PO ONE (09:00)
[2019-03-17] MEDS: DULOXETINE 30 MG CAP PO SCH (09:23)
[2019-03-17] MEDS: LORazepam 2 MG/ML VIAL IV PRN ×2 (09:23→20:22)
[2019-03-17] MEDS: ENSURE HIGH PROTEIN 237 ML CAN PO SCH ×2 (09:24→20:13)
[2019-03-17] MEDS: FOLIC ACID 1 MG, MULTIVITAMINS INJ 10 ML, THIAMINE HCL 100 MG in NA CHLORIDE 0.9% 1,000 ML IV SCH (09:24)
[2019-03-17] MEDS: ZIPRASIDONE MESYLA 20 MG/VIAL IM PRN ×2 (10:12→22:57)
--- NOTE | 2019-03-17 11:37 | P.PN ---
Subjective Date of Service: 03/17/19 Primary Care Provider: none Chief Complaint: colitis, alcohol withdrawal Subjective: Other (Patient still requiring 1 on 1 sitter. Patient agitated last night requiring medication.) Physical Examination - Vital Signs Temperature: 97.0 F Blood Pressure: 139/71 Pulse: 65 Respirations: 18 Pulse Ox (%): 100 - Physical Exam General: Confused (Patient still with some confusion. Some agitation noted.) HEENT: Atraumatic Neck: Supple Respiratory: Clear to auscultation bilaterally, Normal air movement Cardiovascular: Normal pulses, Regular rate/rhythm Neurological: Other (Patient with agitation. Patient not oriented. Patient still requires 1 on 1.) - Studies Medications List Reviewed: Yes Assessment & Plan Discharge Plan: Other (prison placement verses skilled placement) Plan to discharge in: Unknown Physician Review Additional Text: Impression: Nausea, vomiting and diarrhea secondary to the right and transverse C diff colitis complicated with dehydration and alcohol withdrawal Alcohol abuse with alcohol withdrawal Hypokalemia, hypomagnesium secondary to dehydration Hypertension GERD COPD Hepatic lesion likely hemangioma Bed bugs High risk for fall: Plan: Nausea, vomiting and diarrhea secondary to the right and transverse C diff colitis complicated with dehydration and alcohol withdrawal: Continue treatment for C diff colitis. Medication-Librium has been adjusted. Continue to provide medication for agitation. Continue to work with still requiring 1 on 1 care due to high risk for fall. Once the patient is stable will consider long-term placement verses skilled placement. Will discuss with public health social worker to address plan of care and possible options. Alcohol abuse with alcohol withdrawal: Continue with current medications. Provide medication for agitation. Patient currently on Librium.. Hypokalemia, hypomagnesium secondary to dehydration: Continue to monitor and replace. Hypertension: Continue to adjust medication GERD: Will continue with medication. COPD: Will continue with COPD medication. Hepatic lesion likely hemangioma: This can be worked up as an outpatient. Bed bugs: Contact precautions to be enforced. High risk for fall: Patient will need 1 on 1 care. Continue with physical therapy. Time Spent Managing Pts Care (In Minutes): 55
[2019-03-17] MEDS: ENOXAPARIN 40 MG/0.4 ML SQ SCH (17:05)
[2019-03-17] MEDS: WATER FOR INJ,STERILE 10 ML IM PRN (22:56)
[2019-03-18] MEDS: VANCOMYCIN ORAL SOLN 250 MG/5 ML OSYR PO SCH ×4 (00:51→18:00)
[2019-03-18] MEDS: chlordiazePOXIDE HCl 25 MG CAP PO SCH ×5 (00:51→18:25)
[2019-03-18] MEDS: PANTOPRAZOLE 40MG TABLET PO SCH (05:56)
[2019-03-18] MEDS: METOPROLOL TAR 25 MG TAB PO SCH ×2 (05:56→18:25)
[2019-03-18] MEDS: ACETAMINOPHEN 325 MG TABLET PO PRN (05:57)
[2019-03-18 06:16] LABS: BUN Blood Urea Nitrogen 3 mg/dL (7-18); Bicarbonate 27 mmol/L (21-32); Glucose Level 85 mg/dL (74-106); Magnesium 1.5 mg/dL (1.8-2.4); Potassium 3.3 mmol/L (3.5-5.1); Sodium Level 139 mmol/L (136-145)
[2019-03-18] MEDS: ARFORMOTEROL TARTRATE 15 MCG/2 ML VIAL.NEB NEB SCH ×2 (08:00→20:00)
[2019-03-18] MEDS: ENSURE HIGH PROTEIN 237 ML CAN PO SCH ×2 (09:00→21:00)
[2019-03-18] MEDS ORDERED: ZIPRASIDONE 20 MG CAP PO SCH (09:00)
[2019-03-18] MEDS: FOLIC ACID 1 MG, MULTIVITAMINS INJ 10 ML, THIAMINE HCL 100 MG in NA CHLORIDE 0.9% 1,000 ML IV SCH (09:50)
[2019-03-18] MEDS: DULOXETINE 30 MG CAP PO SCH (09:51)
[2019-03-18] MEDS: LORazepam 2 MG/ML VIAL IV PRN (11:01)
--- NOTE | 2019-03-18 11:25 | P.PN ---
Subjective Date of Service: 03/18/19 Primary Care Provider: none Chief Complaint: colitis, alcohol withdrawal Subjective: Other (Patient still required medication for agitation last night. Fever noted this morning.) Physical Examination - Vital Signs Temperature: 101.4 F Blood Pressure: 169/96 Pulse: 107 Respirations: 20 Pulse Ox (%): 94 - Physical Exam General: Alert, Confused HEENT: Atraumatic Neck: Supple Respiratory: Clear to auscultation bilaterally, Normal air movement Cardiovascular: Normal pulses, Regular rate/rhythm Gastrointestinal: Normal bowel sounds, Soft and benign, Non-distended, No tenderness, No masses, No rebound, No guarding Neurological: Other (Patient confused.) - Studies Medications List Reviewed: Yes Assessment & Plan Discharge Plan: Other (Skilled placement facility) Plan to discharge in: Greater than 2 days Physician Review Additional Text: Impression: Nausea, vomiting and diarrhea secondary to the right and transverse C diff colitis complicated with dehydration and alcohol withdrawal Fever likely related to C diff colitis Alcohol abuse with alcohol withdrawal Hypokalemia, hypomagnesium secondary to dehydration Hypertension GERD COPD Hepatic lesion likely hemangioma Bed bugs High risk for fall: Plan: Nausea, vomiting and diarrhea secondary to the right and transverse C diff colitis complicated with dehydration and alcohol withdrawal: Patient continues with oral vancomycin. Patient still with confusion. Confusion may be his new baseline. Medication reviewed and adjusted. Will provide Geodon scheduled to help with his confusion. Patient is working with physical therapy. Skilled placement facility will be considered once the patient is able to be off 1 on 1 care. Patient with fever. Will check blood culture, CBC and pro calcitonin. Will check chest x-ray. Will monitor closely. Recent CT head reviewed. Unremarkable. Fever likely related to C diff colitis: Will check CBC, pro calcitonin and chest x-ray. Blood cultures obtained. Alcohol abuse with alcohol withdrawal: Continue with Librium. Will provide medication for agitation. Patient placed on RACHID Don scheduled. Hypokalemia, hypomagnesium secondary to dehydration: Continue to monitor and replace. Hypertension: Continue to adjust medication. May need to make adjustments to medication. GERD: Will continue with medication. COPD: Will continue with COPD medication. Hepatic lesion likely hemangioma: This can be worked up as an outpatient. Bed bugs: Contact precautions to be enforced. High risk for fall: Patient continue with 1 on 1 care. Continue physical therapy. Time Spent Managing Pts Care (In Minutes): 55
[2019-03-18 12:55] LABS: Absolute Lymphocytes (CBC) 1.1 K/uL (0.7-4.9); Absolute Neutrophil 8.2 K/uL (1.8-8.0); Basophils % 1.2 % (0-1.3); Eosinophils % 0.2 % (0-4.4); Hematocrit 42.3 % (39.6-49.0); Lymphocytes % 9.8 % (15.3-44.8); MPV 8.4 fL (7.6-11.3); Monocytes % 17.1 % (3.3-12.3); RBC Red Blood Cell Count 4.25 M/uL (4.33-5.43)
[2019-03-18 13:32] LABS: Blood Morphology Comment NOTED (NOT SEEN); Platelet Estimate INCR; Stomatocytes 2+
[2019-03-18] MEDS ORDERED: IBUPROFEN 400 MG TAB PO PRN (15:37)
--- NOTE | 2019-03-18 15:47 | RAD REPORT ---
EXAM DESCRIPTION: RAD - Chest Single View - 03/18/2019 2:54 pm CLINICAL HISTORY: Fever COMPARISON: March 13 TECHNIQUE: AP portable chest image was obtained 1448 hours . FINDINGS: Lung volumes are low. Lung markings are similar to comparison. Granulomas are noted. No ac cj lung parenchymal process seen at this time. Heart and vasculature are normal. No measurable pleur al effusion and no pneumothorax. No acute bony abnormality seen. No acute aortic findings suspected. IMPRESSION: No pneumonia or other acute finding seen at this time. No significant change from comparison.
[2019-03-18] MEDS: ENOXAPARIN 40 MG/0.4 ML SQ SCH (18:24)
[2019-03-18] MEDS: ZIPRASIDONE 20 MG CAP PO SCH ×2 (21:00→22:30)
[2019-03-18] MEDS ORDERED: POTASSIUM CL SA 10 MEQ TAB PO ONE (21:00)
[2019-03-18] MEDS ORDERED: Magnesium Sulfate 2gm IVPB 2 G/50 ML BAG IV ONE (21:00)
[2019-03-19] MEDS: VANCOMYCIN ORAL SOLN 250 MG/5 ML OSYR PO SCH ×4 (00:21→17:26)
[2019-03-19] MEDS: ACETAMINOPHEN 325 MG TABLET PO PRN ×2 (00:36→07:58)
[2019-03-19] MEDS: METOPROLOL TAR 25 MG TAB PO SCH ×2 (05:43→17:26)
[2019-03-19] MEDS: PANTOPRAZOLE 40MG TABLET PO SCH (05:43)
[2019-03-19] MEDS: chlordiazePOXIDE HCl 25 MG CAP PO SCH ×2 (05:44)
[2019-03-19 06:31] LABS: Absolute Lymphocytes (CBC) 1.6 K/uL (0.7-4.9); Absolute Monocytes 2.7 K/uL (0.1-1.3); Absolute Neutrophil 10.5 K/uL (1.8-8.0); Basophils % 1.2 % (0-1.3); Hematocrit 40.9 % (39.6-49.0); MPV 8.3 fL (7.6-11.3); Monocytes % 17.9 % (3.3-12.3); RBC Red Blood Cell Count 4.12 M/uL (4.33-5.43)
[2019-03-19 06:54] LABS: BUN Blood Urea Nitrogen 6 mg/dL (7-18); Bicarbonate 27 mmol/L (21-32); Glucose Level 80 mg/dL (74-106); Magnesium 1.9 mg/dL (1.8-2.4); Potassium 3.2 mmol/L (3.5-5.1); Sodium Level 137 mmol/L (136-145)
[2019-03-19] MEDS: DULOXETINE 30 MG CAP PO SCH (07:59)
[2019-03-19] MEDS: ENSURE HIGH PROTEIN 237 ML CAN PO SCH ×2 (07:59→21:43)
[2019-03-19] MEDS: ARFORMOTEROL TARTRATE 15 MCG/2 ML VIAL.NEB NEB SCH ×2 (08:45→20:00)
[2019-03-19] MEDS ORDERED: POTASSIUM CL SA 10 MEQ TAB PO ONE (09:00)
[2019-03-19] MEDS: FOLIC ACID 1 MG, MULTIVITAMINS INJ 10 ML, THIAMINE HCL 100 MG in NA CHLORIDE 0.9% 1,000 ML IV SCH (09:05)
--- NOTE | 2019-03-19 09:45 | P.PN ---
Subjective Date of Service: 03/19/19 Primary Care Provider: none Chief Complaint: colitis, alcohol withdrawal Subjective: Other (Still with some confusion but more alert. Some fever last night. Patient is one to one. No diarrhea. No pain noted.) Physical Examination - Vital Signs Temperature: 100.5 F Blood Pressure: 133/81 Pulse: 100 Respirations: 18 Pulse Ox (%): 94 - Physical Exam General: Alert, Confused HEENT: Atraumatic Neck: Supple Respiratory: Clear to auscultation bilaterally, Normal air movement Cardiovascular: Normal pulses, Regular rate/rhythm Gastrointestinal: Normal bowel sounds, Soft and benign, Non-distended, No masses , No rebound, No guarding Integumentary: Other (left upper ext. arm slightly erythematous. IV infiltrated. ) Neurological: Normal strength at 5/5 x4 extr, Normal tone - Studies Medications List Reviewed: Yes Assessment & Plan Discharge Plan: Other (SNF) Plan to discharge in: Greater than 2 days Physician Review Additional Text: Impression: Nausea, vomiting and diarrhea secondary to the right and transverse C diff colitis complicated with dehydration and alcohol withdrawal Fever likely related to C diff colitis Alcohol abuse with alcohol withdrawal Hypokalemia, hypomagnesium secondary to dehydration Hypertension GERD COPD Hepatic lesion likely hemangioma Bed bugs High risk for fall: Plan: Nausea, vomiting and diarrhea secondary to the right and transverse C diff colitis complicated with dehydration and alcohol withdrawal: Patient continues with oral vancomycin. No diarrhea noted. Patient still with confusion but improved. Blood cultures obtained yesterday. CXR unremarkable. Ammonia level WNL. Will check UA and repeat CXR to assess fever. Will DC Geodon and Librium. Will provide medication for agitation. Will check MRI brain to assess confusion. Spoke to daughter at length. She agrees with plan to send to SNF at some point. Spoke with sister about plan of care. She agrees with current plan. Patient will require skilled placement once significantly improved. Fever likely related to C diff colitis: WBC increased. CXR WNL along with repeat chest x-ray today unremarkable.. Ammonia WNL. Blood cultures negative. Await urinalysis. Fever may also be related to IV infiltration to the left upper arm. Patient has been getting DVT prophylaxis. Will check ultrasound of the left upper extremity. Alcohol abuse with alcohol withdrawal: Patient with increase confusion. Will discontinue Librium and Geodon. Will provide medication for agitation as needed. Will send for MRI of brain to further evaluate. Hypokalemia, hypomagnesium secondary to dehydration: Continue to monitor and replace. Hypertension: Continue to adjust medication. May need to make adjustments to medication. GERD: Will continue with medication. COPD: Will continue with COPD medication. Hepatic lesion likely hemangioma: This can be worked up as an outpatient. Bed bugs: Contact precautions to be enforced. High risk for fall: Patient continue with 1 on 1 care. Continue physical therapy. Time Spent Managing Pts Care (In Minutes): 55
[2019-03-19 10:00] LABS: Anisocytosis 1+; Blood Morphology Comment NOTED (NOT SEEN); Platelet Estimate ADEQ; Urine White Blood Cell Casts OK
--- NOTE | 2019-03-19 10:36 | RAD REPORT ---
EXAM DESCRIPTION: Karen Single View03/19/2019 10:31 am CLINICAL HISTORY: fever COMPARISON: 03/18 FINDINGS: The lungs appear clear of acute infiltrate. The heart is normal size IMPRESSION: No acute abnormalities displayed
[2019-03-19 13:50] LABS: Urine Appearance CLEAR; Urine Blood NEGATIVE (NEG); Urine Color DK YELLOW; Urine Glucose NEGATIVE (NEG); Urine Protein TRACE (NEG); Urine Specific Gravity 1.025 (1.005-1.030); Urine Urobilinogen 0.2 mg/dL (0.2-1.0); Urine pH 5.5 (5.0-7.0)
[2019-03-19 13:59] LABS: Urine Bilirubin 2+ (NEG); Urine Microscopic Reflex ORDER UMIC
[2019-03-19 14:12] LABS: Urine Bacteria <20 /HPF (NONE SEEN); Urine Culture Reflex Order NOT NEEDED; Urine RBC <5 /HPF (NONE SEEN)
--- NOTE | 2019-03-19 15:58 | RAD REPORT ---
EXAM DESCRIPTION: MRI - Brain W/Wo Cont - 03/19/2019 3:33 pm CLINICAL HISTORY: Confusion/alteration of awareness COMPARISON: June, head CT TECHNIQUE: Axial, sagittal, and coronal magnetic images of the brain were obtained. 15 cc MultiHance administered intravenously FINDINGS: 4 millimeter area of abnormal signal on diffusion-weighted sequences consistent with a lac unar infarct within the posterior left basal ganglia. No abnormal enhancement within the brain is seen. Cerebral atrophy is present. Small additional areas of abnormal signal within the basal ganglia bilat erally likely represent old lacunar infarcts. 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 March 19, 2019
[2019-03-19] MEDS: D5 0.9 NS 1,000 ML IV SCH (16:14)
[2019-03-19] MEDS: ENOXAPARIN 40 MG/0.4 ML SQ SCH (17:25)
[2019-03-19] MEDS ORDERED: POTASSIUM 25 MEQ EFFERV TAB PO ONE (18:00)
--- NOTE | 2019-03-19 18:13 | RAD REPORT ---
EXAM DESCRIPTION: US - UPPER EXTREMITY VENOUS UNILATE - 03/19/2019 5:58 pm CLINICAL HISTORY: M79.622/I82.622/left arm swelling. COMPARISON: None. FINDINGS: Echogenic material consistent with acute thrombus is present within the left cephalic vein within the upper arm and forearm. The vein is noncompressible Left internal jugular vein, left subclavian vein, left axillary vein, left brachial vein, left basil ic, left veins demonstrate phasic signal. The veins are compressible. Doppler demonstrates good flow . . IMPRESSION: Acute thrombus within the left cephalic vein.
--- NOTE | 2019-03-19 18:14 | RAD REPORT ---
EXAM DESCRIPTION: USCarotid Artery Bilateral03/19/2019 5:59 pm CLINICAL HISTORY: Left basal ganglia infarct COMPARISON: None FINDINGS: The velocity of the right internal carotid artery equals 89 cm/sec. The right ICA/CCA rati o 1.7 The velocity of the left internal carotid artery equals 108 cm/sec. The left ICA/CCA ratio 1.1 Mild plaque is present within the carotid arteries. The vertebral arteries demonstrate antegrade flow IMPRESSION: Mild plaque within the carotid arteries without evidence of a hemodynamically significan t stenosis NASCET criteria used. Mild 0-49% stenosis Moderate 50-69% stenosis Severe 70-99% stenosis
[2019-03-19] MEDS: VANCOMYCIN 1.25 GM in NA CHLORIDE 0.9% 250 ML IVPB SCH (21:42)
[2019-03-19] MEDS: ATORVASTATIN 80 MG TAB PO SCH (21:43)
[2019-03-20] MEDS: VANCOMYCIN ORAL SOLN 250 MG/5 ML OSYR PO SCH ×4 (00:47→17:16)
[2019-03-20] MEDS: D5 0.9 NS 1,000 ML IV SCH ×2 (02:29→14:17)
[2019-03-20] MEDS ORDERED: KCL 20 MEQ/100 mL IVPB 20 MEQ/100 ML BAG IV SCH (03:00)
[2019-03-20] MEDS: LORazepam 2 MG/ML VIAL IV PRN (04:36)
[2019-03-20] MEDS: PANTOPRAZOLE 40MG TABLET PO SCH (05:06)
[2019-03-20] MEDS: METOPROLOL TAR 25 MG TAB PO SCH ×2 (05:06→17:17)
[2019-03-20 06:12] LABS: Absolute Lymphocytes (CBC) 1.6 K/uL (0.7-4.9); Absolute Monocytes 1.9 K/uL (0.1-1.3); Absolute Neutrophil 9.7 K/uL (1.8-8.0); Basophils % 1.2 % (0-1.3); Eosinophils % 0.3 % (0-4.4); Hematocrit 37.9 % (39.6-49.0); Lymphocytes % 11.9 % (15.3-44.8); MPV 8.4 fL (7.6-11.3)
[2019-03-20 06:16] LABS: BUN Blood Urea Nitrogen 7 mg/dL (7-18); Bicarbonate 28 mmol/L (21-32); Glucose Level 109 mg/dL (74-106); Magnesium 1.9 mg/dL (1.8-2.4); Potassium 3.7 mmol/L (3.5-5.1); Sodium Level 139 mmol/L (136-145)
[2019-03-20] MEDS: DULOXETINE 30 MG CAP PO SCH (08:46)
[2019-03-20] MEDS: ENSURE HIGH PROTEIN 237 ML CAN PO SCH ×2 (08:46→21:07)
[2019-03-20] MEDS ORDERED: VANCOMYCIN 1 GM in NA CHLORIDE 0.9% 500 ML IVPB SCH (09:00)
[2019-03-20] MEDS ORDERED: ASPIRIN EC 81 MG TAB PO SCH (09:00)
[2019-03-20] MEDS: ARFORMOTEROL TARTRATE 15 MCG/2 ML VIAL.NEB NEB SCH ×2 (09:00→20:00)
[2019-03-20] MEDS ORDERED: POTASSIUM CL SA 10 MEQ TAB PO ONE (09:00)
[2019-03-20] MEDS: ACETAMINOPHEN 325 MG TABLET PO PRN (09:06)
[2019-03-20] MEDS: VANCOMYCIN 1.25 GM in NA CHLORIDE 0.9% 250 ML IVPB SCH ×2 (09:30→21:07)
[2019-03-20] MEDS: FOLIC ACID 1 MG, MULTIVITAMINS INJ 10 ML, THIAMINE HCL 100 MG in NA CHLORIDE 0.9% 1,000 ML IV SCH (09:30)
--- NOTE | 2019-03-20 12:37 | P.PN ---
Subjective Date of Service: 03/20/19 Primary Care Provider: none Chief Complaint: colitis, alcohol withdrawal Subjective: Improving (Patient is more alert today. Patient found to have CVA yesterday. Patient placed on IV antibiotic therapy due to positive blood culture.) Physical Examination - Vital Signs Temperature: 98.7 F Blood Pressure: 138/72 Pulse: 79 Respirations: 18 Pulse Ox (%): 94 - Physical Exam General: Alert, Other (Less confused today. Patient able to follow command) Neck: Supple Respiratory: Clear to auscultation bilaterally, Normal air movement Cardiovascular: Normal pulses, Regular rate/rhythm Gastrointestinal: Normal bowel sounds, Soft and benign, Non-distended Musculoskeletal: Other (Left upper extremity erythema noted. Previous IV infiltration noted.) Integumentary: Other (As above) Neurological: Other (Patient more alert.) - Studies Medications List Reviewed: Yes Assessment & Plan Discharge Plan: Other ([facility] placement) Plan to discharge in: Greater than 2 days Physician Review Additional Text: Impression: Nausea, vomiting and diarrhea secondary to the right and transverse C diff colitis complicated with dehydration and alcohol withdrawal Fever likely related to Cellulitis to the left upper extremity likely from IV infiltration with noted positive blood culture Confusion suspect related to 4 mm acute posterior left basal ganglia CVA Alcohol abuse with alcohol withdrawal Hypokalemia, hypomagnesium secondary to dehydration Hypertension GERD COPD Hepatic lesion likely hemangioma Bed bugs High risk for fall: Plan: Nausea, vomiting and diarrhea secondary to the right and transverse C diff colitis complicated with dehydration and alcohol withdrawal: Patient continues with oral vancomycin. No more diarrhea noted. Will check to see when this can be discontinued. Geodon and Librium have been discontinued. Patient less confused. Confusion likely related to 4 mm acute CVA. Patient now on aspirin, and statin medication. Continue with blood pressure medication and DVT prophylaxis. Neurology was consulted. Will discuss with him. Spoke with daughter concerning plan of care. Still anticipate skilled placement. Patient will need to improve and be off one-to-one care. Continue to monitor closely. Confusion suspect related to 4 mm acute posterior left basal ganglia CVA: This was discovered yesterday. Patient now on aspirin, folic acid, statin medication and blood pressure medication. Will discuss with Neurology. Will continue with physical therapy. Anticipate skilled placement once significantly improved. Fever likely related to Cellulitis to the left upper extremity likely from IV infiltration with noted positive blood culture: WBC iPatient now on IV vancomycin. Continue with wound care. Surgery to evaluate. Care discussed with surgery. No intervention required. Ultrasound shows no left upper extremity DVT. Patient with history of DVT in the distant past. No need for chronic anti coagulation therapy. Alcohol abuse with alcohol withdrawal: Patient less confused. Will continue off Librium and Geodon. Will provide medication for agitation as needed. Hypokalemia, hypomagnesium secondary to dehydration: Continue to monitor and replace. Hypertension: Continue to adjust medication. May need to make adjustments to medication. GERD: Will continue with medication. COPD: Will continue with COPD medication. Hepatic lesion likely hemangioma: This can be worked up as an outpatient. Bed bugs: Contact precautions to be enforced. High risk for fall: Patient continue with 1 on 1 care. Continue physical therapy. Time Spent Managing Pts Care (In Minutes): 55
--- NOTE | 2019-03-20 15:05 | CON ---
Date of Consultation: 03/20/2019 Reason For Consult: Left arm cellulitis after IV infiltration. Brief History Of Present Illness: The patient is a 64-year-old male admitted on 03/08/2019 with the altered mental status at that time. He has a history of alcohol abuse, COPD, hypertension, GERD, who also progressively got diarrhea associated with nausea and vomiting. He was somewhat conf used at the time of admission by report. He is nonverbal during my examination. Does not give any s ignificant history. During his admission, he has had imaging which showed multiple problems includin g a basal ganglia infarct on an MRI. He had an IV infiltrate of the left antecubital fossa with surr ounding cellulitis. It is unclear of what specific medication was infiltrated or if it was simply IV fluids. Therefore, I was consulted to evaluate this. Past Medical History: Significant for depression, neuropathy, rotator cuff tears, COPD, hypertension , GERD. Past Surgical History: Includes back surgery, tonsillectomy, hand surgery. Allergies: NO KNOWN DRUG ALLERGIES. Home Medications: Duloxetine and Eliquis. Review of Systems: Unable to obtain as the patient is nonverbal. Does not answer questions appropriately. He makes itzel ses but indiscernible. Physical Examination: Vital Signs: His BMI is 23.2. His vital signs are blood pressure 145/83, pulse is 82, respiratory r ate 18, temperature 100.3. General: He is awake. He does not answer questions appropriately and makes grunting noises, but mov es around and follows some commands incompletely. HEENT: Otherwise normocephalic. Neck: Supple. No JVD. Chest: Normal expansion. Extremities: Focused examination of the left upper extremity shows some cellulitic changes. There a re no drainable collections on the antecubital fossa. There is induration to this area and somewhat thickening, but no drainable fluid collection. The cellulitis extends for an area circumferentially around the elbow area and extending up to the biceps area for approximately a 5 cm circumferential ar ea around the antecubital fossa. He is able to move the arm and it has mild tenderness to palpation. He grimaces with the inspection of the area. Laboratory Data: Laboratory exam reveals white blood cell count of 13.4, hemoglobin 13.2, hematocrit 37.9, platelet count of 601. His neutrophils are 72. Sodium 139, potassium 3.5, chloride 107, carb on dioxide 28, BUN 7, creatinine 0.6, glucose is 109. C-reactive protein was 120. His creatine martha se was 37. His procalcitonin 0.17 on 03/18. He had an extremity venous study on 03/19, which was offi cially read on the left arm upper extremity venous study showed an acute thrombus within the left cep halic vein. The left IJ, subclavian vein, axillary vein, brachial vein, and basilic veins showed pha sic signals. The vessels are compressible. The doppler demonstrated good flow echogenic material co nsistent with the acute thrombus is present within the left cephalic vein within the upper arm and fo rearm. The vein is noncompressible. Assessment And Plan: This is a 64-year-old male who had infiltration and thrombosis of the cephalic vein as described above on the left upper extremity. 1.IV fluid hydration. 2.Antibiotic coverage. 3.Elevation and gentle wraps. 4.Consider anticoagulation for this thrombus, although it is in superficial vein systems, the patien t may benefit from anticoagulation for this issue. Thank you for this interesting consult. LOW/LAURA Voice ID: [id number] Report ID: [id number]
[2019-03-20] MEDS: LACTOBACILLUS/ACIDOPHILUS TAB PO SCH ×2 (15:19→21:07)
[2019-03-20] MEDS: LOPERAMIDE HCL 2 MG CAPSULE PO PRN (15:19)
[2019-03-20] MEDS: ENOXAPARIN 40 MG/0.4 ML SQ SCH (17:16)
--- NOTE | 2019-03-20 17:36 | ECHO ---
HEIGHT: 5 ft 10 in WEIGHT: 154 lb 7 oz DATE OF STUDY: 03/20/[address]: Abebe Pimentel DO 2-DIMENSIONAL: YES M.MODE: YES DOPPLER: YES COLOR FLOW: YES TDS: YES PORTABLE: DEFINITY: BUBBLE STUDY: DIAGNOSIS: 4 millimeter acute posterior left basal ganglia infarc CARDIAC HISTORY: CATHERIZATION: NO SURGERY: NO PROSTHETIC VALVE: NO PACEMAKER: NO MEASUREMENTS (cm) DIASTOLIC (NORMALS) SYSTOLIC (NORMALS) IVSd 0.8 (0.6-1.2) LA Diam 3.3 (1.9-4.0) LVEF 74% LVIDd 3.3 (3.5-5.7) LVIDs 1.9 (2.0-3.5) %FS 42% LVPWd 0.9 (0.6-1.2) Ao Diam 2.9 (2.0-3.7) 2 DIMENSIONAL ASSESSMENT: RIGHT ATRIUM: NORMAL LEFT ATRIUM: NORMAL RIGHT VENTRICLE: NORMAL LEFT VENTRICLE: NORMAL TRICUSPID VALVE: NORMAL MITRAL VALVE: NORMAL PULMONIC VALVE: NORMAL AORTIC VALVE: NORMAL PERICARDIAL EFFUSION: NONE AORTIC ROOT: NORMAL LEFT VENTRICULAR WALL MOTION: DOPPLER/COLOR FLOW: WITHIN NORMAL LIMITS. THIS STUDY IS TECHNICALLY DIFFICULT. COMMENTS: NORMAL TWO DIMENSIONAL ECHOCARDIOGRAM WITH DOPPLER. TECHNICALLY DIFFICULT STUDY. TECHNOLOGIST: ALEISHA VALLES
--- NOTE | 2019-03-20 19:27 | CON ---
Reason For Consultation: Consultation called because of finding of a new acute stroke. History Of Present Illness: Mr. Baig is a 64-year-old patient with depression, alcoho l abuse, peripheral neuropathy, COPD, hypertension, gastroesophageal reflux disease, who was admitted to [facility] on 03/08/2019, which was 12 days ago, after he had 6 days of diarrhea with na usea and vomiting. The patient was on an alcoholic binge and developed symptoms as indicated. At [facility], alcohol level in the serum was found to be 100. His potassium was found to be sev erely hypokalemic at 2.2, magnesium was severely low at 0.8. He was admitted for electrolyte replace ment and hydration and given alcohol withdrawal prophylaxis with thiamine, folic acid, multivitamin a nd put on benzodiazepine for alcohol withdrawal. The patient's baseline since his admission has been poor interaction, very few words. He does follow simple commands. He did not have any focal defici ts regarding his face, arm, or leg in terms of his movement or symmetry of appearance, no gaze prefer ence, no other evidence of a focal deficit. However, as the patient did not returning to a more inte ractive state, an MRI of the brain was done after a CT scan on the showing no acute ischemic or h emorrhagic change. The MRI was done on the 19 March. It should be noted that the head CT scan showe d prominent atrophy from chronic ischemic change, possibly related to chronic alcohol abuse. The MRI done on the , that is yesterday, identified a 4 mm acute left posterior basal ganglia infarct al joan with cerebral atrophy as indicated. There was also bilaterally abnormal signal within the basal ganglia from old multiple strokes along with periventricular deep and subcortical white matter chroni c small vessel ischemic disease. His extremity venous Doppler study identified an acute thrombus in the left arm for left arm swelling. Carotid artery ultrasound showed mild plaque in the carotid wally hilton without evidence of hemodynamically significant stenosis. The patient has not yet had an electr oencephalogram. Past Medical History: As indicated. Allergies: NO KNOWN DRUG ALLERGIES. Medications At Home: Eliquis 10 mg twice daily for his deep vein thrombus and duloxetine 30 mg daily . Surgical History: Tonsillectomy, hand surgery, rotator cuff surgery bilaterally, back surgery. Family History: Positive for heart disease in mother. Social History: The patient drinks alcohol on a regular basis, unable to tell exactly how much. Als o smoked tobacco cigarettes daily basis. No IV drugs. Review of Systems: Unable to complete as the patient shows low verbal production. He does follow simple commands only a nd answers 1 or 2 words when questioned. Physical Examination: Vital Signs: Blood pressure 138/72, pulse 79, respiratory rate 16, temperature 98.7, oxygen saturati on 94% room air. Weight 154 pounds, height 5 feet 10 inches, BMI 22.2. General: Mr. Baig is resting in bed. He is in no acute distress. He does appear somewhat dish eveled and poorly kept. HEENT: He is otherwise normocephalic and atraumatic. Sclerae are anicteric. Oropharynx is moist. Neck: Supple. Chest: Clear. Heart: Regular. Abdomen: Soft. Extremities: Show no significant edema or cyanosis. Neurological: He is alert and oriented to person, did answer to the month, but not the exact date, d id say 19, but I was not sure if it was 2019 or 19 in terms of year. Any event, he was not sure of t he year. Cranial nerves did not reveal significant ophthalmoplegia. His face is symmetric. He did have full visual mercer and his facial sensation appeared intact bilaterally. On motor, unable to fu lly assess strength. The patient does move his arms equally well and legs equally well although repe ated encouragement is required for him to hold and move his arms. He did respond equally well to du ch in the arms and legs. Unable to fully assess coordination and gait. His reflexes are symmetric. Laboratory Studies: Current electrolytes have now normalized with sodium of 139, potassium 3.7, chlo ride 107, carbon dioxide 28, BUN 7, creatinine 0.64, glucose 109, calcium 8.1, magnesium 1.9. Ammoni a level of 37 and liver function studies show AST elevated at 69, ALT normal at 29, alkaline phosphat ase normal at 51. His total bilirubin elevated at 2.0, and the toxicology screen was positive for be nzodiazepine and serum alcohol level of 100. He was reactive for hepatitis C antibody at signal cut off 18.5, where normal is less than 1. His HIV 1 and 2 were nonreactive. Hepatitis A and B were non reactive. On admission, his urine was positive for nitrites, 1+ esterase, 2+ ketones, 5-10 white blo od cells. Assessment: Mr. Baig is a 64-year-old patient with apparent Wernicke's encephalopathy in additi on to marked electrolyte abnormalities recently corrected to include hypokalemia and hypomagnesemia. Also appeared to have a urinary tract infection on admission and he has hepatitis C antibodies prese nt. These factors are likely all contributing to his encephalopathy. Plan: 1.We will perform EEG to determine if there is epileptiform activity is also a contributing factor a nd likely to determine the extent of cerebral dysfunction as may be measured by either slow activity or presence of sharp waves. 2.Okay to continue with alcohol withdrawal prophylaxis. 3.Okay to continue with thiamine 100 mg twice daily and folate 1 mg twice daily, also take a multivi tamin daily. 4.He will likely be debilitated and require physical therapy and close supervision because of poor s afety awareness. He at this point may be best served by either a correction or long-term facili ty that can manage his current medical condition and the need for 24 hours supervision. That may end up being either long-term or correction facility depending on availability. In any event, h e should be evaluated by the Physical Occupational therapy staff to determine the level of physical t herapy may require since being in hospital for 2 weeks without much mobilization. SHIRLEY/LAURA Voice ID: [id number] Report ID: [id number]
[2019-03-20] MEDS: ATORVASTATIN 80 MG TAB PO SCH (21:07)
[2019-03-20] MEDS: MUPIROCIN 2% OINT 22GM TUBE TOP SCH (21:08)
[2019-03-21] MEDS: D5 0.9 NS 1,000 ML IV SCH (01:08)
[2019-03-21] MEDS: VANCOMYCIN ORAL SOLN 250 MG/5 ML OSYR PO SCH ×4 (01:09→17:38)
[2019-03-21] MEDS: METOPROLOL TAR 25 MG TAB PO SCH ×2 (05:39→17:38)
[2019-03-21] MEDS: PANTOPRAZOLE 40MG TABLET PO SCH (05:39)
[2019-03-21 06:15] LABS: Absolute Lymphocytes (CBC) 1.6 K/uL (0.7-4.9); Absolute Monocytes 1.1 K/uL (0.1-1.3); Absolute Neutrophil 6.6 K/uL (1.8-8.0); Basophils % 0.7 % (0-1.3); Eosinophils % 1.2 % (0-4.4); Hematocrit 33.7 % (39.6-49.0); Lymphocytes % 16.5 % (15.3-44.8); MPV 8.2 fL (7.6-11.3); Monocytes % 11.5 % (3.3-12.3); RBC Red Blood Cell Count 3.41 M/uL (4.33-5.43)
[2019-03-21 06:27] LABS: BUN Blood Urea Nitrogen 3 mg/dL (7-18); Bicarbonate 26 mmol/L (21-32); Glucose Level 220 mg/dL (74-106); Magnesium 1.6 mg/dL (1.8-2.4); Potassium 3.4 mmol/L (3.5-5.1); Sodium Level 141 mmol/L (136-145)
[2019-03-21] MEDS ORDERED: MAGNESIUM SULFATE 1 gm IVPB 1 GM/100 ML BAG IV ONE (08:00)
[2019-03-21] MEDS: ARFORMOTEROL TARTRATE 15 MCG/2 ML VIAL.NEB NEB SCH ×2 (08:17→20:00)
[2019-03-21] MEDS: FOLIC ACID 1 MG, MULTIVITAMINS INJ 10 ML, THIAMINE HCL 100 MG in NA CHLORIDE 0.9% 1,000 ML IV SCH (08:18)
[2019-03-21] MEDS: APIXABAN 5 MG TABLET PO SCH ×2 (08:20→21:16)
[2019-03-21] MEDS: LACTOBACILLUS/ACIDOPHILUS TAB PO SCH ×3 (08:20→21:16)
[2019-03-21] MEDS: DULOXETINE 30 MG CAP PO SCH (08:20)
[2019-03-21] MEDS: ENSURE HIGH PROTEIN 237 ML CAN PO SCH ×2 (08:21→21:16)
[2019-03-21] MEDS: NA CHLORIDE 0.9% 1,000 ML IV SCH ×2 (08:21→18:00)
[2019-03-21] MEDS: KCL 20 MEQ/100 mL IVPB 20 MEQ/100 ML BAG IV SCH ×2 (08:22→11:27)
[2019-03-21] MEDS: VANCOMYCIN 1.25 GM in NA CHLORIDE 0.9% 250 ML IVPB SCH ×2 (08:39→21:16)
--- NOTE | 2019-03-21 09:46 | P.PN ---
Subjective Date of Service: 03/21/19 Primary Care Provider: none Chief Complaint: colitis, alcohol withdrawal Subjective: Other (Patient less confused today. Slight agitation noted. Nurses report patient slept well with last night.) Physical Examination - Vital Signs Temperature: 98.6 F Blood Pressure: 145/78 Pulse: 85 Respirations: 20 Pulse Ox (%): 94 - Physical Exam General: Alert, Confused (Less confused) HEENT: Atraumatic Neck: Supple Respiratory: Clear to auscultation bilaterally, Normal air movement Cardiovascular: Normal pulses, Regular rate/rhythm Gastrointestinal: Normal bowel sounds, Non-distended, No masses, No rebound, No guarding Musculoskeletal: Other (Left erythema and swelling to the upper extremity improved.) Integumentary: Other (Erythema and swelling improved to the left upper extremity ) Neurological: Normal speech, Normal strength at 5/5 x4 extr, Normal tone - Studies Medications List Reviewed: Yes Assessment & Plan Discharge Plan: Other (senior living facility) Plan to discharge in: Greater than 2 days Physician Review Additional Text: Impression: Nausea, vomiting and diarrhea secondary to the right and transverse C diff colitis complicated with encephalopathy related to alcohol withdrawal and suspect Wernicke encephalopathy along with acute CVA and bacteremia Fever likely related to Cellulitis to the left upper extremity likely from IV infiltration with noted positive blood culture Encephalopathy suspect related to 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 Lactobacillus added yesterday. Will provide Imodium as needed. Patient did have an episode of diarrhea yesterday. Will need to monitor closely. Will adjust IV fluids. If taking good oral intake then will transition off IV. Case discussed with Neurology. Patient may have underlying Wernike encephalopathy related to his alcohol abuse. EEG to be performed to further evaluate. Will restart Librium but hold if with increase sedation. Patient also found to have left upper extremity DVT. Will discontinue aspirin and Lovenox-DVT prophylaxis and start Eliquis 10 mg 1 pill twice daily for 7 days then transition to Eliquis 5 mg twice daily for 3 months. Cellulitis to the left upper extremity and bacteremia currently being treated as well. Continue with physical therapy. Spoke with social insurance analyst. Will try to wean off 1 on 1 care. If able to wean off 1 on 1 care then patient can be transition to skilled facility. Spoke with sister yesterday. Will address plan of care with her. Anticipate transfer to skilled facility likely in the next couple of days if significantly improved. I will turn the service over to Dr. Castillo tomorrow. I will go over the plan of care with her. 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 Continue folic acid, statin medication and blood pressure medication. Will discontinue aspirin since the patient will be on Eliquis. Continue physical therapy. Will pursue skilled placement. Will discuss with Neurology. Fever likely related to Cellulitis to the left upper extremity likely from IV infiltration with noted positive blood culture: Continue IV vancomycin. Await wound culture results. Surgery has evaluated patient. No need for surgical intervention. Continue with wound care consultation recommendations. Will transition to oral medication once culture results have been obtained. Left upper extremity DVT-thrombus to the left cephalic vein: Will start Eliquis at 10 mg 1 pill twice daily for 7 days then transition to 5 mg 1 pill twice daily for 3 months. Alcohol abuse with alcohol withdrawal: Patient less confused. Patient slept well last night. Patient continues on Ativan as needed. Slight agitation noted this morning. Will start low-dose Librium scheduled but hold if with increase sedation. Will monitor and adjust appropriately. Hypokalemia, hypomagnesium secondary to dehydration: Continue to monitor and replace. Hypertension: Overall stable. Continue to adjust medication. May need to make adjustments to medication. GERD: Will continue with medication. COPD: Will continue with COPD medication. Hepatic lesion likely hemangioma: This can be worked up as an outpatient. Bed bugs: Contact precautions to be enforced. High risk for fall: Patient continue with 1 on 1 care. Continue physical therapy. Time Spent Managing Pts Care (In Minutes): 55
--- NOTE | 2019-03-21 10:28 | P.PN ---
Subjective Date of Service: 03/21/19 Primary Care Provider: none Chief Complaint: colitis, alcohol withdrawal Subjective: Improving no acute events Physical Examination - Vital Signs Temperature: 98.6 F Blood Pressure: 145/78 Pulse: 85 Respirations: 20 Pulse Ox (%): 94 - Physical Exam General: In no apparent distress Integumentary: Other (cellulitis to LEFT elbow remains, no collections, minimal serous drainage) - Studies Medications List Reviewed: Yes Assessment And Plan - Current Problems (Diagnosis) (1) Cellulitis Current Visit: Yes Status: Acute - Plan - continue antibiotics - no drainable collections - daily dressing changes with triple antibiotics, damp to dry gauze, elevate extremity, cooling packs Physician Review Additional Text: Impression: Nausea, vomiting and diarrhea secondary to the right and transverse C diff colitis complicated with encephalopathy related to alcohol withdrawal and suspect Wernicke encephalopathy along with acute CVA and bacteremia Fever likely related to Cellulitis to the left upper extremity likely from IV infiltration with noted positive blood culture Encephalopathy suspect related to 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 Lactobacillus added yesterday. Will provide Imodium as needed. Patient did have an episode of diarrhea yesterday. Will need to monitor closely. Will adjust IV fluids. If taking good oral intake then will transition off IV. Case discussed with Neurology. Patient may have underlying Wernike encephalopathy related to his alcohol abuse. EEG to be performed to further evaluate. Will restart Librium but hold if with increase sedation. Patient also found to have left upper extremity DVT. Will discontinue aspirin and Lovenox-DVT prophylaxis and start Eliquis 10 mg 1 pill twice daily for 7 days then transition to Eliquis 5 mg twice daily for 3 months. Cellulitis to the left upper extremity and bacteremia currently being treated as well. Continue with physical therapy. Spoke with social services technician. Will try to wean off 1 on 1 care. If able to wean off 1 on 1 care then patient can be transition to skilled facility. Spoke with sister yesterday. Will address plan of care with her. Anticipate transfer to skilled facility likely in the next couple of days if significantly improved. I will turn the service over to Dr. Castillo tomorrow. I will go over the plan of care with her. 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 Continue folic acid, statin medication and blood pressure medication. Will discontinue aspirin since the patient will be on Eliquis. Continue physical therapy. Will pursue skilled placement. Will discuss with Neurology. Fever likely related to Cellulitis to the left upper extremity likely from IV infiltration with noted positive blood culture: Continue IV vancomycin. Await wound culture results. Surgery has evaluated patient. No need for surgical intervention. Continue with wound care consultation recommendations. Will transition to oral medication once culture results have been obtained. Left upper extremity DVT-thrombus to the left cephalic vein: Will start Eliquis at 10 mg 1 pill twice daily for 7 days then transition to 5 mg 1 pill twice daily for 3 months. Alcohol abuse with alcohol withdrawal: Patient less confused. Patient slept well last night. Patient continues on Ativan as needed. Slight agitation noted this morning. Will start low-dose Librium scheduled but hold if with increase sedation. Will monitor and adjust appropriately. Hypokalemia, hypomagnesium secondary to dehydration: Continue to monitor and replace. Hypertension: Overall stable. Continue to adjust medication. May need to make adjustments to medication. GERD: Will continue with medication. COPD: Will continue with COPD medication. Hepatic lesion likely hemangioma: This can be worked up as an outpatient. Bed bugs: Contact precautions to be enforced. High risk for fall: Patient continue with 1 on 1 care. Continue physical therapy.
[2019-03-21] MEDS: ACETAMINOPHEN 325 MG TABLET PO PRN (13:46)
[2019-03-21] MEDS: MUPIROCIN 2% OINT 22GM TUBE TOP SCH ×2 (17:50→21:18)
[2019-03-21] MEDS: chlordiazePOXIDE HCl 5 MG CAP PO SCH (21:16)
[2019-03-21] MEDS: ATORVASTATIN 80 MG TAB PO SCH (21:16)
[2019-03-21] MEDS: LORazepam 2 MG/ML VIAL IV PRN (22:14)
[2019-03-21] MEDS ORDERED: POTASSIUM 25 MEQ EFFERV TAB PO ONE (23:38)
[2019-03-22] MEDS: VANCOMYCIN ORAL SOLN 250 MG/5 ML OSYR PO SCH ×4 (00:50→17:16)
[2019-03-22] MEDS: NA CHLORIDE 0.9% 1,000 ML IV SCH ×3 (04:00→18:10)
[2019-03-22] MEDS: METOPROLOL TAR 25 MG TAB PO SCH ×2 (05:30→17:16)
[2019-03-22] MEDS: PANTOPRAZOLE 40MG TABLET PO SCH (05:30)
[2019-03-22 05:54] LABS: BUN Blood Urea Nitrogen 3 mg/dL (7-18); Bicarbonate 25 mmol/L (21-32); Glucose Level 79 mg/dL (74-106); Magnesium 1.8 mg/dL (1.8-2.4); Potassium 3.8 mmol/L (3.5-5.1); Sodium Level 141 mmol/L (136-145)
[2019-03-22] MEDS ORDERED: MAGNESIUM SULFATE 1 gm IVPB 1 GM/100 ML BAG IV ONE (07:35)
[2019-03-22] MEDS: ARFORMOTEROL TARTRATE 15 MCG/2 ML VIAL.NEB NEB SCH ×2 (08:40)
[2019-03-22] MEDS: MUPIROCIN 2% OINT 22GM TUBE TOP SCH ×2 (08:45→23:40)
[2019-03-22] MEDS: ENSURE HIGH PROTEIN 237 ML CAN PO SCH ×2 (08:46→21:00)
[2019-03-22] MEDS: APIXABAN 5 MG TABLET PO SCH ×2 (08:46→21:16)
[2019-03-22] MEDS: DULOXETINE 30 MG CAP PO SCH (08:46)
[2019-03-22] MEDS: FOLIC ACID 1 MG, MULTIVITAMINS INJ 10 ML, THIAMINE HCL 100 MG in NA CHLORIDE 0.9% 1,000 ML IV SCH (08:46)
[2019-03-22] MEDS: LACTOBACILLUS/ACIDOPHILUS TAB PO SCH ×3 (08:47→21:16)
[2019-03-22] MEDS: VANCOMYCIN 1.25 GM in NA CHLORIDE 0.9% 250 ML IVPB SCH ×2 (08:47→21:15)
[2019-03-22] MEDS: chlordiazePOXIDE HCl 5 MG CAP PO SCH ×2 (08:47→21:16)
[2019-03-22] MEDS: BACITRACIN OINTMENT 15 GM TUBE TOP SCH (08:57)
[2019-03-22] MEDS ORDERED: POTASSIUM CL SA 10 MEQ TAB PO ONE (09:00)
--- NOTE | 2019-03-22 11:50 | P.PN ---
Subjective Date of Service: 03/22/19 Primary Care Provider: none Chief Complaint: colitis, alcohol withdrawal Subjective: No new changes pt still on 1:1 ,trying to get off the bed wbc trending down no change in mental status Review of Systems is unable to be obtained (pt is confused) Physical Examination - Vital Signs Temperature: 98.4 F Blood Pressure: 168/92 Pulse: 68 Respirations: 18 Pulse Ox (%): 94 - Physical Exam General: Alert HEENT: Atraumatic, Normocephalic, PERRLA Neck: JVD not distended Respiratory: Clear to auscultation bilaterally, Normal air movement Cardiovascular: No edema, Normal pulses, Regular rate/rhythm, Normal S1 S2 Gastrointestinal: Normal bowel sounds, Soft and benign, Non-distended Musculoskeletal: No clubbing, No erythema, No tenderness, No warmth Integumentary: No rashes - Studies Medications List Reviewed: Yes Assessment And Plan - Plan c diff colitis on po vancomycin day 13 had 2 BM today G+ve bacetremia -MRSA on IV vancoymcin day 3 f/up repeat bcx f/pu echo to r/o endocarditis Encephalopathy suspect related to 4 mm acute posterior left basal ganglia CVA and Wernicke syndrome/alcohol withdrawal Cellulitis of the left upper extremity likely from IV infiltration f/up wound cx surgery following continue IV vancomycin Left upper extremity DVT-thrombus to the left cephalic vein on eliquis 10 mg bid for 7 days then 5 mg bid(today day 2) Alcohol abuse with alcohol withdrawal on folate ,thiamine and librium ativan prn Hypokalemia, hypomagnesium secondary to dehydration replace lectrolytes hepatitis C ab +ve and HCV RNA undetectable-resolved infection vs false +ve hep c ab 14 mm hepatic lesion GI f/up as op to repeat US Hypertension controlled GERD COPD not in exacerbation Bed bugs contact precautions Plan to discharge in: Greater than 2 days
--- NOTE | 2019-03-22 15:59 | PN ---
Covering for Dr. Broderick. Subjective: Because of left arm cellulitis, patient is very confused. His vital signs are stable. Blood pressure is slightly high 168/92. He is afebrile. His white count from yesterday was 9.4 and there was no left shift. Examination of the left antecubital region reveals slight small pustule dev eloping surrounding by erythema, warmth, and edema. This was squeezed at the bedside and a large shaji unt of purulence was evacuated. Cultures were done. A small 5 mm opening remains. Advised the nurs e to dress that with wet-to-dry and warm soaks. Assessment: Left arm pustule with cellulitis. Recommendation: We will check the cultures. Adjust the antibiotics accordingly. Continue wound car e. Warm soaks as needed and the remainder of management per the medical team. UMU/LAURA Voice ID: [id number] Report ID: [id number]
[2019-03-22] MEDS: LORazepam 2 MG/ML VIAL IV PRN (17:17)
[2019-03-22] MEDS ORDERED: ZIPRASIDONE MESYLA 20 MG/VIAL IM ONE (19:59)
[2019-03-22] MEDS: WATER FOR INJ,STERILE 10 ML IM PRN (20:18)
[2019-03-22] MEDS: ATORVASTATIN 80 MG TAB PO SCH (21:16)
[2019-03-22] MEDS: LOPERAMIDE HCL 2 MG CAPSULE PO PRN (21:16)
[2019-03-22 23:33] LABS: Absolute Lymphocytes (CBC) 2.1 K/uL (0.7-4.9); Absolute Monocytes 0.9 K/uL (0.1-1.3); Absolute Neutrophil 8.5 K/uL (1.8-8.0); Basophils % 1.3 % (0-1.3); Eosinophils % 2.2 % (0-4.4); Hematocrit 38.6 % (39.6-49.0); Lymphocytes % 17.8 % (15.3-44.8); MPV 8.2 fL (7.6-11.3); Monocytes % 7.5 % (3.3-12.3); RBC Red Blood Cell Count 3.89 M/uL (4.33-5.43)
[2019-03-22 23:47] LABS: BUN Blood Urea Nitrogen 3 mg/dL (7-18); Bicarbonate 27 mmol/L (21-32); Glucose Level 111 mg/dL (74-106); Potassium 3.7 mmol/L (3.5-5.1); Sodium Level 143 mmol/L (136-145)
[2019-03-23] MEDS: VANCOMYCIN ORAL SOLN 250 MG/5 ML OSYR PO SCH ×2 (00:03→06:35)
[2019-03-23] MEDS: APIXABAN 5 MG TABLET PO SCH ×3 (00:03→20:26)
[2019-03-23] MEDS: LORazepam 2 MG/ML VIAL IV PRN ×6 (01:15→19:40)
[2019-03-23] MEDS ORDERED: POTASSIUM CL SA 10 MEQ TAB PO ONE (06:00)
[2019-03-23] MEDS: METOPROLOL TAR 25 MG TAB PO SCH ×2 (06:34→17:49)
[2019-03-23] MEDS: PANTOPRAZOLE 40MG TABLET PO SCH (06:34)
[2019-03-23] MEDS: ARFORMOTEROL TARTRATE 15 MCG/2 ML VIAL.NEB NEB SCH ×2 (08:20→20:00)
[2019-03-23] MEDS: MUPIROCIN 2% OINT 22GM TUBE TOP SCH ×2 (08:35→20:30)
[2019-03-23] MEDS: BACITRACIN OINTMENT 15 GM TUBE TOP SCH (08:35)
[2019-03-23] MEDS: DULOXETINE 30 MG CAP PO SCH (08:36)
[2019-03-23] MEDS: FOLIC ACID 1 MG, MULTIVITAMINS INJ 10 ML, THIAMINE HCL 100 MG in NA CHLORIDE 0.9% 1,000 ML IV SCH (08:36)
[2019-03-23] MEDS: VANCOMYCIN 1.25 GM in NA CHLORIDE 0.9% 250 ML IVPB SCH (08:36)
[2019-03-23] MEDS: ENSURE HIGH PROTEIN 237 ML CAN PO SCH ×2 (08:36→20:29)
[2019-03-23] MEDS: LACTOBACILLUS/ACIDOPHILUS TAB PO SCH ×3 (08:36→20:29)
[2019-03-23] MEDS: chlordiazePOXIDE HCl 5 MG CAP PO SCH (08:36)
[2019-03-23] MEDS: NA CHLORIDE 0.9% 1,000 ML IV SCH ×4 (09:43→19:40)
--- NOTE | 2019-03-23 11:18 | P.PN ---
Subjective Date of Service: 03/23/19 Primary Care Provider: none Chief Complaint: colitis, alcohol withdrawal pt is more confused today and trying ot get off the bed ,nurse reported pt is having hallucination started on librium 25 tid po vanc d/benji pt is not having any more diarrhea -finished 14 day course Review of Systems is unable to be obtained (confused) Physical Examination - Vital Signs Temperature: 98.7 F Blood Pressure: 124/71 Pulse: 83 Respirations: 16 Pulse Ox (%): 92 - Physical Exam General: Alert, In no apparent distress HEENT: Atraumatic, Normocephalic, PERRLA Neck: Supple, JVD not distended Respiratory: Clear to auscultation bilaterally, Normal air movement Cardiovascular: No edema, Normal pulses, Regular rate/rhythm, Normal S1 S2 Gastrointestinal: Normal bowel sounds, Soft and benign, Non-distended Musculoskeletal: No clubbing, No swelling, No tenderness Integumentary: No rashes Neurological: Normal speech, Normal strength at 5/5 x4 extr - Studies Medications List Reviewed: Yes Assessment And Plan - Plan c diff colitis finished 14 days po vancomycin G+ve bacetremia -MRSA on IV vancoymcin day 4 f/up repeat bcx ECHO-no endocarditis Encephalopathy suspect related to 4 mm acute posterior left basal ganglia CVA and Wernicke syndrome/alcohol withdrawal Cellulitis of the left upper extremity likely from IV infiltration wound cx growing staph preliminary surgery following continue IV vancomycin Left upper extremity DVT-thrombus to the left cephalic vein on eliquis 10 mg bid for 7 days then 5 mg bid(today day 3) Alcohol abuse with alcohol withdrawal on folate ,thiamine and librium ativan prn Hypokalemia, hypomagnesium secondary to dehydration replace lectrolytes hepatitis C ab +ve and HCV RNA undetectable-resolved infection vs false +ve hep c ab 14 mm hepatic lesion GI f/up as op to repeat US Hypertension controlled GERD COPD not in exacerbation Bed bugs contact precautions
[2019-03-23] MEDS ORDERED: chlordiazePOXIDE HCl 25 MG CAP PO SCH (14:00)
--- NOTE | 2019-03-23 14:21 | PN ---
Date of Progress Note: 03/23/2019 Subjective: The patient is confused, still recovering from his DTs. Cultures from his wound are pen ding from yesterday, but the earlier one showed MRSA. He is on vancomycin. Objective: Vital Signs: Stable. He is afebrile. Extremities: Examination of the left arm revealed no further fluctuance seen. There is small openin g and infection is slowly improving. Assessment: Left arm pustule, cellulitis with MRSA infection and DTs. Recommendation: Wound care as ordered. Antibiotics as ordered. Dr. Broderick will resume care of thi s patient tomorrow. /MODL Voice ID: [id number] Report ID: [id number]
[2019-03-23] MEDS: chlordiazePOXIDE HCl 25 MG CAP PO SCH (20:26)
[2019-03-23] MEDS: ATORVASTATIN 80 MG TAB PO SCH (20:29)
[2019-03-23] MEDS ORDERED: NA CHLORIDE 0.9% 500 ML ONE (20:59)
[2019-03-23] MEDS ORDERED: VANCOMYCIN 1 GM/VIAL ONE (20:59)
[2019-03-23] MEDS ORDERED: VANCOMYCIN 500 MG/VIAL ONE (21:00)
[2019-03-23] MEDS: VANCOMYCIN 1.5 GM in NA CHLORIDE 0.9% 500 ML IVPB SCH (21:00)
[2019-03-23] MEDS ORDERED: ZIPRASIDONE MESYLA 20 MG/VIAL IM ONE (23:54)
[2019-03-23 23:56] LABS: Absolute Lymphocytes (CBC) 1.9 K/uL (0.7-4.9); Absolute Monocytes 0.8 K/uL (0.1-1.3); Absolute Neutrophil 7.8 K/uL (1.8-8.0); Basophils % 1.3 % (0-1.3); Hematocrit 33.1 % (39.6-49.0); Lymphocytes % 17.5 % (15.3-44.8); MPV 8.6 fL (7.6-11.3); RBC Red Blood Cell Count 3.38 M/uL (4.33-5.43)
[2019-03-24 00:15] LABS: BUN Blood Urea Nitrogen 2 mg/dL (7-18); Bicarbonate 26 mmol/L (21-32); Glucose Level 95 mg/dL (74-106); Potassium 3.4 mmol/L (3.5-5.1); Sodium Level 142 mmol/L (136-145)
[2019-03-24] MEDS ORDERED: WATER FOR INJ,STERILE 10 ML ONE (00:20)
[2019-03-24] MEDS: KCL 20 MEQ/100 mL IVPB 20 MEQ/100 ML BAG IV SCH ×2 (05:04→08:06)
[2019-03-24] MEDS: NA CHLORIDE 0.9% 1,000 ML IV SCH (05:04)
[2019-03-24] MEDS: METOPROLOL TAR 25 MG TAB PO SCH ×2 (05:04→17:10)
[2019-03-24] MEDS: PANTOPRAZOLE 40MG TABLET PO SCH (05:04)
--- NOTE | 2019-03-24 07:58 | EEG ---
CHART: [id number] TEST ID#: [id number] DATE OF STUDY: 03/20/2019 THE EEG WAS RECORDED PORTABLE IN THE PATIENTS ROOM ON A 17 CHANNEL MACHINE. ELECTRODES WERE APPLIED IN THE USUAL MANNER USING THE INTERNATIONAL 10-20 SYSTEM. THE WAKING BACKGROUND RHYTHM IN THIS RECORD CONSISTS OF FAIRLY WELL DEVELOPED AND FAIRLY WELL ORGANIZED WAVES OF 9 HZ., MAXIMAL IN THE POSTERIOR HEAD REGIONS WHICH ATTENUATE NORMALLY WITH EYE OPENING. LOW-VOLTAGE 18-22 HZ ACTIVITY IS MIXED WITH OCCASIONAL MODERATE VOLTAGE 3-4 HZ ACTIVITY IS EXPRESSED IN THE FRONTAL AND CENTRAL REGIONS. THERE ARE NO FOCAL OR LATERALIZING FEATURES. NO EPILEPTIFORM ACTIVITY APPEARS. SLEEP DID NOT OCCUR. HYPERVENTILATION WAS NOT PERFORMED. PHOTIC STIMULATION PRODUCED NO DRIVING BILATERALLY. IMPRESSION: THIS IS A MILDLY ABNORMAL ROUTINE AWAKE EEG DUE TO A MILDLY SLOW BACKGROUND. THIS IS A NON-SPECIFIC FINDING INDICATING THE PRESENCE OF A MILD DIFFUSE DISTURBANCE IN CEREBAL ACTIVITY.
[2019-03-24] MEDS: ARFORMOTEROL TARTRATE 15 MCG/2 ML VIAL.NEB NEB SCH ×2 (08:25→20:15)
[2019-03-24] MEDS: FOLIC ACID 1 MG, MULTIVITAMINS INJ 10 ML, THIAMINE HCL 100 MG in NA CHLORIDE 0.9% 1,000 ML IV SCH (09:00)
[2019-03-24] MEDS: BACITRACIN OINTMENT 15 GM TUBE TOP SCH (09:00)
[2019-03-24] MEDS: APIXABAN 5 MG TABLET PO SCH ×2 (09:05→20:39)
[2019-03-24] MEDS: chlordiazePOXIDE HCl 25 MG CAP PO SCH ×3 (09:05→20:39)
[2019-03-24] MEDS: DULOXETINE 30 MG CAP PO SCH (09:05)
[2019-03-24] MEDS: LACTOBACILLUS/ACIDOPHILUS TAB PO SCH ×3 (09:05→20:39)
[2019-03-24] MEDS: MUPIROCIN 2% OINT 22GM TUBE TOP SCH (09:07)
[2019-03-24] MEDS: THIAMINE HCL 100 MG TABLET PO SCH (10:38)
[2019-03-24] MEDS: FOLIC ACID 1 MG TABLET PO SCH (10:38)
[2019-03-24] MEDS: MULTIVITAMIN TAB PO SCH (10:39)
[2019-03-24] MEDS: ENSURE HIGH PROTEIN 237 ML CAN PO SCH ×2 (10:40→20:40)
[2019-03-24] MEDS: ACETAMINOPHEN 325 MG TABLET PO PRN ×2 (10:44→23:07)
--- NOTE | 2019-03-24 10:51 | P.PN ---
Subjective Date of Service: 03/24/19 Primary Care Provider: none Chief Complaint: colitis, alcohol withdrawal Patient seen and examined at bedside with RN. Chart reviewed. Patient is alert and oriented x1 this morning. Currently sitting at the edge of bed with the help of nursing staff. Denies having any chest pain or shortness of breath this morning Review of Systems 10-point ROS is otherwise unremarkable Physical Examination - Vital Signs Temperature: 98.2 F Blood Pressure: 147/78 Pulse: 64 Respirations: 18 Pulse Ox (%): 94 - Physical Exam General: Alert, Oriented x2, Disheveled, Confused Neck: Supple, JVD not distended Respiratory: Clear to auscultation bilaterally, Normal air movement Cardiovascular: Regular rate/rhythm, Normal S1 S2 Gastrointestinal: Normal bowel sounds, No tenderness Musculoskeletal: No tenderness Integumentary: No rashes Neurological: Normal tone, Normal affect, Abnormal speech Lymphatics: No axilla or inguinal lymphadenopathy - Studies Medications List Reviewed: Yes Assessment And Plan - Current Problems (Diagnosis) (1) Acute encephalopathy Onset Date: 07/01/18 Current Visit: No Status: Acute Plan: Acute encephalopathy most likely secondary to acute CVA versus Wernicke's encephalopathy -patient's brain MRI with 4 mm basal ganglia infarct, EEG with abnormal findings as well -neurology consulted. Appreciated recommendations at this time -patient currently on aspirin and Lipitor for acute CVA -currently also on Librium for alcohol withdrawals -currently also on thymine, folate, multi vitamin for Wernicke's encephalopathy -pending placement at this time. Patient is now at his new baseline (2) Acute CVA (cerebrovascular accident) Current Visit: Yes Status: Acute Plan: Acute CVA with brain MRI consistent with 4 mm of basal ganglia infarct -on aspirin and Lipitor -neurology consulted appreciated recommendations at this time -PT OT consulted patient working with both -speech consulted today to assess for dysphagia (3) Cellulitis Current Visit: Yes Status: Acute Plan: Left upper extremity with cellulitis most likely secondary to IV infiltration -cultures positive for MRSA -currently on IV vancomycin -will continue that here in the hospital -extremity ultrasound also positive for superficial venous thrombosis Qualifiers: Site of cellulitis: extremity Site of cellulitis of extremity: upper extremity Laterality: left Qualified Code(s): L03.114 - Cellulitis of left upper limb (4) Superficial venous thrombosis of left arm Current Visit: Yes Status: Acute Plan: Acute superficial venous thrombosis of the left arm secondary to IV infiltration -currently on Eliquis will continue that here in the hospital -10 mg x7 days /, after which patient can be on 5 mg (5) Alcohol abuse Current Visit: No Status: Acute Plan: Patient with history of chronic alcohol abuse. -concern for alcohol intake here in the hospital. Currently has 1-1 due to high risk for fall -educated on alcohol abstinence -restarted back Librium 25mg q6h. -Thiamine, FA and B1 p.o. now (6) C. difficile colitis Current Visit: No Status: Resolved Plan: Patient completed treatment for C. diff colitis with p.o. vancomycin times 14 days. Diarrhea has resolved as well. (7) CHF (congestive heart failure) Current Visit: No Status: Chronic Plan: Stable at this time Qualifiers: Qualified Code(s): I50.31 - Acute diastolic (congestive) heart failure (8) COPD (chronic obstructive pulmonary disease) Current Visit: No Status: Chronic Plan: Duo nebs, oxygen at this time Qualifiers: COPD type: chronic bronchitis Chronic bronchitis type: mucopurulent Qualified Code(s): J41.1 - Mucopurulent chronic bronchitis (9) GERD (gastroesophageal reflux disease) Current Visit: No Status: Chronic Qualifiers: Esophagitis presence: with esophagitis Qualified Code(s): K21.0 - Gastro- esophageal reflux disease with esophagitis (10) Hypertension Current Visit: No Status: Chronic Plan: Stable at this time -On the home medicine Qualifiers: Hypertension type: essential hypertension Qualified Code(s): I10 - Essential (primary) hypertension - Plan Pending clinical improvement and placement at this time. Will continue with IV vancomycin. Patient working with physical therapy and occupational therapy at this time. Discharge Plan: Other Plan to discharge in: Greater than 2 days - Code Status/Comfort Care Code Status Assessed: Yes Critical Care: No
--- NOTE | 2019-03-24 11:34 | P.PN ---
Subjective Date of Service: 03/24/19 Primary Care Provider: none Chief Complaint: colitis, alcohol withdrawal no acute events, LEFT arm remains tender. Physical Examination - Vital Signs Temperature: 98.2 F Blood Pressure: 147/78 Pulse: 64 Respirations: 18 Pulse Ox (%): 94 - Physical Exam General: Alert, Cooperative Integumentary: Other (LEFT arm Antecubital fossa - remains indurated, small stable wound, no drainable collections) - Studies Medications List Reviewed: Yes Assessment And Plan - Current Problems (Diagnosis) (1) Cellulitis Current Visit: Yes Status: Acute Qualifiers: Site of cellulitis: extremity Site of cellulitis of extremity: upper extremity Laterality: left Qualified Code(s): L03.114 - Cellulitis of left upper limb - Plan - continue antibiotics - no drainable collections - daily dressing changes with santyl, damp to dry gauze, elevate extremity, cooling packs Physician Review Additional Text: Impression: Nausea, vomiting and diarrhea secondary to the right and transverse C diff colitis complicated with encephalopathy related to alcohol withdrawal and suspect Wernicke encephalopathy along with acute CVA and bacteremia Fever likely related to Cellulitis to the left upper extremity likely from IV infiltration with noted positive blood culture Encephalopathy suspect related to 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 Lactobacillus added yesterday. Will provide Imodium as needed. Patient did have an episode of diarrhea yesterday. Will need to monitor closely. Will adjust IV fluids. If taking good oral intake then will transition off IV. Case discussed with Neurology. Patient may have underlying Wernike encephalopathy related to his alcohol abuse. EEG to be performed to further evaluate. Will restart Librium but hold if with increase sedation. Patient also found to have left upper extremity DVT. Will discontinue aspirin and Lovenox-DVT prophylaxis and start Eliquis 10 mg 1 pill twice daily for 7 days then transition to Eliquis 5 mg twice daily for 3 months. Cellulitis to the left upper extremity and bacteremia currently being treated as well. Continue with physical therapy. Spoke with social work assistant. Will try to wean off 1 on 1 care. If able to wean off 1 on 1 care then patient can be transition to skilled facility. Spoke with sister yesterday. Will address plan of care with her. Anticipate transfer to skilled facility likely in the next couple of days if significantly improved. I will turn the service over to Dr. Castillo tomorrow. I will go over the plan of care with her. 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 Continue folic acid, statin medication and blood pressure medication. Will discontinue aspirin since the patient will be on Eliquis. Continue physical therapy. Will pursue skilled placement. Will discuss with Neurology. Fever likely related to Cellulitis to the left upper extremity likely from IV infiltration with noted positive blood culture: Continue IV vancomycin. Await wound culture results. Surgery has evaluated patient. No need for surgical intervention. Continue with wound care consultation recommendations. Will transition to oral medication once culture results have been obtained. Left upper extremity DVT-thrombus to the left cephalic vein: Will start Eliquis at 10 mg 1 pill twice daily for 7 days then transition to 5 mg 1 pill twice daily for 3 months. Alcohol abuse with alcohol withdrawal: Patient less confused. Patient slept well last night. Patient continues on Ativan as needed. Slight agitation noted this morning. Will start low-dose Librium scheduled but hold if with increase sedation. Will monitor and adjust appropriately. Hypokalemia, hypomagnesium secondary to dehydration: Continue to monitor and replace. Hypertension: Overall stable. Continue to adjust medication. May need to make adjustments to medication. GERD: Will continue with medication. COPD: Will continue with COPD medication. Hepatic lesion likely hemangioma: This can be worked up as an outpatient. Bed bugs: Contact precautions to be enforced. High risk for fall: Patient continue with 1 on 1 care. Continue physical therapy.
[2019-03-24] MEDS: VANCOMYCIN 1.5 GM in NA CHLORIDE 0.9% 500 ML IVPB SCH ×2 (11:50→20:28)
[2019-03-24] MEDS ORDERED: MAGNESIUM SULFATE 1 gm IVPB 1 GM/100 ML BAG IV ONE (12:00)
[2019-03-24] MEDS ORDERED: POTASSIUM CL SA 10 MEQ TAB PO ONE (12:00)
[2019-03-24] MEDS: LORazepam 2 MG/ML VIAL IV PRN ×2 (12:36→17:10)
[2019-03-24] MEDS: ATORVASTATIN 80 MG TAB PO SCH (20:39)
[2019-03-25] MEDS: LOPERAMIDE HCL 2 MG CAPSULE PO PRN ×2 (01:01→21:39)
[2019-03-25] MEDS: LORazepam 2 MG/ML VIAL IV PRN ×4 (01:17→13:00)
[2019-03-25] MEDS: PANTOPRAZOLE 40MG TABLET PO SCH (05:44)
[2019-03-25] MEDS: METOPROLOL TAR 25 MG TAB PO SCH ×2 (05:44→17:45)
[2019-03-25 05:58] LABS: Absolute Lymphocytes (CBC) 2.3 K/uL (0.7-4.9); Absolute Monocytes 0.9 K/uL (0.1-1.3); Absolute Neutrophil 8.2 K/uL (1.8-8.0); Eosinophils % 3.3 % (0-4.4); Hematocrit 36.6 % (39.6-49.0); Lymphocytes % 19.5 % (15.3-44.8); Monocytes % 7.6 % (3.3-12.3); RBC Red Blood Cell Count 3.72 M/uL (4.33-5.43)
[2019-03-25 06:10] LABS: BUN Blood Urea Nitrogen 4 mg/dL (7-18); Bicarbonate 27 mmol/L (21-32); Glucose Level 87 mg/dL (74-106); Magnesium 1.8 mg/dL (1.8-2.4); Potassium 3.6 mmol/L (3.5-5.1); Sodium Level 142 mmol/L (136-145)
[2019-03-25] MEDS ORDERED: MAGNESIUM SULFATE 1 gm IVPB 1 GM/100 ML BAG IV ONE (07:00)
[2019-03-25 08:05] LABS: Blood Morphology Comment NOT SEEN (NOT SEEN); Platelet Estimate INCR; Urine White Blood Cell Casts OK
[2019-03-25] MEDS: chlordiazePOXIDE HCl 25 MG CAP PO SCH ×3 (08:28→20:52)
[2019-03-25] MEDS: APIXABAN 5 MG TABLET PO SCH ×2 (08:29→20:52)
[2019-03-25] MEDS: MULTIVITAMIN TAB PO SCH (08:30)
[2019-03-25] MEDS: LACTOBACILLUS/ACIDOPHILUS TAB PO SCH ×3 (08:30→20:52)
[2019-03-25] MEDS: DULOXETINE 30 MG CAP PO SCH (08:30)
[2019-03-25] MEDS: THIAMINE HCL 100 MG TABLET PO SCH (08:30)
[2019-03-25] MEDS: ENSURE HIGH PROTEIN 237 ML CAN PO SCH ×2 (08:30→20:52)
[2019-03-25] MEDS: FOLIC ACID 1 MG TABLET PO SCH (08:30)
[2019-03-25] MEDS: ARFORMOTEROL TARTRATE 15 MCG/2 ML VIAL.NEB NEB SCH (08:48)
[2019-03-25] MEDS ORDERED: POTASSIUM CL SA 10 MEQ TAB PO ONE (09:00)
[2019-03-25] MEDS: COLLAGENASE 30 GM OINTMENT TOP SCH (09:04)
[2019-03-25] MEDS: VANCOMYCIN 1.5 GM in NA CHLORIDE 0.9% 500 ML IVPB SCH (09:21)
--- NOTE | 2019-03-25 10:34 | P.PN ---
Subjective Date of Service: 03/25/19 Primary Care Provider: none Chief Complaint: colitis, alcohol withdrawal Patient seen and examined at bedside with RN. Chart reviewed. Patient is alert and oriented x1 this morning. Required Ativan last night. Review of Systems 10-point ROS is otherwise unremarkable Physical Examination - Vital Signs Temperature: 97.7 F Blood Pressure: 172/85 Pulse: 76 Respirations: 18 Pulse Ox (%): 99 - Physical Exam General: In no apparent distress, Oriented x1, Disheveled Respiratory: Normal air movement, Expiratory wheezes Cardiovascular: Regular rate/rhythm, Normal S1 S2 Gastrointestinal: Normal bowel sounds, No tenderness Musculoskeletal: No tenderness Integumentary: No rashes Neurological: Normal tone, Normal affect, Abnormal speech Lymphatics: No axilla or inguinal lymphadenopathy - Studies Medications List Reviewed: Yes Assessment And Plan - Current Problems (Diagnosis) (1) Acute encephalopathy Onset Date: 07/01/18 Current Visit: No Status: Acute Plan: Acute encephalopathy most likely secondary to acute CVA versus Wernicke's encephalopathy -patient's brain MRI with 4 mm basal ganglia infarct, EEG with abnormal findings as well -neurology consulted. Appreciated recommendations at this time -patient currently on aspirin and Lipitor for acute CVA -currently also on Librium and ativan for alcohol withdrawals -currently also on thymine, folate, multi vitamin for Wernicke's encephalopathy -pending placement at this time. Patient is now at his new baseline (2) Acute CVA (cerebrovascular accident) Current Visit: Yes Status: Acute Plan: Acute CVA with brain MRI consistent with 4 mm of basal ganglia infarct -on aspirin and Lipitor -neurology consulted appreciated recommendations at this time -PT OT consulted patient working with both -speech consulted as well (3) Cellulitis Current Visit: Yes Status: Acute Plan: Left upper extremity with cellulitis most likely secondary to IV infiltration -cultures positive for MRSA for blood and wound -currently on IV vancomycin will need 2 week total -will continue that here in the hospital, may need placement to LTAC for IV abx and management of his DT Medication -extremity ultrasound also positive for superficial venous thrombosis on Eliquis Qualifiers: Site of cellulitis: extremity Site of cellulitis of extremity: upper extremity Laterality: left Qualified Code(s): L03.114 - Cellulitis of left upper limb (4) Superficial venous thrombosis of left arm Current Visit: Yes Status: Acute Plan: Acute superficial venous thrombosis of the left arm secondary to IV infiltration -currently on Eliquis will continue that here in the hospital -10 mg x7 days 5/, after which patient can be on 5 mg (5) Alcohol abuse Current Visit: No Status: Acute Plan: Patient with history of chronic alcohol abuse. -concern for alcohol intake here in the hospital. Currently has 1-1 due to high risk for fall -educated on alcohol abstinence -restarted back Librium 25mg q6h requiring Adjustment daily -Thiamine, FA and B1 p.o. now (6) CHF (congestive heart failure) Current Visit: No Status: Chronic Plan: Stable at this time Qualifiers: Qualified Code(s): I50.31 - Acute diastolic (congestive) heart failure (7) COPD (chronic obstructive pulmonary disease) Current Visit: No Status: Chronic Plan: Duo nebs, oxygen at this time Qualifiers: COPD type: chronic bronchitis Chronic bronchitis type: mucopurulent Qualified Code(s): J41.1 - Mucopurulent chronic bronchitis (8) GERD (gastroesophageal reflux disease) Current Visit: No Status: Chronic Qualifiers: Esophagitis presence: with esophagitis Qualified Code(s): K21.0 - Gastro- esophageal reflux disease with esophagitis (9) Hypertension Current Visit: No Status: Chronic Plan: Stable at this time -On the home medicine Qualifiers: Hypertension type: essential hypertension Qualified Code(s): I10 - Essential (primary) hypertension - Plan Pending clinical improvement and placement at this time. Will continue with IV vancomycin for 2 weeks. Patient working with physical therapy and occupational therapy at this time. Discharge Plan: Other Plan to discharge in: Greater than 2 days - Code Status/Comfort Care Code Status Assessed: Yes Critical Care: No
[2019-03-25] MEDS ORDERED: WATER FOR INJ,STERILE 10 ML IM PRN (13:51)
[2019-03-25] MEDS ORDERED: ZIPRASIDONE MESYLA 20 MG/VIAL IM ONE (13:51)
--- NOTE | 2019-03-25 15:26 | P.PN ---
Subjective Date of Service: 03/25/19 Primary Care Provider: none Chief Complaint: colitis, alcohol withdrawal no acute events, LEFT arm remains tender, but improved Physical Examination - Vital Signs Temperature: 97.7 F Blood Pressure: 172/85 Pulse: 76 Respirations: 18 Pulse Ox (%): 99 - Physical Exam Integumentary: Other (LEFT arm cellulitis improving, wound improving, granulating well) - Studies Medications List Reviewed: Yes Assessment And Plan - Current Problems (Diagnosis) (1) Cellulitis Current Visit: Yes Status: Acute Qualifiers: Site of cellulitis: extremity Site of cellulitis of extremity: upper extremity Laterality: left Qualified Code(s): L03.114 - Cellulitis of left upper limb - Plan - continue antibiotics - no drainable collections - daily dressing changes with santyl, damp to dry gauze, elevate extremity, cooling packs Physician Review Additional Text: Impression: Nausea, vomiting and diarrhea secondary to the right and transverse C diff colitis complicated with encephalopathy related to alcohol withdrawal and suspect Wernicke encephalopathy along with acute CVA and bacteremia Fever likely related to Cellulitis to the left upper extremity likely from IV infiltration with noted positive blood culture Encephalopathy suspect related to 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 Lactobacillus added yesterday. Will provide Imodium as needed. Patient did have an episode of diarrhea yesterday. Will need to monitor closely. Will adjust IV fluids. If taking good oral intake then will transition off IV. Case discussed with Neurology. Patient may have underlying Wernike encephalopathy related to his alcohol abuse. EEG to be performed to further evaluate. Will restart Librium but hold if with increase sedation. Patient also found to have left upper extremity DVT. Will discontinue aspirin and Lovenox-DVT prophylaxis and start Eliquis 10 mg 1 pill twice daily for 7 days then transition to Eliquis 5 mg twice daily for 3 months. Cellulitis to the left upper extremity and bacteremia currently being treated as well. Continue with physical therapy. Spoke with access services representative. Will try to wean off 1 on 1 care. If able to wean off 1 on 1 care then patient can be transition to skilled facility. Spoke with sister yesterday. Will address plan of care with her. Anticipate transfer to skilled facility likely in the next couple of days if significantly improved. I will turn the service over to Dr. Castillo tomorrow. I will go over the plan of care with her. 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 Continue folic acid, statin medication and blood pressure medication. Will discontinue aspirin since the patient will be on Eliquis. Continue physical therapy. Will pursue skilled placement. Will discuss with Neurology. Fever likely related to Cellulitis to the left upper extremity likely from IV infiltration with noted positive blood culture: Continue IV vancomycin. Await wound culture results. Surgery has evaluated patient. No need for surgical intervention. Continue with wound care consultation recommendations. Will transition to oral medication once culture results have been obtained. Left upper extremity DVT-thrombus to the left cephalic vein: Will start Eliquis at 10 mg 1 pill twice daily for 7 days then transition to 5 mg 1 pill twice daily for 3 months. Alcohol abuse with alcohol withdrawal: Patient less confused. Patient slept well last night. Patient continues on Ativan as needed. Slight agitation noted this morning. Will start low-dose Librium scheduled but hold if with increase sedation. Will monitor and adjust appropriately. Hypokalemia, hypomagnesium secondary to dehydration: Continue to monitor and replace. Hypertension: Overall stable. Continue to adjust medication. May need to make adjustments to medication. GERD: Will continue with medication. COPD: Will continue with COPD medication. Hepatic lesion likely hemangioma: This can be worked up as an outpatient. Bed bugs: Contact precautions to be enforced. High risk for fall: Patient continue with 1 on 1 care. Continue physical therapy.
[2019-03-25] MEDS: ATORVASTATIN 80 MG TAB PO SCH (20:52)
[2019-03-25] MEDS: VANCOMYCIN 1.25 GM in NA CHLORIDE 0.9% 250 ML IVPB SCH (20:53)
[2019-03-26 05:05] LABS: BUN Blood Urea Nitrogen 3 mg/dL (7-18); Bicarbonate 26 mmol/L (21-32); Glucose Level 92 mg/dL (74-106); Magnesium 1.9 mg/dL (1.8-2.4); Potassium 3.7 mmol/L (3.5-5.1); Sodium Level 144 mmol/L (136-145)
[2019-03-26] MEDS: PANTOPRAZOLE 40MG TABLET PO SCH (05:51)
[2019-03-26] MEDS: METOPROLOL TAR 25 MG TAB PO SCH ×2 (05:51→17:01)
[2019-03-26] MEDS ORDERED: POTASSIUM CL SA 10 MEQ TAB PO ONE (07:00)
[2019-03-26] MEDS: LORazepam 2 MG/ML VIAL IV PRN ×3 (08:07→23:41)
[2019-03-26] MEDS: FOLIC ACID 1 MG TABLET PO SCH (08:12)
[2019-03-26] MEDS: LACTOBACILLUS/ACIDOPHILUS TAB PO SCH ×3 (08:12→23:10)
[2019-03-26] MEDS: APIXABAN 5 MG TABLET PO SCH ×2 (08:12→23:10)
[2019-03-26] MEDS: DULOXETINE 30 MG CAP PO SCH (08:12)
[2019-03-26] MEDS: chlordiazePOXIDE HCl 25 MG CAP PO SCH ×3 (08:12→23:10)
[2019-03-26] MEDS: MULTIVITAMIN TAB PO SCH (08:13)
[2019-03-26] MEDS: THIAMINE HCL 100 MG TABLET PO SCH (08:13)
--- NOTE | 2019-03-26 08:53 | P.PN ---
Subjective Date of Service: 03/26/19 Primary Care Provider: none Chief Complaint: colitis, alcohol withdrawal Patient is more combative, remains disoriented, LEFT arm remains tender, but improved Physical Examination - Vital Signs Temperature: 98.3 F Blood Pressure: 132/71 Pulse: 100 Respirations: 18 Pulse Ox (%): 98 - Physical Exam General: Alert, Delirious Integumentary: Other (LEFT arm is healing well, softer, wound is much improved, cellulitis almost resolved) - Studies Medications List Reviewed: Yes Assessment And Plan - Current Problems (Diagnosis) (1) Cellulitis Current Visit: Yes Status: Acute Qualifiers: Site of cellulitis: extremity Site of cellulitis of extremity: upper extremity Laterality: left Qualified Code(s): L03.114 - Cellulitis of left upper limb - Plan - continue antibiotics - no drainable collections - daily dressing changes with santyl, damp to dry gauze, elevate extremity, cooling packs Physician Review Additional Text: Impression: Nausea, vomiting and diarrhea secondary to the right and transverse C diff colitis complicated with encephalopathy related to alcohol withdrawal and suspect Wernicke encephalopathy along with acute CVA and bacteremia Fever likely related to Cellulitis to the left upper extremity likely from IV infiltration with noted positive blood culture Encephalopathy suspect related to 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 Lactobacillus added yesterday. Will provide Imodium as needed. Patient did have an episode of diarrhea yesterday. Will need to monitor closely. Will adjust IV fluids. If taking good oral intake then will transition off IV. Case discussed with Neurology. Patient may have underlying Wernike encephalopathy related to his alcohol abuse. EEG to be performed to further evaluate. Will restart Librium but hold if with increase sedation. Patient also found to have left upper extremity DVT. Will discontinue aspirin and Lovenox-DVT prophylaxis and start Eliquis 10 mg 1 pill twice daily for 7 days then transition to Eliquis 5 mg twice daily for 3 months. Cellulitis to the left upper extremity and bacteremia currently being treated as well. Continue with physical therapy. Spoke with geriatric social worker. Will try to wean off 1 on 1 care. If able to wean off 1 on 1 care then patient can be transition to skilled facility. Spoke with sister yesterday. Will address plan of care with her. Anticipate transfer to skilled facility likely in the next couple of days if significantly improved. I will turn the service over to Dr. Castillo tomorrow. I will go over the plan of care with her. 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 Continue folic acid, statin medication and blood pressure medication. Will discontinue aspirin since the patient will be on Eliquis. Continue physical therapy. Will pursue skilled placement. Will discuss with Neurology. Fever likely related to Cellulitis to the left upper extremity likely from IV infiltration with noted positive blood culture: Continue IV vancomycin. Await wound culture results. Surgery has evaluated patient. No need for surgical intervention. Continue with wound care consultation recommendations. Will transition to oral medication once culture results have been obtained. Left upper extremity DVT-thrombus to the left cephalic vein: Will start Eliquis at 10 mg 1 pill twice daily for 7 days then transition to 5 mg 1 pill twice daily for 3 months. Alcohol abuse with alcohol withdrawal: Patient less confused. Patient slept well last night. Patient continues on Ativan as needed. Slight agitation noted this morning. Will start low-dose Librium scheduled but hold if with increase sedation. Will monitor and adjust appropriately. Hypokalemia, hypomagnesium secondary to dehydration: Continue to monitor and replace. Hypertension: Overall stable. Continue to adjust medication. May need to make adjustments to medication. GERD: Will continue with medication. COPD: Will continue with COPD medication. Hepatic lesion likely hemangioma: This can be worked up as an outpatient. Bed bugs: Contact precautions to be enforced. High risk for fall: Patient continue with 1 on 1 care. Continue physical therapy.
[2019-03-26] MEDS: COLLAGENASE 30 GM OINTMENT TOP SCH (09:43)
[2019-03-26] MEDS: ENSURE HIGH PROTEIN 237 ML CAN PO SCH ×2 (09:43→21:00)
[2019-03-26] MEDS: VANCOMYCIN 1.25 GM in NA CHLORIDE 0.9% 250 ML IVPB SCH ×2 (11:20→23:09)
[2019-03-26] MEDS ORDERED: WATER FOR INJ,STERILE 10 ML IM PRN (11:40)
[2019-03-26] MEDS ORDERED: ZIPRASIDONE MESYLA 20 MG/VIAL IM PRN (11:40)
--- NOTE | 2019-03-26 11:57 | P.PN ---
Subjective Date of Service: 03/26/19 Primary Care Provider: none Chief Complaint: colitis, alcohol withdrawal Patient seen and examined at bedside with RN. Chart reviewed. Pt continues to be agitated overnight and this AM. Easily consolable with physician. Having auditory and visual hallucination this AM. Denied from [facility] Review of Systems 10-point ROS is otherwise unremarkable Physical Examination - Vital Signs Temperature: 97.2 F Blood Pressure: 125/81 Pulse: 66 Respirations: 16 Pulse Ox (%): 94 - Physical Exam General: Alert, In no apparent distress, Oriented x1 Respiratory: Clear to auscultation bilaterally, Normal air movement Cardiovascular: Regular rate/rhythm, Normal S1 S2 Gastrointestinal: Normal bowel sounds, No tenderness Musculoskeletal: Tenderness (Left and Right Upper Extermity. ) Integumentary: No rashes Neurological: Normal strength at 5/5 x4 extr, Abnormal speech, Abnormal affect Lymphatics: No axilla or inguinal lymphadenopathy - Studies Medications List Reviewed: Yes Assessment And Plan - Current Problems (Diagnosis) (1) Acute encephalopathy Onset Date: 07/01/18 Current Visit: No Status: Acute Plan: Acute encephalopathy most likely secondary to acute CVA versus Wernicke's encephalopathy -patient's brain MRI with 4 mm basal ganglia infarct, EEG with abnormal findings as well -neurology consulted. Appreciated recommendations at this time -patient currently on aspirin and Lipitor for acute CVA -currently also on Librium and ativan for alcohol withdrawals -currently also on thymine, folate, multi vitamin for Wernicke's encephalopathy -pending placement at this time. Patient is now at his new baseline. LTAC pending (2) Acute CVA (cerebrovascular accident) Current Visit: Yes Status: Acute Plan: Acute CVA with brain MRI consistent with 4 mm of basal ganglia infarct -on aspirin and Lipitor -neurology consulted appreciated recommendations at this time -PT OT consulted patient working with both - (3) Cellulitis Current Visit: Yes Status: Acute Plan: Left upper extremity with cellulitis most likely secondary to IV infiltration -cultures positive for MRSA for blood and wound -currently on IV vancomycin will need 2 week total -will continue that here in the hospital, may need placement to LTAC for IV abx and management of his DT Medications -extremity ultrasound also positive for superficial venous thrombosis on Eliquis which will require daily monitoring. Qualifiers: Site of cellulitis: extremity Site of cellulitis of extremity: upper extremity Laterality: left Qualified Code(s): L03.114 - Cellulitis of left upper limb (4) Superficial venous thrombosis of left arm Current Visit: Yes Status: Acute Plan: Acute superficial venous thrombosis of the left arm secondary to IV infiltration -currently on Eliquis will continue that here in the hospital -10 mg x7 days 6/7, after which patient can be on 5 mg (5) Alcohol abuse Current Visit: No Status: Acute Plan: Patient with history of chronic alcohol abuse. -concern for alcohol intake here in the hospital. Currently has 1-1 due to high risk for fall -educated on alcohol abstinence -restarted back Librium 25mg q6h requiring Adjustment daily -Thiamine, FA and B1 p.o. now (6) CHF (congestive heart failure) Current Visit: No Status: Chronic Plan: Stable at this time Qualifiers: Qualified Code(s): I50.31 - Acute diastolic (congestive) heart failure (7) COPD (chronic obstructive pulmonary disease) Current Visit: No Status: Chronic Plan: Duo nebs, oxygen at this time Qualifiers: COPD type: chronic bronchitis Chronic bronchitis type: mucopurulent Qualified Code(s): J41.1 - Mucopurulent chronic bronchitis (8) GERD (gastroesophageal reflux disease) Current Visit: No Status: Chronic Qualifiers: Esophagitis presence: with esophagitis Qualified Code(s): K21.0 - Gastro- esophageal reflux disease with esophagitis (9) Hypertension Current Visit: No Status: Chronic Plan: Stable at this time -On the home medicine Qualifiers: Hypertension type: essential hypertension Qualified Code(s): I10 - Essential (primary) hypertension - Plan Pending placement at this time. Will continue with IV vancomycin for 2 weeks. Patient working with physical therapy and occupational therapy at this time. Does Requiring Daily adjustment of his Ativan and geodon medication. Discharge Plan: Other Plan to discharge in: Greater than 2 days - Code Status/Comfort Care Code Status Assessed: Yes Critical Care: No
[2019-03-26 12:33] LABS: Absolute Lymphocytes (CBC) 1.7 K/uL (0.7-4.9); Absolute Monocytes 1.2 K/uL (0.1-1.3); Absolute Neutrophil 8.6 K/uL (1.8-8.0); Basophils % 1.3 % (0-1.3); Eosinophils % 2.3 % (0-4.4); Lymphocytes % 14.3 % (15.3-44.8); Monocytes % 9.8 % (3.3-12.3); RBC Red Blood Cell Count 3.67 M/uL (4.33-5.43)
[2019-03-26] MEDS: ATORVASTATIN 80 MG TAB PO SCH (23:10)
[2019-03-27] MEDS: IPRATROPIUM BROM 0.5MG/2.5ML NEB PRN (02:20)
[2019-03-27] MEDS: METOPROLOL TAR 25 MG TAB PO SCH (04:31)
[2019-03-27] MEDS: PANTOPRAZOLE 40MG TABLET PO SCH (04:32)
[2019-03-27 05:28] LABS: Potassium 3.8 mmol/L (3.5-5.1)
[2019-03-27] MEDS: THIAMINE HCL 100 MG TABLET PO SCH (08:00)
[2019-03-27] MEDS: MULTIVITAMIN TAB PO SCH (08:00)
[2019-03-27] MEDS: FOLIC ACID 1 MG TABLET PO SCH (08:00)
[2019-03-27] MEDS: DULOXETINE 30 MG CAP PO SCH (08:00)
[2019-03-27] MEDS: ENSURE HIGH PROTEIN 237 ML CAN PO SCH (08:01)
[2019-03-27] MEDS: chlordiazePOXIDE HCl 25 MG CAP PO SCH (08:01)
[2019-03-27] MEDS: LACTOBACILLUS/ACIDOPHILUS TAB PO SCH (08:01)
[2019-03-27] MEDS: APIXABAN 5 MG TABLET PO SCH (08:01)
[2019-03-27] MEDS ORDERED: POTASSIUM CL SA 10 MEQ TAB PO ONE (09:00)
--- NOTE | 2019-03-27 09:44 | P.PN ---
Subjective Date of Service: 03/27/19 Primary Care Provider: none Chief Complaint: colitis, alcohol withdrawal Patient is more combative, remains disoriented, LEFT arm remains tender, but improved Physical Examination - Vital Signs Temperature: 97.9 F Blood Pressure: 167/80 Pulse: 66 Respirations: 18 Pulse Ox (%): 96 - Physical Exam General: Alert, Delirious Integumentary: Other (left arm wound continues to heal well, no infection) - Studies Medications List Reviewed: Yes Assessment And Plan - Current Problems (Diagnosis) (1) Cellulitis Current Visit: Yes Status: Acute Qualifiers: Site of cellulitis: extremity Site of cellulitis of extremity: upper extremity Laterality: left Qualified Code(s): L03.114 - Cellulitis of left upper limb - Plan - continue antibiotics - no drainable collections - daily dressing changes with santyl, damp to dry gauze, elevate extremity, cooling packs Physician Review Additional Text: Impression: Nausea, vomiting and diarrhea secondary to the right and transverse C diff colitis complicated with encephalopathy related to alcohol withdrawal and suspect Wernicke encephalopathy along with acute CVA and bacteremia Fever likely related to Cellulitis to the left upper extremity likely from IV infiltration with noted positive blood culture Encephalopathy suspect related to 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 Lactobacillus added yesterday. Will provide Imodium as needed. Patient did have an episode of diarrhea yesterday. Will need to monitor closely. Will adjust IV fluids. If taking good oral intake then will transition off IV. Case discussed with Neurology. Patient may have underlying Wernike encephalopathy related to his alcohol abuse. EEG to be performed to further evaluate. Will restart Librium but hold if with increase sedation. Patient also found to have left upper extremity DVT. Will discontinue aspirin and Lovenox-DVT prophylaxis and start Eliquis 10 mg 1 pill twice daily for 7 days then transition to Eliquis 5 mg twice daily for 3 months. Cellulitis to the left upper extremity and bacteremia currently being treated as well. Continue with physical therapy. Spoke with social services assistant. Will try to wean off 1 on 1 care. If able to wean off 1 on 1 care then patient can be transition to skilled facility. Spoke with sister yesterday. Will address plan of care with her. Anticipate transfer to skilled facility likely in the next couple of days if significantly improved. I will turn the service over to Dr. Castillo tomorrow. I will go over the plan of care with her. 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 Continue folic acid, statin medication and blood pressure medication. Will discontinue aspirin since the patient will be on Eliquis. Continue physical therapy. Will pursue skilled placement. Will discuss with Neurology. Fever likely related to Cellulitis to the left upper extremity likely from IV infiltration with noted positive blood culture: Continue IV vancomycin. Await wound culture results. Surgery has evaluated patient. No need for surgical intervention. Continue with wound care consultation recommendations. Will transition to oral medication once culture results have been obtained. Left upper extremity DVT-thrombus to the left cephalic vein: Will start Eliquis at 10 mg 1 pill twice daily for 7 days then transition to 5 mg 1 pill twice daily for 3 months. Alcohol abuse with alcohol withdrawal: Patient less confused. Patient slept well last night. Patient continues on Ativan as needed. Slight agitation noted this morning. Will start low-dose Librium scheduled but hold if with increase sedation. Will monitor and adjust appropriately. Hypokalemia, hypomagnesium secondary to dehydration: Continue to monitor and replace. Hypertension: Overall stable. Continue to adjust medication. May need to make adjustments to medication. GERD: Will continue with medication. COPD: Will continue with COPD medication. Hepatic lesion likely hemangioma: This can be worked up as an outpatient. Bed bugs: Contact precautions to be enforced. High risk for fall: Patient continue with 1 on 1 care. Continue physical therapy.
[2019-03-27] MEDS: COLLAGENASE 30 GM OINTMENT TOP SCH (09:59)
--- NOTE | 2019-03-27 10:52 | P.DS ---
Admission Date: 03/08/19 Discharge Date: 03/27/19 Primary Care Provider: none Disposition: [facility] Discharge Condition: FAIR Reason for Admission: colitis, alcohol withdrawal Consultations: General surgery Neurology GI - Problems (1) Acute encephalopathy Onset Date: 07/01/18 Current Visit: No Status: Acute (2) Acute CVA (cerebrovascular accident) Current Visit: Yes Status: Acute (3) Cellulitis Current Visit: Yes Status: Acute Qualifiers: Site of cellulitis: extremity Site of cellulitis of extremity: upper extremity Laterality: left Qualified Code(s): L03.114 - Cellulitis of left upper limb (4) Superficial venous thrombosis of left arm Current Visit: Yes Status: Acute (5) Alcohol abuse Current Visit: No Status: Acute (6) CHF (congestive heart failure) Current Visit: No Status: Chronic Qualifiers: Qualified Code(s): I50.31 - Acute diastolic (congestive) heart failure (7) COPD (chronic obstructive pulmonary disease) Current Visit: No Status: Chronic Qualifiers: COPD type: chronic bronchitis Chronic bronchitis type: mucopurulent Qualified Code(s): J41.1 - Mucopurulent chronic bronchitis (8) GERD (gastroesophageal reflux disease) Current Visit: No Status: Chronic Qualifiers: Esophagitis presence: with esophagitis Qualified Code(s): K21.0 - Gastro- esophageal reflux disease with esophagitis (9) Hypertension Current Visit: No Status: Chronic Qualifiers: Hypertension type: essential hypertension Qualified Code(s): I10 - Essential (primary) hypertension (10) Colitis Current Visit: Yes Status: Resolved Brief History of Present Illness: Mr Baig is a 64 years old male with history of alcohol abuse, COPD, HTN, GERD, who start about 6 days with diarrhea. Then he start having nausea and vomiting. He was not able to keep solids down. His last alcohol drink was this morning. He is not able to provide very coherent history, he is shaking and difficult to find the right word. Lab work remarkable for hypokalemia, abnormal liver enzymes, WBC count within normal limits. CT abd/pelvis shows mild colitis. Hospital Course: Overall during the hospital stay patient remained stable Patient was initially admitted to the hospital for nausea vomiting diarrhea along with abdominal pain. Patient was diagnosed with C. diff colitis and alcohol withdrawal at that time. For C. diff colitis Patient was started on p.o. vancomycin and had marked improvement in his symptoms he completed a total of 14 days of p.o. vancomycin dose here in the hospital and had a resolved completely. Patient also was admitted to the hospital for alcohol abuse causing alcohol withdrawal and DTs. Patient has daily adjustments in his Geodon Ativan and Librium while here in the hospital. Patient did have visual and auditory hallucination as well while here in the hospital. He did have several episodes of agitation and combativeness for which Kartik Marcum was called while here in the hospital. Patient was however able to be redirected and Ativan and geodon Seemed to help him with the agitation as well here in the hospital. For patient's altered mental status. Patient had extensive workup done here in the hospital. Initial workup was negative for any acute CVA. Patient was at that time diagnosed with Wernicke's encephalopathy due to long-standing alcohol abuse. Patient was initially started on banana bag however once he was able to take oral intake and was switched to p.o. thymine, folate and multivitamin here in the hospital. After 14 days of hospitalization while here in the hospital. Patient again had worsening of his altered mental status was a repeat head CT and MRI were done. MRI was consistent with acute CVA with 4 mm infarct in the left basal ganglia. Neurology was consulted who recommended the patient be started on Eliquis along with Lipitor to reduce the risk of CVA. Patient's mentation did not return to baseline. Patient continued to be alert however oriented only to person. This does appear to be patient's new baseline. Discussion at length with family regarding the new baseline. Family demonstrated understanding While here in the hospital patient also had IV infiltration which caused him to have cellulitis of the right and the left arm. Due to thrombophilia patient also developed SVT in the left arm and due to the proximity of the supervision thrombosis to the major structure the decision was made to start patient on Eliquis for that as well. Patient had wound culture done along with blood culture done at that time which were both positive for MRSA in this patient was started on IV vancomycin. At that time patient was referred over to a long- term acute care facility for IV antibiotics. Patient was accepted at [facility] for 2 weeks of IV antibiotics and adjustments to his alcohol withdrawal medication and was transferred there under stable condition for further care. Vital Signs/Physical Exam: Temp Pulse Resp BP Pulse Ox 97.9 F 66 18 167/80 H 96 03/27/19 09:44 03/27/19 09:44 03/27/19 09:44 03/27/19 09:44 03/27/19 09:44 General: Alert, In no apparent distress, Oriented x1, Confused Respiratory: Clear to auscultation bilaterally, Normal air movement Cardiovascular: Regular rate/rhythm, Normal S1 S2 Gastrointestinal: Normal bowel sounds, No tenderness Musculoskeletal: Other (Left arm in Wan wrap) Integumentary: Tenderness/swelling Neurological: Normal tone, Normal affect, Abnormal gait, Abnormal speech Lymphatics: No axilla or inguinal lymphadenopathy Laboratory Data at Discharge: WBC 11.8 K/uL (4.3-10.9) H 03/26/19 12:08 Hgb 12.2 g/dL (13.6-17.9) L 03/26/19 12:08 Hct 36.0 % (39.6-49.0) L 03/26/19 12:08 Plt Count 930 K/uL (152-406) H* 03/26/19 12:08 Sodium 144 mmol/L (136-145) 03/27/19 04:34 Potassium 3.8 mmol/L (3.5-5.1) 03/27/19 04:34 BUN 5 mg/dL (7-18) L 03/27/19 04:34 Creatinine 0.94 mg/dL (0.55-1.3) 03/27/19 04:34 Glucose 88 mg/dL (74-106) 03/27/19 04:34 Magnesium 1.9 mg/dL (1.8-2.4) 03/26/19 04:24 Total Bilirubin 1.7 mg/dL (0.2-1.0) H 03/12/19 05:40 AST 69 U/L (15-37) H 03/12/19 05:40 ALT 29 U/L (12-78) 03/12/19 05:40 Alkaline Phosphatase 51 U/L (45-117) 03/12/19 05:40 Troponin I 0.04 ng/mL (0.0-0.045) 03/12/19 16:30 Lipase 236 U/L (73-393) 03/08/19 19:20 Home Medications: Duloxetine HCl 30 mg PO DAILY 03/09/19 Omeprazole [Prilosec] 40 mg PO DAILY 03/09/19 Apixaban [Eliquis] 10 mg PO BID #60 tablet 03/27/19 Atorvastatin Calcium [Lipitor] 80 mg PO BEDTIME #30 tab 03/27/19 New Medications: Apixaban [Eliquis] 10 mg PO BID #60 tablet Atorvastatin Calcium [Lipitor] 80 mg PO BEDTIME #30 tab Patient Discharge Instructions: Please followup with primary care provider about 1-2 weeks post discharge. You are being transferred to a long-term acute care facility to continue with here 2 weeks of IV vancomycin for bacteremia and wound infection. You will also be started on Eliquis along with Lipitor for acute CVA. He will also be continued on Librium and Ativan for alcohol withdrawal. He will also be continued on time mean folic acid and multivitamin for your Wernicke's encephalopathy Diet: Regular Activity: Ad noe
[2019-03-27] MEDS ORDERED: VANCOMYCIN 1.25 GM in NA CHLORIDE 0.9% 250 ML IVPB SCH ×2 (11:00→18:00)
[2019-03-27 11:46] VITALS: O2SAT 98
[2019-03-27] MEDS ORDERED: IPRATROPIUM BROM 0.5MG/2.5ML NEB PRN (12:01)
[2019-03-27] MEDS ORDERED: ALBUTEROL 2.5 MG/3 ML NEB SOL NEB PRN (12:02)
[2019-03-27] MEDS: LORazepam 2 MG/ML VIAL IV PRN (12:05)
[2019-03-27 12:21] VITALS: BP 133/82; TEMP 98
== END 2019-03-27 13:23 | DRG 371 ==
LOC: ER 18:26 → ERHOLD 22:08 → 2ND 23:51
PROVIDERS: ADMIT Internal Medicine; ATTEND Family Medicine
DX: A04.72 Enterocolitis due to Clostridium difficile, not specified as recurrent (principal); I50.33 Acute on chronic diastolic (congestive) heart failure; I63.9 Cerebral infarction, unspecified; F10.231 Alcohol dependence with withdrawal delirium; J44.1 Chronic obstructive pulmonary disease with (acute) exacerbation; E51.2 Wernicke's encephalopathy; N39.0 Urinary tract infection, site not specified; T80.29XA Infection following other infusion, transfusion and therapeutic injection, initial encounter; L03.114 Cellulitis of left upper limb; R78.81 Bacteremia; I82.612 Acute embolism and thrombosis of superficial veins of left upper extremity; I10 Essential (primary) hypertension; K21.9 Gastro-esophageal reflux disease without esophagitis; E87.6 Hypokalemia; F32.9 Major depressive disorder, single episode, unspecified; G62.9 Polyneuropathy, unspecified; F17.200 Nicotine dependence, unspecified, uncomplicated; E86.0 Dehydration; E83.42 Hypomagnesemia; D18.00 Hemangioma unspecified site; B88.8 Other specified infestations; J41.1 Mucopurulent chronic bronchitis; R09.02 Hypoxemia; B95.62 Methicillin resistant Staphylococcus aureus infection as the cause of diseases classified elsewhere; B19.20 Unspecified viral hepatitis C without hepatic coma; Z91.81 History of falling
CPT/HCPCS: 36415; 70450; 70553; 71045; 74177; 80048; 80053; 80074; 80076; 80202; 80307; 80320; 81003; 81015; 82140; 82550; 82805; 83690; 83735; 84132; 84145; 84439; 84443; 84484; 85025; 85652; 86140; 87040; 87070; 87077; 87086; 87088; 87186; 87205; 87389; 87493; 87522; 92610; 93005; 93306; 93880; 93971; 94640; 95816; 96365; 96367; 97116; 97163; 97166; 97530; 99251; 99285; A9577; J0360; J0744; J1650; J2270; J2405; J2550; J3411; J3475; J3486; J3590; J7030; J7605; Q9967

== ENCOUNTER 2019-06-23 17:02 | Emergency (ER) | payer OTHER ==
[2019-06-23] MEDS ORDERED: THIAMINE 200 MG/2 ML INJ ONE (17:18)
[2019-06-23] MEDS ORDERED: MULTIVITAMINS 10 ML VIAL (INJ) IV ONE (17:18)
[2019-06-23] MEDS ORDERED: LEVALBUTEROL 1.25 MG/3 ML NEB ONE (17:18)
[2019-06-23] MEDS ORDERED: NA CHLORIDE 0.9% 1,000 ML ONE (17:19)
[2019-06-23] MEDS ORDERED: FOLIC ACID 5 MG/ML VIAL ONE (17:19)
[2019-06-23 17:44] LABS: Absolute Lymphocytes (CBC) 1.4 K/uL (0.7-4.9); Basophils % 0.5 % (0-1.3); Lymphocytes % 13.4 % (15.3-44.8); MPV 7.6 fL (7.6-11.3); RBC Red Blood Cell Count 4.48 M/uL (4.33-5.43)
[2019-06-23 17:51] LABS: Potassium 3.7 mmol/L (3.5-5.1)
--- NOTE | 2019-06-23 18:44 | EDPHYS ---
Physician Documentation [facility] Name: Jose Baig Age: 64 yrs Sex: Male : 1955 Arrival Date: 06/23/2019 Time: 17:10 Bed 23 Private MD: ED Physician Ian Reynaga HPI: 06/23 17:16 This 64 yrs old Male presents to ER via EMS with complaints of dehydration. rn 17:16 Reports fatigue, generalized weakness, and feels dehydrated. Reports has been outside rn in heat, not drinking water, + daily drinker, drank 2 drinks today. No vomiting. + diarrhea that is non-bloody. . Onset: The symptoms/episode began/occurred today. Severity of symptoms: At their worst the symptoms were moderate in the emergency department the symptoms have improved. The patient has not experienced similar symptoms in the past. Per EMS, was very dry and tachycardic, which slowly improved when getting him out of heat and in air conditioning.. Historical: - Allergies: 17:15 No Known Allergies; rv - Home Meds: 17:15 Advair Diskus Inhl [Active]; duloxetine Oral [Active]; Omeprazole Oral [Active]; rv - PMHx: 17:15 Anxiety; Bipolar disorder; COPD; Hepatitis; Ulcers; rv - PSHx: 17:15 None; rv - Immunization history:: Adult Immunizations not up to date. - Social history:: Smoking status: Patient uses tobacco products, 2 sticks a day. - Ebola Screening: : No symptoms or risks identified at this time. - Family history:: not pertinent. - Hospitalizations: : No recent hospitalization is reported. ROS: 17:16 Constitutional: Negative for fever, chills, and weight loss, Eyes: Negative for injury, rn pain, redness, and discharge, Neck: Negative for injury, pain, and swelling, Cardiovascular: Negative for chest pain, palpitations, and edema, Respiratory: Negative for shortness of breath, cough, and pleuritic chest pain, Abdomen/GI: Negative for abdominal pain, nausea, vomiting, diarrhea, and constipation, MS/Extremity: Negative for injury and deformity, Skin: Negative for injury, rash, and discoloration, Neuro: Negative for headache, numbness, tingling, and seizure. Exam: 17:16 Constitutional: This is a well developed, well nourished patient who is awake, alert, rn and in no acute distress. Head/Face: Normocephalic, atraumatic. ENT: Very dry MM Cardiovascular: Regular rate and rhythm, no murmur Respiratory: + faint exp wheezing, no retractions, speaking full unlabored sentences Abdomen/GI: soft, non-tender MS/ Extremity: Pulses equal, no cyanosis. Neurovascular intact. Full, normal range of motion. Equal circumference. Neuro: Awake and alert, GCS 15, oriented to person, place, time, and situation. Cranial nerves II-XII grossly intact. Motor strength 5/5 in all extremities. Sensory grossly intact. Cerebellar exam normal. No extremity tremor. 17:42 ECG was reviewed by the Attending Physician. rn Vital Signs: 17:13 BP 178 / 87; Pulse 69; Resp 19; Temp 98.4; Pulse Ox 100% on R/A; Weight 72.57 kg (R); rv Height 5 ft. 11 in. (180.34 cm) (R); Pain 0/10; 18:37 BP 156 / 89; Pulse 73; Resp 18; Pulse Ox 100% on R/A; mg2 19:36 BP 168 / 80; Pulse 74; Resp 18; Temp 98(O); Pulse Ox 100% on R/A; mg2 17:13 Body Mass Index 22.32 (72.57 kg, 180.34 cm) rv MDM: 17:13 Patient medically screened. rn 18:42 Differential Diagnosis dehydration, UTI, heat exhaustion. Data reviewed: vital signs, rn nurses notes, lab test result(s), EKG, and as a result, I will discharge patient. Counseling: I had a detailed discussion with the patient and/or guardian regarding: the historical points, exam findings, and any diagnostic results supporting the discharge/admit diagnosis, lab results, the need for outpatient follow up, to return to the emergency department if symptoms worsen or persist or if there are any questions or concerns that arise at home. Response to treatment: the patient's symptoms have markedly improved after treatment, and as a result, I will discharge patient. Special discussion: I discussed with the patient/guardian in detail that at this point there is no indication for admission to the hospital. It is understood, however, that if the symptoms persist or worsen the patient needs to return immediately for re-evaluation. 06/23 17:15 Order name: CBC with Diff; Complete Time: 17:51 rn 06/23 17:15 Order name: Basic Metabolic Panel; Complete Time: 18:10 rn 06/23 17:15 Order name: Urine Microscopic Only; Complete Time: 07:06 rn 06/23 18:45 Order name: Urine Dipstick--Ancillary (enter results); Complete Time: 07:06 bd 06/23 19:13 Order name: Urine Culture EDMS 06/23 17:15 Order name: IV Start; Complete Time: 17:17 rn 06/23 17:15 Order name: EKG; Complete Time: 17:16 rn 06/23 17:15 Order name: EKG - Nurse/Tech; Complete Time: 17:17 rn EC:42 Rate is 81 beats/min. Rhythm is regular. QRS [place] is Normal. MS interval is normal. QRS rn interval is normal. QT interval is normal. No Q waves. T waves are Normal. No ST changes noted. Clinical impression: Normal ECG. Reviewed by me. Administered Medications: 17:32 Drug: Banana Bag - (NS 0.9% 1000 ml, foLIC Acid 1 mg, Thiamine 100 mg, Multivitamin 1 mg2 amp) Route: IV; Rate: calculated rate; Site: right antecubital; 19:34 Follow up: Response: No adverse reaction; IV Status: Completed infusion; IV Intake: mg2 1000ml 17:32 Drug: Xopenex (3) 1.25 mg Route: Inhalation; mg2 19:34 Follow up: Response: No adverse reaction; Marked relief of symptoms mg2 17:33 Drug: NS 0.9% 1000 ml Route: IV; Rate: 1000 ml; Site: right antecubital; mg2 19:34 Follow up: Response: No adverse reaction; IV Status: Completed infusion; IV Intake: mg2 1000ml Point of Care Testing: Blood Glucose: 17:17 Blood Glucose: 96 mg/dL; rv Ranges: Critical Glucose Levels:Adult <50 mg/dl or >400 mg/dl <40 mg/dl or >180 mg/dl Disposition: 06/23/19 18:42 Discharged to Home. Impression: Heat exhaustion, unspecified, Dehydration, Urinary tract infection, site not specified. - Condition is Stable. - Discharge Instructions: Dehydration, Adult, Urinary Tract Infection, Adult, Heat Exhaustion Information. - Prescriptions for Macrobid 100 mg Oral Capsule - take 1 capsule by ORAL route every 12 hours for 7 days; 14 capsule. - Medication Reconciliation Form, Thank You Letter, Antibiotic Education, Prescription Opioid Use form. - Follow up: Private Physician; When: As needed; Reason: Recheck today's complaints, Re-evaluation by your physician. - Problem is new. - Symptoms have improved. Signatures: Dispatcher [employer] EDMS Ian Reynaga MD MD rn Armaan Madden RN RN mg2 Ellis Turcios RN RN rv Corrections: (The following items were deleted from the chart) 18:19 17:15 Urine Dipstick-Ancillary ordered. rn rn 19:37 18:42 06/23/2019 18:42 Discharged to Home. Impression: Heat exhaustion, unspecified; mg2 Dehydration; Urinary tract infection, site not specified. Condition is Stable. Discharge Instructions: Dehydration, Adult, Heat Exhaustion Information. Forms are Medication Reconciliation Form, Thank You Letter, Antibiotic Education, Prescription Opioid Use. Follow up: Private Physician; When: As needed; Reason: Recheck today's complaints, Re-evaluation by your physician. Problem is new. Symptoms have improved. rn
--- NOTE | 2019-06-23 18:44 | ER ---
Nurse's Notes [facility] Name: Jose Baig Age: 64 yrs Sex: Male : 1955 Arrival Date: 06/23/2019 Time: 17:10 Bed 23 Private MD: Diagnosis: Heat exhaustion, unspecified;Dehydration;Urinary tract infection, site not specified Presentation: 06/23 17:11 Presenting complaint: EMS states: complained of difficulty breathing after being out in rv the sun for the day. initially the blood pressure is at 180/118. denies any chest pain. oxygen sats at 96% room air. Transition of care: patient was not received from another setting of care. Onset of symptoms was June 23, 2019 at 16:30. Risk Assessment: Do you want to hurt yourself or someone else? Patient reports no desire to harm self or others. Initial Sepsis Screen: Does the patient meet any 2 criteria? No. Patient's initial sepsis screen is negative. Does the patient have a suspected source of infection? No. Patient's initial sepsis screen is negative. Care prior to arrival: None. 17:11 Method Of Arrival: EMS: [facility] 17:11 Acuity: SONIA 3 rv Historical: - Allergies: 17:15 No Known Allergies; rv - Home Meds: 17:15 Advair Diskus Inhl [Active]; duloxetine Oral [Active]; Omeprazole Oral [Active]; rv - PMHx: 17:15 Anxiety; Bipolar disorder; COPD; Hepatitis; Ulcers; rv - PSHx: 17:15 None; rv - Immunization history:: Adult Immunizations not up to date. - Social history:: Smoking status: Patient uses tobacco products, 2 sticks a day. - Ebola Screening: : No symptoms or risks identified at this time. - Family history:: not pertinent. - Hospitalizations: : No recent hospitalization is reported. Screenin:16 Abuse screen: Denies threats or abuse. Denies injuries from another. Nutritional rv screening: No deficits noted. Tuberculosis screening: No symptoms or risk factors identified. Fall Risk None identified. Assessment: 17:15 General: Appears in no apparent distress. comfortable, Behavior is calm, cooperative. rv Pain: Denies pain. Neuro: Level of Consciousness is awake, alert, obeys commands, Oriented to person, place, time, situation. Cardiovascular: Patient's skin is warm and dry. Respiratory: Airway is patent. GI: No signs and/or symptoms were reported involving the gastrointestinal system. : No signs and/or symptoms were reported regarding the genitourinary system. EENT: No signs and/or symptoms were reported regarding the EENT system. Derm: Skin is intact. Musculoskeletal: No signs and/or symptoms reported regarding the musculoskeletal system. Vital Signs: 17:13 BP 178 / 87; Pulse 69; Resp 19; Temp 98.4; Pulse Ox 100% on R/A; Weight 72.57 kg (R); rv Height 5 ft. 11 in. (180.34 cm) (R); Pain 0/10; 18:37 BP 156 / 89; Pulse 73; Resp 18; Pulse Ox 100% on R/A; mg2 19:36 BP 168 / 80; Pulse 74; Resp 18; Temp 98(O); Pulse Ox 100% on R/A; mg2 17:13 Body Mass Index 22.32 (72.57 kg, 180.34 cm) rv ED Course: 17:10 Patient arrived in ED. rv 17:13 Ian Reynaga MD is Attending Physician. rn 17:13 Triage completed. rv 17:16 Patient has correct armband on for positive identification. Placed in gown. Bed in low rv position. Call light in reach. Side rails up X 1. journeyman pipefitter on. Pulse ox on. NIBP on. 17:17 Armaan Madden, RN is Primary Nurse. mg2 17:17 Patient placed in the treatment room, on a stretcher, on hostess, on pulse rv oximetry, Patient notified of wait time. Arm band placed on right wrist. EKG completed in triage. Results shown to MD. 18:27 Assisted with urinal. bd 18:38 No provider procedures requiring assistance completed. Inserted saline lock: 20 gauge mg2 in right antecubital area, using aseptic technique. Blood collected. 19:36 IV discontinued, intact, bleeding controlled, No redness/swelling at site. Pressure mg2 dressing applied. Administered Medications: 17:32 Drug: Banana Bag - (NS 0.9% 1000 ml, foLIC Acid 1 mg, Thiamine 100 mg, Multivitamin 1 mg2 amp) Route: IV; Rate: calculated rate; Site: right antecubital; 19:34 Follow up: Response: No adverse reaction; IV Status: Completed infusion; IV Intake: mg2 1000ml 17:32 Drug: Xopenex (3) 1.25 mg Route: Inhalation; mg2 19:34 Follow up: Response: No adverse reaction; Marked relief of symptoms mg2 17:33 Drug: NS 0.9% 1000 ml Route: IV; Rate: 1000 ml; Site: right antecubital; mg2 19:34 Follow up: Response: No adverse reaction; IV Status: Completed infusion; IV Intake: mg2 1000ml Point of Care Testing: Blood Glucose: 17:17 Blood Glucose: 96 mg/dL; rv Ranges: Intake: 19:34 IV: 1000ml; Total: 1000ml. mg2 19:34 IV: 1000ml; Total: 2000ml. mg2 Outcome: 18:42 Discharge ordered by . rn 19:36 Discharged to home via wheelchair. mg2 19:36 Condition: stable 19:36 Discharge instructions given to patient, Instructed on discharge instructions, follow up and referral plans. medication usage, Demonstrated understanding of instructions, follow-up care, medications, Prescriptions given X 1. 19:37 Patient left the ED. mg2 Signatures: Nanda Batista Roman, MD MD rn Gardose, Michele, RN RN mg2 Ellis Turcios RN RN rv
[2019-06-23 18:59] LABS: Urine Blood 2+ (NEG); Urine Glucose NEGATIVE (NEG); Urine Protein 2+ (NEG); Urine Specific Gravity 1.015 (1.005-1.030); Urine pH 8.5 (5.0-7.0)
[2019-06-23 19:11] LABS: Urine Bacteria >50 /HPF (NONE SEEN); Urine Culture Reflex Order REFLEXED
[2019-06-23 19:43] VITALS: O2SAT 100
[2019-06-23 19:46] VITALS: BP 168/80; TEMP 98
--- NOTE | 2019-06-24 07:27 | EKG ---
Test Date: 2019-06-23 Test Time: 17:15:52 Nursing Assoc: [facility] MEASUREMENT RESULTS: Intervals: Rate: 81 LA: 146 QRSD: 88 QT: 390 QTc: 453 [place]: P: 56 LA: 146 QRS: 79 T: 73 INTERPRETIVE STATEMENTS: Normal sinus rhythm Normal ECG Compared to ECG 03/12/2019 17:07:56 Atrial premature complex(es) no longer present Aberrant conduction of supraventricular beat(s) no longer present ST (T wave) deviation no longer present Prolonged QT interval no longer present Electronically Signed On 06-24-19 07:26:10 CDT by Cuong Morales
== END 2019-06-23 19:37 | disposition home or self-care (01) ==
LOC: ER 17:02
DX: T67.5XXA Heat exhaustion, unspecified, initial encounter (principal); E86.0 Dehydration; N39.0 Urinary tract infection, site not specified; X30.XXXA Exposure to excessive natural heat, initial encounter; Y93.89 Activity, other specified; Y92.9 Unspecified place or not applicable; J44.9 Chronic obstructive pulmonary disease, unspecified; K25.9 Gastric ulcer, unspecified as acute or chronic, without hemorrhage or perforation; F41.9 Anxiety disorder, unspecified; F31.9 Bipolar disorder, unspecified; Z72.0 Tobacco use
CPT/HCPCS: 96365; 93005; 87088; 85025; 87086; 80048; 36415; 99285; 96366; J3411; J7030; 81003; 81015; 82962; 87077; 87186

== ENCOUNTER 2020-07-17 16:38 | Emergency (ER) | payer OTHER ==
--- OUTSIDE RECORDS SUMMARY | 2020-07-17 16:40 | XMS REPORT | Continuity of Care Document ---
:1955 Author Organization [facility] t Address [facility] [place] [address] [place] [id number] Care Team Providers Name Role Phone Unavailable Unavailable Unavailable Problems This patient has no known problems. Allergies, Adverse Reactions, Alerts This patient has no known allergies or adverse reactions. Medications This patient has no known medications. Procedures This patient has no known procedures. Results This patient has no known results.
[2020-07-17] MEDS ORDERED: NA CHLORIDE 0.9% 2,000 ML ONE (17:14)
[2020-07-17 17:17] LABS: Absolute Lymphocytes (CBC) 1.6 K/uL (0.7-4.9); Basophils % 0.3 % (0-1.3); Lymphocytes % 7.3 % (15.3-44.8); MPV 7.9 fL (7.6-11.3); RBC Red Blood Cell Count 1.86 M/uL (4.33-5.43)
[2020-07-17 17:22] LABS: Hematocrit 20.6 % (39.6-49.0)
[2020-07-17 17:30] LABS: Protime INR 2.07
[2020-07-17 17:33] LABS: Arterial Blood Carboxyhemoglob 2.9 % (0-1.5); Blood Gas Oxyhemoglobin 93.7 % (94-97); Blood O2 Saturation 97.4 % (92-98.5)
[2020-07-17 17:44] LABS: Bilirubin Direct 4.4 mg/dL (0-0.2); CKMB Creatine Kinase MB 9.3 ng/mL (0.3-3.6); Protein, Total 5.3 g/dL (6.4-8.2); Troponin (Emerg Dept Use Only) 0.06 ng/mL (0.0-0.045)
[2020-07-17] MEDS ORDERED: HYDROCORTISONE SUC 100 MG INJ ONE (17:44)
[2020-07-17] MEDS ORDERED: PANTOPRAZOLE 40 MG INJ ONE ×2 (17:44→21:09)
[2020-07-17] MEDS ORDERED: NA CHLORIDE 0.9% 250 ML ONE ×3 (17:44→21:09)
[2020-07-17] MEDS ORDERED: VANCOMYCIN 1 GM/VIAL ONE (17:44)
[2020-07-17] MEDS ORDERED: THIAMINE 200 MG/2 ML INJ ONE (17:44)
[2020-07-17] MEDS ORDERED: CEFEPIME 2 GM VIAL ONE (17:46)
[2020-07-17 17:47] LABS: Potassium 1.7 mmol/L (3.5-5.1)
[2020-07-17 18:07] LABS: Anisocytosis 2+; Blood Morphology Comment NOTED (NOT SEEN); Hypochromasia 1+; Macrocytosis 2+; Platelet Estimate ADEQ
[2020-07-17 18:08] LABS: Target Cells FEW
[2020-07-17] MEDS ORDERED: KCL 20 MEQ/100 mL IVPB 20 MEQ/100 ML BAG IV ONE (18:50)
--- NOTE | 2020-07-17 18:50 | RAD REPORT ---
EXAM DESCRIPTION: RAD - Chest Single View - 07/17/2020 6:05 pm CLINICAL HISTORY: SOB COMPARISON: Portable March 2019 TECHNIQUE: AP portable chest image was obtained 07/17/2020 6:05 pm . FINDINGS: No dense consolidation seen. Central vasculature is prominent, increased over comparison. Calcified granulomas are present. Heart size is prominent but not substantially different from compar celio. No measurable pleural effusion and no pneumothorax. No acute bony abnormality seen. No acute ao rtic findings suspected. IMPRESSION: No dense consolidation or mass. Heart, vasculature and central lung markings are all prominent. Mild failure or volume overload suspe cted.
[2020-07-17 19:19] LABS: Urine Bacteria <20 /HPF (NONE SEEN); Urine Culture Reflex Order NOT NEEDED; Urine RBC NONE SEEN /HPF (NONE SEEN)
--- NOTE | 2020-07-17 19:23 | EDPHYS ---
Physician Documentation [facility] Name: Jose Baig Age: 65 yrs Sex: Male : 1955 Arrival Date: 07/17/2020 Time: 16:42 Bed 2 Private MD: ED Physician Dave Valverde HPI: 07/17 17:12 This 65 yrs old Male presents to ER via EMS with complaints of Decreased terry Appetite, Decreased LOC. 17:12 The patient's problem is reported as altered mental status, disoriented to place, time. terry Historical: - Allergies: 16:49 No Known Allergies; tw2 - PMHx: 16:49 Hepatitis; Ulcers; COPD; Bipolar disorder; Anxiety; tw2 - PSHx: 16:49 None; tw2 - Immunization history:: Adult Immunizations. - Social history:: Smoking status: . ROS: 17:12 Constitutional: Negative for fever, chills, and weight loss, Eyes: Negative for injury, terry pain, redness, and discharge, ENT: Negative for injury, pain, and discharge, Neck: Negative for injury, pain, and swelling, Cardiovascular: Negative for chest pain, palpitations, and edema, Abdomen/GI: Negative for abdominal pain, nausea, vomiting, diarrhea, and constipation, Back: Negative for injury and pain, : Negative for injury, bleeding, discharge, and swelling, MS/Extremity: Negative for injury and deformity, Psych: Negative for depression, anxiety, suicide ideation, homicidal ideation, and hallucinations, Allergy/Immunology: Negative for hives, rash, and allergies, Endocrine: Negative for neck swelling, polydipsia, polyuria, polyphagia, and marked weight changes, Hematologic/Lymphatic: Negative for swollen nodes, abnormal bleeding, and unusual bruising. 17:12 Respiratory: Positive for cough, shortness of breath, at rest. 17:12 Skin: Positive for jaundice, pallor. 17:12 Neuro: Positive for altered mental status, dizziness, speech changes, weakness. Exam: 17:14 Chest/axilla: Normal chest wall appearance and motion. Nontender with no deformity. terry No lesions are appreciated. 17:14 Constitutional: The patient appears lethargic, in obvious distress, mildly distressed, moderately distressed. 17:14 Eyes: Sclera: icterus. 17:14 Neck: External neck: is normal, Thyroid: no acute changes, Trachea: is midline with no obvious abnormalities, ROM/movement: Meningeal signs: are not present, Kernig's sign is negative, Brudzinski's sign is negative. 17:14 Cardiovascular: Rate: normal, Rhythm: regular, Pulses: Pulses are 3+ in bilateral radial, brachial, femoral, popliteal, posterior tibial and and dorsalis pedis arteries.. Heart sounds: normal, Edema: is not appreciated, JVD: is not appreciated. 17:14 Respiratory: Respirations: labored breathing, that is mild, Breath sounds: decreased breath sounds, rhonchi, that are mild, that are moderate. 17:14 Abdomen/GI: Inspection: abdomen appears normal, Bowel sounds: normal, Palpation: abdomen is soft and non-tender, Liver: no appreciated palpable abnormalities, Hernia: not appreciated. 17:14 Skin: Appearance: Color: jaundiced, Temperature: normal temperature, Moisture: normal moisture, petechiae, not noted, ecchymosis, not noted, diaphoresis is not appreciated. 17:14 Neuro: Orientation: to person, Not oriented to place, time, situation, Mentation: slow to respond, confused, Memory: unable to test, Cranial nerves: grossly normal, is grossly normal based on the patient's age, no acute changes, Cerebellar function: unable to test, Motor: moves all fours, Sensation: unable to test, Gait: not tested. seizure activity, is not displayed by the patient. 17:18 ECG was reviewed by the Attending Physician. terry Vital Signs: 16:42 BP 90 / 33; Pulse 93; Resp 17; Temp 98.9(O); Pulse Ox 97% on R/A; Weight 74.84 kg (R); tw2 Height 5 ft. 8 in. (172.72 cm); 18:00 BP 104 / 56; Pulse 82; Resp 16; Pulse Ox 100% on R/A; tw2 19:15 BP 105 / 60; Pulse 96; Resp 16; Pulse Ox 88% on R/A; lp1 19:15 Pulse Ox 94% on 2 lpm NC; lp1 20:00 BP 115 / 54; Pulse 86; Resp 16; Pulse Ox 95% on 2 lpm NC; lp1 20:30 BP 102 / 90; Pulse 88; Resp 14; Pulse Ox 96% on 2 lpm NC; lp1 21:04 BP 95 / 64; Pulse 94; Resp 17; Temp 98.1(A); Pulse Ox 98% on 2 lpm NC; lp1 21:45 BP 121 / 82; Pulse 91; Resp 18; Temp 98(A); Pulse Ox 96% on 2 lpm NC; lp1 16:42 Body Mass Index 25.09 (74.84 kg, 172.72 cm) tw2 21:45 See Transfusion flowsheet for further vitals lp1 [place] Coma Score: 19:30 Eye Response: to voice(3). Verbal Response: incomprehensible(2). Motor Response: lp1 localizes pain(5). Total: 10. Procedures: 18:27 Central Line: the site was prepped with Betadine, in sterile fashion, a triple lumen terry catheter was inserted, in the right femoral vein, in 2 attempts. placement was verified, by blood return, the site was dressed with using sterile technique, the patient tolerated the procedure, well. Monterroso cath inserted by myself - 16 Fr. Urine output = 0 ml's. Patient tolerated well. MDM: 17:00 Patient medically screened. terry 18:29 Differential diagnosis: CVA, TIA, metabolic disorder, drug effects. Differential terry Diagnosis altered mental status, sepsis, flu, Influenza Upper Respiratory Infection Otitis Media Pneumonia. Data reviewed: vital signs, nurses notes, lab test result(s), EKG, radiologic studies, CT scan, plain films. Data interpreted: linemarker: rate is 93 beats/min, rhythm is regular, Pulse oximetry: on room air is 97 %. Test interpretation: by ED physician or midlevel provider: ECG, plain radiologic studies. 19:19 ED course: call [facility] [place] 07/17 16:57 Order name: Amylase, Serum; Complete Time: 18:44 [facility] 07/17 16:57 Order name: Basic Metabolic Panel; Complete Time: 18:44 [facility] 07/17 16:57 Order name: Blood Culture Adult (2) [facility] 07/17 16:57 Order name: CBC with Diff; Complete Time: 18:44 [facility] 07/17 16:57 Order name: Ckmb; Complete Time: 18:44 [facility] 07/17 16:57 Order name: CPK; Complete Time: 18:44 [facility] 07/17 16:57 Order name: Lactate; Complete Time: 18:44 [facility] 07/17 16:57 Order name: LFT's; Complete Time: 18:44 [facility] 07/17 16:57 Order name: Lipase; Complete Time: 18:44 [facility] 07/17 16:57 Order name: Procalcitonin; Complete Time: 18:44 [facility] 07/17 16:57 Order name: Protime (+inr); Complete Time: 18:44 [facility] 07/17 16:57 Order name: Ptt, Activated; Complete Time: 18:44 [facility] 07/17 16:57 Order name: Troponin (emerg Dept Use Only); Complete Time: 18:44 [facility] 07/17 16:57 Order name: Urine Microscopic Only; Complete Time: 19:35 [facility] 07/17 17:07 Order name: Glucose, Ancillary Testing; Complete Time: 18:44 [facility] 07/17 17:11 Order name: Flu; Complete Time: 18:44 [facility] 07/17 17:11 Order name: Type And Screen [facility] 07/17 17:11 Order name: UDS; Complete Time: 19:35 [facility] 07/17 17:11 Order name: Alcohol Level; Complete Time: 18:44 [facility] 07/17 17:11 Order name: AMMONIA; Complete Time: 18:44 [facility] 07/17 17:12 Order name: ABG; Complete Time: 18:44 [facility] 07/17 17:22 Order name: Manual Differential; Complete Time: 18:44 [facility] 07/17 17:52 Order name: Urine Osmolality; Complete Time: 19:35 [facility] 07/17 17:52 Order name: Urine Sodium Random; Complete Time: 19:15 [facility] 07/17 17:52 Order name: Osmolality, Serum; Complete Time: 18:44 [facility] 07/17 17:52 Order name: Phosphorus; Complete Time: 18:44 [facility] 07/17 18:44 Order name: SARS-COV-2 RT PCR; Complete Time: 20:08 [facility] 07/17 18:53 Order name: Packed RBC Leukored [facility] 07/17 19:12 Order name: Urine Dipstick--Ancillary (enter results); Complete Time: 19:35 07/17 16:57 Order name: Chest Single View XRAY; Complete Time: 19:06 [facility] 07/17 16:57 Order name: Accucheck; Complete Time: 16:57 [facility] 07/17 16:57 Order name: Cardiac monitoring; Complete Time: 16:57 tw2 07/17 16:57 Order name: EKG - Nurse/Tech; Complete Time: 17:06 [facility] 07/17 16:57 Order name: IV Saline Lock - Large Bore; Complete Time: 17:06 [facility] 07/17 16:57 Order name: Labs collected and sent; Complete Time: 17:06 [facility] 07/17 16:57 Order name: O2 Per Protocol; Complete Time: 17:01 [facility] 07/17 16:57 Order name: O2 Sat Monitoring; Complete Time: 17:01 [facility] 07/17 16:57 Order name: Urine Dipstick-Ancillary (obtain specimen); Complete Time: 18:44 [facility] 07/17 17:11 Order name: CT Traumagram (Head C Spine CAP wo con); Complete Time: 20:08 [facility] 07/17 17:11 Order name: Central Line Kit; Complete Time: 17:30 [facility] 07/17 17:11 Order name: Monterroso; Complete Time: 19:59 [facility] 07/17 17:57 Order name: Transfuse; Complete Time: 22:32 [facility] 07/17 18:44 Order name: Restrain Patient; Complete Time: 18:44 tw2 07/17 19:32 Order name: ABO/RH no charge; Complete Time: 19:35 EDMS 07/17 19:52 Order name: Urine Dipstick--Ancillary (enter results); Complete Time: 20:08 tt3 07/17 21:22 Order name: Lactate Sepsis 2 HR Follow-up EDMS EC:18 Rate is 89 beats/min. MD interval is normal. QRS interval is normal. QT interval is terry prolonged at 588 msec. No Q waves. T waves are Normal. Clinical impression: NSR w/ Non-specific ST/T Changes. Interpreted by me. Reviewed by me. Administered Medications: Discontinued: ProTONIX 8 mg/hr IV at 25 ml/hr continuous; (Standard dilution is 80 mg in 250 mL NS) 17:06 Drug: NS 0.9% (30 ml/kg) 30 ml/kg Route: IV; Rate: bolus; Site: right antecubital; hb 20:30 Follow up: IV Status: Completed infusion; IV Intake: 2000ml lp1 17:40 Drug: ProTONIX 80 mg Route: IVP; Site: right antecubital; hb 18:37 Follow up: Response: No adverse reaction tw2 17:40 Drug: Thiamine 100 mg Route: IV; Rate: bolus; Site: right antecubital; hb 17:45 Follow up: Response: No adverse reaction; IV Status: Completed infusion tw2 17:40 Drug: Solu-CORTEF 100 mg Route: IVP; Site: right antecubital; hb 18:59 Follow up: Response: No adverse reaction tw2 17:40 Drug: ProTONIX 8 mg/hr Route: IV; Rate: 25 ml/hr; Site: right antecubital; hb 17:54 CANCELLED (Duplicate Order): Potassium Chloride 20 mEq IV at per protocol once; tw2 administer over 1-2 hours 17:56 Drug: Cefepime 2 grams Route: IVPB; Rate: 200 ml/hr; Infused Over: 30 mins; Site: left hb antecubital; 20:29 Follow up: IV Status: Completed infusion; IV Intake: 100ml lp1 17:56 Drug: vancoMYCIN 1 grams Route: IVPB; Infused Over: 2 hrs; Site: right antecubital; hb 20:29 Follow up: IV Status: Completed infusion; IV Intake: 250ml lp1 18:45 Drug: Potassium Chloride 20 mEq Route: IV; Rate: per protocol; Site: right forearm; tw2 20:45 Follow up: IV Status: Completed infusion lp1 20:29 Drug: Potassium Phosphate 15 mmol Route: IV; Rate: per protocol; Site: right femoral; lp1 22:31 Follow up: IV Status: Infusion continued upon transfer lp1 21:03 Drug: ProTONIX 8 mg/hr Route: IV; Rate: 25 ml/hr; Site: right femoral; lp1 22:31 Follow up: IV Status: Infusion continued upon transfer lp1 22:00 Drug: Tylenol Suppository 650 mg Route: MD; lp1 22:32 Follow up: Response: No adverse reaction lp1 22:00 Drug: Benadryl 12.5 mg {Note: prior to PRBC transfusion.} Route: IVP; Site: right lp1 femoral; 22:32 Follow up: Response: No adverse reaction lp1 Disposition: 07/17/20 19:23 Transfer ordered to [facility]. Diagnosis are Hypo-osmolality and hyponatremia, Hypokalemia, Severe sepsis with septic shock, Altered mental status, unspecified, Anemia, unspecified, Elevated white blood cell count, Pneumonia, unspecified organism, Pleural effusion in conditions classified elsewhere. - Reason for transfer: Higher level of care. - Accepting physician is TO [facility]. - Condition is Critical. - Problem is new. - Symptoms have improved. Critical care time excluding procedures: 18:30 Critical care time: Bedside Care: 45 minutes, Consultation: 20 minutes. Total time: 65 terry minutes Signatures: Dispatcher [employer] EDMS Rashaun Anderson RN RN sg Anderson, Corey, MD MD cha Pena, Laura RN RN lp1 Lakeisha Delgado RN RN Rylie Maddox RN RN tw2 Corrections: (The following items were deleted from the chart) 17:54 17:52 Potassium Chloride 20 mEq IV at per protocol once; administer over 1-2 hours tw2 ordered. [facility] 18:44 17:11 CORONAVIRUS+MR.LAB.BRZ ordered. [facility] 19:38 19:23 07/17/2020 19:23 Transfer ordered to [facility]. [facility] Diagnosis is Hypo-osmolality and hyponatremia; Hypokalemia; Severe sepsis with septic shock; Altered mental status, unspecified; Anemia, unspecified; Elevated white blood cell count. Reason for transfer: Higher level of care. Accepting physician is to [facility]. Condition is Critical. Problem is new. Symptoms have improved. [facility] 20:20 19:38 07/17/2020 19:23 Transfer ordered to [facility]. Diagnosis is [facility] Hypo-osmolality and hyponatremia; Hypokalemia; Severe sepsis with septic shock; Altered mental status, unspecified; Anemia, unspecified; Elevated white blood cell count. Reason for transfer: Higher level of care. Accepting physician is TO [facility]. Condition is Critical. Problem is new. Symptoms have improved. [facility] 22:33 20:20 07/17/2020 19:23 Transfer ordered to [facility]. Diagnosis is lp1 Hypo-osmolality and hyponatremia; Hypokalemia; Severe sepsis with septic shock; Altered mental status, unspecified; Anemia, unspecified; Elevated white blood cell count; Pneumonia, unspecified organism; Pleural effusion in conditions classified elsewhere. Reason for transfer: Higher level of care. Accepting physician is TO [facility]. Condition is Critical. Problem is new. Symptoms have improved. terry
--- NOTE | 2020-07-17 19:23 | ER ---
Nurse's Notes [facility] Name: Jose Baig Age: 65 yrs Sex: Male : 1955 Arrival Date: 07/17/2020 Time: 16:42 Bed 2 Private MD: Diagnosis: Hypo-osmolality and hyponatremia;Hypokalemia;Severe sepsis with septic shock;Altered mental status, unspecified;Anemia, unspecified;Elevated white blood cell count;Pneumonia, unspecified organism;Pleural effusion in conditions classified elsewhere Presentation: 07/17 16:42 Chief complaint: EMS states: pt from home has been sick for 5 days not eating or tw2 drinking and pretty lethargic today, we have checked on him a 3 days ago, but earlier today he refused to be transported when he was a\T\o x3 and refused to go to hospital, then he called us back and agreed to go, bp 73/37 hr 104, rr 16 A\T\o x 1, takes no meds, poor historian who is a roommate in house with him states copd, nkda and does not take any meds. Coronavirus screen: At this time, the client does not indicate any symptoms associated with coronavirus-19. Ebola Screen: Patient denies travel to an Ebola-affected area in the 21 days before illness onset. Initial Sepsis Screen: Does the patient meet any 2 criteria? Mean Arterial Pressure (MAP) < 65. Altered Mental Status. Does the patient have a suspected source of infection? Yes: If YES to both, name of provider notified: Dave Valverde MD. Risk Assessment: Do you want to hurt yourself or someone else? Patient reports no desire to harm self or others. Onset of symptoms was July 17, 2020. 16:42 Method Of Arrival: EMS: [facility] tw2 16:42 Acuity: SONIA 2 tw2 Triage Assessment: 16:47 General: Appears Behavior is drowsy, listless. Pain: Unable to use pain scale. Patient tw2 is disoriented. Patient is unresponsive. Historical: - Allergies: 16:49 No Known Allergies; tw2 - PMHx: 16:49 Hepatitis; Ulcers; COPD; Bipolar disorder; Anxiety; tw2 - PSHx: 16:49 None; tw2 - Immunization history:: Adult Immunizations. - Social history:: Smoking status: . Screenin:50 Abuse screen: Denies threats or abuse. Nutritional screening: No deficits noted. tw2 Tuberculosis screening: No symptoms or risk factors identified. Fall Risk Secondary diagnosis (15 points) impaired mobility. Assessment: 16:42 General: Appears Behavior is listless. Neuro: Level of Consciousness is confused, tw2 Oriented to person. Cardiovascular: Heart tones S1 S2 Capillary refill is > 3 seconds is sluggish. Respiratory: Airway is patent Respiratory effort is even, unlabored, Respiratory pattern is regular, symmetrical, Breath sounds are diminished bilaterally. GI: Abdomen is flat, Bowel sounds present X 4 quads. : swollen and reddened testicles. EENT: No signs and/or symptoms were reported regarding the EENT system. Derm: Skin is healthy with good turgor, is fragile, is thin, Skin is jaundiced. 17:42 Reassessment: No changes from previously documented assessment. Patient and/or family tw2 updated on plan of care and expected duration. Pain level reassessed. 18:42 Reassessment: No changes from previously documented assessment. Patient and/or family tw2 updated on plan of care and expected duration. Pain level reassessed. 18:46 Reassessment: spoke to Ryann with APS at ph#[phone], case was already open on tw2 him, she was calling to check on his status. 19:30 General: Appears ill, Behavior is calm. Pain: Unable to use pain scale. Patient is lp1 disoriented. Neuro: Level of Consciousness is lethargic, Oriented to person. Cardiovascular: Capillary refill is sluggish Patient's skin is warm and dry. Respiratory: Airway is patent Respiratory effort is even, Breath sounds are diminished bilaterally. GI: Abdomen is non-distended. : Monterroso in place to gravity drainage. Derm: Skin is intact, Skin is dry, Skin is jaundiced. Musculoskeletal: No deficits noted. 20:30 Reassessment: Patient appears in no apparent distress at this time. Patient mumbling, lp1 incomprehensible words, able to state own name; respirations even, unlabored. 21:00 Reassessment: report called to JAH Lundberg for patient transfer to [facility] ICU bed 36. lp1 22:05 Reassessment: PRBC transfusion initiated by nurse with JAH Rodney. lp1 22:05 Reassessment: [facility] at bedside for transfer. lp1 Vital Signs: 16:42 BP 90 / 33; Pulse 93; Resp 17; Temp 98.9(O); Pulse Ox 97% on R/A; Weight 74.84 kg (R); tw2 Height 5 ft. 8 in. (172.72 cm); 18:00 BP 104 / 56; Pulse 82; Resp 16; Pulse Ox 100% on R/A; tw2 19:15 BP 105 / 60; Pulse 96; Resp 16; Pulse Ox 88% on R/A; lp1 19:15 Pulse Ox 94% on 2 lpm NC; lp1 20:00 BP 115 / 54; Pulse 86; Resp 16; Pulse Ox 95% on 2 lpm NC; lp1 20:30 BP 102 / 90; Pulse 88; Resp 14; Pulse Ox 96% on 2 lpm NC; lp1 21:04 BP 95 / 64; Pulse 94; Resp 17; Temp 98.1(A); Pulse Ox 98% on 2 lpm NC; lp1 21:45 BP 121 / 82; Pulse 91; Resp 18; Temp 98(A); Pulse Ox 96% on 2 lpm NC; lp1 16:42 Body Mass Index 25.09 (74.84 kg, 172.72 cm) tw2 21:45 See Transfusion flowsheet for further vitals lp1 Oneill Coma Score: 19:30 Eye Response: to voice(3). Verbal Response: incomprehensible(2). Motor Response: lp1 localizes pain(5). Total: 10. ED Course: 16:42 Patient arrived in ED. tw2 16:42 Placed in gown. Bed in low position. Call light in reach. Side rails up X2. Cardiac tw2 monitor on. Pulse ox on. NIBP on. Notified ED physician of. 16:47 Triage completed. tw2 16:47 Arm band placed on. tw2 16:59 Dave Valverde MD is Attending Physician. [facility] 17:00 Rylie Maddox RN is Primary Nurse. tw2 17:09 Amylase, Serum Sent. mh5 17:09 Basic Metabolic Panel Sent. mh5 17:09 Blood Culture Adult (2) Sent. mh5 17:09 CBC with Diff Sent. mh5 17:09 Ckmb Sent. mh5 17:09 CPK Sent. mh5 17:09 Lactate Sent. 5 17:09 LFT's Sent. 5 17:09 Lipase Sent. 5 17:10 Procalcitonin Sent. 5 17:10 Protime (+inr) Sent. 5 17:10 Ptt, Activated Sent. 5 17:10 Troponin (emerg Dept Use Only) Sent. mh5 17:52 Inserted saline lock: 20 gauge in left forearm, using aseptic technique. hb 18:06 Chest Single View XRAY In Process Unspecified. EDMS 18:30 Assisted provider with central line placement. Set up central line tray. Triple lumen tw2 line placed in right femoral. Line placed by Dave Valverde MD Placement verified by blood return, Dressed with Tegaderm. 18:42 Urine Sodium Random Sent. 5 18:43 Urine Osmolality Sent. 5 19:00 Report given to JAH Flores \T\ JAH Moctezuma. tw2 19:39 CT Traumagram (Head C Spine CAP wo con) In Process Unspecified. EDMS 20:00 Dr. Valverde initiated transfer at [facility] with Lovely Cano. tt3 20:36 Lovely Cano from [facility] called back with admin approval. The accepting physician is Dr. kirk Ceja. The patient is going to room 8B836. Report to be called to . Face sheet faxed to per Lovely's request. 21:29 Primary Nurse role handed off by Rylie Maddox RN ll1 22:25 Patient transferred, IV remains in place. lp1 Restraints: 18:30 Non-Violent Restraint: Order obtained. Initiated on July 17, 2020 at 18:30 tw2 Restraint Education provided to family/significant other/legally authorized product sales representative. Actions/Behavior observed: Confused/disoriented, has difficulty remembering/follow instructions, has impaired decision making, has decreased level of consciousness, unable to follow instructions, Less restrictive alternatives attempted: decrease environmental stimuli, 1:1 patient care, reoriented to location, Alternative interventions: Ineffective. Clinical justification for use: line protection, patient safety, Mental status: confused, Cognition: poor judgement, poor safety awareness, impulsive, poor attention/concentration, Circulation: Within defined parameters (based on Cardiovascular assessment) Skin integrity: Within defined parameters (based on Integumentary assessment) Signs of injury related to restraint: No injuries noted. Range of Motion (ROM): performed. Restraint status: Soft wrist restraint (Right) Soft wrist restraint (Left) Started. 20:30 Non-Violent Restraint: Restraint Discontinued on July 17, 2020 at 20:00. lp1 20:30 Non-Violent Restraint: Mental status: patient asleep, Cognition: Unable to assess. lp1 Circulation: Within defined parameters (based on Cardiovascular assessment) Skin integrity: Within defined parameters (based on Integumentary assessment) Range of Motion (ROM): patient asleep. Elimination/Hygiene: with urinary catheter. Administered Medications: Discontinued: ProTONIX 8 mg/hr IV at 25 ml/hr continuous; (Standard dilution is 80 mg in 250 mL NS) 17:06 Drug: NS 0.9% (30 ml/kg) 30 ml/kg Route: IV; Rate: bolus; Site: right antecubital; hb 20:30 Follow up: IV Status: Completed infusion; IV Intake: 2000ml lp1 17:40 Drug: ProTONIX 80 mg Route: IVP; Site: right antecubital; hb 18:37 Follow up: Response: No adverse reaction tw2 17:40 Drug: Thiamine 100 mg Route: IV; Rate: bolus; Site: right antecubital; hb 17:45 Follow up: Response: No adverse reaction; IV Status: Completed infusion tw2 17:40 Drug: Solu-CORTEF 100 mg Route: IVP; Site: right antecubital; hb 18:59 Follow up: Response: No adverse reaction tw2 17:40 Drug: ProTONIX 8 mg/hr Route: IV; Rate: 25 ml/hr; Site: right antecubital; hb 17:54 CANCELLED (Duplicate Order): Potassium Chloride 20 mEq IV at per protocol once; tw2 administer over 1-2 hours 17:56 Drug: Cefepime 2 grams Route: IVPB; Rate: 200 ml/hr; Infused Over: 30 mins; Site: left hb antecubital; 20:29 Follow up: IV Status: Completed infusion; IV Intake: 100ml lp1 17:56 Drug: vancoMYCIN 1 grams Route: IVPB; Infused Over: 2 hrs; Site: right antecubital; hb 20:29 Follow up: IV Status: Completed infusion; IV Intake: 250ml lp1 18:45 Drug: Potassium Chloride 20 mEq Route: IV; Rate: per protocol; Site: right forearm; tw2 20:45 Follow up: IV Status: Completed infusion lp1 20:29 Drug: Potassium Phosphate 15 mmol Route: IV; Rate: per protocol; Site: right femoral; lp1 22:31 Follow up: IV Status: Infusion continued upon transfer lp1 21:03 Drug: ProTONIX 8 mg/hr Route: IV; Rate: 25 ml/hr; Site: right femoral; lp1 22:31 Follow up: IV Status: Infusion continued upon transfer lp1 22:00 Drug: Tylenol Suppository 650 mg Route: DE; lp1 22:32 Follow up: Response: No adverse reaction lp1 22:00 Drug: Benadryl 12.5 mg {Note: prior to PRBC transfusion.} Route: IVP; Site: right lp1 femoral; 22:32 Follow up: Response: No adverse reaction lp1 Intake: 20:29 IV: 250ml; Total: 250ml. lp1 20:29 IV: 100ml; Total: 350ml. lp1 20:30 IV: 2000ml; Total: 2350ml. lp1 Outcome: 19:23 ER care complete, transfer ordered by . terry 21:08 critical lp1 21:08 Instructed on the need for transfer. 22:25 Patient left the ED. lp1 22:26 Transferred by ground EMS to [facility], Transfer form lp1 completed. X-rays sent w/ patient. Note: Blood transfusing Addendum: 07/21/2020 11:32 Addendum: Culture Results: Positive blood culture. Phone call Attempt #1 called and s s spoke with Miroslava with Medical ICU nurses station [facility]. Faxed culture report to [phone]. Signatures: Dispatcher [employer] EDMS Dave Valverde MD MD cha Smirch, Shelby, RN RN ss Sandra Tadeo RN RN lp1 Lakeisha Delgado RN RN hb Wise, Tara, RN RN tw2 Zaida Mak [facility] Sindy Parekh RN RN ll1 Jose Elias Vazquez tt3 Corrections: (The following items were deleted from the chart) 07/17 16:49 16:42 Chief complaint: EMS states: pt from home has been sick for 5 days not eating or tw2 drinking and pretty lethargic today, we have checked on him a 3 days ago, but earlier today he refused to be transported when he was a\T\o x3 and refused to go to hospital, then he called us back and agreed to go, bp 73/37 hr 104, rr 16 A\T\o x 1, takes no meds, poor historian who is a roommate in house with him states copd, nkda tw2 22:34 22:33 Patient left the ED. lp1 lp1
[2020-07-17 19:24] LABS: Urine Blood NEGATIVE (NEG); Urine Glucose TRACE (NEG); Urine Protein TRACE (NEG); Urine Specific Gravity 1.015 (1.005-1.030)
[2020-07-17 19:29] LABS: Barbiturates NEGATIVE (NEGATIVE); Benzodiazepines NEGATIVE (NEGATIVE); Cocaine NEGATIVE (NEGATIVE); METHAMPHETAM NEGATIVE (NEGATIVE); Methadone NEGATIVE (NEGATIVE); Opiates NEGATIVE (NEGATIVE); Phencyclidine NEGATIVE (NEGATIVE); THC Cannibis NEGATIVE (NEGATIVE)
--- NOTE | 2020-07-17 19:53 | RAD REPORT ---
EXAM DESCRIPTION: CT - Head C Spine Cap Wo Con - 07/17/2020 7:39 pm CLINICAL HISTORY: Pain;Weakness, head, neck, chest and abdomen pain COMPARISON: Head Brain Wo Cont dated 03/13/2019; Abdomen Pelvis W Contrast dated 03/08/2019; Chest Sin gle View dated 07/17/2020; Chest Single View dated 03/19/2019 TECHNIQUE: Axial [address] head images were obtained. Axial [address] cervical spine images were obtain ed with sagittal and coronal reconstruction images reviewed. Axial 5 mm images of the chest, abdomen and pelvis were obtained. All CT scans are performed using dose optimization technique as appropriate and may include automated exposure control or mA/KV adjustment according to patient size. FINDINGS: No intracranial hemorrhage, mass or edema. No midline shift or abnormal fluid collection. Mastoid air cells and paranasal sinuses are clear. No skull fracture. Mild to moderate atrophy and c hronic ischemic changes are present. Ventricles are in proportion. Intracranial findings are similar to March 2019. Cervical bodies are normal in height. Retrolisthesis of C5 present relative to C4 and C6. Advanced de generative disc disease at C5-6. Bony foraminal encroachment is present. No fracture or acute bone fi nding.No disk space narrowing.No prevertebral soft tissue thickening or paraspinal mass.Central canal detail is inherently limited on CT imaging. No pneumothorax or pulmonary contusion. Interstitial opacification is present in the left upper lobe extending from the hilum superiorly towards the apex. Pattern is somewhat unusual. There is no radiat ion therapy history. This could be chronic scarring or an acute infiltrative process. Patient has gra nulomatous calcifications of the left lobe and left hilum. Bilateral pleural effusions are present wi th partial lower lobe atelectasis. No mediastinal hematoma and the aorta and pulmonary arteries are u nremarkable. No chest will mass or abnormal axillary finding. No displaced rib fracture or other sign ificant bony finding. No injury to the solid abdominal viscera. Liver shows fatty infiltration. There is no hydronephrosis of either kidney. Gallbladder and biliary tree are unremarkable. No bowel injury or significant findi ng. No free air, free fluid or pneumatosis. No hernia, mass or bulky lymphadenopathy. Urinary bladde r is fully contracted around a Monterroso catheter. Bony degenerative changes are present. Approximately 40% wedge compression of the T7 body is noted. T his appears to be chronic. There is minimal height loss in the superior endplate T10. Posterior wall height is preserved. Age of this partial compression fracture is uncertain. Patient has prominent deg enerative change at the L2-3 disc level. IMPRESSION: Atrophy and chronic ischemic changes are present with no acute intracranial finding. Cervical spine degenerative change most prominent at C5-6. No acute finding. Medial left upper lobe interstitial opacification is present. This cannot be established as a long-te rm stable pattern. Left upper lobe infiltrate is the primary consideration. Patient has bilateral pleural effusions. These do not appear to be trauma related. Fatty infiltration of the liver. No acute abdominal or pelvic process identifiable.
[2020-07-17 19:56] LABS: Urine Blood NEGATIVE (NEG); Urine Glucose TRACE (NEG); Urine Protein TRACE (NEG); Urine Specific Gravity 1.015 (1.005-1.030)
[2020-07-17] MEDS ORDERED: DIPHENHYDRAMINE 50 MG/ML VIAL ONE (22:06)
[2020-07-17] MEDS ORDERED: ACETAMINOPHEN 650MG/RECT SUPP PR ONE (22:06)
[2020-07-17] MEDS ORDERED: NA CHLORIDE 0.9% 500 ML ONE (22:07)
[2020-07-17 22:46] VITALS: BP 121/82; TEMP 98; O2SAT 96
== END 2020-07-17 22:33 | disposition short-term general hospital (02) ==
LOC: ER 16:38
PROC: 06HM33Z Insertion of Infusion Device into Right Femoral Vein, Percutaneous Approach (ICD-10-PCS; principal; 2020-07-17)
PROC: 30233N1 Transfusion of Nonautologous Red Blood Cells into Peripheral Vein, Percutaneous Approach (ICD-10-PCS; 2020-07-17)
DX: J18.9 Pneumonia, unspecified organism (principal); R65.21 Severe sepsis with septic shock; Z20.828 Contact with and (suspected) exposure to other viral communicable diseases; J90 Pleural effusion, not elsewhere classified; D64.9 Anemia, unspecified; D72.829 Elevated white blood cell count, unspecified; E87.6 Hypokalemia; E87.1 Hypo-osmolality and hyponatremia; J44.9 Chronic obstructive pulmonary disease, unspecified; F31.9 Bipolar disorder, unspecified
CPT/HCPCS: 36556; 36430; 93005; 87040 ×2; 85025; 80048; 36415; 80320; 82140; 82150; 86900; 86850; 82550; 87205 ×3; 84100; 85610; 84300; 86901; 82947; 80076; 80307 ×8; 83605 ×2; 85730; 87077 ×2; 87186 ×2; 84484; 82553; 83690; 84145; 83930; 83935; 87804 ×2; 70450; 71250; 72125; 71045; 82805; 51702; 99285; U0003; J3411; J1200; C9113 ×2; J3480; J3370; J0692; P9016; J7050 ×3; J7040; J7030; J1720; 81003; 81015; 96365; 96366; 96367; 96368; 96375

== ENCOUNTER 2021-01-18 03:28 | Emergency (ER) | payer OTHER ==
--- OUTSIDE RECORDS SUMMARY | 2021-01-18 03:31 | XMS REPORT | Continuity of Care Document ---
:1955 Author Organization [facility] t Address [address] [place] [address] [address]. [address] [place] [address] Care Team Providers Name Role Phone Doctor Unassigned, Name Attending Clinician Unavailable Kristopher TYSON Attending Clinician Marcial DIAS, J Attending Clinician Lluvia DIAS, P Attending Clinician Sarah DIAS, [facility] Attending Clinician Karishma DIAS Attending Clinician Walter DIAS Attending Clinician Marcial DIAS, J Admitting Clinician Problems This patient has no known problems. Allergies, Adverse Reactions, Alerts This patient has no known allergies or adverse reactions. Social History Social Habit Start Date Stop Date Quantity Comments Source Sex Assigned At [facility] Medications This patient has no known medications. Procedures This patient has no known procedures. Encounters Start End Encounter Admission Attending Care Care Encounter Source Date/Time Date/Time Type Type Clinicians Facility Department ID 2020-08-31 2020-08-31 Orders Doctor AGUIAR [id number] 00:00:00 00:00:00 Only UnassYAJAIRA goyal [id number] [facility] [id number] 2020-08-06 2020-08-06 Transition Teagan Summers [id number] 00:00:00 00:00:00 of Care Kayla Schmitz [id number] [place] [id number] 2020-07-17 2020-08-05 [facility] Chalnio Ceja [id number] 23:42:00 15:37:00 Encounter Elliott Teixeira [id number] [facility] [id number] 86 Lizette Schwarz [id number] Behzad Watson 093 Results This patient has no known results.
[2021-01-18] MEDS ORDERED: KETOROLAC 30 MG/ML INJ ONE (08:06)
[2021-01-18] MEDS ORDERED: METHYLPREDNISOLONE 125 MG INJ ONE (08:06)
[2021-01-18 08:13] LABS: Absolute Lymphocytes (CBC) 2.8 K/uL (0.7-4.9); Basophils % 1.1 % (0-1.3); Hematocrit 38.2 % (39.6-49.0); Lymphocytes % 39.7 % (15.3-44.8); MPV 7.6 fL (7.6-11.3); RBC Red Blood Cell Count 3.93 M/uL (4.33-5.43)
[2021-01-18 08:21] LABS: Protime INR 1.11
--- NOTE | 2021-01-18 08:24 | RAD REPORT ---
EXAM DESCRIPTION: CT - Head Brain Wo Cont - 01/18/2021 8:08 am CLINICAL HISTORY: Alteration of awareness/confusion COMPARISON: 2019 TECHNIQUE: Computed axial tomography of the head was obtained. IV contrast was not requested. All CT scans are performed using dose optimization technique as appropriate and may include automated exposure control or mA/KV adjustment according to patient size. FINDINGS: An intracranial bleed is not seen . The ventricles are normal in caliber. No extra-axial fluid collection is noted. Old lacunar infarct involves the left basal ganglia. Prominent cerebral atrophy unchanged Fluid within the sinuses/ mastoids is not seen. IMPRESSION: No acute intracranial abnormality is seen. If patient's symptoms persist MRI of the bra in would be recommended.
--- NOTE | 2021-01-18 08:38 | RAD REPORT ---
EXAM DESCRIPTION: CTSpine Lumbar Wo Con01/18/2021 8:09 am CLINICAL HISTORY: Back injury with back pain status post fall COMPARISON: None TECHNIQUE: Computed axial tomography lumbar spine was obtained with coronal and sagittal reconstruct ion. All CT scans are performed using dose optimization technique as appropriate and may include automated exposure control or mA/KV adjustment according to patient size. FINDINGS: Insufficiency fracture involves right and left sacral ala which are nondisplaced. No fracture involving the lumbar spine. No dislocation. Mild to moderate spondylosis involves the lumbar spine. No high-grade stenosis seen IMPRESSION: Sacral insufficiency fractures
[2021-01-18 09:22] LABS: ALT/SGPT 27 U/L (12-78); AST/SGOT 45 U/L (15-37); Albumin 3.5 g/dL (3.4-5.0); Alkaline Phosphatase 139 U/L (45-117); BUN Blood Urea Nitrogen 6 mg/dL (7-18); Bicarbonate 25 mmol/L (21-32); Bilirubin Direct 0.2 mg/dL (0-0.2); Bilirubin Total 0.5 mg/dL (0.2-1.0); Glucose Level 85 mg/dL (74-106); Potassium 3.4 mmol/L (3.5-5.1); Protein, Total 7.3 g/dL (6.4-8.2); Sodium Level 144 mmol/L (136-145)
[2021-01-18 11:02] LABS: Barbiturates NEGATIVE (NEGATIVE); Benzodiazepines NEGATIVE (NEGATIVE); Cocaine NEGATIVE (NEGATIVE); METHAMPHETAM NEGATIVE (NEGATIVE); Methadone NEGATIVE (NEGATIVE); Opiates NEGATIVE (NEGATIVE); Phencyclidine NEGATIVE (NEGATIVE); THC Cannibis NEGATIVE (NEGATIVE)
--- NOTE | 2021-01-18 11:29 | ER ---
Nurse's Notes [facility] Name: Jose Baig Age: 65 yrs Sex: Male : 1955 Arrival Date: 01/18/2021 Time: 03:29 Bed 8 Private MD: Diagnosis: Alcohol abuse;Alcohol abuse with intoxication;Fatigue fracture of vertebra, lumbosacral region Presentation: 01/18 03:33 Chief complaint: EMS states: pt states had fallen x1 week ago and scrapped his elbow sg and knee up after bumping it. pt admits to having one drink of alcohol [employer] per EMS. Coronavirus screen: Client denies travel out of the [place] in the last 14 days. Ebola Screen: Patient negative for fever greater than or equal to 101.5 degrees Fahrenheit, and additional compatible Ebola Virus Disease symptoms Patient denies exposure to infectious person. Patient denies travel to an Ebola-affected area in the 21 days before illness onset. No symptoms or risks identified at this time. Initial Sepsis Screen: Does the patient meet any 2 criteria? No. Patient's initial sepsis screen is negative. Does the patient have a suspected source of infection? No. Patient's initial sepsis screen is negative. Risk Assessment: Do you want to hurt yourself or someone else? Patient reports no desire to harm self or others. Onset of symptoms was January 18, 2021. Care prior to arrival: None. Mechanism of Injury: No Mechanism of Injury. Transition of care: patient was not received from another setting of care. 03:33 Acuity: SONIA 4 sg 03:33 Method Of Arrival: Ambulatory sg 07:30 Acuity: SONIA 3 tw2 Historical: - Allergies: 03:33 No Known Allergies; sg - PMHx: 03:33 Anxiety; Bipolar disorder; COPD; Hepatitis; Ulcers; sg - PSHx: 03:33 None; sg - Immunization history:: Adult Immunizations unknown. - Social history:: Smoking status: unknown. Screenin:10 Abuse screen: Denies threats or abuse. Nutritional screening: No deficits noted. ea Tuberculosis screening: No symptoms or risk factors identified. 07:37 Fall Risk Fall in past 12 months (25 points). ea Assessment: 04:23 Reassessment: pt observed lying on waiting room floor at this time. pt denies falling, sg pt states " If im going to be waiting out here for hours Im going to just lay down." No injury observed at this time, no s/s distress noted, pt continues to lay down on the waiting room floor. Security aware. 09:30 Reassessment: Patient appears in no apparent distress at this time. Patient and/or tw2 family updated on plan of care and expected duration. Pain level reassessed. pt snoring asleep, arousable to name being called, urine sample collected, pt had used urinal. 10:41 Reassessment: Patient appears in no apparent distress at this time. Patient and/or tw2 family updated on plan of care and expected duration. Pain level reassessed. 11:00 Reassessment: Patient appears in no apparent distress at this time. Patient and/or tw2 family updated on plan of care and expected duration. Pain level reassessed. 12:22 Reassessment: Patient appears in no apparent distress at this time. Patient and/or tw2 family updated on plan of care and expected duration. Pain level reassessed. Vital Signs: 03:32 BP 134 / 87; Pulse 78; Resp 16; Temp 97.9; Pulse Ox 100% on R/A; sg 07:30 BP 139 / 97; Pulse 82; Resp 17; Pulse Ox 96% on R/A; tw2 09:38 BP 133 / 112; Pulse 92; Resp 17; Pulse Ox 95% on R/A; tw2 10:41 BP 149 / 89; Pulse 104; Resp 17; Pulse Ox 95% on R/A; tw2 11:00 BP 129 / 85; Pulse 81; Resp 17; Pulse Ox 95% on R/A; tw2 12:21 BP 128 / 81; Pulse 99; Resp 17; Pulse Ox 99% on R/A; tw2 ED Course: 03:29 Patient arrived in ED. sg 03:33 Arm band placed on. sg 03:34 Triage completed. sg 07:08 Juan Carlos Browning MD is Attending Physician. kdr 07:10 Patient has correct armband on for positive identification. Placed in gown. Bed in low ea position. Call light in reach. 07:45 Rylie Maddox RN is Primary Nurse. tw2 07:55 Inserted saline lock: 20 gauge in right forearm, using aseptic technique. Blood tw2 collected. 08:07 CT Head Brain wo Cont In Process Unspecified. EDMS 08:09 CT Lumbar Spine Wo Con In Process Unspecified. EDMS 12:21 No provider procedures requiring assistance completed. IV discontinued, intact, tw2 bleeding controlled, No redness/swelling at site. Pressure dressing applied. Administered Medications: 07:56 Drug: TORadol - Ketorolac 15 mg Route: IVP; Site: right forearm; tw2 09:42 Follow up: Response: No adverse reaction tw2 07:58 Drug: SOLU-Medrol 125 mg Route: IVP; Site: right forearm; tw2 09:42 Follow up: Response: No adverse reaction tw2 11:35 Drug: Motrin 800 mg Route: PO; tw2 12:00 Follow up: Response: No adverse reaction tw2 Outcome: 11:29 Discharge ordered by . kdr 12:21 Discharged to home via wheelchair, with pts cane and friends cell phone tw2 12:21 Condition: stable 12:21 Discharge instructions given to patient, friend, Instructed on discharge instructions, follow up and referral plans. no driving heavy equipment, medication usage, safety practices, Demonstrated understanding of instructions, follow-up care, medications, Prescriptions given X 2. 12:22 Patient left the ED. tw2 Signatures: Dispatcher [employer] EDMS Rashaun Anderson RN RN Juan Carlos Browning MD MD kdr Wise, Tara, RN RN tw2 Sanna Hazel RN JAH tanner Corrections: (The following items were deleted from the chart) 10:42 09:30 Reassessment: Patient appears in no apparent distress at this time. Patient is tw2 alert, oriented x 3, equal unlabored respirations, skin warm/dry/pink. pt snoring asleep, arousable to name being called, urine sample collected, pt had used urinal tw2
--- NOTE | 2021-01-18 11:30 | EDPHYS ---
Physician Documentation [facility] Name: Jose Baig Age: 65 yrs Sex: Male : 1955 Arrival Date: 01/18/2021 Time: 03:29 Bed 8 Private MD: ED Physician Juan Carlos Browning HPI: 01/18 07:45 This 65 yrs old Male presents to ER via Ambulatory with complaints of kdr Abrasion(s), back pain, confused. 07:45 The patient was brought in by EMS s/p fall about a week ago with low back pain and kdr sciatic nerve pain on the right side. Onset: The symptoms/episode began/occurred gradually, 1 week(s) ago. Severity of symptoms: At their worst the symptoms were mild in the emergency department the symptoms are unchanged. The patient has experienced similar episodes in the past, a few times. The patient has not recently seen a physician. Historical: - Allergies: 03:33 No Known Allergies; sg - PMHx: 03:33 Anxiety; Bipolar disorder; COPD; Hepatitis; Ulcers; sg - PSHx: 03:33 None; sg - Immunization history:: Adult Immunizations unknown. - Social history:: Smoking status: unknown. ROS: 07:45 Constitutional: Negative for fever, chills, and weight loss, Eyes: Negative for injury, kdr pain, redness, and discharge, ENT: Negative for injury, pain, and discharge, Neck: Negative for injury, pain, and swelling, Cardiovascular: Negative for chest pain, palpitations, and edema, Respiratory: Negative for shortness of breath, cough, wheezing, and pleuritic chest pain, Abdomen/GI: Negative for abdominal pain, nausea, vomiting, diarrhea, and constipation, : Negative for injury, bleeding, discharge, and swelling, MS/Extremity: Negative for injury and deformity, Skin: Negative for injury, rash, and discoloration, Psych: Negative for depression, anxiety, suicide ideation, homicidal ideation, and hallucinations, Allergy/Immunology: Negative for hives, rash, and allergies, Endocrine: Negative for neck swelling, polydipsia, polyuria, polyphagia, and marked weight changes. 07:45 Back: Positive for pain at rest, pain with movement, radiated pain. 07:45 Neuro: Positive for altered mental status, gait disturbance, weakness, Sciatic nerve (R) pain and low back pain. Exam: 07:45 Constitutional: This is a well developed, well nourished patient who is awake, alert, kdr and in no acute distress. Head/Face: Normocephalic, atraumatic. Eyes: Pupils equal round and reactive to light, extra-ocular motions intact. Lids and lashes normal. Conjunctiva and sclera are non-icteric and not injected. Cornea within normal limits. Periorbital areas with no swelling, redness, or edema. Neck: Trachea midline, no thyromegaly or masses palpated, and no cervical lymphadenopathy. Supple, full range of motion without nuchal rigidity, or vertebral point tenderness. No Meningismus. Chest/axilla: Normal chest wall appearance and motion. Nontender with no deformity. No lesions are appreciated. Cardiovascular: Regular rate and rhythm with a normal S1 and S2. No gallops, murmurs, or rubs. Normal PMI, no JVD. No pulse deficits. Respiratory: Lungs have equal breath sounds bilaterally, clear to auscultation and percussion. No rales, rhonchi or wheezes noted. No increased work of breathing, no retractions or nasal flaring. Abdomen/GI: Soft, non-tender, with normal bowel sounds. No distension or tympany. No guarding or rebound. No evidence of tenderness throughout. Skin: Warm, dry with normal turgor. Normal color with no rashes, no lesions, and no evidence of cellulitis. MS/ Extremity: Pulses equal, no cyanosis. Neurovascular intact. Full, normal range of motion. Neuro: Awake and alert, GCS 15, oriented to person, place, time, and situation. Cranial nerves II-XII grossly intact. Motor strength 5/5 in all extremities. Sensory grossly intact. Cerebellar exam normal. Normal gait. Psych: Awake, alert, with orientation to person, place and time. Behavior, mood, and affect are within normal limits. 07:45 Back: pain, that is mild, that is moderate, of the lumbar area, ROM is painful, normal spinal alignment noted, CVA tenderness, is absent, vertebral tenderness, is appreciated at L1, L2, L3, L4 and L5. Vital Signs: 03:32 BP 134 / 87; Pulse 78; Resp 16; Temp 97.9; Pulse Ox 100% on R/A; sg 07:30 BP 139 / 97; Pulse 82; Resp 17; Pulse Ox 96% on R/A; tw2 09:38 BP 133 / 112; Pulse 92; Resp 17; Pulse Ox 95% on R/A; tw2 10:41 BP 149 / 89; Pulse 104; Resp 17; Pulse Ox 95% on R/A; tw2 11:00 BP 129 / 85; Pulse 81; Resp 17; Pulse Ox 95% on R/A; tw2 12:21 BP 128 / 81; Pulse 99; Resp 17; Pulse Ox 99% on R/A; tw2 MDM: 07:45 Data reviewed: vital signs, nurses notes, lab test result(s), radiologic studies. kdr Counseling: I had a detailed discussion with the patient and/or guardian regarding: the historical points, exam findings, and any diagnostic results supporting the discharge/admit diagnosis, lab results, radiology results. 11:29 Patient medically screened. kdr 01/18 07:45 Order name: Acetaminophen; Complete Time: 10:07 kdr 01/18 07:45 Order name: Basic Metabolic Panel; Complete Time: 10:07 kdr 01/18 07:45 Order name: CBC with Diff; Complete Time: 09:21 kdr 01/18 07:45 Order name: ETOH Level; Complete Time: 10:07 kdr 01/18 07:45 Order name: Hepatic Function; Complete Time: 10:07 kdr 01/18 07:45 Order name: PT-INR; Complete Time: 09:21 kdr 01/18 07:45 Order name: Salicylate; Complete Time: 09:21 kdr 01/18 07:45 Order name: Urine Drug Screen kdr 01/18 07:45 Order name: CT Head Brain wo Cont; Complete Time: 09:21 kdr 01/18 07:50 Order name: CT Lumbar Spine Wo Con; Complete Time: 09:21 kdr 01/18 09:45 Order name: Urine Dipstick--Ancillary (enter results) sv 01/18 09:45 Order name: Urine Dipstick-Ancillary EDMS 01/18 07:45 Order name: IV Saline Lock; Complete Time: 08:02 kdr 01/18 07:45 Order name: Labs collected and sent; Complete Time: 08:02 kdr 01/18 07:45 Order name: Urine Dipstick-Ancillary (obtain specimen); Complete Time: 10:07 kdr Administered Medications: 07:56 Drug: TORadol - Ketorolac 15 mg Route: IVP; Site: right forearm; tw2 09:42 Follow up: Response: No adverse reaction tw2 07:58 Drug: SOLU-Medrol 125 mg Route: IVP; Site: right forearm; tw2 09:42 Follow up: Response: No adverse reaction tw2 11:35 Drug: Motrin 800 mg Route: PO; tw2 12:00 Follow up: Response: No adverse reaction tw2 Disposition: 01/18/21 11:29 Discharged to Home. Impression: Alcohol abuse, Alcohol abuse with intoxication, Fatigue fracture of vertebra, lumbosacral region. - Condition is Stable. - Discharge Instructions: Alcohol Intoxication, [id number], Alcohol Abuse and Nutrition, Back Pain, Adult, [id number]. - Prescriptions for Ibuprofen 800 mg Oral Tablet - take 1 tablet by ORAL route every 8 hours As needed take with food; 30 tablet. Medrol (Haresh) 4 mg Oral Tablets, Dose Pack - take 1 tablet by ORAL route as directed - follow package instructions; 1 packet. - Medication Reconciliation Form, Thank You Letter form. - Follow up: Private Physician; When: 2 - 3 days; Reason: If symptoms return, Further diagnostic work-up, Recheck today's complaints, Continuance of care, Re-evaluation by your physician. - Problem is an ongoing problem. - Symptoms have improved. Signatures: Dispatcher [employer] EDRashaun Escalante RN RN Juan Carlos Browning MD MD [facility] Rylie Maddox RN RN tw2 Sanna Hazel RN RN ea Corrections: (The following items were deleted from the chart) 12:22 11:29 01/18/2021 11:29 Discharged to Home. Impression: Alcohol abuse; Alcohol abuse tw2 with intoxication; Fatigue fracture of vertebra, lumbosacral region. Condition is Stable. Forms are Medication Reconciliation Form, Thank You Letter, Antibiotic Education, Prescription Opioid Use. Follow up: Private Physician; When: 2 - 3 days; Reason: If symptoms return, Further diagnostic work-up, Recheck today's complaints, Continuance of care, Re-evaluation by your physician. Problem is an ongoing problem. Symptoms have improved. kdr
[2021-01-18] MEDS ORDERED: IBUPROFEN 400 MG TAB ONE (11:41)
[2021-01-18 12:27] VITALS: TEMP 97.9
[2021-01-18 12:33] VITALS: BP 128/81; O2SAT 99
[2021-01-18 14:54] LABS: Urine Blood NEGATIVE (NEG); Urine Glucose NEGATIVE (NEG); Urine Protein NEGATIVE (NEG); Urine pH 6.5 (5.0-7.0)
== END 2021-01-18 12:22 | disposition home or self-care (01) ==
LOC: ER 03:28
DX: F10.129 Alcohol abuse with intoxication, unspecified (principal); M48.47XA Fatigue fracture of vertebra, lumbosacral region, initial encounter for fracture; W19.XXXA Unspecified fall, initial encounter
CPT/HCPCS: 85025; 80048; 36415; 80320; 80329 ×2; 85610; 80076; 80307 ×8; 81003; 72131; 70450; J2930; 96374; 96375; 99284

== ENCOUNTER 2022-02-25 17:13 | Emergency (ER) | payer OTHER ==
[2022-02-25] MEDS ORDERED: ETOMIDATE 20 MG/10 ML VIAL IV ONE (17:14)
[2022-02-25] MEDS ORDERED: SUCCINYLCHOLINE 20 MG/ML (10 ML) IV ONE (17:14)
[2022-02-25] MEDS ORDERED: NA CHLORIDE 0.9% 1,000 ML ONE ×2 (17:21→17:25)
[2022-02-25] MEDS ORDERED: RSI MEDICATION KIT IV ONE ×2 (17:21→19:39)
--- OUTSIDE RECORDS SUMMARY | 2022-02-25 17:22 | XMS REPORT | Continuity of Care Document ---
:1955 Author Organization [facility] t Address [address] [place] [address] Dr. Nielson [address] [place] [address] Care Team Providers Name Role Phone KARIHSMA Attending Clinician Unavailable Doctor Unassigned, Name Attending Clinician Unavailable Kristopher TYSON Attending Clinician Marcial DIAS, J Attending Clinician Lluvia DIAS, P Attending Clinician Sarah DIAS, [facility] Attending Clinician Karishma DIAS Attending Clinician Walter DIAS Attending Clinician Mary CEJA JR Admitting Clinician Unavailable Marcial DIAS, Mary Admitting Clinician Payers Payer Name Policy Type Policy Number Effective Date Expiration Date S concetta MEDICARE PART A \\T\\ [id number] 2010 B 00:00:00 [facility] [id number] 2021 (MEDICARE 00:00:00 REPLACEMENT HMO) Problems Condition Condition Condition Status Onset Resolution Last Treating Co mments Source Name Details Category Date Date Treatment Clinician Date Mass of [place]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 lower lobe 08-01 it y of of left of left 00:00: [place] lung lung 00 Medical Branch Tobacco Tobacco Disease Active Univers use use 07-28 ity of disorder disorder 00:00: [place] 00 Medical Branch 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 07-28 it [place] of syndrome, [place], [place] with with 00 [place] delirium delirium Branch Acute Acute Disease Active 2020-0 Univers encephalop encephalop 07-28 it y of athy athy 00:00: [place] [facility] 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 07-28 ity of 00:00: Medical Branch 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 00 [facility] Disease Active 2020-0 U nivers cquired cquired 07-27 it[facility] pneumonia [facility] 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 colonizati 07-18 it y of on on 00:00: [place] [facility] Allergies, Adverse Reactions, Alerts Allergy Allergy Status Severity Reaction(s) Onset Inactive Treating Comm ents Source Name Type Date Date Clinician NO KNOWN Drug Active Univers ALLERGIE Class ity of [facility] Social History Social Habit Start Date Stop Date Quantity Comments Source Sex Assigned At Uni versity of [facility] Exposure to SARS-CoV-2 Not sure [facility] of [place] (event) [facility] Smoking Status Start Date Stop Date Source Unknown if ever smoked Universit y of [facility] Medications Ordered Filled Start Stop Current Ordering Indication Dosage Frequency Signature Comments Components Source Medication Medication Date Date Medication? Clinician (SIG) Name Name ergocalcife 2019-11 Yes [id number] Take 1 Univers rol, 0-02 capsule by ity of vitamin d2, 00:00: mouth [place] 1,250 mcg 00 weekly. Medical (50,000 Branch unit) capsule foLIC acid 2019-11 Yes [id number] 1mg Take 1 Univers 1 mg tablet 0-02 tablet by ity of 00:00: mouth [place] 00 daily. Medical Branch zinc 2019-11 Yes [id number] 220mg Take 1 Unive rs sulfate 220 0-02 capsule by it y of (50) mg 00:00: mouth [place] capsule 00 daily. Medical Branch furosemide 2019-11 Yes [id number] 40mg Take 1 Univers 40 mg 0-02 tablet by ity of tablet 00:00: mouth [place] 00 daily. Medical Branch multivitami 2019-11 Yes [id number] 5mL Take 5 mL Univers n solution 0-02 by mouth ity o f 00:00: daily. Medical Branch pyridoxine, 2019-11 Yes [id number] 100mg Take 1 Univers vitamin B6, 0-02 tablet by ity of 100 mg 00:00: mouth [place] tablet 00 daily. Medical Branch pantoprazol 2019-11 Yes [id number] 40mg Take 1 Univers e 40 mg EC 0-02 tablet by ity of tablet 00:00: mouth [place] 00 daily. Medical Branch nicotine 14 2019-11 Yes [id number] 1{patch Apply 1 Univers mg/24 hr 0-02 } Patch to ity of patch 00:00: area(s) [place] 00 every 24 Medical (twenty-fo Branch ur) hours. ergocalcife 2019-11 Yes [id number] Take 1 Univers rol, 0-02 capsule by ity of vitamin d2, 00:00: mouth [place] 1,250 mcg 00 weekly. Medical (50,000 Branch unit) capsule foLIC acid 2019-11 Yes [id number] 1mg Take 1 Univers 1 mg tablet 0-02 tablet by ity of 00:00: mouth [place] 00 daily. Medical Branch zinc 2019-11 Yes [id number] 220mg Take 1 Unive rs sulfate 220 0-02 capsule by it y of (50) mg 00:00: mouth [place] capsule 00 daily. Medical Branch furosemide 2019-11 Yes [id number] 40mg Take 1 Univers 40 mg 0-02 tablet by ity of tablet 00:00: mouth [place] 00 daily. Medical Branch multivitami 2019-11 Yes [id number] 5mL Take 5 mL Univers n solution 0-02 by mouth ity o f 00:00: daily. Medical Branch pyridoxine, 2019-11 Yes [id number] 100mg Take 1 Univers vitamin B6, 0-02 tablet by ity of 100 mg 00:00: mouth [place] tablet 00 daily. Medical Branch pantoprazol 2019-11 Yes [id number] 40mg Take 1 Univers e 40 mg EC 0-02 tablet by ity of tablet 00:00: mouth [place] 00 daily. Medical Branch nicotine 14 2019-11 Yes [id number] 1{patch Apply 1 Univers mg/24 hr 0-02 } Patch to ity of patch 00:00: area(s) [place] 00 every 24 Medical (twenty-fo Branch ur) hours. ergocalcife 2019-11 Yes [id number] Take 1 Univers rol, 0-02 capsule by ity of vitamin d2, 00:00: mouth [place] 1,250 mcg 00 weekly. Medical (50,000 Branch unit) capsule foLIC acid 2019-11 Yes [id number] 1mg Take 1 Univers 1 mg tablet 0-02 tablet by ity of 00:00: mouth [place] 00 daily. Medical Branch zinc 2019-11 Yes [id number] 220mg Take 1 Unive rs sulfate 220 0-02 capsule by it y of (50) mg 00:00: mouth [place] capsule 00 daily. Medical Branch furosemide 2019-11 Yes [id number] 40mg Take 1 Univers 40 mg 0-02 tablet by ity of tablet 00:00: mouth [place] 00 daily. Medical Branch multivitami 2019-11 Yes [id number] 5mL Take 5 mL Univers n solution 0-02 by mouth ity o f 00:00: daily. [place] 00 Medical Branch pyridoxine, 2019-11 Yes [id number] 100mg Take 1 Univers vitamin B6, 0-02 tablet by ity of 100 mg 00:00: mouth [place] tablet 00 daily. Medical Branch pantoprazol 2019-11 Yes [id number] 40mg Take 1 Univers e 40 mg EC 0-02 tablet by ity of tablet 00:00: mouth [place] 00 daily. Medical Branch nicotine 14 2019-11 Yes [id number] 1{patch Apply 1 Univers mg/24 hr 0-02 } Patch to ity of patch 00:00: area(s) [place] 00 every 24 Medical (twenty-fo Branch ur) hours. calcium 2019-11 Yes [id number] 500mg Take 1 Un yolanda carbonate 0-01 tablet by ity o f 500 mg 00:00: mouth 3 [place] calcium 00 (three) Medical (1,250 mg) times Branch tablet daily with meals. ipratropium 2019-11 Yes [id number] 3mL Inhale 3 Univers -albuteroL 0-01 mL every 4 ity of 0.5 mg-3 00:00: (four) [place] mg(2.5 mg 00 hours as Medica l base)/3 mL needed for [facility] nebulizer Wheezing solution or Bronchospa sm. Loperamide 2019-11 Yes [id number] 2mg Take 15 mL Univers 1 mg/7.5 mL 0-01 by mouth ity of solution 00:00: every 4 [place] 00 (four) Medical hours as Branch needed for Indigestio n. metoprolol 2019-11 Yes [id number] 12.5mg Take 0.5 Univers tartrate 25 0-01 tablets by it y of mg tablet 00:00: mouth 2 [place] 00 (two) Medical times Branch daily. sodium 2019- Yes [id number] 4mL Inhale 4 Un yolanda chloride 7% 0-01 mL every 6 it y of nebulizer 00:00: (six) [place] solution 00 hours. Medical Branch calcium 2019-11 Yes [id number] 500mg Take 1 Un yolanda carbonate 0-01 tablet by ity o f 500 mg 00:00: mouth 3 [place] calcium 00 (three) Medical (1,250 mg) times Branch tablet daily with meals. ipratropium 2019-11 Yes [id number] 3mL Inhale 3 Univers -albuteroL 0-01 mL every 4 ity of 0.5 mg-3 00:00: (four) [place] mg(2.5 mg 00 hours as Medica l base)/3 mL needed for Bra [facility] nebulizer Wheezing solution or Bronchospa sm. Loperamide 2019-11 Yes [id number] 2mg Take 15 mL Univers 1 mg/7.5 mL 0-01 by mouth ity of solution 00:00: every 4 [place] 00 (four) Medical hours as Branch needed for Indigestio n. metoprolol 2019-11 Yes [id number] 12.5mg Take 0.5 Univers tartrate 25 0-01 tablets by it y of mg tablet 00:00: mouth 2 00 (two) Medical times Branch daily. sodium 2019-11 Yes [id number] 4mL Inhale 4 Un yolanda chloride 7% 0-01 mL every 6 it y of nebulizer 00:00: (six) [place] solution 00 hours. Medical Branch calcium 2019-11 Yes [id number] 500mg Take 1 Un yolanda carbonate 0-01 tablet by ity o f 500 mg 00:00: mouth 3 [place] calcium 00 (three) Medical (1,250 mg) times Branch tablet daily with meals. ipratropium 2019-11 Yes [id number] 3mL Inhale 3 Univers -albuteroL 0-01 mL every 4 ity of 0.5 mg-3 00:00: (four) [place] mg(2.5 mg 00 hours as Medica l base)/3 mL needed for [facility] nebulizer Wheezing solution or Bronchospa sm. Loperamide 2019-11 Yes [id number] 2mg Take 15 mL Univers 1 mg/7.5 mL 0-01 by mouth ity of solution 00:00: every 4 [place] 00 (four) Medical hours as Branch needed for Indigestio n. metoprolol 2019-11 Yes [id number] 12.5mg Take 0.5 Univers tartrate 25 0-01 tablets by it y of mg tablet 00:00: mouth 2 [place] (two) Medical times Branch daily. sodium 2019- Yes [id number] 4mL Inhale 4 Un yolanda chloride 7% 0-01 mL every 6 it y of nebulizer 00:00: (six) [place] solution 00 hours. Medical Branch pneumococca 2020- No .5mL 0.5 mL, Un yolanda l vac 08-04 Intramuscu ity of polyvalent 20:30: 21:41 lar, ONCE, [place] (PNEUMOVAX- 00 :00 1 dose, Medic al 23) [facility] Branch injection 08/04/20 at 0.5 mL 1530, Routine flu vaccine 2020- No .5mL 0.5 mL, Un yolanda 6 months 08-04 Intramuscu ity of and up (PF) 20:30: 21:41 lar, ONCE, [place] (FLUZONE 00 :00 1 dose, Medical QUAD [facility] Branch 08/04/20 at (PF)) 1530, syringe 0.5 Routine mL ipratropium Yes 3mL 3 mL, Unive rs -albuteroL 08-04 Inhalation ity of (DUONEB) 08:00: , Q4HPRN, [place] 0.5 mg-3 00 Starting Medical mg(2.5 mg [facility] base)/3 mL 08/04/20 at nebulizer 0300, solution 3 Until mL Discontinu ed, Routine, Wheezing furosemide Yes 40mg 40 mg, Unive rs (LASIX) 08-03 Oral, ity of tablet 40 14:00: DAILY, [place] mg 00 First dose Medical on [facility] Branch 08/03/20 at 0900, Until Discontinu ed, Routine thiamine 2019- 2020- No 250mg IV Univers (VITAMIN 08-0203 Piggyback, ity of B1) 250 mg 18:00: 13:59 DAILY, 5 [place] in NaCl 00 :00 doses, Medical 0.9% (NS) First dose Bran ch piggyback on 08/02/20 at 1300, Last dose on Sun08/06/20 at 0900, 50 mL KCL 20 2020-0 Yes 40meq 40 mEq, Univers mEq/15 mL 08-01 Oral, ity of solution 40 14:00: DAILY, [place] mEq 00 First dose Medical on [place] Branch 08/01/20 at 0900, Until Discontinu ed, Routine magnesium 2020-0 2020- No 2g 2 g, IV Univ ers sulfate in 08-01 Piggyback, it y of water 2 13:30: 14:20 ONCE, 1 [place] gram/50 mL 00 :00 dose, [place] Medi armin (4 %) 08/01/20 at Branch infusion 2 0830 g Loperamide 0 Yes 2mg 2 mg, Univer s (IMODIUM 07-31 Oral, ity of A-D) 1 14:52: Q4HPRN, [place] mg/7.5 mL 05 Starting Medica l solution 2 [facility] mg 07/31/20 at 0952, Until Discontinu ed, Routine, Diarrhea magnesium 2020-0 2020- No 400mg 400 mg, Uni vers oxide 07-31 Oral, ity of (MAG-OX 14:00: 12:22 DAILY, [place] 400) tablet 00 :16 First dose Me dical 400 mg on [facility] Branch 07/31/20 at 0900, Until Discontinu ed, Routine iohexol 2020-0 2020- No 75mL 75 mL, Univers (OMNIPAQUE 07-30 Intravenou it y of 350 BULK-75 20:00: 20:00 s, ONCE, 1 [place] mL) 00 :00 dose, Fri Medical injection 07/30/20 at Bran ch 75 mL 1500, Routine vancomycin 2020-0 2020- No 1250mg 1,250 mg, Univers 1250 mg in 07-30 IV ity of NS 250 mL 04:00: 03:56 [place]back, [place] RTU IV 00 :14 Q12H ABX, Medical Piggyback First dose Bran ch 1,250 mg (after last modificati on) on Nidia 07/29/20 at 2300, Until Discontinu ed
Reas on for Anti-Infec tive: Empiric Therapy for Suspected Infection< br>Empiric Therapy Site: Respirator y
Durat ion of therapy: 7 days loperamide 2019- No 2mg 2 mg, Unive rs (IMODIUM 07-29 Oral, ity of A-D) 18:39: 23:53 Q4HPRN, [place] capsule 2 12 :17 Starting Medica l mg [place] Branch 07/29/20 at 1339, Until Sun07/30/20 at 1853, Routine, Diarrhea calcium 2019- No 1g 1 g, IV Univer s gluconate 1 07-29 Infusion, it y of g in NaCl 13:15: 14:17 ONCE, 1 [place] 50 mL 00 :00 dose, [place] Medical (ISO-OSM) 07/29/20 at [facility] [place] 0815, infusion 1 Routine g thiamine 2019- No 500mg IV Univers (VITAMIN 07-28 Piggyback, ity of B1) 500 mg 13:00: 01:46 TID, 9 [place] in NaCl 00 :00 doses, Medical 0.9% (NS) First dose Bran ch piggyback on Sun07/28/20 at 0800, Last dose on Sun07/30/20 at 2000, 50 mL magnesium 2019- No 4g 4 g, IV Univ ers sulfate in 07-28 Piggyback, it y of water 4 05:11: 10:29 Q4H ABX, 2 [place] gram/50 mL 00 :00 doses, Medical (8 %) IV First dose Bran h Piggyback 4 on Sun g 07/28/20 at 0015, Last dose on Sun07/28/20 at 0415, Routine metoprolol 2019- Yes 12.5mg 12.5 mg, U nivers tartrate 07-28 Oral, BID, ity o f (LOPRESSOR) 04:30: First dose [place] half tablet 00 on Tue Medica l 12.5 mg 07/27/20 at Branch 2330, Until Discontinu ed, Routine KCL 2020- No 40meq 40 mEq, IV Unive rs (POTASSIUM 07-28 Piggyback, it y of CHLORIDE) 04:15: 08:10 Q4H ABX, 2 [place] 40 mEq in 00 :00 doses, Medical NaCl 0.9% First dose Bran ch (NS) on Sun piggy07/27/20 at 2315, Last dose on Sun07/28/20 at 0315, 250 mL vancomycin 2019-0 2020- No 15mg/kg 1,000 mg Univers (VANCOCIN) 07-28 (rounded ity of 1,000 mg in 04:00: 03:35 from 1,095 [place] NaCl 0.9% 00 :19 mg = 15 Medical (NS) 250 mL mg/kg ?73 Bra [facility] VIAL-MATE kg), IV IV Piggyback, piggyback Q12H ABX, First dose on Sun07/27/20 at 2300, Until Discontinu ed, 250 mL
Reas on for Anti-Infec tive: Empiric Therapy for Suspected Infection< br>Empiric Therapy Site: Respirator y
Durat ion of therapy: 7 days oxazepam Yes 15mg 15 mg, Univers (SERAX) 07-28 Oral, ity of capsule 15 03:55: Q6HPRN, [place] mg 09 Starting Medical [facility] Branch 07/27/20 at 2255, Until Discontinu ed, Routine, HR>100, anxiety ceFEPIme 2019-2019- No 2000mg 2,000 mg, U nivers (MAXIPIME) 07-28 IV ity of 2,000 mg in 02:45: 01:36 [facility], [place] NaCl 0.9% 00 :46 Q8H ABX, Medica l (NS) 100 mL First dose Br anch MINI-BAG on Sun07/27/20 at 2145, Until Discontinu ed, 100 mL
R joni for Anti-Infec tive: Empiric Therapy for Suspected Infection< br>Empiric Therapy Site: Respirator y
Durat ion of therapy: 7 days ipratropium 2019-0 2020- No 3mL 3 mL, Univ ers -albuteroL 07-28 09-30 Inhalation it y of (DUONEB) 00:25: 07:56 , Q4H ABX, [place] 0.5 mg-3 00 :17 First dose Medic al mg(2.5 mg (after Branch base)/3 mL last nebulizer modificati solution 3 on) on Sun mL 07/27/20 at 1930, Until Discontinu ed, Routine NaCl 0.9% 2020-0 2020- No 1000mL at 100 Uni vers (NS) IV 07-27 mL/hr, IV ity of infusion 23:45: 22:41 Infusion, [place] 1,000 mL 00 :00 ONCE, 1 Medical dose, [facility] Branch 07/27/20 at 1845, Routine sodium 2020-0 Yes 4mL 4 mL, Univers chloride 7% 07-27 Inhalation it y of (HYPER-LYUBOV) 23:00: , Q6H, [place] nebulizer 00 First dose Medi armin solution 4 (after Branch mL last modificati on) on Sun07/27/20 at 1800, Until Discontinu ed, Routine metoprolol 2020-0 2020- No 5mg 5 mg, Slow Univers (LOPRESSOR) 07-27 IV Push, ity of injection 5 22:18: 22:39 ONCE, 1 [place] mg 00 :00 dose, [facility] Medical 07/27/20 at Branch 1730, STAT magnesium 2020-0 2020- No 2000mg 2,000 mg, Univers sulfate in 07-27 IV ity of water 2 18:45: 20:27 Infusion, [place] gram/50 mL 00 :00 ONCE, 1 Medica l (4 %) 2,000 dose, Sun Bra nch mg 07/27/20 at piggyback 1345 KCL 2020-0 2020- No 40meq 40 mEq, IV Unive rs (POTASSIUM 07-27 Piggyback, it y of CHLORIDE) 00:15: 05:29 Q4H ABX, 2 [place] 40 mEq in 00 :00 doses, Medical NaCl 0.9% First dose Bran ch (NS) on Sun piggyback 07/26/20 at 1915, Last dose on Sun07/26/20 at 2315, 250 mL sulfur 2020-0 2020- No 5mL 5 mL, Univers hexafluorid 07-26 Intravenou i ty of e microsphr 18:15: 15:00 s, ONCE, 1 [place] (LUMASON) 00 :00 dose, Mon Medic al injection 5 07/26/20 at Br anch mL 1315, Routine
lance crewmember approving Restricted medication : MOISES LOVE magnesium 2020-0 2020- No 2g 2 g, IV Univ ers sulfate in 07-26 Piggyback, it y of water 2 13:00: 13:14 ONCE, 1 [place] gram/50 mL 00 :00 dose, Mon Medi armin (4 %) 07/26/20 at [place] infusion 2 0800, g Routine calcium 2020-0 2020- No 1000mg 1,000 mg, Un yolanda chloride 07-25 IV ity of 100 mg/mL 17:45: 18:18 Piggyback, [place] (10 %) 00 :00 ONCE, 1 Medical 1,000 mg in dose, [facility] NaCl 0.9% 07/25/20 at (NS) 150 mL 1245, 150 piggyback mL calcium 2020-0 Yes 500mg 500 mg, Univer s carbonate 07-25 Oral, TID ity o f (OSCAL-500) 17:00: MEALS, [place] tablet 500 00 First dose Med ical mg (after [place] last modificati on) on [place] 07/25/20 at 1200, Until Discontinu ed, Routine KCL 2020-0 2020- No 40meq 40 mEq, Univers (KLOR-CON 07-25 Oral, ONCE ity of M20) tablet 13:45: 13:25 NOW, 1 [place] 40 mEq 00 :00 dose, [facility] 07/25/20 at Branch 0845, Routine hydrOXYzine 2020-0 2020- No 10mg 10 mg, Uni vers (ATARAX) 07-24 Oral, ity of tablet 10 21:45: 22:16 ONCE, 1 [place] mg 00 :00 dose, [facility] 07/24/20 at Branch 1645, Routine metroNIDAZO 2020-0 2020- No 500mg 500 mg, IV Univers LE in NaCl 07-24 Piggyback, it y of (iso-os) 16:15: 03:56 Q8H ABX, [place] (FLAGYL 00 :02 First dose Medica l I.V.) RTU on [facility] IV infusion 07/24/20 at 500 mg 1115, Until Discontinu ed, 100 mL
R joni for Anti-Infec tive: Documented Infection< br>Documen saad Infection Site: Respirator y
Durat ion of Therapy: 7 days levoFLOXaci 2020-0 2020- No 500mg 500 mg, IV Univers n in D5W 07-24 Piggyback, ity of (LEVAQUIN) 16:15: 01:35 Administer [place] 500 mg/100 00 :03 over 60 Medica l mL Minutes, Branch Piggyback Q24H ABX, 500 mg First dose on 07/24/20 at 1115, Until Discontinu ed, BRANDY
Re ason for Anti-Infec tive: Documented Infection< br>Documen saad Infection Site: Respirator y
Durat ion of Therapy: 7 days furosemide 2019-0 2020- No 40mg 40 mg, Univ ers (LASIX) 07-24 Slow IV ity of injection 15:00: 17:55 Push, [place] 40 mg 00 :58 DAILY, Medical First dose Branch on 07/24/20 at 1000, Until Discontinu ed, Routine calcium 2020-0 2020- No 500mg 500 mg, Unive rs carbonate 07-24 Oral, BID ity of (OSCAL-500) 15:00: 16:45 MEALS, [place] tablet 500 00 :08 First dose Med ical mg on Sat Branch 07/24/20 at 1000, Until Discontinu ed, Routine calcium 2020-0 2020- No 1{tbl} 250 mg (1 Un yolanda carbonate-v 07-24 tablet), ity of itamin D3 14:00: 14:53 Oral, [place] (OSCAL-250 00 :27 DAILY, Medical + D) First dose Branch 250-125 on Sat mg-unit per 07/24/20 at tablet 250 0900, mg Until Discontinu ed, Routine magnesium 2020-0 2020- No 2g 2 g, IV Univ ers sulfate in 07-24 Piggyback, it y of water 2 13:15: 14:21 ONCE, 1 [place] gram/50 mL 00 :00 dose, Sat Medi armin (4 %) 07/24/20 at Branch infusion 2 0815, g Routine magnesium 2020-0 2020- No 4g 4 g, IV Univ ers sulfate in 07-24 Piggyback, it y of water 4 13:15: 14:21 ONCE, 1 [place] gram/50 mL 00 :00 dose, Sat Medi armin (8 %) IV 07/24/20 at [facility] h Piggyback 4 0815, g Routine KCL 2019- No 40meq 40 mEq, IV Unive rs (POTASSIUM 07-23 Piggyback, it y of CHLORIDE) 23:15: 23:59 ONCE, 1 [place] 40 mEq in 00 :00 dose, Fri Medic al NaCl 0.9% 07/23/20 at [facility] ch (NS) 250 mL 1815, 250 piggyback mL calcium 2019- No 2g 2 g, IV Univer s gluconate 2 07-23 Infusion, it y of g in NaCl 23:00: 23:06 ONCE, 1 [place] 100 mL 00 :00 dose, Fri Medical (ISO-OSM) 07/23/20 at [facility] RTU IV 1800, infusion 2 Routine g cefTRIAXone No 1000mg 1,000 mg, Univers (ROCEPHIN) 07-23 IV ity of 1,000 mg in 18:15: 15:10 Piggyback, [place] NaCl 0.9% 00 :34 Q24H ABX, Medic al (NS) 50 mL 10 doses, [facility] MINI-BAG First dose on Sun07/23/20 at 1315, Last dose on 08/01/20 at 1315, 50 mL
Reas on for Anti-Infec tive: Documented Infection< br>Documen saad Infection Site: Other
O ther site: Respirator y and Possible Pylo
Du ration of Therapy: 10 days azithromyci 2019- No 500mg 500 mg, IV Univers n 07-23 Piggyback, ity of (ZITHROMAX) 18:15: 15:10 Q24H ABX, [place] 500 mg in 00 :34 3 doses, Medica l NaCl 0.9% First dose Bran ch (NS) 250 mL on Sun VIAL-MATE 07/23/20 at IV 1315, Last piggyback dose on 07/25/20 at 1315, 250 mL
Reas on for Anti-Infec tive: Documented Infection< br>Documen saad Infection Site: Respirator y
Durat ion of Therapy: Other (see Comments) barium 2020-0 2020- No 30mL 30 mL, Univers sulfate-NO 07-23 Oral, ity of CHARGE- 15:15: 15:15 ONCE, 1 [place] (VARIBAR 00 :00 dose, Fri Medica l NECTOR) 40 07/23/20 at [facility] % (w/v) 1045, oral Routine suspension 30 mL barium 2020-0 2020- No 40mL 40 mL, Univers sulfate 07-23 Oral, ity of (LIQUID E-Z 15:15: 15:10 ONCE, 1 [place] PAQUE) 60 % 00 :00 dose, Fri Med ical (w/v) oral 07/23/20 at [facility] suspension 1015, 40 mL Routine pyridoxine 2020-0 Yes 100mg 100 mg, Uni vers (vitamin 07-23 Oral, ity of B6) 14:00: DAILY, [place] (VITAMIN 00 First dose Medic al B6) tablet on Fri Branch 100 mg 07/23/20 at 0900, Until Discontinu ed, Routine ergocalcife 2020-0 Yes [id number] 50,000 Un yolanda rol 07-23 Units, ity of (vitamin 14:00: Oral, [place] d2) 00 QWEEKLY, Medical (CALCIFEROL First dose Br anch ) capsule on Fri 50,000 07/23/20 at Units 0900, Until Discontinu ed, Routine furosemide 2020-0 2020- No 40mg 40 mg, Univ ers (LASIX) 07-22 Slow IV ity of injection 23:30: 00:57 Push, [place] 40 mg 00 :00 ONCE, 1 Medical dose, [place] Branch 07/22/20 at 1830, Routine iohexol 2020-0 2020- No 100mL 100 mL, Unive rs (OMNIPAQUE 07-22 Intravenou it y of 350 23:30: 23:18 s, ONCE, 1 [place] BULK-100 00 :00 dose, [place] Medica l mL) 07/22/20 at Branch injection 1830, 100 mL Routine furosemide 2020-0 2020- No 20mg 20 mg, Univ ers (LASIX) 07-22 Slow IV ity of injection 16:30: 16:06 Push, [place] 20 mg 00 :00 ONCE, 1 Medical dose, [place] Branch 07/22/20 at 1130, Routine zinc 2020-0 Yes 220mg 220 mg, Univers sulfate 07-22 Oral, ity of (ORAZINC) 14:00: DAILY, [place] capsule 220 00 First dose Me dical mg on [facility] Branch 07/22/20 at 0900, Until Discontinu ed, Routine nicotine 2020-0 Yes 1{patch 1 Patch, Un yolanda (NICODERM) 07-22 } Topical, ity o f 14 mg/24 hr 06:24: Administer [place] patch 1 00 over 24 Medical Patch Hours, Branch Q24H, First dose on [facility] 07/22/20 at 0130, Until Discontinu ed, Routine ipratropium 2020-0 2020- No 3mL 3 mL, Univ ers -albuteroL 07-21 Inhalation it y of (DUONEB) 13:00: 22:41 , TID, [place] 0.5 mg-3 00 :58 First dose Medic al mg(2.5 mg on Sun Branch base)/3 mL 07/21/20 at nebulizer 0800, solution 3 Until mL Discontinu ed, Routine sodium 2020-0 2020- No 4mL 4 mL, Univers chloride 7% 07-21 Inhalation i ty of (HYPER-LYUBOV) 13:00: 01:36 , BID, [place] nebulizer 00 :33 First dose Medi armin solution 4 on Sun Branch mL 07/21/20 at 0800, Until Discontinu ed, Routine KCL 2020-0 2020- No 40meq 40 mEq, IV Unive rs (POTASSIUM 07-21 Piggyback, it y of CHLORIDE) 12:00: 15:29 ONCE, 1 [place] 40 mEq in 00 :00 dose, Wed Medic al NaCl 0.9% 07/21/20 at Bran ch (NS) 0700, 250 piggyback mL magnesium 2020-0 2020- No 2000mg 2,000 mg, Univers sulfate in 07-20 IV ity of water 2 21:00: 01:00 Infusion, [place] gram/50 mL 00 :00 ONCE, 1 Medica l (4 %) 2,000 dose, Tue Bra nch mg 07/20/20 at piggyback 1600 multivitami 2020-0 Yes 5mL 5 mL, Unive rs n (CENTRUM) 07-20 Oral, ity of solution 5 18:15: DAILY, [place] mL 00 First dose Medical on [facility] 07/20/20 at 1315, Until Discontinu ed, Routine lactulose 2020-0 2020- No 15mL 15 mL, Unive rs (CEPHULAC) 07-20 Oral, BID, it y of solution 15 18:15: 22:21 First dose [place] mL 00 :47 on [facility] 07/20/20 at Branch 1315, Until Discontinu ed, Routine KCL 2020-0 2020- No 40meq 40 mEq, IV Unive rs (POTASSIUM 07-20 Piggyback, it y of CHLORIDE) 18:15: 19:47 ONCE, 1 [place] 40 mEq in 00 :00 dose, [facility] Medic al NaCl 0.9% 07/20/20 at [facility] ch (NS) 1315, 250 piggyback mL pantoprazol 2020-0 Yes 40mg 40 mg, Univ ers e 07-20 Oral, ity of (PROTONIX) 14:00: DAILY, [place] EC tablet 00 First dose Medi armin 40 mg on [facility] 07/20/20 at 0900, Until Discontinu ed, Routine foLIC acid 2020-0 Yes 1mg 1 mg, Univer s (FOLATE) 07-20 Oral, ity of tablet 1 mg 14:00: [place] 00 First dose Medical on [facility] 07/20/20 at 0900, Until Discontinu ed, Routine thiamine 2019-0 2020- No 100mg 100 mg, Univ ers (VITAMIN 07-20 Oral, ity of B1) tablet 14:00: 12:02 [place]ILY[place] 100 mg 00 :38 First dose Medical on [facility] 07/20/20 at 0900, Until Discontinu ed, Routine thiamine 2020-0 2020- No IV Univers (VITAMIN 07-19 Infusion, ity o f B1) 100 mg, 16:30: 16:00 at 100 [place] as foLIC acid 00 :00 mL/hr, Medical (FOLATE) 1 ONCE, 1 Branch mg, dose, Mon multivitami 07/19/20 at n adult 1130, (INFUVITE 1,000 mL ADULT) 3,300 unit- 150 mcg/10 mL 10 mL in D5W 0.45% NaCl (1/2NS) IV Solution potassium 2020-0 2020- No 40meq 40 mEq, Uni vers chloride 40 07-19 Intravenou i ty of mEq in 100 12:45: 16:34 s, ONCE, 1 [place] mL IVPB 00 :00 dose, [facility] 07/19/20 at Branch 0745, 100 mL potassium 2020-0 2020- No 40meq 40 mEq, Uni vers chloride 40 07-19 Intravenou i ty of mEq in 100 07:00: 09:15 s, ONCE, 1 [place] mL IVPB 00 :00 dose, [facility] 07/19/20 at Branch 0200, 100 mL potassium 2020-0 2020- No 40meq 40 mEq, Uni vers chloride 40 07-19 Intravenou i ty of mEq in 100 04:15: 06:15 s, ONCE, 1 [place] mL IVPB 00 :00 dose, [facility] 07/18/20 at Branch 2315, 100 mL sodium 2020-0 2020- No 500mL 500 mL, at Uni vers chloride 2 07-19 60 mL/hr, ity of % 00:15: 03:01 IV [place] HYPERTONIC 00 :48 Infusion, Medi armin infusion CONTINUOUS Branc h 500 mL , Starting Echo 07/18/20 at 1915, Until Echo 07/18/20 at 2201 KCL 2019-0 2019- No 40meq 40 mEq, IV Unive rs (POTASSIUM 07-18 Piggyback, it y of CHLORIDE) 23:00: 00:19 Q2H, 2 [place] 40 mEq in 00 :52 doses, Medical NaCl 0.9% First dose Bran ch (NS) on Echo piggyback 07/18/20 at 1800, Last dose on Echo 07/18/20 at 2000, 250 mL vancomycin 2020-0 2020- No 15mg/kg 1,250 mg Univers 1250 mg in 07-18 (rounded ity of NS 250 mL 22:00: 14:41 from [place] RTU IV 00 :58 1,156.5 mg Medical Piggyback = 15 mg/kg Bran ch 1,250 mg ?77.1 kg), IV Piggyback, Q12H ABX, First dose on Echo 07/18/20 at 1700, Until Discontinu ed
Reas on for Anti-Infec tive: Empiric Therapy for Suspected Infection< br>Empiric Therapy Site: Blood
D uration of therapy: 72 hours meropenem 2019-2019- No 1000mg 1,000 mg, Univers (MERREM) 07-18 IV ity of 1,000 mg in 22:00: 14:41 Piggyback, [place] NaCl 0.9% 00 :58 Administer Medi armin (NS) 100 mL over 60 Branc h IV Minutes, piggyback Q8H ABX, First dose on 07/18/20 at 1700, Until Discontinu ed, Routine
Restricte d use approved by: MALIK 8TH FLOOR
R joni for Anti-Infec tive: Empiric Therapy for Suspected Infection< br>Empiric Therapy Site: Blood
D uration of therapy: 72 hours sodium 2019- 2020- No 500mL 500 mL, at Uni vers chloride 2 07-18 70 mL/hr, ity of % 21:30: 00:09 IV [place] HYPERTONIC 00 :57 Infusion, Medi armin infusion CONTINUOUS Branc h 500 mL , Starting 07/18/20 at 1630, Until 07/18/20 at 1909 sodium 2020-0 2020- No 500mL 500 mL, at Uni vers chloride 2 07-18 50 mL/hr, ity of % 20:00: 21:22 IV [place] HYPERTONIC 00 :21 Infusion, Medi armin infusion CONTINUOUS Branc h 500 mL , Starting 07/18/20 at 1500, Until 07/18/20 at 1622 sodium 2020-0 2020- No 500mL 500 mL, at Uni vers chloride 2 07-18 85 mL/hr, ity of % 17:30: 19:49 IV [place] HYPERTONIC 00 :06 Infusion, Medi armin infusion CONTINUOUS Branc h 500 mL , Starting 07/18/20 at 1230, Until 07/18/20 at 1449 potassium 2020-0 2020- No 40meq 40 mEq, Uni vers chloride 40 07-18 Intravenou i ty of mEq in 100 16:00: 21:22 s, Q2H, 3 [place] mL IVPB 00 :21 doses, Medical First dose Branch on 07/18/20 at 1100, Last dose on Sun07/18/20 at 1400, 100 mL magnesium 2019-2019- No 4g 4 g, IV Univ ers sulfate in 913 09-13 Piggyback, it y of water 4 15:30: 17:00 ONCE, 1 [place] gram/50 mL 00 :00 dose, Sun Medi armin (8 %) IV 07/18/20 at [facility] h Piggyback 4 1030, g Routine thiamine 2020-0 2020- No 100mg IV Univers (VITAMIN 07-18 Piggyback, ity of B1) 100 mg 14:00: 13:05 DAILY, 1 [place] in NaCl 00 :00 dose, Medical 0.9% (NS) First dose Bran ch piggyback on Echo 07/18/20 at 0900, 50 mL heparin 2020-0 Yes 5000U 5,000 Univers (porcine) 07-18 Units, ity of injection 13:00: [place]cut[place]o [place] 5,000 Units 00 us, Q12H, Med ical First dose Branch on Echo 07/18/20 at 0800, Until Discontinu ed, Routine pantoprazol 2020-0 2020- No 40mg 40 mg, IV Univers e 07-18 Piggyback, ity of (PROTONIX) 13:00: 10:23 Q12H, [place] 40 mg in 00 :24 First dose Medic al NaCl 0.9% on Echo Branch (NS) 100 mL 07/18/20 at MINI-BAG 0800, Until Discontinu ed, 100 mL NaCl 0.9% 2020-0 2020- No 1000mL at 999 Uni vers (NS) bolus 07-18 mL/hr, ity of infusion 12:30: 12:00 1,000 mL, [place] as 1,000 mL 00 :00 IV Medical Piggyback, Branch ONCE, 1 dose, Echo 07/18/20 at 0730, STAT magnesium 2020-0 2020- No 2g 2 g, IV Univ ers sulfate in 07-18 Piggyback, it y of water 2 10:45: 01:00 ONCE, 1 [place] gram/50 mL 00 :00 dose, Echo Medi armin (4 %) 07/18/20 at Branch infusion 2 0545, g Routine Lactated 2020-0 2020- No IV Univers Ringers 07-18 Infusion, ity of WITH 10:45: 14:21 CONTINUOUS [place] ADDITIVES 00 :08 , Starting Medi armin Echo Branch 07/18/20 at 0545, Until 07/18/20 at 0921, 1,000 mL, at 100 mL/hr potassium 2020-0 2020- No 40meq 40 mEq, IV Univers chloride in 07-18 Piggyback, i ty of water (KCL) 09:30: 08:46 ONCE, 1 [place] 40 mEq/100 00 :00 dose, Sun Medi armin mL 40 mEq 07/18/20 at Bran ch piggyback 0430 ipratropium 2019-0 2020- No 3mL 3 mL, Univ ers -albuteroL 07-18 Inhalation it y of (DUONEB) 08:24: 07:56 , Q6HPRN, [place] 0.5 mg-3 16 :33 Starting Medical mg(2.5 mg Echo Branch base)/3 mL 07/18/20 at nebulizer 0324, solution 3 Until Wed mL 08/04/20 at 0256, Routine, Wheezing, Shortness of Breath lactated 2019-0 2020- No 30mL/kg at 999 Uni vers ringers IV 07-18 mL/hr, ity of infusion 05:15: 06:00 2,313 mL [place] 2,313 mL 00 :00 (30 mL/kg Medica l ?77.1 kg), Branch IV Infusion, ONCE, 1 dose, Echo 07/18/20 at 0015, STAT glucagon 2019-0 Yes 1mg 1 mg, Univers (GLUCAGEN 07-18 Intramuscu ity of DIAGNOSTIC 04:52: lar, PRN, [place] KIT) 31 Starting Medical injection 1 Sat Branch mg 07/17/20 at 2352, Until Discontinu ed, BRANDY, Blood Glucose < or = 70 mg/dL and patient is unable to swallow or has mental changes. dextrose 50 2020-0 Yes 25mL 25 mL, Univ ers % in water 07-18 Slow IV ity of (D50W) 04:52: Push, PRN, [place] injection 31 Starting Medica l 25 mL Sat Branch 07/17/20 at 2352, Until Discontinu ed, BRANDY, Blood Glucose < or = 70 mg/dL and patient is unable to swallow or has mental status changes. Immunizations Ordered Filled Immunization Date Status Comments [facility] e Immunization Name Name Influenza Virus 2020-08-04 Completed Universit y of Vaccine Quad .5 mL 00:00:00 [facility] 6+ [place] Pneumococcal 2020-08-04 Completed University o f Polysaccharide, 00:00:00 [place] Med ical PPSV23 (PNEUMOVAX) Branch Influenza Virus 2020-08-04 Completed Universit y of Vaccine Quad .5 mL 00:00:00 [facility] 6+ [place] Pneumococcal 2020-08-04 Completed University o f Polysaccharide, 00:00:00 [place] Med ical PPSV23 (PNEUMOVAX) [place] Influenza Virus 2020-08-04 Completed Universit y of Vaccine Quad .5 mL 00:00:00 [facility] 6+ [place] Pneumococcal 2020-08-04 Completed University o f Polysaccharide, 00:00:00 [place] Med ical PPSV23 (PNEUMOVAX) [place] Influenza Virus 2012-08-01 Completed Universit y of Vaccine 00:00:00 [facility] Influenza Virus 2012-08-01 Completed Universit y of Vaccine 00:00:00 [facility] Influenza Virus 2012-08-01 Completed Universit y of Vaccine 00:00:00 [facility] Influenza Virus 2011-08-22 Completed Universit y of Vaccine 00:00:00 [facility] Influenza Virus 2011-08-22 Completed Universit y of Vaccine 00:00:00 [facility] Influenza Virus 2011-08-22 Completed Universit y of Vaccine 00:00:00 [facility] Influenza Virus 2010-08-03 Completed Universit y of Vaccine 00:00:00 [facility] Influenza Virus 2010-08-03 Completed Universit y of Vaccine 00:00:00 [facility] Influenza Virus 2010-08-03 Completed Universit y of Vaccine 00:00:00 [facility] Influenza Virus 2009-08-26 Completed Universit y of Vaccine 00:00:00 [facility] PPD (TB) 2009-08-26 Completed University of 00:00:00 [facility] Influenza Virus 2009-08-26 Completed Universit y of Vaccine 00:00:00 [facility] PPD (TB) 2009-08-26 Completed University of 00:00:00 [facility] Influenza Virus 2009-08-26 Completed Universit y of Vaccine 00:00:00 [facility] PPD (TB) 2009-08-26 Completed University of 00:00:00 [facility] Vital Signs Vital Name Observation Time Observation Value Comments Source Systolic blood 2020-08-05 17:04:00 114 mm[Hg] Univer sity of pressure [facility] Branch Diastolic blood 2020-08-05 17:04:00 71 mm[Hg] Unive rsity of pressure [facility] Branch Heart rate 2020-08-05 17:04:00 105 /min Universi ty of [facility] Body temperature 2020-08-05 17:04:00 36.94 Arabella Univ ersity of [facility] Branch Respiratory rate 2020-08-05 17:04:00 18 /min Univ ersity of [facility] Branch Oxygen saturation in 2020-08-05 17:04:00 96 /min University of Arterial blood by [facility] Pulse oximetry Branch Body weight 2020-08-04 08:32:00 71.487 kg bedscale Universi ty of [facility] BMI 2020-08-04 08:32:00 21.37 kg/m2 Universi ty of [facility] Body height 2020-07-18 04:58:00 182.9 cm Universi ty of [facility] Systolic blood 2020-08-05 17:04:00 114 mm[Hg] Univer sity of pressure [facility] Branch Diastolic blood 2020-08-05 17:04:00 71 mm[Hg] Unive rsity of pressure [facility] Heart rate 2020-08-05 17:04:00 105 /min Universi ty of [facility] Body temperature 2020-08-05 17:04:00 36.94 Arabella Univ ersity of [facility] Branch Respiratory rate 2020-08-05 17:04:00 18 /min Univ ersity of [facility] Oxygen saturation in 2020-08-05 17:04:00 96 /min University of Arterial blood by [facility] Pulse oximetry Branch Body weight 2020-08-04 08:32:00 71.487 kg bedscale Universi ty of [facility] BMI 2020-08-04 08:32:00 21.37 kg/m2 Universi ty of [facility] Body height 2020-07-18 04:58:00 182.9 cm Universi ty [facility] Procedures Procedure Date / Time Performing Clinician Source Performed DNR 2020-08-31 Doctor Unassigned, [facility] 05:01:00 [place] [facility] VANCOMYCIN TROUGH 2020-08-02 Harry Macias [facility] 14:26:00 Medical Branch HISTOPLASMA ANTIGEN 2020-08-02 Harry [facility] [place] QUANTITATIVE BY EIA, SERUM 10:37:00 Medic al Branch CBC WITH DIFF 2020-08-[facility] Branch MISCELLANEOUS SEND OUT TEST 2020-08-[address] [facility] 09:58:00 Medical Branch EXTRA TUBE LT. BLUE 2020-08-02 [facility] 09:[facility] EXTRA TUBE LT. GREEN 2020-08-02 [facility] 09:58:00 Medical Branch PHOSPHORUS 2020-08-01 [facility] 17:46:00 Medical Branch MAGNESIUM 2020-08-01 [facility] 17:46:00 Medical Branch CBC WITH DIFF 2020-08-01 [facility] xa 10:34:00 Medical Branch CMV BY PCR 2020-08-01 [facility] 10:34:00 Medical Branch MAGNESIUM 2020-07-31 [facility] 16:01:00 Medical Branch BASIC METABOLIC PANEL (NA, 2020-07-31 [facility] K, CL, CO2, GLUCOSE, BUN, 16:01:00 [facility] CREATININE, [place]) VANCOMYCIN TROUGH 2020-07-31 [facility] 16:01:00 Medical Branch CBC WITH DIFF 2020-07-31 [facility] xa 11:00:00 Medical Branch CYTOMEGALOVIRUS ANTIBODY IGG 2020-07-31 Harry Macias [facility] 11:00:00 Medical Branch EXTRA TUBE SST 2020-07-31 [facility] 11:[facility]:00 Medical Branch EXTRA TUBE LT. GREEN 2020-07-31 [facility] 11:00:00 Medical Branch SARS-COV-2 IGG 2020-07-31 [facility] 11:00[facility]00 Patrik [facility] RESPIRATORY PANEL BY PCR 2020-07-31 [facility] 01:53:00 Medical Branch COVID-19 (PCR MOLECULAR 2020-07-[facility] 01:53:00 Medical Branch COVID-19 (ID NOW RAPID 2020-07-31 [facility] 01:52:[address] THORAX W CONTRAST 2020-07-30 [facility] 19:57:11 Medical Branch CBC WITH DIFF 2020-07-30 [facility] xa 08:51:00 Medical Branch EXTRA TUBE LT. GREEN 2020-07-30 Behzad Watson [facility] 08:51:00 Medical Branch MAGNESIUM 2020-07-30 [facility] xa 03:17:00 Medical Branch BASIC METABOLIC PANEL (NA, 2020-07-30 [facility] K, CL, CO2, GLUCOSE, BUN, 03:17:00 Medica l [place] CREATININE, CA) CBC WITH DIFF 2020-07-30 [facility] xa 03:17:00 Medical Branch AC PANEL 20 + LACTIC ACID 2020-07-30 [facility] 03:17:00 Medical Branch XR CHEST 1 VW 2020-07-30 [facility] xa 03:04:00 Medical Branch CBC WITHOUT DIFF 2020-07-29 Harry Macias [facility] exas 18:51:00 Medical Branch VANCOMYCIN TROUGH 2020-07-29 [facility] 15:58:00 Medical Branch EKG-12 LEAD 2020-07-29 Walter [facility] 14:56:43 Medical Branch MAGNESIUM 2020-07-29 [facility] xa 10:39:00 Medical Branch BASIC METABOLIC PANEL (NA, 2020-07-29 [facility] K, CL, CO2, GLUCOSE, BUN, 10:39:00 Medica l Branch CREATININE, CA) CBC WITH DIFF 2020-07-29 [facility] xa 10:39:00 Medical Branch URINALYSIS 2020-07-28 [facility] exas 15:45:00 Medical Branch URINE CULTURE 2020-07-28 [facility] exas 15:45:00 Medical Branch BASIC METABOLIC PANEL (NA, 2020-07-28 Harry Macias [facility] K, CL, CO2, GLUCOSE, BUN, 15:42:00 Medica l Branch CREATININE, CA) EKG-12 LEAD 2020-07-28 Walter [facility] 06:06:39 Medical Branch EXTRA TUBE LT. BLUE 2020-07-28 [facility] 06:00:00 Medical Branch TROPONIN I 2020-07-28 [facility] 05:58:00 Medical Branch BASIC METABOLIC PANEL (NA, 2020-07-28 Mohini Kruse [facility] K, CL, CO2, GLUCOSE, BUN, 05:58:00 [facility] CREATININE, CA) CBC WITH DIFF 2020-07-28 [facility] xa 05:58:00 Medical Branch HAV ANTIBODY (IGG AND IGM) 2020-07-28 [facility] 05:58:00 Medical Branch SPUTUM CULTURE 2020-07-28 [facility] 03:16:00 Medical Branch LACTIC ACID WHOLE BLOOD 2020-07-27 [facility] 23:37:00 Medical Branch BASIC METABOLIC PANEL (NA, 2020-07-27 Josh [facility] K, CL, CO2, GLUCOSE, BUN, 23:36:00 [facility] CREATININE, CA) RPR (QUANTITATIVE) 2020-07-27 [facility] [place] 23:36:00 Medical Branch PROCALCITONIN 2020-07-27 [facility] ex 23:36:00 Medical Branch EKG-12 LEAD 2020-07-[facility] 22:24[facility] HEAD WO CONTRAST 2020-07-27 Josh [facility] 21:55:17 Medical Branch XR CHEST 1 VW 2020-07-27 [facility] [place] 16:43:48 [facility] BLOOD CULTURE SCREEN 2020-07-27 [facility] 16:09:00 Medical Branch MAGNESIUM 2020-07-27 [facility] 16:09:00 Medical Branch TROPONIN I 2020-07-27 [facility] 16:09:00 Medical Branch BASIC METABOLIC PANEL (NA, 2020-07-27 Uriah [facility] K, CL, CO2, GLUCOSE, BUN, 16:09:00 Medica l Branch CREATININE, CA) HIV 1/2 AG-AB WITH REFLEX 2020-07-27 [facility] 16:09:00 Medical Branch AC PANEL 20 + LACTIC ACID 2020-07-27 Behzad Whitley [facility] 14:59:00 Medical Branch MAGNESIUM 2020-07-27 [facility] xas 10:35:00 Medical Branch BASIC METABOLIC PANEL (NA, 2020-07-27 John, [facility] K, CL, CO2, GLUCOSE, BUN, 10:35:00 Medica l Branch CREATININE, CA) CBC WITH DIFF 2020-07-27 [facility] xas 10:35:00 Medical Branch MAGNESIUM 2020-07-26 [facility] ex 22:05:00 Medical Branch BASIC METABOLIC PANEL (NA, 2020-07-26 Gilberto [facility] K, CL, CO2, GLUCOSE, BUN, 22:05:00 Medica l Branch CREATININE, CA) ECHO ROUTINE W/DOPPLER COLOR 2020-07-26 Lizette Mendieta [facility] 14:46:16 Medical Branch MAGNESIUM 2020-07-26 [facility] xas 09:14:00 Medical Branch BASIC METABOLIC PANEL (NA, 2020-07-26 Harry Macias [facility] [place] K, CL, CO2, GLUCOSE, BUN, 09:14:00 Medica l Branch CREATININE, CA) CBC WITH DIFF 2020-07-26 [facility] xas 09:14:00 Medical Branch CLOSTRIDIUM DIFFICILE TOXIN 2020-07-25 [facility] 23:03:00 Medical Branch BASIC METABOLIC PANEL (NA, 2020-07-25 Harry Macias [facility] K, CL, CO2, GLUCOSE, BUN, 21:59:00 Medica l Branch CREATININE, CA) MAGNESIUM 2020-07-25 [facility] xas 11:28:00 Medical Branch BASIC METABOLIC PANEL (NA, 2020-07-25 Harry Macias [facility] K, CL, CO2, GLUCOSE, BUN, 11:28:00 Medica l Branch CREATININE, CA) CBC WITH DIFF 2020-07-25 [facility] 11:28:00 Medical Branch BASIC METABOLIC PANEL (NA, 2020-07-24 Harry Macias [facility] K, CL, CO2, GLUCOSE, BUN, 23:06:00 Medica [facility] CREATININE, CA) URINALYSIS 2020-07-24 [facility], [facility] xa 12:59:00 [facility] MRSA / MSSA SCREEN BY PCR, 2020-07-24 [facility] [place] [facility] NARES 12:42:00 Medical Branch PHOSPHORUS 2020-07-24 [facility], [facility] xa 12:40:00 Medical Branch LACTATE DEHYDROGENASE 2020-07-24 [facility], [facility] 12:40:00 [facility] HEPATIC FUNCTION PANEL 2020-07-24 [facility] ([id number]) (ALB,T.PRO,BILI 12:40:00 Medical Branch T,BU/BC,ALT,AST,ALK PHOS) BLOOD CULTURE SCREEN 2020-07-24 [facility] 12:32:00 Medical Branch MAGNESIUM 2020-07-24 [facility], [facility] 07:50:00 Medical [place] BASIC METABOLIC PANEL (NA, 2020-07-24 Harry Macias [facility] K, CL, CO2, GLUCOSE, BUN, 07:50:00 [facility] CREATININE, CA) CBC WITH DIFF 2020-07-24 [facility] 07:50:00 [facility] URINE CULTURE 2020-07-23 [facility] 20:38:00 Medical [place] BASIC METABOLIC PANEL (NA, 2020-07-23 Harry Macias [facility] K, CL, CO2, GLUCOSE, BUN, 20:34:00 Medica [facility] CREATININE, CA) PNEUMOCOCCAL ANTIGEN 2020-07-23 [facility] 20:34:00 Medical Branch FL MODIFIED BARIUM SWALLOW 2020-07-23 Edita Troncoso [facility] 15:00:00 Medical Branch BASIC METABOLIC PANEL (NA, 2020-07-23 Harry Macias [facility] K, CL, CO2, GLUCOSE, BUN, 10:32:00 Medica [facility] CREATININE, CA) CBC WITH DIFF 2020-07-23 [place], [place] [facility] [place] 10:32:00 Medical Branch BASIC METABOLIC PANEL (NA, 2020-07-23 Harry Macias [facility] K, CL, CO2, GLUCOSE, BUN, 01:08:00 Medica l Branch CREATININE, CA) CT ABDOMEN PELVIS W CONTRAST 2020-07-22 Morenita Lopez [facility] 23:25:23 Medical Branch BASIC METABOLIC PANEL (NA, 2020-07-22 Harry Macias [facility] K, CL, CO2, GLUCOSE, BUN, 16:49:00 Medica [facility] CREATININE, CA) XR CHEST 1 VW 2020-07-22 [facility] ex 11:16:46 Medical Branch XR KUB 2020-07-22 [facility] 11:16:46 Medical Branch SEDIMENTATION RATE 2020-07-22 [facility] [place] [facility] 11:15:00 Medical Branch PROCALCITONIN 2020-07-22 [facility] 11:15:00 Medical Branch AMMONIA, PLASMA 2020-07-22 [facility] 08:53:00 Medical Branch C-REACTIVE PROTEIN 2020-07-22 [facility] [place] [facility] 08:53:00 Medical Branch HEPATIC FUNCTION PANEL 2020-07-22 [facility] ([id number] (ALB,T.PRO,BILI 08:53:00 Medical Branch T,BU/BC,ALT,AST,ALK PHOS) BASIC METABOLIC PANEL (NA, 2020-07-22 Harry Macias [facility] K, CL, CO2, GLUCOSE, BUN, 08:53:00 [facility] CREATININE, CA) DIFF CONSULT INTERPRETATION 2020-07-22 [facility] 08:53:00 Medical Branch CBC WITH DIFF 2020-07-22 [facility] xa 08:53:00 Medical Branch BASIC METABOLIC PANEL (NA, 2020-07-22 Harry Macias [facility] K, CL, CO2, GLUCOSE, BUN, 03:35:00 Medica [facility] CREATININE, CA) HCV ANTIBODY 2020-07-22 [facility] ex 03:35:00 Medical Branch BASIC METABOLIC PANEL (NA, 2020-07-21 [facility] K, CL, CO2, GLUCOSE, BUN, 21:52:00 [facility] CREATININE, CA) VITAMIN D, 25-OH 2020-07-21 [facility] exas 21:52:00 [facility] HSV 1&2, VZV BY PCR 2020-07-21 [facility] 18:54:00 [facility] LACTATE DEHYDROGENASE 2020-07-21 [facility] 09:40:00 [facility] HEPATIC FUNCTION PANEL 2020-07-21 [facility] ([id number]) (ALB,T.PRO,BILI 09:40:00 [facility] T,BU/BC,ALT,AST,ALK PHOS) BASIC METABOLIC PANEL (NA, 2020-07-21 [facility] K, CL, CO2, GLUCOSE, BUN, 09:40:00 [facility] CREATININE, CA) LIPID PANEL ([id number])(TOTAL 2020-07-21 [facility] CHOLESTEROL, TRIGLYCERIDES, 09:40:00 [facility] HDL) CBC WITH DIFF 2020-07-21 [facility] xa 09:40:00 [facility] BASIC METABOLIC PANEL (NA, 2020-07-21 [facility] K, CL, CO2, GLUCOSE, BUN, 00:22:00 [facility] CREATININE, CA) EKG-12 LEAD 2020-07-20 Elliott Teixeira [facility] xa 20:30:18 [facility] TRANSFUSE PACKED RBC 2020-07-20 [facility] 15:23:27 [facility] PREPARE PACKED RBC 2020-07-20 Ed Worthington [facility] 15:07:20 [facility] LACTATE DEHYDROGENASE 2020-07-20 [facility] 14:59:00 [facility] MAGNESIUM 2020-07-20 [facility] xa 14:59:00 [facility] HAPTOGLOBIN, SERUM 2020-07-20 [facility] 14:59:00 [facility] HEPATIC FUNCTION PANEL 2020-07-20 [facility] ([id number]) (ALB,T.PRO,BILI 14:59:00 Medical Branch T,BU/BC,ALT,AST,ALK PHOS) BASIC METABOLIC PANEL (NA, 2020-07-20 Harry Macias [facility] K, CL, CO2, GLUCOSE, BUN, 14:59:00 [facility] CREATININE, CA) RETICULOCYTES AUTOMATED 2020-07-20 [facility] 14:59:00 Medical Branch CBC WITHOUT DIFF 2020-07-20 Ed Worthington [facility] exas 12:30:00 Medical Branch BASIC METABOLIC PANEL (NA, 2020-07-20 [facility], CO2, GLUCOSE, BUN, 10:31:00 [facility] CREATININE, CA) VANCOMYCIN TROUGH 2020-07-20 [facility], [facility] 10:31:00 Medical Branch DIFF CONSULT INTERPRETATION 2020-07-20 [facility], [facility] 10:31:00 Medical Branch CBC WITH DIFF 2020-07-20 [facility] 10:31[facility] BASIC METABOLIC PANEL (NA, 2020-07-20 Harry Macias [facility] K, CL, CO2, GLUCOSE, BUN, 00:29:00 [facility] CREATININE, CA) ZINC, SERUM 2020-07-19 [facility] 16:58:00 [facility] BASIC METABOLIC PANEL (NA, 2020-07-19 Gil[facility] K, CL, CO2, GLUCOSE, BUN, 16:58:00 [facility] CREATININE, CA) CT HEAD WO CONTRAST 2020-07-19 Francy [facility] 15:12:24 [facility] VITAMIN B6, PLASMA 2020-07-19 [facility] 10:54:00 [facility] BASIC METABOLIC PANEL (NA, 2020-07-19 [facility] K, CL, CO2, GLUCOSE, BUN, 10:14:00 [facility] CREATININE, CA) VITAMIN B1 (THIAMINE), WHOLE 2020-07-19 Harry Macias [facility] BLOOD 10:14:00 Medical Branch CBC WITH DIFF 2020-07-19 [facility] [place] 06:35:00 Medical Branch FOLATE 2020-07-19 [facility] xas 01:43:00 Medical Branch BASIC METABOLIC PANEL (NA, 2020-07-19 Harry Macias [facility], CL, CO2, GLUCOSE, BUN, 01:43:00 Medica l Branch CREATININE, CA) MAGNESIUM 2020-07-18 Ed Worthington [facility] xas 23:26:00 Medical Branch BASIC METABOLIC PANEL (NA, 2020-07-18 Babu, [facility], CL, CO2, GLUCOSE, BUN, 23:26:00 Medica l Branch CREATININE, CA) CBC WITHOUT DIFF 2020-07-18 Ar[facility] exas 23:26:00 Medical Branch MISCELLANEOUS SEND OUT TEST 2020-07-18 Chalino Ceja [facility] 23:26:00 Medical Branch BASIC METABOLIC PANEL (NA, 2020-07-18 Babu, [facility] K, CL, CO2, GLUCOSE, BUN, 20:27:00 Medica l Branch CREATININE, CA) PREPARE PACKED RBC 2020-07-18 Jerad, [facility] 20:22:49 Medical Branch BASIC METABOLIC PANEL (NA, 2020-07-18 Babu, [facility] K, CL, CO2, GLUCOSE, BUN, 18:40:00 Medica l Branch CREATININE, CA) XR CHEST 1 VW 2020-07-18 [facility] 18:03:00 Medical Branch BASIC METABOLIC PANEL (NA, 2020-07-18 Babu, [facility] K, CL, CO2, GLUCOSE, BUN, 16:27:00 Medica l Branch CREATININE, CA) CBC WITHOUT DIFF 2020-07-18 Arnot [facility] exas 16:27:00 Medical Branch ABORH CONFIRMATION 2020-07-18 Chalino Ceja [facility] 14:49:00 Medical Branch US ABDOMEN LIMITED 2020-07-18 [facility] 14:10:00 Medical Branch HB ABO GROUPING 2020-07-18 [facility] 13:30:00 Medical Branch LIPASE 2020-07-18 Francy [facility] 13:07:00 Medical Branch MAGNESIUM 2020-07-18 Karyna, [facility] Te [place] 13:07:00 Medical Branch CORTISOL AM 2020-07-18 Francy [facility] 13:07:00 Medical Branch BASIC METABOLIC PANEL (NA, 2020-07-18 [facility] K, CL, CO2, GLUCOSE, BUN, 13:07:00 [facility] CREATININE, CA) LACTIC ACID WHOLE BLOOD 2020-07-18 Óscar [facility] 13:07:00 Medical Branch LACTIC ACID WHOLE BLOOD 2020-07-18 [facility], [facility] 10:40:00 Medical Branch PHOSPHORUS 2020-07-18 Arroyo, [facility] xas 08:07:00 [facility] FERRITIN SERUM 2020-07-18 [facility], [facility] xas 08:07:00 [facility] HAPTOGLOBIN, SERUM 2020-07-18 [facility], [facility] 08:07:00 [facility] HEPATIC FUNCTION PANEL 2020-07-18 [facility], [facility] ([id number]) (ALB,T.PRO,BILI 08:07:00 [facility] T,BU/BC,ALT,AST,ALK PHOS) IRON PANEL 2020-07-18 [facility], [facility] xas 08:07:00 [facility] GALV/CLC ONLY - URINE DRUG 2020-07-18 [facility] (IMMUNOASSAY) - 08:07:00 [facility] COMPREHENSIVE DRUG SCREEN HEPATITIS B SURFACE ANTIBODY 2020-07-18 [facility], [facility] 08:07:00 [facility] HBC ANTIBODY (IGM & IGG) 2020-07-18 [facility] 08:07:00 [facility] ACUTE CARE ARTERIAL BLOOD 2020-07-18 [facility], [facility] GAS 07:47:00 [facility] GAMMA GLUTAMYLTRANSFERASE 2020-07-18 [facility], [facility] 07:04:00 Medical Branch MAGNESIUM 2020-07-18 [facility] 07:04:00 [facility] VITAMIN B12, LEVEL 2020-07-18 [facility], [facility] 07:04:00 [facility] THYROID STIMULATING HORMONE 2020-07-18 [facility], [facility] 07:04:00 Medical Branch BASIC METABOLIC PANEL (NA, 2020-07-18 Ori [facility] K, CL, CO2, GLUCOSE, BUN, 07:04:00 [facility] CREATININE, CA) ETHANOL 2020-07-18 Arroyo, [facility] xa 07:04:00 [facility] HEPATITIS B SURFACE ANTIGEN 2020-07-18 Arroyo, [facility] 07:04:00 [facility] HCV ANTIBODY 2020-07-18 Arroyo, [facility] xas 07:04:00 [facility] HCV BY PCR 2020-07-18 Arroyo, [facility] xa 07:04:00 [facility] URINALYSIS 2020-07-18 Arroyo, [facility] xa 06:24:00 [facility] URINE CULTURE 2020-07-18 Arroyo, [facility] 06:24:00 [facility] CREATININE, URINE RANDOM 2020-07-18 [facility], [facility] 06:24:00 [facility] UREA NITROGEN, URINE RANDOM 2020-07-18 [facility], [facility] 06:24:00 [facility] SODIUM, URINE RANDOM 2020-07-18 [facility], [facility] 06:24:00 [facility] BLOOD CULTURE SCREEN 2020-07-18 [facility] 06:17:00 [facility] LACTIC ACID WHOLE BLOOD 2020-07-18 Ori [facility] 05:46:00 [facility] PHOSPHORUS 2020-07-18 [facility] 05:42[facility]00 [facility] HEPATIC FUNCTION PANEL 2020-07-[address] [facility] ([id number]) (ALB,T.PRO,BILI 05:42:00 [facility] T,BU/BC,ALT,AST,ALK PHOS) CBC WITH DIFF 2020-07-18 [facility] 05:42:00 [facility] PROTHROMBIN TIME / INR 2020-07-[address] [facility] 05:42:00 [facility] ACTIVATED PARTIAL THRMPLAS 2020-07-18 [facility] 05:42:00 [facility] COVID-19 (PCR MOLECULAR 2020-07-18 [facility], [facility] TESTING) 05:35:00 [facility] HOSPITAL ADMISSION 2020-07-17 Doctor Unassigned, [facility] 05:01:00 [place] [facility] Encounters Start End Encounter Admission Attending Care Care Encounter Source Date/Time Date/Time Type Type Clinicians Facility Department ID 2021-08-10 Inpatient [facility] [id number] [facility] 06:49:07 [facility] 2020-07-17 Inpatient Santiago [facility] [id number] [facility] 23:42:00 LIZETTE [facility] 2021-11-28 2021-11-28 Outpatient [facility] [id number] [facility] 08:00:00 08:00:00 0[facility] 2021-10-13 2021-10-13 Outpatient [facility] [id number] [facility] 12:02:00 12:02:00 1209 [facility] 2020-08-31 2020-08-31 Orders Doctor COSME [id number] [facility] 00:00:00 00:00:00 Only Unassigned, STANLEY [id number] ity of [place] [facility] 4.2.7.2.686 L[place] as [id number] [address] 2020-08-31 2020-08-31 Orders Doctor AGUIAR [id number] 00:00:00 00:00:00 Only Unassigned, STANLEY [id number] [place] [facility] 4.2.7.2.686 [id number] [facility] 2020-08-06 2020-08-06 Transition Teagan Summers [id number] [facility] 00:00:00 00:00:00 of Care Kayla Schmitz [id number] [place] [phone] [address] Branch 2020-08-06 2020-08-06 Transition Teagan Summers [id number] 00:00:00 00:00:00 of Care Kayla Schmitz [id number] [place] 4.2.7.2.686 [id number] [facility] 2020-07-17 2020-08-05 [facility] Chalino Ceja 1.2.84 0.114 [id number] [facility] 23:42:00 15:37:00 Encounter Elliott Teixeiray [id number] ity of [facility] 4.2.7.2.6 [address] [place] [id number] [facility] Behzad Watson 093 Branch 2020-07-17 2020-08-05 [facility] Chalino Ceja 1.2.84 0.114 [id number] 23:42:00 15:37:00 Encounter Elliott Teixeira [id number] [facility] 4.2.7.2.6 86 [facility] [id number] [place] [address] Results Test Description Test Time Test Comments Results Result Comments Source HISTOPLASMA ANTIGEN QUANTITATIVE BY EIA, SERUM 2020-08-04 19 :51:00 Test Item Value Reference Range Interpretation Comme nts HISTOAG S INT (test code Not Detected Not Detected INT ERPRETIVE INFORMATION: = 01470-3) Histoplasma Ant igen Quantitative by EIA, Serum T he quantitative range of this a ssay is 0.19-60.0 ng/mL. Antigen concentrations less than 0.19 ng/mL or greater than 60.0 ng/mL fall outside the linear range of the assay and cannot be accur ately quantified. This EIA test s hould be used in conjunction wit h other diagnostic proc edures, including microbiological culture, histological ex amination of biopsy samples, serology and/or radiographic ev idence, to aid in the diagnosis o f histoplasmosis. Cross-reactivi ty with Blastomyces dangelo matiditis, Coccidioides im mitis, and possibly Talaro myces marneffei have been obser uche with this EIA. Other clin ically and geographically relevant endemic mycoses should be considered in the case of a p ositive test result. Test d eveloped and characteristics determined by [facility]. See Compliance Stat ement B: [employer]/CS HISTOAG S EIA (test code Not Detected Not Detected Per formed By: [facility] = 6428-7) [place] [id number] Director: Skye Mcdonnell MD [facility]. Sendout- (1,3)-Psuo-B-Bejghu (Fungitell) [id number] 14:28:00 Test Item Value Reference Range Interpretation Comments Miscellaneous Test (test See scanned report code = 4487106172) Performing Lab (test code ARUP = 8769991283) [facility] BY [id number] 17:18:00 Test Item Value Reference Range Interpretation Comments Specimen Tested Plasma (test code = 8486526895) CMV PCR - IU/mL See (test code = Comment/Narrat 61398-0) daniela CMV PCR (test code = Detected, not See Comment A 7092754786) Quantifiable IU/mL ASHLEY (test code = Test Information: ASHLEY) Cytomegalovirus (CMV) DNA, Quantitation. The quantitative range of this assay is 2.5 - 6.5 log IU/mL (300 - 3,000,000 IU/mL) ?or 2.7 - 6.7 log copies/mL (516 - 5,160,000 copies/mL). ?One IU/mL of CMV DNA is approximately 1.72 copies/mL. A negative result (less than 2.5 log IU/mL or less than 300 IU/mL) does not rule out the presence of PCR inhibitors in the patient specimen or CMV DNA concentrations below the level of detection by the assay. Inhibition may also lead to underestimation of viral quantitation. The limit of quantification for this DNA assay is 2.5 log IU/mL (300 IU/mL) or 2.7 log copies/mL (516 copies/mL). ?If the assay DID NOT DETECT the virus, the test result will be reported as "<2.5 log IU/mL (<300 IU/mL)" and "<2.7 log copies/mL (<516 copies/mL)." ?If the assay DETECTED the presence of the virus but was not able to accurately quantify the number of copies, the test result will be reported as "Detected, not quantifiable." ?This is a laboratory-developed test using a truck driver heavy labeled ASR (Analyte Specific Reagent) as the reagent providing the specificity of the assay. ?This test was developed and its performance characteristics determined by [facility] Clinical Microbiology Laboratory. It has not been cleared or approved by the U.S. Food and Drug Administration; however, the FDA has determined that such clearance or approval is not necessary. This test is used for clinical purposes. It should not be regarded as investigational or for research. This laboratory is certified under the Clinical Laboratory Improvement Amendments of 1988 (CLIA-88) as qualified to perform high complexity clinical laboratory testing. Lab Interpretation Abnormal (test code = 92866-8) [facility] HospitalCYTOMEGALOVIRUS ANTIBODY [id number] 16:41:00 Test Item Value Reference Range Interpretation Comments CMV IGG (test code = Positive Negative 3160250642) ASHLEY (test code = Positive - Indicates ASHLEY) current or past CMV infection.Negative - Indicates no serologic evidence of CMV infection. Cannot exclude acute CMV infection.Equivocal - A second specimen should be sent for repeat testing. [facility] Hospital[facility]comycin Trough Level - Draw immediately prior to the 4TH dose, but, no more than 60 minutes before the 4TH dose. 2020-08-02 16:37:00 Test Item Value Reference Range Interpretation Comments VANCO TROUGH (test code 21.7 ug/mL 10-20 H = 7088513799) ASHLEY (test code = ASHLEY) Toxic Range: ?>20 ug/mL 15-20 ug/mL is recommended for severe infection or when Vancomycin ALTAF is greater than or equal to 2. Lab Interpretation (test Abnormal code = 17338-4) [facility] HospitalCB WITH [id number] 10:57:00 Test Item Value Reference Range Interpretation Comments WBC (test code = See_Comment [Automated 6390-2) message] The sy stem which generated this result transmitted reference range : 4.20 - 10.70 10*3/?L. The reference range was not used to interpret this result as normal/abnormal . RBC (test code = See_Comment L [Automated 769-8) message] The sy stem which generated this result transmitted reference range : 4.26 - 5.52 10*6/?L. The reference range was not used to interpret this result as normal/abnormal . HGB (test code = 9.6 g/dL 12.2-16.4 L 718-7) HCT (test code = 29.4 % 38.4-49.3 L 4544-3) MCV (test code = 97.4 fL 81.7-95.6 H 787-2) MCH (test code = 31.8 pg 26.1-32.7 785-6) MCHC (test code = 32.7 g/dL 31.2-35 786-4) RDW-SD (test code = 82.2 fL 38.5-51.6 H 03155-9) RDW-CV (test code = 22.3 % 12.1-15.4 H 788-0) PLT (test code = See_Comment H [Automated 777-3) message] The sy stem which generated this result transmitted reference range : 150 - 328 10*3/ ?L. The reference r tyler was not used to interpret this result as normal/abnormal . MPV (test code = 10.2 fL 9.8-13 60089-6) NRBC/100 WBC (test See_Comment [Automat ed code = 7883396240) message] The system which generated this result transmitted reference range : 0.0 - 10.0 /100 WBCs. The refer ence range was not u sed to interpret th is result as normal/abnormal . NRBC x10^3 (test code <0.01 See_Comment [Auto mated = 1014726037) message] The s ystem which generated this result transmitted reference range : 10*3/?L. The reference range was not used to interpret this result as normal/abnormal . GRAN MAT (NEUT) % 70.2 % (test code = 770-8) IMM GRAN % (test code 0.90 % = 3795453368) LYMPH % (test code = 16.7 % 736-9) MONO % (test code = 7.3 % 5905-5) EOS % (test code = 4.2 % 713-8) BASO % (test code = 0.7 % 706-2) GRAN MAT x10^3(ANC) 7.28 10*3/uL 1.99-6.95 H (test code = 4307887386) IMM GRAN x10^3 (test 0.09 10*3/uL 0-0.06 H code = 7444099433) LYMPH x10^3 (test code 1.73 10*3/uL 1.09-3.23 = 731-0) MONO x10^3 (test code 0.76 10*3/uL 0.36-1.02 = 742-7) EOS x10^3 (test code = 0.44 10*3/uL 0.06-0.53 711-2) BASO x10^3 (test code 0.07 10*3/uL 0.01-0.09 = 704-7) Lab Interpretation Abnormal (test code = 09592-4) [facility] HospitalPHOSPHORUS2020-09-28 00:54:00 Test Item Value Reference Range Interpretation Comments PHOSPHORUS (test code = 0348977860) 2.8 mg/dL 2.5-5 Lab Interpretation (test code = Normal 37360-9) [facility] Hospital[facility]IUM2020-09-27 18:19:00 Test Item Value Reference Range Interpretation Comments MAGNESIUM (test code = 0655019917) 2.0 mg/dL 1.7-2.4 Lab Interpretation (test code = Normal 12178-7) [facility] HospitalBLOOD CULTURE [id number] 18:02:00 Test Item Value Reference Range Interpretation Comments Blood Culture-Aerobic No organisms No growth Previo us (test code = 25219-5) isolated prelim inary verified result was Culture In Progress on 07/27/2020 at 16 02 CDTPrevious preliminary verified result was No growth a t 24 hours on 07/28/2020 at 13 CDTPrevious preliminary verified result was No growth a t 48 hours on 07/29/2020 at 13 02 CDTPrevious preliminary verified result was No growth a t 72 hours on 07/30/2020 at 13 01 CDT Blood No organisms No growth Previous Culture-Anaerobic isolated preliminar y (test code = 30533-5) verifi ed result was Culture In Progress on 07/27/2020 at 16 02 CDTPrevious preliminary verified result was No growth a t 24 hours on 07/28/2020 at 13 01 CDTPrevious preliminary verified result was No growth a t 48 hours on 07/29/2020 at 13 02 CDTPrevious preliminary verified result was No growth a t 72 hours on 07/30/2020 at 13 01 CDT Lab Interpretation Normal (test code = 18517-0) [facility] CULTURE [id number] 18:02:00 Test Item Value Reference Range Interpretation Comments Blood Culture-Aerobic No organisms No growth Previo us (test code = 07370-1) isolated prelim inary verified result was Culture In Progress on 07/27/2020 at 16 01 CDTPrevious preliminary verified result was No growth a t 24 hours on 07/28/2020 at 13 01 CDTPrevious preliminary verified result was No growth a t 48 hours on 07/29/2020 at 13 02 CDTPrevious preliminary verified result was No growth a t 72 hours on 07/30/2020 at 13 01 CDT Blood No organisms No growth Previous Culture-Anaerobic isolated preliminar y (test code = 28070-8) verifi ed result was Culture In Progress on 07/27/2020 at 16 01 CDTPrevious preliminary verified result was No growth a t 24 hours on 07/28/2020 at 13 01 CDTPrevious preliminary verified result was No growth a t 48 hours on 07/29/2020 at 13 02 CDTPrevious preliminary verified result was No growth a t 72 hours on 07/30/2020 at 13 01 CDT Lab Interpretation Normal (test code = 29238-4) [facility] WITH [id number] 11:13:00 Test Item Value Reference Range Interpretation Comments WBC (test code = See_Comment H [Automated 6690-2) message] The sy stem which generated this result transmitted reference range : 4.20 - 10.70 10*3/?L. The reference range was not used to interpret this result as normal/abnormal . RBC (test code = See_Comment L [Automated 789-8) message] The sy stem which generated this result transmitted reference range : 4.26 - 5.52 10*6/?L. The reference range was not used to interpret this result as normal/abnormal . HGB (test code = 7.3 g/dL 12.2-16.4 L 718-7) HCT (test code = 22.2 % 38.4-49.3 L 4544-3) MCV (test code = 96.5 fL 81.7-95.6 H 787-2) MCH (test code = 31.7 pg 26.1-32.7 785-6) MCHC (test code = 32.9 g/dL 31.2-35 786-4) RDW-SD (test code = 84.2 fL 38.5-51.6 H 35858-1) RDW-CV (test code = 23.1 % 12.1-15.4 H 788-0) PLT (test code = See_Comment H [Automated 777-3) message] The sy stem which generated this result transmitted reference range : 150 - 328 10*3/ ?L. The reference r tyler was not used to interpret this result as normal/abnormal . MPV (test code = 10.3 fL 9.8-13 91345-2) NRBC/100 WBC (test See_Comment [Automat ed code = 5666399037) message] The system which generated this result transmitted reference range : 0.0 - 10.0 /100 WBCs. The refer ence range was not u sed to interpret th is result as normal/abnormal . NRBC x10^3 (test code <0.01 See_Comment [Auto mated = 3092598293) message] The s ystem which generated this result transmitted reference range : 10*3/?L. The reference range was not used to interpret this result as normal/abnormal . GRAN MAT (NEUT) % 73.2 % (test code = 770-8) IMM GRAN % (test code 0.90 % = 1726222152) LYMPH % (test code = 13.5 % 736-9) MONO % (test code = 8.1 % 5905-5) EOS % (test code = 3.8 % 713-8) BASO % (test code = 0.5 % 706-2) GRAN MAT x10^3(ANC) 8.37 10*3/uL 1.99-6.95 H (test code = 2159755481) IMM GRAN x10^3 (test 0.10 10*3/uL 0-0.06 H code = 4313549500) LYMPH x10^3 (test code 1.55 10*3/uL 1.09-3.23 = 731-0) MONO x10^3 (test code 0.93 10*3/uL 0.36-1.02 = 742-7) EOS x10^3 (test code = 0.44 10*3/uL 0.06-0.53 711-2) BASO x10^3 (test code 0.06 10*3/uL 0.01-0.09 = 704-7) Lab Interpretation Abnormal (test code = 00620-0) [facility]04[facility]00 Test Item Value Reference Range Interpretation Comments MAGNESIUM (test code = 7056196104) 1.5 mg/dL 1.7-2.4 L Lab Interpretation (test code = Abnormal 93288-2) [facility] HospitalCT THORAX W [id number] 20:12:28 1. Diffuse bilateral central and peripheral groundglass airspaceopacifications and left lower lobe consolidations with bilateral pleuraleffusions. Findings are concerning for multifocal/atypical infectiousetiology and are commonly reported imaging features of COVID-19 pneumonia.2. Consolidations in the left lower lobe demonstrate mildly spiculatedmargins with surrounding interstitial thickening, likely infectious inetiology in a combination is pleural thickening and atelectasis howeverunderlying malignancy cannot be ruled out. Recommend follow- up CT of thechest in 6-8 weeks.3. Hepatomegaly and small perihepatic and perisplenic ascites. Disclaimer: CT may be negative in the early stages of COVID-19. Generally,the findings on chest imaging in COVID-19 are not specific, and overlapwith other infections, including influenza, H1N1, SARS and MERS.Accordingto the Centers for Disease Control (CDC) andrecent statement of theAmerican College of Radiology, viral testing remains the only specificmethod of diagnosis. Confirmation with the viral test is required, even ifradiologic findings are suggestiveof COVID-[address]. Findings above including imaging features concerning formultifocal/atypical infectious etiology with commonly reported imagingfeatures of COVID-19 pneumonia were discussed [address] Harry Macias at5:12 PM on 07/30/2020. Preliminary Report Dictated by Resident: Duane Pizano MD., have reviewed this study and agree with the abovereport.PROCEDURE: CT CHEST WITH CONTRAST CLINICAL INDICATION: Shortness of breath, hospital acquired pneumonia COMPARISON: XR CHEST 1 VW, 07/29/2020 TECHNIQUE: ?Helical CT was performed of the chest(lung apices to bases)using 75 mL Omnipaque intravenous contrast. Images were reconstructed at1.25 mm slice thickness. MIP and coronal & sagittal MPR images weregenerated and reviewed. (DFOV = 40 cm) FINDINGS: Lower neck/thyroid: Unremarkable. Lungs: Diffuse bilateral central and peripheral groundglass airspaceopacifications are visualized. Mild associated interstitial thickening isvisualized predominantly in the bilateral upper lobes. Consolidations inthe anterior medial and lateral segments ofthe left lower lobe are noted(2:36, 82). Bibasilar compression atelectasis secondary to small pleuraleffusions are noted. Multiple calcified granulomas measuring up to 9 mm arevisualized in the right lo wer lobe (2:86), right upper lobe (2:47), andleft lower lobe (2:80). Central airway: Patent with trace amount of tracheal secretions. Pleura: No pneumothorax is visualized. Small bilateral pleural effusionsmeasuring simple fluid attenuation are noted. Thoracic aorta and great vessels: ?The ascending aorta is mildly ectaticmeasuring up to 3.8 cm. Mild atherosclerotic calcifications of the aorticarch and left subclavian artery are noted. Pulmonary arteries: Unremarkable. Heart and pericardium: Mild tomoderate multivessel coronary arterialcalcification. Left atrial enlargement is noted. No pericardial effusion. Lymph nodes: Prominent but nonenlarged subcentimeter scattered mediastinallymph nodes and calcified left hilar lymph nodes measuring up to 0.8 cm. Thoracic spine and chest wall: No suspicious osseous lesion. Unchangedappearance of compression deformities of the T7 and T10 vertebral bodies.Mild spondylotic changes of the thoracic spine are noted. Cysticdegenerative changes of the left humerus greater tuberosity Other Lines/Tubes/Devices/Hardware: None Visualized upper abdomen: Hepatomegaly measuring 19.8 cm in AP dimensionwith small volume perihepatic and perisplenic ascites. Unchanged appearanceof punctate radiopaque densities in the splenic parenchyma, may representcalcifications versus metallic foreign bodies. Punctate radiodensities arealso noted in the pancreatic tail. [facility], Radiant Results Inft User - 07/31/2020 3:14 PM CDTPROCEDURE: CT CHEST WITHCONTRASTCLINICAL INDICATION: Shortness of breath, hospital acquired pneumoniaCOMPARISON: XR CHEST 1 VW, 07/29/2020TECHNIQUE: Helical CT was performed of the chest (lung apices to bases)using 75 mL Omnip aque intravenous contrast. Images were reconstructed at1.25 mm slice thickness. MIP and coronal & sagittal MPR images weregenerated and reviewed. (DFOV = 40 cm)FINDINGS:Lower neck/thyroid: Unremarkable.Lungs: Diffuse bilateral central and peripheral groundglass airspaceopacifications are visualized. Mild associated interstitial thickening isvisualized predominantly in the bilateral upper lobes. Consolidations inthe anterior medial and lateral segments of the left lower lobe are noted(2:36, 82). Bibasilar compression atelectasis secondary to small pleuraleffusions are noted. Multiple calcified granulomas measuring up to 9 mm arevisualized in the right lower lobe (2:86), right upper lobe (2:47), andleft lower lobe (2:80).Central airway: Patent with trace amount of tracheal secretions.Pleura: Nopneumothorax is visualized. Small bilateral pleural effusionsmeasuring simple fluid attenuation are noted.Thoracic aorta and great vessels: The ascending aorta is mildly ectaticmeasuring up to 3.8 cm.Mild atherosclerotic calcifications of the aorticarch and left subclavian artery are noted.Pulmonaryarteries: Unremarkable.Heart and pericardium: Mild to moderate multivessel coronary arterialcalcification. Left atrial enlargement is noted. No pericardial effusion. Lymph nodes: Prominent but nonenlarged subcentimeter scattered mediastinallymph nodes and calcified left hilar lymph nodes measuring up to 0.8 cm.Thoracic spine and chest wall: No suspicious osseous lesion. Unchangedappearance of compression deformities of the T7 and T10 vertebral bodies.Mild spondylotic changes of the thoracic spine are noted. Cysticdegenerative changes of the left humerus greater tuberosityOther Lines/Tubes/Devices/Hardware: NoneVisualized upper abdomen: Hepatomegaly measuring 19.8 cm in AP dimensionwith small volume perihepatic and perisplenic ascites. Unchanged appearanceof punctate radiopaque densities in the splenic parenchyma, may representcalcifications versus metallic foreign bodies. Punctate radiodensitiesarealso noted in the pancreatic tail. IMPRESSION1. Diffuse bilateral central and peripheral groundglass airspaceopacifications and left lower lobe consolidations with bilateral pleuraleffusions. Findings are concerning for multifocal/atypical infectiousetiology and are commonly reported imaging features of COVID-19 pneumonia.2. Consolidations in the left lower lobe demonstrate mildly spiculatedmargins with surrounding interstitial thickening, likely infectious inetiology in a combination is pleural thickening and atelectasis howeverunderlying malignancy cannot be ruledout. Recommend follow-up CT of thechest in 6-8 weeks.3. Hepatomegaly and small perihepatic and perisplenic ascites.Disclaimer: CT may be negative in the early stages of COVID-19. Generally,the findingson chest imaging in COVID-19 are not specific, and overlapwith other infections, including influenza, H1N1, SARS and MERS.Accordingto the Centers for Disease Control (CDC) and recent statement of theAmerican College of Radiology, viral testing remains the only specificmethod of diagnosis. Confirmationwith the viral test is required, even ifradiologic findings are suggestive of COVID-[address]Findings above including imaging features concerning formultifocal/atypical infectious etiology with jh moseley reported imagingfeatures of COVID-[address] Harry Macias at5:12PM on 07/30/2020. Preliminary Report Dictated by Resident: Ricco Mcclain, Duane Duffy MD., have reviewed this study and agree with the abovereport.[facility] HospitalVancomycin Trough Level - Draw immediately prior to the NEXT dose, but, no more than 60 minutes before the NEXT dose.2020-07-31 17:14:00 Test Item Value Reference Range Interpretation Comments VANCO TROUGH (test code 18.6 ug/mL 10-20 = 5865924427) ASHLEY (test code = ASHLEY) Toxic Range: ?>20 ug/mL 15-20 ug/mL is recommended for severe infection or when Vancomycin ALTAF is greater than or equal to 2. Lab Interpretation (test Normal code = 52145-1) [facility] HospitalBASIC METABOLIC PANEL (NA, K, CL, CO2, GLUCOSE, BUN, CREATININE, CA)2020-07-31 16:44:00 Test Item Value Reference Range Interpretation Comments NA (test code = 136 mmol/L 135-145 2569490227) K (test code = 3.2 mmol/L 3.5-5 L 1522237505) CL (test code = 108 mmol/L 98-108 1208003696) CO2 TOTAL (test code = 22 mmol/L 23-31 L 1341110130) AGAP (test code = 2-16 0440628495) BUN (test code = 11 mg/dL 7-23 0590239264) GLUCOSE (test code = 121 mg/dL 70-110 H 5374458740) CREATININE (test code = 0.68 mg/dL 0.6-1.25 4266995634) CALCIUM (test code = 7.2 mg/dL 8.6-10.6 L 5069167104) eGFR Calculation mL/min/1.73m2 (Non-) (test code = 4601822954) eGFR Calculation mL/min/1.73m2 () (test code = 3187565193) ASHLEY (test code = ASHLEY) Association of Glomerular Filtration Rate (GFR) and Staging of Kidney Disease* + --+ --+ ------+| GFR (mL/min/1.73 m2) ?| With Kidney Damage ?| ?Without Kidney Damage+ --------+ --------+ +| ?>90 ?| ?Stage one ?| ? Normal ?+ ---+ ---+ -------+| ?60-89 ?| ?Stage two ?| ? Decreased GFR ? + --+ --+ ------+| ?30-59 ?| ?Stage three ?| ? Stage three ? + --+ --+ ------+| ?15-29 ?| ?Stage four ? | ? Stage four ?+ ---+ ---+ -------+| ?<15 (or dialysis) ? ?| ?Stage five ? | ? Stage five ?+ ---+ ---+ -------+ *Each stage assumes the associated GFR level has been in effect for at least three months. ?Stages 1 to 5, with or without kidney disease, indicate chronic kidney disease. Notes: Determination of stages one and two (with eGFR >59mL/min/1.73 m2) requires estimation of kidney damage for at least three months as defined by structural or functional abnormalities of the kidney, manifested by either:Pathological abnormalities or Markers of kidney damage (including abnormalities in the composition of the blood or urine or abnormalities in imaging tests). Lab Interpretation Abnormal (test code = 29271-8) [facility] HospitalRESPIRATORY PANEL BY [id number] 14:12:00 Test Item Value Reference Range Interpretation Comments Adenovirus (test code = Negative Negative 72912-7) Coronavirus HKU1 (test Negative Negative code = 93234-7) Coronavirus NL63 (test Negative Negative code = 21726-1) Coronavirus 229E (test Negative Negative code = 66025-4) Coronavirus OC43 (test Negative Negative code = 66783-3) Human Metapneumovirus Negative Negative (test code = 11156-2) Human Negative Negative Rhinovirus/Enterovirus (test code = 01182-5) Influenza A (test code = Negative Negative 56359-6) Influenza B (test code = Negative Negative 91065-8) Parainfluenza Virus 1 Negative Negative (test code = 93586-7) Parainfluenza Virus 2 Negative Negative (test code = 72451-0) Parainfluenza Virus 3 Negative Negative (test code = 58370-7) Parainfluenza Virus 4 Negative Negative (test code = 48502-2) Respiratory Syncytial Negative Negative Virus (test code = 54345-1) Bordetella parapertussis Negative Negative (test code = 28814-3) Bordetella pertussis Negative Negative (test code = 90550-9) Chlamydia pneumoniae Negative Negative (test code = 42871-3) Mycoplasma pneumoniae Negative Negative (test code = 81047-0) ASHLEY (test code = ASHLEY) Negative:A negative result does not rule-out infection. ?This assay does not test for all potential infectious agents. ? Positive:A positive test result does not necessarily indicate the presence of viable organism. ? Lab Interpretation (test Normal code = 85996-6) [facility] HospitalSARS-COV-2 [id number] 12:36:00 Test Item Value Reference Range Interpretation Comments CoV-2 IgG (test code Negative Negative Negativ e result = 77556-7) does not rule o ut acute SARS-CoV- 2 infection. Clinical correlation as well as molecul ar diagnostic test are recommended to rule out acu te infection if clinically indicated. ASHLEY (test code = ASHLEY) This test has been approved by FDA for emergency use. Lab Interpretation Normal (test code = 56476-0) [facility] HospitalCBC WITH [id number] 11:31:00 Test Item Value Reference Range Interpretation Comments WBC (test code = See_Comment H [Automated 6690-2) message] The system which generated this result transmit saad reference range : 4.20 - 10.70 10*3/?L. The reference range was not used to interpret this result as normal/abnormal . RBC (test code = See_Comment L [Automated 789-8) message] The system which generated this result transmit saad reference range : 4.26 - 5.52 10*6/?L. The reference range was not used to interpret this result as normal/abnormal . HGB (test code = 7.5 g/dL 12.2-16.4 L 718-7) HCT (test code = 23.0 % 38.4-49.3 L 4544-3) MCV (test code = 97.9 fL 81.7-95.6 H 787-2) MCH (test code = 31.9 pg 26.1-32.7 785-6) MCHC (test code = 32.6 g/dL 31.2-35 786-4) RDW-SD (test code = 88.8 fL 38.5-51.6 H 62102-5) RDW-CV (test code = 24.3 % 12.1-15.4 H 788-0) PLT (test code = See_Comment H [Automated 777-3) message] The system which generated this result transmit saad reference range : 150 - 328 10*3/ ?L. The reference range was not u sed to interpret th is result as normal/abnormal . MPV (test code = 10.3 fL 9.8-13 38090-9) NRBC/100 WBC (test See_Comment [Automat ed code = 0579405328) message] The system which generated this result transmit saad reference range : 0.0 - 10.0 /100 WBCs. The reference range was not used to interpret this result as normal/abnormal . NRBC x10^3 (test code <0.01 See_Comment [Auto mated = 8795747909) message] The system which generated this result transmit saad reference range : 10*3/?L. The reference range was not used to interpret this result as normal/abnormal . GRAN MAT (NEUT) % 78.5 % (test code = 770-8) IMM GRAN % (test code 1.10 % = 7959651828) LYMPH % (test code = 11.1 % 736-9) MONO % (test code = 6.2 % 5905-5) EOS % (test code = 2.7 % 713-8) BASO % (test code = 0.4 % 706-2) GRAN MAT x10^3(ANC) 11.35 10*3/uL 1.99-6.95 H (test code = 1265439381) IMM GRAN x10^3 (test 0.16 10*3/uL 0-0.06 H code = 0283026571) LYMPH x10^3 (test code 1.60 10*3/uL 1.09-3.23 = 731-0) MONO x10^3 (test code 0.90 10*3/uL 0.36-1.02 = 742-7) EOS x10^3 (test code = 0.39 10*3/uL 0.06-0.53 711-2) BASO x10^3 (test code 0.06 10*3/uL 0.01-0.09 = 704-7) Lab Interpretation Abnormal (test code = 68209-5) [facility] HospitalCORONAVIRUS COVID-19 [id number] 07:38:00 Test Item Value Reference Range Interpretation Comments SARS-CoV-2 PCR (test Not Detected Not Detected code = 74512-2) ASHLEY (test code = ASHLEY) [employer] SARS-CoV-2 Assay is a nucleic acid amplification test intended for the qualitative detection of RNA from SARS-CoV-2 from nasopharyngeal ([employer] TECHNICIAN) specimens. ?It is used under Emergency Use Authorization (EUA) by FDA. A positive result is indicative of the presence of SARS-CoV-2 RNA. ?Clinical correlation with patient history and other diagnostic information is necessary to determine patient infection status. A negative (Not Detected) result does not preclude SARS-CoV-2 infection. ?Clinical correlation with patient history and other diagnostic information should be used in patient management decisions. Invalid: Unable to generate a valid test result on this specimen. ?Please submit a new specimen for repeat testing if clinically indicated. Lab Interpretation Normal (test code = 26304-2) [facility] HospitalCOVID-19 (ID NOW RAPID TESTING)2020-07-31 03:03:00 Test Item Value Reference Range Interpretation Comments SARS-CoV-2 Rapid ID NOW Not Detected Not Detected (test code = 93392-1) ASHLEY (test code = ASHLEY) ID NOW COVID-19 Assay is an isothermal nucleic acid amplification test intended for the qualitative detection of nucleic acid from SARS-CoV-2 viral RNA in nasopharyngeal (LE[employer] PA[employer] TECHNICIAN) specimens. It is used under Emergency Use Authorization (EUA) by FDA. The limit of detection (LOD) of the assay is 125 Genome Equivalents/mL. A positive result is indicative of the presence of SARS-CoV-2 RNA. ?Clinical correlation with patient history and other diagnostic information is necessary to determine patient infection status. A negative (Not Detected) result does not preclude SARS-CoV-2 infection. In patients with clinical symptoms and other tests that are consistent with SARS-CoV-2 infection, negative results should be treated as presumptive negative and a new specimen should be tested with alternative PCR molecular test. Invalid: Please collect a new specimen for repeat patient testing if clinically indicated. Lab Interpretation Normal (test code = 01500-8) [facility] HospitalSPUTUM [id number] 17:19:00 Test Item Value Reference Range Interpretation Comments SPUTUM CULTURE 2+ Respiratory jerrell: (test code = 622-1) Commensal upper respiratory microorganisms only. Gram stain (test Occasional (Rare) code = 664-3) Epithelial cells ASHLEY (test code = Bacterial pathogens ASHLEY) associated with lower respiratory infections were not identified, which include Pseudomonas aeruginosa and Staphylococcus aureus (MRSA or MSSA). [facility] HospitalXR CHEST 1 [id number] 13:16:00 Interval mild worsening of the previously noted interstitial opacities. Preliminary Report Dictatedby Resident: Elvin Correa MD., have reviewed this study and agree with theabove report.PROCEDURE: XR CHEST 1 VW CLINICAL INDICATION: worsening shortness ofbreath COMPARISON: Chest x-ray dated 07/27/2020. FINDINGS: In comparison to the chest x-ray dated 07/27/2020, there is interval mildworsening of the previously noted hazy interstitial opacities. No pleuraleffusion or pneumothorax is seen. The heart is normal in size. No acute bony abnormality. [facility], Radiant Results Inft User - 07/30/2020 8:17 AM CDTPROCEDURE: XR CHEST 1 VWCLINICAL INDICATION: worsening shortness of breath COMPARISON: Chest x-ray dated 07/27/2020.FINDINGS:In comparison to the chest x-ray dated 07/27/2020, there is interval mildworsening of the previously noted hazy interstitial opacities. No pleuraleffusion or pneumothorax is seen. The heart is normal in size.No acute bony abnormality.IMPRESSIONInterval mild worsening of the previously noted interstitial opacities.Preliminary Report Dictated by Resident: Venita Petersen, Elvin Alicea MD., have reviewed this study and agree with theabove report.[facility] WITH [id number] 09:36:00 Test Item Value Reference Range Interpretation Comments WBC (test code = See_Comment H [Automated 6690-2) message] The system which generated this result transmit saad reference range : 4.20 - 10.70 10*3/?L. The reference range was not used to interpret this result as normal/abnormal . RBC (test code = See_Comment L [Automated 789-8) message] The system which generated this result transmit saad reference range : 4.26 - 5.52 10*6/?L. The reference range was not used to interpret this result as normal/abnormal . HGB (test code = 6.6 g/dL 12.2-16.4 L 718-7) HCT (test code = 19.6 % 38.4-49.3 L 4544-3) MCV (test code = 96.1 fL 81.7-95.6 H 787-2) MCH (test code = 32.4 pg 26.1-32.7 785-6) MCHC (test code = 33.7 g/dL 31.2-35 786-4) RDW-SD (test code = 89.9 fL 38.5-51.6 H 70595-9) RDW-CV (test code = 24.9 % 12.1-15.4 H 788-0) PLT (test code = See_Comment H [Automated 777-3) message] The system which generated this result transmit saad reference range : 150 - 328 10*3/ ?L. The reference range was not u sed to interpret th is result as normal/abnormal . MPV (test code = 10.4 fL 9.8-13 01235-1) NRBC/100 WBC (test See_Comment [Automat ed code = 4930673698) message] The system which generated this result transmit saad reference range : 0.0 - 10.0 /100 WBCs. The reference range was not used to interpret this result as normal/abnormal . NRBC x10^3 (test code <0.01 See_Comment [Auto mated = 3948636737) message] The system which generated this result transmit saad reference range : 10*3/?L. The reference range was not used to interpret this result as normal/abnormal . GRAN MAT (NEUT) % 80.8 % (test code = 770-8) IMM GRAN % (test code 1.10 % = 6635244103) LYMPH % (test code = 9.8 % 736-9) MONO % (test code = 5.9 % 5905-5) EOS % (test code = 2.2 % 713-8) BASO % (test code = 0.2 % 706-2) GRAN MAT x10^3(ANC) 15.42 10*3/uL 1.99-6.95 H (test code = 0118778306) IMM GRAN x10^3 (test 0.20 10*3/uL 0-0.06 H code = 3549961153) LYMPH x10^3 (test code 1.86 10*3/uL 1.09-3.23 = 731-0) MONO x10^3 (test code 1.12 10*3/uL 0.36-1.02 H = 742-7) EOS x10^3 (test code = 0.41 10*3/uL 0.06-0.53 711-2) BASO x10^3 (test code 0.03 10*3/uL 0.01-0.09 = 704-7) Lab Interpretation Abnormal (test code = 22404-2) [facility] METABOLIC PANEL (NA, K, CL, CO2, GLUCOSE, BUN, CREATININE, CA)2020-07-30 05:03:00 Test Item Value Reference Range Interpretation Comments NA (test code = 133 mmol/L 135-145 L 3849604423) K (test code = 3.6 mmol/L 3.5-5 9998559339) CL (test code = 107 mmol/L 98-108 9750320192) CO2 TOTAL (test code = 20 mmol/L 23-31 L 6722762489) AGAP (test code = 2-16 2793247670) BUN (test code = 12 mg/dL 7-23 8745902120) GLUCOSE (test code = 115 mg/dL 70-110 H 8346483410) CREATININE (test code = 0.67 mg/dL 0.6-1.25 7122291888) CALCIUM (test code = 7.1 mg/dL 8.6-10.6 L 0073629801) eGFR Calculation mL/min/1.73m2 (Non-) (test code = 7805067494) eGFR Calculation mL/min/1.73m2 () (test code = 3404894778) ASHLEY (test code = ASHLEY) Association of Glomerular Filtration Rate (GFR) and Staging of Kidney Disease* + --+ --+ ------+| GFR (mL/min/1.73 m2) ?| With Kidney Damage ?| ?Without Kidney Damage+ --------+ --------+ +| ?>90 ?| ?Stage one ?| ? Normal ?+ ---+ ---+ -------+| ?60-89 ?| ?Stage two ?| ? Decreased GFR ? + --+ --+ ------+| ?30-59 ?| ?Stage three ?| ? Stage three ? + --+ --+ ------+| ?15-29 ?| ?Stage four ? | ? Stage four ?+ ---+ ---+ -------+| ?<15 (or dialysis) ? ?| ?Stage five ? | ? Stage five ?+ ---+ ---+ -------+ *Each stage assumes the associated GFR level has been in effect for at least three months. ?Stages 1 to 5, with or without kidney disease, indicate chronic kidney disease. Notes: Determination of stages one and two (with eGFR >59mL/min/1.73 m2) requires estimation of kidney damage for at least three months as defined by structural or functional abnormalities of the kidney, manifested by either:Pathological abnormalities or Markers of kidney damage (including abnormalities in the composition of the blood or urine or abnormalities in imaging tests). Lab Interpretation Abnormal (test code = 98635-2) [facility] HospitalMAGNESIUM2020-09-25 05:03:00 Test Item Value Reference Range Interpretation Comments MAGNESIUM (test code = 9744089005) 1.7 mg/dL 1.7-2.4 Lab Interpretation (test code = Normal 25292-5) [facility] WITH [id number] 04:06:00 Test Item Value Reference Range Interpretation Comments WBC (test code = See_Comment H [Automated 6690-2) message] The system which generated this result transmit saad reference range : 4.20 - 10.70 10*3/?L. The reference range was not used to interpret this result as normal/abnormal . RBC (test code = See_Comment L [Automated 789-8) message] The system which generated this result transmit saad reference range : 4.26 - 5.52 10*6/?L. The reference range was not used to interpret this result as normal/abnormal . HGB (test code = 7.3 g/dL 12.2-16.4 L 718-7) HCT (test code = 21.8 % 38.4-49.3 L 4544-3) MCV (test code = 97.3 fL 81.7-95.6 H 787-2) MCH (test code = 32.6 pg 26.1-32.7 785-6) MCHC (test code = 33.5 g/dL 31.2-35 786-4) RDW-SD (test code = 92.2 fL 38.5-51.6 H 75205-5) RDW-CV (test code = 25.2 % 12.1-15.4 H 788-0) PLT (test code = See_Comment H [Automated 777-3) message] The system which generated this result transmit saad reference range : 150 - 328 10*3/ ?L. The reference range was not u sed to interpret th is result as normal/abnormal . MPV (test code = 10.6 fL 9.8-13 76868-3) NRBC/100 WBC (test See_Comment [Automat ed code = 1361516128) message] The system which generated this result transmit saad reference range : 0.0 - 10.0 /100 WBCs. The reference range was not used to interpret this result as normal/abnormal . NRBC x10^3 (test code <0.01 See_Comment [Auto mated = 7337038038) message] The system which generated this result transmit saad reference range : 10*3/?L. The reference range was not used to interpret this result as normal/abnormal . GRAN MAT (NEUT) % 83.0 % (test code = 770-8) IMM GRAN % (test code 0.80 % = 5875981558) LYMPH % (test code = 8.7 % 736-9) MONO % (test code = 5.5 % 5905-5) EOS % (test code = 1.8 % 713-8) BASO % (test code = 0.2 % 706-2) GRAN MAT x10^3(ANC) 17.45 10*3/uL 1.99-6.95 H (test code = 8105715240) IMM GRAN x10^3 (test 0.17 10*3/uL 0-0.06 H code = 6382104757) LYMPH x10^3 (test code 1.84 10*3/uL 1.09-3.23 = 731-0) MONO x10^3 (test code 1.16 10*3/uL 0.36-1.02 H = 742-7) EOS x10^3 (test code = 0.38 10*3/uL 0.06-0.53 711-2) BASO x10^3 (test code 0.05 10*3/uL 0.01-0.09 = 704-7) TOXIC CHANGES (test Present A code = 803-7) Lab Interpretation Abnormal (test code = 76609-3) [facility] HospitalAC [facility] 20 + LACTIC [id number] 03:30:00 Test Item Value Reference Range Interpretation Comments PH (test code = 2) 7.35-7.45 PCO2 (test code = See_Comment L [Automat ed 0508148485) message] The sy stem which generated this result transmitted reference range : 35 - 45 mmHg. The reference range was not used to interpret this result as normal/abnormal . PO2 (test code = See_Comment LL [Automated 6427916594) message] The sy stem which generated this result transmitted reference range : 80 - 100 mmHg. The reference range was not used to interpret this result as normal/abnormal . HCO3 (test code = See_Comment L [Automate d [id number]) message] The sy stem which generated this result transmitted reference range : 22 - 26 mEq/L. The reference range was not used to interpret this result as normal/abnormal . BE (test code = See_Comment L [Automated [id number]) message] The sy stem which generated this result transmitted reference range : -3.0 - 3.0 mEq/ L. The reference r tyler was not used to interpret this result as normal/abnormal . THB (test code = 8.1 g/dL 13.5-18 LL 9873129319) %O2HB (test code = 67.4 % 94-99 L 6385941361) %COHB ART (test code = 1.3 % 0-1.5 3656006494) %METHB ART (test code = 0.3 % 0.4-1.5 L 2967221785) VOL%O2 ART (test code = 7.7 % 15-23 L 2256145669) NA (test code = 133 mmol/L 135-145 L 7863698647) K+ (test code = 3.5 mmol/L 3.5-5 1418320551) AC CA IONZ (test code = 4.20 mg/dL 4.5-5.3 L 4298020648) GLUCOSE (test code = 117 mg/dL 70-110 H 9947649260) LACTIC ACID (test code 2.24 mmol/L = 5572484774) Lab Interpretation Abnormal (test code = 19797-6) [facility] WITHOUT [id number] 19:25:00 Test Item Value Reference Range Interpretation Comments WBC (test code = 6690-2) See_Comment H [A utomated message] The system [employer] generated this result transmit saad reference range : 4.20 - 10.70 10*3/?L. The reference range was not used to interpret this result as normal/abnormal . RBC (test code = 789-8) See_Comment L [Au tomated message] The system [employer] generated this result transmit saad reference range : 4.26 - 5.52 10* 6/?L. The reference r tyler was not used to interpret this result as normal/abnormal . HGB (test code = 718-7) 7.0 g/dL 12.2-16.4 L HCT (test code = 4544-3) 21.2 % 38.4-49.3 L MCH (test code = 785-6) 31.7 pg 26.1-32.7 MCV (test code = 787-2) 95.9 fL 81.7-95.6 H MCHC (test code = 786-4) 33.0 g/dL 31.2-35 PLT (test code = 777-3) See_Comment H [Au tomated message] The system [facility] generated this result transmit saad reference range : 150 - 328 10*3/?L. The reference range was not used to interpret this result as normal/abnormal . MPV (test code = 10.8 fL 9.8-13 42048-7) RDW-CV (test code = 26.7 % 12.1-15.4 H 788-0) RDW-SD (test code = 92.3 fL 38.5-51.6 H 81644-2) NRBC x10^3 (test code = <0.01 See_Comment [Au tomated message] 2291550912) The system [facility] generated this result transmit saad reference range : 10*3/?L. The reference range was not used to interpret this result as normal/abnormal . NRBC/100 WBC (test code See_Comment [Au tomated message] = 9603200083) The system [facility] generated this result transmit saad reference range : 0.0 - 10.0 /100 WBC s. The reference r tyler was not used to interpret this result as normal/abnormal . IPF % (test code = 7677240633) Lab Interpretation (test Abnormal code = 91858-5) [facility] - Draw within 30 minutes prior to 4TH dose.2020-07-29 17:15:00 Test Item Value Reference Range Interpretation Comments VANCO TROUGH (test code 13.2 ug/mL 10-20 = 9069649889) ASHLEY (test code = ASHLEY) Toxic Range: ?>20 ug/mL 15-20 ug/mL is recommended for severe infection or when Vancomycin ALTAF is greater than or equal to 2. Lab Interpretation (test Normal code = 63708-6) [facility] CULTURE [id number] 15:02:00 Test Item Value Reference Range Interpretation Comments Blood Culture-Aerobic No organisms No growth Previo us (test code = 63156-9) isolated prelim inary verified result was Culture In Progress on 07/24/2020 at 13 02 CDTPrevious preliminary verified result was No growth a t 24 hours on 07/25/2020 at 10 02 CDTPrevious preliminary verified result was No growth a t 48 hours on 07/26/2020 at 10 01 CDTPrevious preliminary verified result was No growth a t 72 hours on 07/27/2020 at 10 02 CDT Blood No organisms No growth Previous Culture-Anaerobic isolated preliminar y (test code = 14182-4) verifi ed result was Culture In Progress on 07/24/2020 at 13 02 CDTPrevious preliminary verified result was No growth a t 24 hours on 07/25/2020 at 10 02 CDTPrevious preliminary verified result was No growth a t 48 hours on 07/26/2020 at 10 01 CDTPrevious preliminary verified result was No growth a t 72 hours on 07/27/2020 at 10 02 CDT Lab Interpretation Normal (test code = 98588-7) [facility] CULTURE [id number] 15:02:00 Test Item Value Reference Range Interpretation Comments Blood Culture-Aerobic No organisms No growth Previo us (test code = 98763-5) isolated prelim inary verified result was Culture In Progress on 07/24/2020 at 13 02 CDTPrevious preliminary verified result was No growth a t 24 hours on 07/25/2020 at 10 02 CDTPrevious preliminary verified result was No growth a t 48 hours on 07/26/2020 at 10 01 CDTPrevious preliminary verified result was No growth a t 72 hours on 07/27/2020 at 10 02 CDT Blood No organisms No growth Previous Culture-Anaerobic isolated preliminar y (test code = 33234-9) verifi ed result was Culture In Progress on 07/24/2020 at 13 02 CDTPrevious preliminary verified result was No growth a t 24 hours on 07/25/2020 at 10 02 CDTPrevious preliminary verified result was No growth a t 48 hours on 07/26/2020 at 10 01 CDTPrevious preliminary verified result was No growth a t 72 hours on 07/27/2020 at 10 02 CDT Lab Interpretation Normal (test code = 07751-1) [facility] [id number] 12:15:00 Test Item Value Reference Range Interpretation Comments URINE CULTURE (test 10,000 - 100,000 CFU/mL code = 630-4) mixed aerobic organisms - suggests endogenous microbial contamination [facility]OL[facility] PAN[facility] (NA, K, CL, CO2, GLUCOSE, BUN, CREATININE, CA)2020-07-29 12:00:00 Test Item Value Reference Range Interpretation Comments NA (test code = 135 mmol/L 135-145 6236011991) K (test code = 3.8 mmol/L 3.5-5 4957652971) CL (test code = 109 mmol/L 98-108 H 6394015828) CO2 TOTAL (test code = 20 mmol/L 23-31 L 8123700330) AGAP (test code = 2-16 8062547026) BUN (test code = 11 mg/dL 7-23 5090497209) GLUCOSE (test code = 89 mg/dL 70-110 4700878559) CREATININE (test code = 0.62 mg/dL 0.6-1.25 0356333307) CALCIUM (test code = 6.6 mg/dL 8.6-10.6 L 7343802440) eGFR Calculation mL/min/1.73m2 (Non-) (test code = 4340511262) eGFR Calculation mL/min/1.73m2 () (test code = 8445740917) ASHLEY (test code = ASHLEY) Association of Glomerular Filtration Rate (GFR) and Staging of Kidney Disease* + --+ --+ ------+| GFR (mL/min/1.73 m2) ?| With Kidney Damage ?| ?Without Kidney Damage+ --------+ --------+ +| ?>90 ?| ?Stage one ?| ? Normal ?+ ---+ ---+ -------+| ?60-89 ?| ?Stage two ?| ? Decreased GFR ? + --+ --+ ------+| ?30-59 ?| ?Stage three ?| ? Stage three ? + --+ --+ ------+| ?15-29 ?| ?Stage four ? | ? Stage four ?+ ---+ ---+ -------+| ?<15 (or dialysis) ? ?| ?Stage five ? | ? Stage five ?+ ---+ ---+ -------+ *Each stage assumes the associated GFR level has been in effect for at least three months. ?Stages 1 to 5, with or without kidney disease, indicate chronic kidney disease. Notes: Determination of stages one and two (with eGFR >59mL/min/1.73 m2) requires estimation of kidney damage for at least three months as defined by structural or functional abnormalities of the kidney, manifested by either:Pathological abnormalities or Markers of kidney damage (including abnormalities in the composition of the blood or urine or abnormalities in imaging tests). Lab Interpretation Abnormal (test code = 42235-4) [facility]2020-09-24 12:00:00 Test Item Value Reference Range Interpretation Comments MAGNESIUM (test code = 5382504323) 2.0 mg/dL 1.7-2.4 Lab Interpretation (test code = Normal 73675-1) [facility] WITH [id number] 11:27:00 Test Item Value Reference Range Interpretation Comments WBC (test code = See_Comment H [Automated 9990-2) message] The system which generated this result transmit saad reference range : 4.20 - 10.70 10*3/?L. The reference range was not used to interpret this result as normal/abnormal . RBC (test code = See_Comment L [Automated 239-8) message] The system which generated this result transmit saad reference range : 4.26 - 5.52 10*6/?L. The reference range was not used to interpret this result as normal/abnormal . HGB (test code = 6.8 g/dL 12.2-16.4 L 718-7) HCT (test code = 19.7 % 38.4-49.3 L 4544-3) MCV (test code = 94.3 fL 81.7-95.6 787-2) MCH (test code = 32.5 pg 26.1-32.7 785-6) MCHC (test code = 34.5 g/dL 31.2-35 786-4) RDW-SD (test code = 89.0 fL 38.5-51.6 H 53767-7) RDW-CV (test code = 25.4 % 12.1-15.4 H 788-0) PLT (test code = See_Comment H [Automated 777-3) message] The system which generated this result transmit saad reference range : 150 - 328 10*3/ ?L. The reference range was not u sed to interpret th is result as normal/abnormal . MPV (test code = 10.6 fL 9.8-13 43662-7) NRBC/100 WBC (test See_Comment [Automat ed code = 1418412671) message] The system which generated this result transmit saad reference range : 0.0 - 10.0 /100 WBCs. The reference range was not used to interpret this result as normal/abnormal . NRBC x10^3 (test code <0.01 See_Comment [Auto mated = 1174356227) message] The system which generated this result transmit saad reference range : 10*3/?L. The reference range was not used to interpret this result as normal/abnormal . GRAN MAT (NEUT) % 82.2 % (test code = 770-8) IMM GRAN % (test code 1.00 % = 6869762495) LYMPH % (test code = 9.4 % 736-9) MONO % (test code = 5.6 % 5905-5) EOS % (test code = 1.6 % 713-8) BASO % (test code = 0.2 % 706-2) GRAN MAT x10^3(ANC) 16.23 10*3/uL 1.99-6.95 H (test code = 8031986114) IMM GRAN x10^3 (test 0.19 10*3/uL 0-0.06 H code = 3929388945) LYMPH x10^3 (test code 1.85 10*3/uL 1.09-3.23 = 731-0) MONO x10^3 (test code 1.11 10*3/uL 0.36-1.02 H = 742-7) EOS x10^3 (test code = 0.31 10*3/uL 0.06-0.53 711-2) BASO x10^3 (test code 0.04 10*3/uL 0.01-0.09 = 704-7) Lab Interpretation Abnormal (test code = 35407-9) [facility]2020-[facility] 16:35:00 Test Item Value Reference Range Interpretation Comments APPEARANCE (test code = Clear Clear 4449148562) COLOR (test code = Yellow Yellow 6535818562) PH (test code = 4.8-8.0 4534123501) SP GRAVITY (test code = 1.003-1.030 0101259271) GLU U QUAL (test code = Normal Normal 7768499401) BLOOD (test code = 1+ Negative A 4109767816) KETONES (test code = Negative Negative 8133101176) PROTEIN (test code = Negative Negative 2887-8) UROBILIN (test code = Normal Normal 4208176028) BILIRUBIN (test code = Negative Negative 9834573495) NITRITE (test code = Negative Negative 1715422745) LEUK AGUILAR (test code = Negative Negative 8728610325) RBC/HPF (test code = See_Comment [Autom ated message] 7666507716) The system [employer] generated this result transmitted ref erence range: 0 - 3 HP F. The reference range was not used to int erpret this result as normal/abnormal . WBC/HPF (test code = <1 See_Comment [Autom ated message] 5917378244) The system [employer] generated this result transmitted ref erence range: 0 - 5 HP F. The reference range was not used to int erpret this result as normal/abnormal . BACTERIA (test code = Negative Negative 4052337684) MUCOUS (test code = Slight Negative LPF A 5495849854) SQ EPITH (test code = <1 See_Comment [Auto mated message] 1218496397) The system [employer] generated this result transmitted ref erence range: <=2 HPF. The reference range was not used to int erpret this result as normal/abnormal . Lab Interpretation (test Abnormal code = 27358-6) [facility] HospitalRPR (QUANTITATIVE)2020-07-28 16:27:00 Test Item Value Reference Range Interpretation Comments RPR (Quantitative) (test code = Nonreactive Nonreactive 81562-3) Lab Interpretation (test code = Normal 46503-9) [facility]OLIC PANEL (NA, K, CL, CO2, GLUCOSE, BUN, CREATININE, CA)2020-07-28 16:15:00 Test Item Value Reference Range Interpretation Comments NA (test code = 135 mmol/L 135-145 4196066402) K (test code = 3.9 mmol/L 3.5-5 9016963823) CL (test code = 104 mmol/L 98-108 5294964687) CO2 TOTAL (test code = 24 mmol/L 23-31 0557208420) AGAP (test code = 2-16 8895258710) BUN (test code = 10 mg/dL 7-23 3591921317) GLUCOSE (test code = 113 mg/dL 70-110 H 5486387938) CREATININE (test code = 0.65 mg/dL 0.6-1.25 2748286049) CALCIUM (test code = 6.6 mg/dL 8.6-10.6 L 8813348359) eGFR Calculation mL/min/1.73m2 (Non-) (test code = 7908081743) eGFR Calculation mL/min/1.73m2 () (test code = 7053844072) ASHLEY (test code = ASHLEY) Association of Glomerular Filtration Rate (GFR) and Staging of Kidney Disease* + --+ --+ ------+| GFR (mL/min/1.73 m2) ?| With Kidney Damage ?| ?Without Kidney Damage+ --------+ --------+ +| ?>90 ?| ?Stage one ?| ? Normal ?+ ---+ ---+ -------+| ?60-89 ?| ?Stage two ?| ? Decreased GFR ? + --+ --+ ------+| ?30-59 ?| ?Stage three ?| ? Stage three ? + --+ --+ ------+| ?15-29 ?| ?Stage four ? | ? Stage four ?+ ---+ ---+ -------+| ?<15 (or dialysis) ? ?| ?Stage five ? | ? Stage five ?+ ---+ ---+ -------+ *Each stage assumes the associated GFR level has been in effect for at least three months. ?Stages 1 to 5, with or without kidney disease, indicate chronic kidney disease. Notes: Determination of stages one and two (with eGFR >59mL/min/1.73 m2) requires estimation of kidney damage for at least three months as defined by structural or functional abnormalities of the kidney, manifested by either:Pathological abnormalities or Markers of kidney damage (including abnormalities in the composition of the blood or urine or abnormalities in imaging tests). Lab Interpretation Abnormal (test code = 65588-5) [facility] HospitalHAV ANTIBODY (IGG AND IGM)2020-07-28 07:30:00 Test Item Value Reference Range Interpretation Comments HAV Total (test code = 8040857225) Negative HAVT Semi-Quantitative (test code = 4072137178) [facility] WITH [id number] 07:01:00 Test Item Value Reference Range Interpretation Comments WBC (test code = See_Comment H [Automated 6690-2) message] The system which generated this result transmit saad reference range : 4.20 - 10.70 10*3/?L. The reference range was not used to interpret this result as normal/abnormal . RBC (test code = See_Comment L [Automated 789-8) message] The system which generated this result transmit saad reference range : 4.26 - 5.52 10*6/?L. The reference range was not used to interpret this result as normal/abnormal . HGB (test code = 7.5 g/dL 12.2-16.4 L 718-7) HCT (test code = 22.9 % 38.4-49.3 L 4544-3) MCV (test code = 97.0 fL 81.7-95.6 H 787-2) MCH (test code = 31.8 pg 26.1-32.7 785-6) MCHC (test code = 32.8 g/dL 31.2-35 786-4) RDW-SD (test code = 89.4 fL 38.5-51.6 H 12034-8) RDW-CV (test code = 24.9 % 12.1-15.4 H 788-0) PLT (test code = See_Comment H [Automated 777-3) message] The system which generated this result transmit saad reference range : 150 - 328 10*3/ ?L. The reference range was not u sed to interpret th is result as normal/abnormal . MPV (test code = 10.8 fL 9.8-13 28195-1) NRBC/100 WBC (test See_Comment [Automat ed code = 2899585196) message] The system which generated this result transmit saad reference range : 0.0 - 10.0 /100 WBCs. The reference range was not used to interpret this result as normal/abnormal . NRBC x10^3 (test code <0.01 See_Comment [Auto mated = 6129560621) message] The system which generated this result transmit saad reference range : 10*3/?L. The reference range was not used to interpret this result as normal/abnormal . GRAN MAT (NEUT) % 84.3 % (test code = 770-8) IMM GRAN % (test code 1.60 % = 9386182948) LYMPH % (test code = 9.0 % 736-9) MONO % (test code = 4.3 % 5905-5) EOS % (test code = 0.6 % 713-8) BASO % (test code = 0.2 % 706-2) GRAN MAT x10^3(ANC) 21.56 10*3/uL 1.99-6.95 H (test code = 6573299273) IMM GRAN x10^3 (test 0.41 10*3/uL 0-0.06 H code = 4163933985) LYMPH x10^3 (test code 2.29 10*3/uL 1.09-3.23 = 731-0) MONO x10^3 (test code 1.11 10*3/uL 0.36-1.02 H = 742-7) EOS x10^3 (test code = 0.16 10*3/uL 0.06-0.53 711-2) BASO x10^3 (test code 0.04 10*3/uL 0.01-0.09 = 704-7) Lab Interpretation Abnormal (test code = 96645-1) [facility] [id number] 06:56:00 Test Item Value Reference Range Interpretation Comments TROPONIN I (test 0.006 ng/mL See_Comment [Automated code = 6306094375) message] The system which generated this result transmitted reference range : <=0.034. The reference range was not used to interpret this result as normal/abnormal . ASHLEY (test code = Equal or Less than ASHLEY) 0.034 ng/ml---Normal ?Note: Cardiac troponin begins to rise 3-4 hours after the onset of ischemia. Repeat in 4-6 hours if the sample was drawn within 3-4 hours of the onset of the symptom and found normal. Between 0.035 and 0.120 ng/mL--- Borderline. Questionable myocardial injury or necrosis ? ?Note: Serial measurement may be necessary to confirm or exclude the diagnosis of myocardial injury or necrosis; Clinical correlation (symptoms, EKGs, imaging studies, and others) required; Repeat in 4-6 hours if clinically indicated. ? Equal or Higher than 0.121 ng/mL---Abnormal. Myocardial Injury or Necrosis Likely ? Biotin has been reported to cause a negative bias, interpret results relative to patient's use of biotin. ? Lab Interpretation Normal (test code = 06013-6) [facility] (NA, K, CL, CO2, GLUCOSE, BUN, CREATININE, CA)2020-07-28 06:51:00 Test Item Value Reference Range Interpretation Comments NA (test code = 133 mmol/L 135-145 L 5745171312) K (test code = 3.4 mmol/L 3.5-5 L 2515311230) CL (test code = 103 mmol/L 98-108 8034029597) CO2 TOTAL (test code = 26 mmol/L 23-31 4392551168) AGAP (test code = 2-16 3704608133) BUN (test code = 11 mg/dL 7-23 3773385698) GLUCOSE (test code = 87 mg/dL 70-110 4027515372) CREATININE (test code = 0.63 mg/dL 0.6-1.25 4679238795) CALCIUM (test code = 6.8 mg/dL 8.6-10.6 L 0804239295) eGFR Calculation mL/min/1.73m2 (Non-) (test code = 4694965929) eGFR Calculation mL/min/1.73m2 () (test code = 1573789667) ASHLEY (test code = ASHLEY) Association of Glomerular Filtration Rate (GFR) and Staging of Kidney Disease* + --+ --+ ------+| GFR (mL/min/1.73 m2) ?| With Kidney Damage ?| ?Without Kidney Damage+ --------+ --------+ +| ?>90 ?| ?Stage one ?| ? Normal ?+ ---+ ---+ -------+| ?60-89 ?| ?Stage two ?| ? Decreased GFR ? + --+ --+ ------+| ?30-59 ?| ?Stage three ?| ? Stage three ? + --+ --+ ------+| ?15-29 ?| ?Stage four ? | ? Stage four ?+ ---+ ---+ -------+| ?<15 (or dialysis) ? ?| ?Stage five ? | ? Stage five ?+ ---+ ---+ -------+ *Each stage assumes the associated GFR level has been in effect for at least three months. ?Stages 1 to 5, with or without kidney disease, indicate chronic kidney disease. Notes: Determination of stages one and two (with eGFR >59mL/min/1.73 m2) requires estimation of kidney damage for at least three months as defined by structural or functional abnormalities of the kidney, manifested by either:Pathological abnormalities or Markers of kidney damage (including abnormalities in the composition of the blood or urine or abnormalities in imaging tests). Lab Interpretation Abnormal (test code = 76469-0) [facility] HospitalHIV [facility]/2 AG-AB WITH [id number] 06:32:00 Test Item Value Reference Range Interpretation Comments HIV Negative Negative Semi-quantitative (test code = 02154-6) ASHLEY (test code = Non-reactive for HIV-1 ASHLEY) antigen and HIV-1/HIV-2 antibodies. ?No laboratory evidence of HIV infection. ?Repeat in 2-4 weeks if acute HIV infection is suspected. [facility] HospitalTROPONIN [id number] 05:11:00 Test Item Value Reference Range Interpretation Comments TROPONIN I (test 0.004 ng/mL See_Comment [Automated code = 9532385728) message] The system which generated this result transmitted reference range : <=0.034. The reference range was not used to interpret this result as normal/abnormal . ASHLEY (test code = Equal or Less than ASHLEY) 0.034 ng/ml---Normal ?Note: Cardiac troponin begins to rise 3-4 hours after the onset of ischemia. Repeat in 4-6 hours if the sample was drawn within 3-4 hours of the onset of the symptom and found normal. Between 0.035 and 0.120 ng/mL--- Borderline. Questionable myocardial injury or necrosis ? ?Note: Serial measurement may be necessary to confirm or exclude the diagnosis of myocardial injury or necrosis; Clinical correlation (symptoms, EKGs, imaging studies, and others) required; Repeat in 4-6 hours if clinically indicated. ? Equal or Higher than 0.121 ng/mL---Abnormal. Myocardial Injury or Necrosis Likely ? Biotin has been reported to cause a negative bias, interpret results relative to patient's use of biotin. ? Lab Interpretation Normal (test code = 63474-5) [facility]2020-09-23 05:07:00 Test Item Value Reference Range Interpretation Comments MAGNESIUM (test code = 7814514189) 1.4 mg/dL 1.7-2.4 L Lab Interpretation (test code = Abnormal 17467-3) [facility] HospitalPROCALCITONIN2020-09-23 01:15:00 Test Item Value Reference Range Interpretation Comments Procalcitonin (test 0.67 ng/mL <0.07 H code = 9067477046) ASHLEY (test code = ASHLEY) INTERPRETATION OF PROCALCITONIN RESULTS IN ADULTS >= 18 YEARS OF AGE Initiation and discontinuation of antibiotics on patients with suspected or confirmed Lower Respiratory Tract Infection in Adults >= 18 years of age. + +-------- --------+ + -----+|Procalcitonin |Interpretation ?|Antibiotic ? ? |Considerations ? |ng/mL ? | ?|recommendation | ? + +-------- --------+ + -----+| <0.1 ? | Bacterial ? ? ?| Strongly ? ? ?| ? | ?| infection very | discouraged ? | Overruling: ? | ?| unlikely ? ? ? | ? | ? Clinically unstable ? ? ? + +-------- --------+ + ? High risk for adverse ? ? | <0.25 ?| Bacterial ? ? ?| Discouraged ? | ? outcome ? | ?| infection ? ? ?| ? | ? SEE IMPORTANT NOTE ?| ?| unlikely ? ? ? | ? | ? + +-------- --------+ + -----+| >=0.25 ? ? ? | Bacterial ? ? ?| Encouraged ? ?| ? | ?| infection ? ? ?| ? | ? | ?| likely ? | ? | Consider treatment failure ?+ +------- ---------+ -+ if levels does not decrease | >0.5 ? | Bacterial ? ? ?| Strongly ? ? ?| appropriately ? | ?| infection very | encouraged ? ?| ? | ?| likely ? | ? | ? + +-------- --------+ + -----+ Discontinuation of antibiotics in high-acuity patients with suspected or confirmed sepsis in Adults >= 18 years of age. + +-------- --------+ + -----+|Procalcitonin |Interpretation ?|Antibiotic ? ? |Considerations ? |ng/mL ? | ?|recommendation | ? + +-------- --------+ + -----+| <0.25 ?| Bacterial ? ? ?| Strongly ? ? ?| ? | ?| infection very | discouraged ? | Overruling: ? | ?| unlikely ? ? ? | ? | ? Clinically unstable ? ? ? + +-------- --------+ + ? High risk for adverse ? ? | <0.5 or drop | Bacterial ? ? ?| Discouraged ? | ? outcome ? | >80% from ? ?| infection ? ? ?| ? | ? SEE IMPORTANT NOTE ?| highest PCT ?| unlikely ? ? ? | ? | ? | level ?| ?| ? | ? + +-------- --------+ + -----+| >=0.5 ?| Bacterial ? ? ?| Encouraged ? ?| ? | ?| infection ? ? ?| ? | ? | ?| likely ? | ? | Consider treatment failure ?+ +------- ---------+ -+ if levels does not decrease | >1.0 ? | Bacterial ? ? ?| Strongly ? ? ?| appropriately ? | ?| infection very | encouraged ? ?| ? | ?| likely ? | ? | ? + +-------- --------+ + -----+ Percentage of drop of Procalcitonin calculation for Discontinuation of antibiotics in high-acuity patients with suspected or confirmed sepsis in Adults >= 18 years of age. ? Procalcitonin highest{}-Procalcitonin current{}Delta Procalcitonin = x100% ? Procalcitonin current {} IMPORTANT NOTE: Procalcitonin may be elevated without bacterial infection by physiologic stress related to trauma, kerr, chronic dialysis, metastatic cancer, surgery in the past seven days, malaria, some fungal infections, and some forms of vasculitis. The interpretation algorithm may not apply to patients with immunosuppression (equivalent of >10 mg of prednisone daily), HIV with CD4 cell count < 350 cells/mm3, active malignancy on systemic chemotherapy, solid organ transplant or hematopoietic stem cell transplantation, or hospital acquired pneumonia. Additionally, some clinical trials of procalcitonin have excluded patients with shock requiring vasopressor use, acute respiratory failure requiring mechanical ventilation, or those with known lung abscess/empyema. For further information please refer to:[email or web address] Lab Interpretation Abnormal (test code = 18468-8) [facility] (NA, K, CL, CO2, GLUCOSE, BUN, CREATININE, CA)2020-07-28 00:51:00 Test Item Value Reference Range Interpretation Comments NA (test code = 133 mmol/L 135-145 L 2560974069) K (test code = 3.5 mmol/L 3.5-5 1978171189) CL (test code = 104 mmol/L 98-108 8683866647) CO2 TOTAL (test code = 24 mmol/L 23-31 7472845896) AGAP (test code = 2-16 9365599445) BUN (test code = 10 mg/dL 7-23 9559959131) GLUCOSE (test code = 107 mg/dL 70-110 5691832850) CREATININE (test code = 0.68 mg/dL 0.6-1.25 1249468068) CALCIUM (test code = 6.6 mg/dL 8.6-10.6 L 4984056330) eGFR Calculation mL/min/1.73m2 (Non-) (test code = 6553105968) eGFR Calculation mL/min/1.73m2 () (test code = 6016579652) ASHLEY (test code = ASHLEY) Association of Glomerular Filtration Rate (GFR) and Staging of Kidney Disease* + --+ --+ ------+| GFR (mL/min/1.73 m2) ?| With Kidney Damage ?| ?Without Kidney Damage+ --------+ --------+ +| ?>90 ?| ?Stage one ?| ? Normal ?+ ---+ ---+ -------+| ?60-89 ?| ?Stage two ?| ? Decreased GFR ? + --+ --+ ------+| ?30-59 ?| ?Stage three ?| ? Stage three ? + --+ --+ ------+| ?15-29 ?| ?Stage four ? | ? Stage four ?+ ---+ ---+ -------+| ?<15 (or dialysis) ? ?| ?Stage five ? | ? Stage five ?+ ---+ ---+ -------+ *Each stage assumes the associated GFR level has been in effect for at least three months. ?Stages 1 to 5, with or without kidney disease, indicate chronic kidney disease. Notes: Determination of stages one and two (with eGFR >59mL/min/1.73 m2) requires estimation of kidney damage for at least three months as defined by structural or functional abnormalities of the kidney, manifested by either:Pathological abnormalities or Markers of kidney damage (including abnormalities in the composition of the blood or urine or abnormalities in imaging tests). Lab Interpretation Abnormal (test code = 73710-5) [facility] HospitalLactic Acid Whole [id number] 23:50:00 Test Item Value Reference Range Interpretation Comments LACTIC ACID (test code = 1.64 mmol/L 5804690700) [facility] HospitalCT HEAD WO [id number] 23:16:08 Within confines of motion degradation, no gross acute intracranialhemorrhage or mass effect. Preliminary Report Dictated by Resident: Felicia Mccain MD., have reviewed this study and agree with theabove report.CT HEAD WO CONTRAST HISTORY:65 years-old; Male; Altered mental status (AMS), unclear causecrossing hyperreflexia, slight facial droop. COMPARISON: CT head 07/17/2020. TECHNIQUE: Noncontrast CT scan of the head with coronal and sagittalreformats was performed. FINDINGS: Images degraded by motion artifacts. Prominent ventricles and cerebral sulci, due to age appropriate globalbrain parenchyma volume loss. ?No hydrocephalus, midline shift orpathological extra- axial fluid collection is present. The basal cisternsare unremarkable. There is no acute intracranial hemorrhage or significant mass effect.Probable chronic ischemic changes of the right matter. Redemonstrationofleft basal ganglia/yeung radiata lacunar infarcts. Redemonstration ofright yeung radiata lacunarinfarct. The sarmiento-white matter differentiationis preserved. Intracranial atherosclerosis. The mastoid air cells are clear. Retention cysts in bilateral maxillarysinuses. The calvarium and central skullbase are unremarkable. [facility], Radiant Results Inft User - 07/27/2020 6:17 PM CDTCT HEAD WO CONTRASTHISTORY:65 years-old; Male; Altered mental status (AMS), unclear causecrossing hyperreflexia, slight facial droop. COMPARISON: CT head 07/17/2020.TECHNIQUE: Noncontrast CT scan of the head with coronal and sagittalreformats was performed.FINDINGS:Images degraded by motion artifacts. Prominent ventricles and cerebral sulci, due to age appropriate globalbrain parenchyma volume loss. No hydrocephalus, midline shift orpathological extra-axial fluid collection is present. The basal cisternsare unremarkable.There is no acute intracranial hemorrhage or significant mass effect.Probable chronic ischemic changes of the right matter. Redemonstration ofleft basal ganglia/yeung radiata lacunar infarcts. Redemonstration ofright yeung radiata lacunar infarct. The sarmiento-white matter differentiationis preserved. Intracranial atherosclerosis.The mastoid air cells are clear. Retention cysts in bilateral maxillarysinuses. The calvarium and central skull base are unremarkable.IMPRESSIONWithin confines of motion degradation, no gross acute intracranialhemorrhage or mass effect.Preliminary Report Dictated by Resident: Felicia Pacheco MD., have reviewed this study and agree with theabove report.[facility] HospitalXR CHEST 1 VW 2020-07-27 21:08:05 Overall there is improvement in previously seen abnormal changes in bothlungs suggestive of improving pneumonia/edema Perihilar congestion is slightly improved from prior. 8 mm left upper lung nodule, recommend correlation with CT chest. Preliminary Report Dictated by Resident: Duane Hickman MD., have reviewed this study and agree with the abovereport.EXAM: XR CHEST 1 VW 07/27/2020 11:23 AM HISTORY: 65 years-old Male with sob TECHNIQUE: Frontal portable view of the chest COMPARISON: CXR 07/22/2020, CT abdomen pelvis with contrast 07/22/2020 FINDINGS: Cardiomediastinal: The cardiomediastinal silhouette is slightly enlarged. Lungs and pleura: Left lower lung airspace and interstitial opacities areworsened from prior. Perihilar congestion is seen bilaterally, slightlyimproved. 8 mm left upper upper lung nodule. 4 mm Calcified granuloma isseen in the right lower lobe. Musculoskeletal: No significant skeletal abnormality. [facility], Radiant Results Inft User - 07/27/2020 4:09 PM CDTEXAM: XR CHEST 1 VW 07/27/2020 11:23 AMHISTORY: 65 years-old Male with sobTECHNIQUE: Frontal portable view of the chest COMPARISON: CXR 07/22/2020, CT abdomen pelvis with contrast 07/22/2020FINDINGS: Cardiomediastinal: The cardiomediastinal silhouette is slightly enlarged.Lungs and pleura: Left lower lung airspace and interstitial opacities areworsened from prior. Perihilar congestion is seen bilaterally, slightlyimproved. 8 mm left upper upper lung nodule. 4 mm Calcified granuloma isseen in the right lower lobe.Musculoskeletal: No significant skeletal abnormality.IMPRESSIONOverall there is improvement in previously seen abnormal changes in bothlungs suggestive of improving pneumonia/edemaPerihilar congestion is slightly improved from prior.8 mm left upper lung nodule, recommend correlation with CT chest.Preliminary Report Dictated by Resident: Edy Terrazas, Duane Duffy MD., have reviewed thisstudy and agree with the abovereport.[facility] METABOLIC PANEL (NA, K, CL, CO2, GLUCOSE, BUN, CREATININE, CA)2020-07-27 16:47:00 Test Item Value Reference Range Interpretation Comments NA (test code = 134 mmol/L 135-145 L 8356021438) K (test code = 3.5 mmol/L 3.5-5 7912838065) CL (test code = 102 mmol/L 98-108 3750295599) CO2 TOTAL (test code = 25 mmol/L 23-31 3275610396) AGAP (test code = 2-16 4878461048) BUN (test code = 11 mg/dL 7-23 0917236828) GLUCOSE (test code = 114 mg/dL 70-110 H 6718232039) CREATININE (test code = 0.67 mg/dL 0.6-1.25 7348956959) CALCIUM (test code = 6.9 mg/dL 8.6-10.6 L 3814572253) eGFR Calculation mL/min/1.73m2 (Non-) (test code = 0651360310) eGFR Calculation mL/min/1.73m2 () (test code = 4945574388) ASHLEY (test code = ASHLEY) Association of Glomerular Filtration Rate (GFR) and Staging of Kidney Disease* + --+ --+ ------+| GFR (mL/min/1.73 m2) ?| With Kidney Damage ?| ?Without Kidney Damage+ --------+ --------+ +| ?>90 ?| ?Stage one ?| ? Normal ?+ ---+ ---+ -------+| ?60-89 ?| ?Stage two ?| ? Decreased GFR ? + --+ --+ ------+| ?30-59 ?| ?Stage three ?| ? Stage three ? + --+ --+ ------+| ?15-29 ?| ?Stage four ? | ? Stage four ?+ ---+ ---+ -------+| ?<15 (or dialysis) ? ?| ?Stage five ? | ? Stage five ?+ ---+ ---+ -------+ *Each stage assumes the associated GFR level has been in effect for at least three months. ?Stages 1 to 5, with or without kidney disease, indicate chronic kidney disease. Notes: Determination of stages one and two (with eGFR >59mL/min/1.73 m2) requires estimation of kidney damage for at least three months as defined by structural or functional abnormalities of the kidney, manifested by either:Pathological abnormalities or Markers of kidney damage (including abnormalities in the composition of the blood or urine or abnormalities in imaging tests). Lab Interpretation Abnormal (test code = 34751-1) [facility] HospitalAC PANEL 20 + LACTIC [id number] 15:13:00 Test Item Value Reference Range Interpretation Comments PH (test code = 2) 7.35-7.45 H PCO2 (test code = See_Comment L [Automat ed 4308009055) message] The sy stem which generated this result transmitted reference range : 35 - 45 mmHg. The reference range was not used to interpret this result as normal/abnormal . PO2 (test code = See_Comment L [Automated 8699050956) message] The sy stem which generated this result transmitted reference range : 80 - 100 mmHg. The reference range was not used to interpret this result as normal/abnormal . HCO3 (test code = See_Comment L [Automate d 2468135503) message] The sy stem which generated this result transmitted reference range : 22 - 26 mEq/L. The reference range was not used to interpret this result as normal/abnormal . BE (test code = See_Comment [Automated 2737794808) message] The sy stem which generated this result transmitted reference range : -3.0 - 3.0 mEq/ L. The reference r tyler was not used to interpret this result as normal/abnormal . THB (test code = 8.7 g/dL 13.5-18 L 5423806621) %O2HB (test code = 95.3 % 94-99 9047640293) %COHB ART (test code = 0.9 % 0-1.5 8150367456) %METHB ART (test code = 0.2 % 0.4-1.5 L 9540273266) VOL%O2 ART (test code = 11.8 % 15-23 L 9568062325) NA (test code = 132 mmol/L 135-145 L 7014369110) K+ (test code = 3.4 mmol/L 3.5-5 L 9033743996) AC CA IONZ (test code = 4.10 mg/dL 4.5-5.3 L 6350151194) GLUCOSE (test code = 117 mg/dL 70-110 H 4999231343) LACTIC ACID (test code 3.46 mmol/L = 2108306133) Lab Interpretation Abnormal (test code = 69265-8) [facility] METABOLIC PANEL (NA, K, CL, CO2, GLUCOSE, BUN, CREATININE, CA)2020-07-27 13:58:00 Test Item Value Reference Range Interpretation Comments NA (test code = 135 mmol/L 135-145 6529316899) K (test code = 3.9 mmol/L 3.5-5 6051659947) CL (test code = 105 mmol/L 98-108 0819290652) CO2 TOTAL (test code = 23 mmol/L 23-31 3235096602) AGAP (test code = 2-16 3509888182) BUN (test code = 11 mg/dL 7-23 3238190987) GLUCOSE (test code = 113 mg/dL 70-110 H 3782909388) CREATININE (test code = 0.67 mg/dL 0.6-1.25 4275355371) CALCIUM (test code = 6.9 mg/dL 8.6-10.6 L 8886932755) eGFR Calculation mL/min/1.73m2 (Non-) (test code = 3708012189) eGFR Calculation mL/min/1.73m2 () (test code = 3091423814) ASHLEY (test code = ASHLEY) Association of Glomerular Filtration Rate (GFR) and Staging of Kidney Disease* + --+ --+ ------+| GFR (mL/min/1.73 m2) ?| With Kidney Damage ?| ?Without Kidney Damage+ --------+ --------+ +| ?>90 ?| ?Stage one ?| ? Normal ?+ ---+ ---+ -------+| ?60-89 ?| ?Stage two ?| ? Decreased GFR ? + --+ --+ ------+| ?30-59 ?| ?Stage three ?| ? Stage three ? + --+ --+ ------+| ?15-29 ?| ?Stage four ? | ? Stage four ?+ ---+ ---+ -------+| ?<15 (or dialysis) ? ?| ?Stage five ? | ? Stage five ?+ ---+ ---+ -------+ *Each stage assumes the associated GFR level has been in effect for at least three months. ?Stages 1 to 5, with or without kidney disease, indicate chronic kidney disease. Notes: Determination of stages one and two (with eGFR >59mL/min/1.73 m2) requires estimation of kidney damage for at least three months as defined by structural or functional abnormalities of the kidney, manifested by either:Pathological abnormalities or Markers of kidney damage (including abnormalities in the composition of the blood or urine or abnormalities in imaging tests). Lab Interpretation Abnormal (test code = 20696-4) [facility] WITH [id number] 11:57:00 Test Item Value Reference Range Interpretation Comments WBC (test code = See_Comment H [Automated 4987-2) message] The system which generated this result transmit saad reference range : 4.20 - 10.70 10*3/?L. The reference range was not used to interpret this result as normal/abnormal . RBC (test code = See_Comment L [Automated 379-8) message] The system which generated this result transmit saad reference range : 4.26 - 5.52 10*6/?L. The reference range was not used to interpret this result as normal/abnormal . HGB (test code = 7.8 g/dL 12.2-16.4 L 718-7) HCT (test code = 23.5 % 38.4-49.3 L 4544-3) MCV (test code = 94.8 fL 81.7-95.6 787-2) MCH (test code = 31.5 pg 26.1-32.7 785-6) MCHC (test code = 33.2 g/dL 31.2-35 786-4) RDW-SD (test code = 86.8 fL 38.5-51.6 H 90236-0) RDW-CV (test code = 24.7 % 12.1-15.4 H 788-0) PLT (test code = See_Comment H [Automated 777-3) message] The system which generated this result transmit saad reference range : 150 - 328 10*3/ ?L. The reference range was not u sed to interpret th is result as normal/abnormal . MPV (test code = 11.1 fL 9.8-13 69646-0) NRBC/100 WBC (test See_Comment [Automat ed code = 8418308839) message] The system which generated this result transmit saad reference range : 0.0 - 10.0 /100 WBCs. The reference range was not used to interpret this result as normal/abnormal . NRBC x10^3 (test code <0.01 See_Comment [Auto mated = 6233098295) message] The system which generated this result transmit saad reference range : 10*3/?L. The reference range was not used to interpret this result as normal/abnormal . GRAN MAT (NEUT) % 87.4 % (test code = 770-8) IMM GRAN % (test code 1.70 % = 0029254184) LYMPH % (test code = 6.4 % 736-9) MONO % (test code = 3.9 % 5905-5) EOS % (test code = 0.5 % 713-8) BASO % (test code = 0.1 % 706-2) GRAN MAT x10^3(ANC) 24.72 10*3/uL 1.99-6.95 H (test code = 3427443787) IMM GRAN x10^3 (test 0.49 10*3/uL 0-0.06 H code = 1141268190) LYMPH x10^3 (test code 1.81 10*3/uL 1.09-3.23 = 731-0) MONO x10^3 (test code 1.09 10*3/uL 0.36-1.02 H = 742-7) EOS x10^3 (test code = 0.14 10*3/uL 0.06-0.53 711-2) BASO x10^3 (test code 0.04 10*3/uL 0.01-0.09 = 704-7) Lab Interpretation Abnormal (test code = 33566-8) [facility] Test Item Value Reference Range Interpretation Comments MAGNESIUM (test code = 5857951140) 1.6 mg/dL 1.7-2.4 L Lab Interpretation (test code = Abnormal 58787-0) [facility] 23[facility]25[facility]00 Test Item Value Reference Range Interpretation Comments MAGNESIUM (test code = 2965163529) 1.7 mg/dL 1.7-2.4 Lab Interpretation (test code = Normal 76501-8) [facility] METABOLIC PANEL (NA, K, CL, CO2, GLUCOSE, BUN, CREATININE, CA)2020-07-26 22:55:00 Test Item Value Reference Range Interpretation Comments NA (test code = 134 mmol/L 135-145 L 2943931897) K (test code = 2.9 mmol/L 3.5-5 LL 3461753177) CL (test code = 100 mmol/L 98-108 6905087863) CO2 TOTAL (test code = 27 mmol/L 23-31 3510713290) AGAP (test code = 2-16 1810211011) BUN (test code = 13 mg/dL 7-23 1872674942) GLUCOSE (test code = 117 mg/dL 70-110 H 7899704684) CREATININE (test code = 0.71 mg/dL 0.6-1.25 7010408785) CALCIUM (test code = 6.7 mg/dL 8.6-10.6 L 3468272047) eGFR Calculation mL/min/1.73m2 (Non-) (test code = 3175403174) eGFR Calculation mL/min/1.73m2 () (test code = 8663197014) ASHLEY (test code = ASHLEY) Association of Glomerular Filtration Rate (GFR) and Staging of Kidney Disease* + --+ --+ ------+| GFR (mL/min/1.73 m2) ?| With Kidney Damage ?| ?Without Kidney Damage+ --------+ --------+ +| ?>90 ?| ?Stage one ?| ? Normal ?+ ---+ ---+ -------+| ?60-89 ?| ?Stage two ?| ? Decreased GFR ? + --+ --+ ------+| ?30-59 ?| ?Stage three ?| ? Stage three ? + --+ --+ ------+| ?15-29 ?| ?Stage four ? | ? Stage four ?+ ---+ ---+ -------+| ?<15 (or dialysis) ? ?| ?Stage five ? | ? Stage five ?+ ---+ ---+ -------+ *Each stage assumes the associated GFR level has been in effect for at least three months. ?Stages 1 to 5, with or without kidney disease, indicate chronic kidney disease. Notes: Determination of stages one and two (with eGFR >59mL/min/1.73 m2) requires estimation of kidney damage for at least three months as defined by structural or functional abnormalities of the kidney, manifested by either:Pathological abnormalities or Markers of kidney damage (including abnormalities in the composition of the blood or urine or abnormalities in imaging tests). Lab Interpretation Abnormal (test code = 81384-8) [facility] HospitalCLOSTRIDIUM DIFFICILE [id number] 14:51:00 Test Item Value Reference Range Interpretation Comments Clostridioides (Clostridium) Negative Negative difficile (test code = 98559-1) Lab Interpretation (test code = Normal 82597-1) [facility] HospitalMOD BARIUM SWALLOW, (COOKIE)2020-07-26 13:24:04FL MODIFIED BARIUM SWALLOW HISTORY: 65 years-old; Male; dysphagia TECHNIQUE: A video swallowing exam with fluoroscopy was performed inconjunction with Speech Pathology who administered multiple consistenciesof barium. Fluoroscopy was performed under the supervision of aradiologist. COMPARISON: None FINDINGS: Laryngeal penetration with thin liquid was noted. Please see separate Speech Pathology report for recommendations andadditional findings. Preliminary Report Dictated by Resident: Alissa Yip I reviewed this study and agree. IKirby MD., have reviewed this study and agree with theabove report.[facility], Radiant Results Inft User - 07/26/2020 8:25 AM CDTFL MODIFIED BARIUM SWALLOWHISTORY: 65 years-old; Male; dysphagia TECHNIQUE: A video swallowing exam with fluoroscopy was performed inconjunction with Speech Pathology who administered multiple consistenciesof barium. Fluoroscopy was performed under the supervision of aradiologist. COMPARISON: NoneFINDINGS:Laryngeal penetration with thin liquid was noted.Please see separate Speech Pathology report for recommendations andadditional findings.Preliminary Report Dictated by Resident: Alissa Bravo reviewed this study and agree.IKirby MD., have reviewed this study and agree with theabove report.[facility] HospitalCB WITH DIFF 2020-07-26 10:51:00 Test Item Value Reference Range Interpretation Comments WBC (test code = See_Comment H [Automated 6690-2) message] The system which generated this result transmit saad reference range : 4.20 - 10.70 10*3/?L. The reference range was not used to interpret this result as normal/abnormal . RBC (test code = See_Comment L [Automated 789-8) message] The system which generated this result transmit saad reference range : 4.26 - 5.52 10*6/?L. The reference range was not used to interpret this result as normal/abnormal . HGB (test code = 7.3 g/dL 12.2-16.4 L 718-7) HCT (test code = 21.5 % 38.4-49.3 L 4544-3) MCV (test code = 95.1 fL 81.7-95.6 787-2) MCH (test code = 32.3 pg 26.1-32.7 785-6) MCHC (test code = 34.0 g/dL 31.2-35 786-4) RDW-SD (test code = 88.4 fL 38.5-51.6 H 66968-1) RDW-CV (test code = 25.0 % 12.1-15.4 H 788-0) PLT (test code = See_Comment [Automated 777-3) message] The system which generated this result transmit saad reference range : 150 - 328 10*3/ ?L. The reference range was not u sed to interpret th is result as normal/abnormal . MPV (test code = 10.7 fL 9.8-13 94281-2) NRBC/100 WBC (test See_Comment [Automat ed code = 9684178390) message] The system which generated this result transmit saad reference range : 0.0 - 10.0 /100 WBCs. The reference range was not used to interpret this result as normal/abnormal . NRBC x10^3 (test code <0.01 See_Comment [Auto mated = 5338891889) message] The system which generated this result transmit saad reference range : 10*3/?L. The reference range was not used to interpret this result as normal/abnormal . GRAN MAT (NEUT) % 87.1 % (test code = 770-8) IMM GRAN % (test code 2.00 % = 4931839797) LYMPH % (test code = 7.1 % 736-9) MONO % (test code = 3.4 % 5905-5) EOS % (test code = 0.3 % 713-8) BASO % (test code = 0.1 % 706-2) GRAN MAT x10^3(ANC) 27.11 10*3/uL 1.99-6.95 H (test code = 1288897796) IMM GRAN x10^3 (test 0.63 10*3/uL 0-0.06 H code = 1810652281) LYMPH x10^3 (test code 2.20 10*3/uL 1.09-3.23 = 731-0) MONO x10^3 (test code 1.05 10*3/uL 0.36-1.02 H = 742-7) EOS x10^3 (test code = 0.09 10*3/uL 0.06-0.53 711-2) BASO x10^3 (test code 0.04 10*3/uL 0.01-0.09 = 704-7) TARGET CELLS (test 2+ See_Comment A [Automat ed code = 37975-4) message] The system which generated this result transmit saad reference range : (none). The reference range was not used to interpret this result as normal/abnormal . HYPERSEG NEUTS (test Present See_Comment A [Autom ated code = 765-8) message] The system which generated this result transmit saad reference range : (none). The reference range was not used to interpret this result as normal/abnormal . TOXIC CHANGES (test Present A code = 803-7) Lab Interpretation Abnormal (test code = 85597-8) [facility] METABOLIC PANEL (NA, K, CL, CO2, GLUCOSE, BUN, CREATININE, CA)2020-07-26 10:38:00 Test Item Value Reference Range Interpretation Comments NA (test code = 135 mmol/L 135-145 8309368524) K (test code = 3.3 mmol/L 3.5-5 L 8864106453) CL (test code = 102 mmol/L 98-108 8125407488) CO2 TOTAL (test code = 26 mmol/L 23-31 9037004263) AGAP (test code = 2-16 8817299590) BUN (test code = 15 mg/dL 7-23 1625479797) GLUCOSE (test code = 94 mg/dL 70-110 2951381711) CREATININE (test code = 0.72 mg/dL 0.6-1.25 5619837279) CALCIUM (test code = 6.9 mg/dL 8.6-10.6 L 8736384661) eGFR Calculation mL/min/1.73m2 (Non-) (test code = 9190992232) eGFR Calculation mL/min/1.73m2 () (test code = 3540647049) ASHLEY (test code = ASHLEY) Association of Glomerular Filtration Rate (GFR) and Staging of Kidney Disease* + --+ --+ ------+| GFR (mL/min/1.73 m2) ?| With Kidney Damage ?| ?Without Kidney Damage+ --------+ --------+ +| ?>90 ?| ?Stage one ?| ? Normal ?+ ---+ ---+ -------+| ?60-89 ?| ?Stage two ?| ? Decreased GFR ? + --+ --+ ------+| ?30-59 ?| ?Stage three ?| ? Stage three ? + --+ --+ ------+| ?15-29 ?| ?Stage four ? | ? Stage four ?+ ---+ ---+ -------+| ?<15 (or dialysis) ? ?| ?Stage five ? | ? Stage five ?+ ---+ ---+ -------+ *Each stage assumes the associated GFR level has been in effect for at least three months. ?Stages 1 to 5, with or without kidney disease, indicate chronic kidney disease. Notes: Determination of stages one and two (with eGFR >59mL/min/1.73 m2) requires estimation of kidney damage for at least three months as defined by structural or functional abnormalities of the kidney, manifested by either:Pathological abnormalities or Markers of kidney damage (including abnormalities in the composition of the blood or urine or abnormalities in imaging tests). Lab Interpretation Abnormal (test code = 71791-7) [facility]2020-09-21 10:38:00 Test Item Value Reference Range Interpretation Comments MAGNESIUM (test code = 6309286793) 1.4 mg/dL 1.7-2.4 L Lab Interpretation (test code = Abnormal 64944-2) [facility]OLIC PANEL (NA, K, CL, CO2, GLUCOSE, BUN, CREATININE, CA)2020-07-25 22:19:00 Test Item Value Reference Range Interpretation Comments NA (test code = 135 mmol/L 135-145 4055826230) K (test code = 3.1 mmol/L 3.5-5 L 3391372422) CL (test code = 101 mmol/L 98-108 1944991985) CO2 TOTAL (test code = 28 mmol/L 23-31 9659698260) AGAP (test code = 2-16 1758850198) BUN (test code = 15 mg/dL 7-23 7472793811) GLUCOSE (test code = 107 mg/dL 70-110 6171008301) CREATININE (test code = 0.72 mg/dL 0.6-1.25 3753910595) CALCIUM (test code = 7.0 mg/dL 8.6-10.6 L 6035630605) eGFR Calculation mL/min/1.73m2 (Non-) (test code = 7461039739) eGFR Calculation mL/min/1.73m2 () (test code = 0243935585) ASHLEY (test code = ASHLEY) Association of Glomerular Filtration Rate (GFR) and Staging of Kidney Disease* + --+ --+ ------+| GFR (mL/min/1.73 m2) ?| With Kidney Damage ?| ?Without Kidney Damage+ --------+ --------+ +| ?>90 ?| ?Stage one ?| ? Normal ?+ ---+ ---+ -------+| ?60-89 ?| ?Stage two ?| ? Decreased GFR ? + --+ --+ ------+| ?30-59 ?| ?Stage three ?| ? Stage three ? + --+ --+ ------+| ?15-29 ?| ?Stage four ? | ? Stage four ?+ ---+ ---+ -------+| ?<15 (or dialysis) ? ?| ?Stage five ? | ? Stage five ?+ ---+ ---+ -------+ *Each stage assumes the associated GFR level has been in effect for at least three months. ?Stages 1 to 5, with or without kidney disease, indicate chronic kidney disease. Notes: Determination of stages one and two (with eGFR >59mL/min/1.73 m2) requires estimation of kidney damage for at least three months as defined by structural or functional abnormalities of the kidney, manifested by either:Pathological abnormalities or Markers of kidney damage (including abnormalities in the composition of the blood or urine or abnormalities in imaging tests). Lab Interpretation Abnormal (test code = 04370-8) [facility] (NA, K, CL, CO2, GLUCOSE, BUN, CREATININE, CA)2020-07-25 12:21:00 Test Item Value Reference Range Interpretation Comments NA (test code = 136 mmol/L 135-145 9481127545) K (test code = 3.3 mmol/L 3.5-5 L 2998860060) CL (test code = 103 mmol/L 98-108 7772538586) CO2 TOTAL (test code = 29 mmol/L 23-31 9872349899) AGAP (test code = 2-16 6604228024) BUN (test code = 15 mg/dL 7-23 6181618722) GLUCOSE (test code = 94 mg/dL 70-110 9143170159) CREATININE (test code = 0.71 mg/dL 0.6-1.25 1678101011) CALCIUM (test code = 6.6 mg/dL 8.6-10.6 L 1350686446) eGFR Calculation mL/min/1.73m2 (Non-) (test code = 3825870176) eGFR Calculation mL/min/1.73m2 () (test code = 5072723367) ASHLEY (test code = ASHLEY) Association of Glomerular Filtration Rate (GFR) and Staging of Kidney Disease* + --+ --+ ------+| GFR (mL/min/1.73 m2) ?| With Kidney Damage ?| ?Without Kidney Damage+ --------+ --------+ +| ?>90 ?| ?Stage one ?| ? Normal ?+ ---+ ---+ -------+| ?60-89 ?| ?Stage two ?| ? Decreased GFR ? + --+ --+ ------+| ?30-59 ?| ?Stage three ?| ? Stage three ? + --+ --+ ------+| ?15-29 ?| ?Stage four ? | ? Stage four ?+ ---+ ---+ -------+| ?<15 (or dialysis) ? ?| ?Stage five ? | ? Stage five ?+ ---+ ---+ -------+ *Each stage assumes the associated GFR level has been in effect for at least three months. ?Stages 1 to 5, with or without kidney disease, indicate chronic kidney disease. Notes: Determination of stages one and two (with eGFR >59mL/min/1.73 m2) requires estimation of kidney damage for at least three months as defined by structural or functional abnormalities of the kidney, manifested by either:Pathological abnormalities or Markers of kidney damage (including abnormalities in the composition of the blood or urine or abnormalities in imaging tests). Lab Interpretation Abnormal (test code = 52968-8) [facility] 12:21:00 Test Item Value Reference Range Interpretation Comments MAGNESIUM (test code = 0816785737) 2.0 mg/dL 1.7-2.4 Lab Interpretation (test code = Normal 77468-3) [facility] WITH [id number] 12:18:00 Test Item Value Reference Range Interpretation Comments WBC (test code = See_Comment H [Automated 0790-2) message] The system which generated this result transmit saad reference range : 4.20 - 10.70 10*3/?L. The reference range was not used to interpret this result as normal/abnormal . RBC (test code = See_Comment L [Automated 789-8) message] The system which generated this result transmit saad reference range : 4.26 - 5.52 10*6/?L. The reference range was not used to interpret this result as normal/abnormal . HGB (test code = 8.5 g/dL 12.2-16.4 L 718-7) HCT (test code = 25.4 % 38.4-49.3 L 4544-3) MCV (test code = 96.9 fL 81.7-95.6 H 787-2) MCH (test code = 32.4 pg 26.1-32.7 785-6) MCHC (test code = 33.5 g/dL 31.2-35 786-4) RDW-SD (test code = 91.8 fL 38.5-51.6 H 57703-7) RDW-CV (test code = 25.5 % 12.1-15.4 H 788-0) PLT (test code = See_Comment [Automated 777-3) message] The system which generated this result transmit saad reference range : 150 - 328 10*3/ ?L. The reference range was not u sed to interpret th is result as normal/abnormal . MPV (test code = 10.5 fL 9.8-13 76472-7) NRBC/100 WBC (test See_Comment [Automat ed code = 1984153106) message] The system which generated this result transmit saad reference range : 0.0 - 10.0 /100 WBCs. The reference range was not used to interpret this result as normal/abnormal . NRBC x10^3 (test code <0.01 See_Comment [Auto mated = 5099914474) message] The system which generated this result transmit saad reference range : 10*3/?L. The reference range was not used to interpret this result as normal/abnormal . GRAN MAT (NEUT) % 88.2 % (test code = 770-8) IMM GRAN % (test code 1.10 % = 7317963278) LYMPH % (test code = 7.1 % 736-9) MONO % (test code = 3.2 % 5905-5) EOS % (test code = 0.3 % 713-8) BASO % (test code = 0.1 % 706-2) GRAN MAT x10^3(ANC) 27.92 10*3/uL 1.99-6.95 H (test code = 8726762268) IMM GRAN x10^3 (test 0.34 10*3/uL 0-0.06 H code = 1248899891) LYMPH x10^3 (test code 2.25 10*3/uL 1.09-3.23 = 731-0) MONO x10^3 (test code 1.01 10*3/uL 0.36-1.02 = 742-7) EOS x10^3 (test code = 0.11 10*3/uL 0.06-0.53 711-2) BASO x10^3 (test code 0.04 10*3/uL 0.01-0.09 = 704-7) SIDEROTIC GRAN (test Suggestive of A RBC in clusions code = 7795-8) suggestive of siderotic granules. Iron stain required for positive identification. HYPERSEG NEUTS (test Present See_Comment A [Autom ated code = 765-8) message] The system which generated this result transmit saad reference range : (none). The reference range was not used to interpret this result as normal/abnormal . Lab Interpretation Abnormal (test code = 80170-8) [facility] METABOLIC PANEL (NA, K, CL, CO2, GLUCOSE, BUN, CREATININE, CA)2020-07-24 23:25:00 Test Item Value Reference Range Interpretation Comments NA (test code = 135 mmol/L 135-145 7495890649) K (test code = 3.4 mmol/L 3.5-5 L 9601324720) CL (test code = 102 mmol/L 98-108 2802020746) CO2 TOTAL (test code = 30 mmol/L 23-31 2881947723) AGAP (test code = 2-16 7033074379) BUN (test code = 14 mg/dL 7-23 6632729149) GLUCOSE (test code = 117 mg/dL 70-110 H 5883052287) CREATININE (test code = 0.66 mg/dL 0.6-1.25 6084640734) CALCIUM (test code = 6.9 mg/dL 8.6-10.6 L 3472307808) eGFR Calculation mL/min/1.73m2 (Non-) (test code = 4632140496) eGFR Calculation mL/min/1.73m2 () (test code = 6987081725) ASHLEY (test code = ASHLEY) Association of Glomerular Filtration Rate (GFR) and Staging of Kidney Disease* + --+ --+ ------+| GFR (mL/min/1.73 m2) ?| With Kidney Damage ?| ?Without Kidney Damage+ --------+ --------+ +| ?>90 ?| ?Stage one ?| ? Normal ?+ ---+ ---+ -------+| ?60-89 ?| ?Stage two ?| ? Decreased GFR ? + --+ --+ ------+| ?30-59 ?| ?Stage three ?| ? Stage three ? + --+ --+ ------+| ?15-29 ?| ?Stage four ? | ? Stage four ?+ ---+ ---+ -------+| ?<15 (or dialysis) ? ?| ?Stage five ? | ? Stage five ?+ ---+ ---+ -------+ *Each stage assumes the associated GFR level has been in effect for at least three months. ?Stages 1 to 5, with or without kidney disease, indicate chronic kidney disease. Notes: Determination of stages one and two (with eGFR >59mL/min/1.73 m2) requires estimation of kidney damage for at least three months as defined by structural or functional abnormalities of the kidney, manifested by either:Pathological abnormalities or Markers of kidney damage (including abnormalities in the composition of the blood or urine or abnormalities in imaging tests). Lab Interpretation Abnormal (test code = 57109-2) [facility] HospitalMR[facility] / MSSA SCRE[facility] BY PCR, [id number] 20:39:00 Test Item Value Reference Range Interpretation Comments MRSA Screen by PCR, Positive Negative A Nares (test code = 67919-1) MRSA/MSSA Positive? Yes No A (test code = 8704033558) ASHLEY (test code = ASHLEY) A positive test result does not necessarily indicate the presence of viable organism. Lab Interpretation (test Abnormal code = 76282-5) [facility] HospitalURINE [id number] 17:28:00 Test Item Value Reference Range Interpretation Comments URINE CULTURE (test No aerobic growth (< code = 630-4) 1000 CFU/mL) [facility]IS2020-09-19 14:48:00 Test Item Value Reference Range Interpretation Comments APPEARANCE (test code = Clear Clear 1274428567) COLOR (test code = Sakshi Yellow A 8830719417) PH (test code = 4.8-8.0 1913765256) SP GRAVITY (test code = 1.003-1.030 6574504411) GLU U QUAL (test code = Normal Normal 1654802160) BLOOD (test code = 1+ Negative A 2838573449) KETONES (test code = Negative Negative 4062154914) PROTEIN (test code = Negative Negative 2887-8) UROBILIN (test code = Normal Normal 3196131376) BILIRUBIN (test code = Negative Negative 9992232074) NITRITE (test code = Negative Negative 7839585141) LEUK AGUILAR (test code = Negative Negative 7724061668) RBC/HPF (test code = See_Comment [Autom ated message] 0401456008) The system [employer] generated this result transmitted ref erence range: 0 - 3 HP F. The reference range was not used to int erpret this result as normal/abnormal . WBC/HPF (test code = See_Comment [Autom ated message] 7281226547) The system [employer] generated this result transmitted ref erence range: 0 - 5 HP F. The reference range was not used to int erpret this result as normal/abnormal . BACTERIA (test code = Negative Negative 1596185566) SQ EPITH (test code = <1 See_Comment [Auto mated message] 9168854073) The system [employer] generated this result transmitted ref erence range: <=2 HPF. The reference range was not used to int erpret this result as normal/abnormal . Lab Interpretation (test Abnormal code = 71122-8) [facility] HospitalLACTATE [id number] 13:31:00 Test Item Value Reference Range Interpretation Comments LDH (test code = 7577992678) 925 U/L 300-600 H Lab Interpretation (test code = Abnormal 60624-3) [facility] HospitalHEPATIC FUNCTION PANEL (94860) (ALB,T.PRO,BILI T,BU/BC,ALT,AST,ALK PHOS)2020-07-24 13:31:00 Test Item Value Reference Range Interpretation Comments TOTAL BILI (test code = 8241566268) 3.2 mg/dL 0.1-1.1 H BILI UNCON (test code = 0852615664) 1.1 mg/dL 0.1-1.1 BILI CONJ (test code = 4244372818) 0.9 mg/dL 0-0.3 H T PROTEIN (test code = 4659532414) 5.0 g/dL 6.3-8.2 L ALBUMIN (test code = 1745893799) 2.1 g/dL 3.5-5 L ALK PHOS (test code = 2020615180) 110 U/L 34-122 ALTv (test code = 1742-6) 30 U/L 5-50 AST(SGOT) (test code = 6179615885) 146 U/L 13-40 H Lab Interpretation (test code = Abnormal 52571-1) [facility] HospitalPHOSPHORUS2020-09-19 13:31:00 Test Item Value Reference Range Interpretation Comments PHOSPHORUS (test code = 9038999627) 2.8 mg/dL 2.5-5 Lab Interpretation (test code = Normal 25172-2) [facility] WITH [id number] 08:30:00 Test Item Value Reference Range Interpretation Comments WBC (test code = See_Comment H [Automated 3490-2) message] The system which generated this result transmit saad reference range : 4.20 - 10.70 10*3/?L. The reference range was not used to interpret this result as normal/abnormal . RBC (test code = See_Comment L [Automated 189-8) message] The system which generated this result transmit saad reference range : 4.26 - 5.52 10*6/?L. The reference range was not used to interpret this result as normal/abnormal . HGB (test code = 7.6 g/dL 12.2-16.4 L 718-7) HCT (test code = 21.4 % 38.4-49.3 L 4544-3) MCV (test code = 94.7 fL 81.7-95.6 787-2) MCH (test code = 33.6 pg 26.1-32.7 H 785-6) MCHC (test code = 35.5 g/dL 31.2-35 H 786-4) RDW-SD (test code = 89.6 fL 38.5-51.6 H 34935-2) RDW-CV (test code = 26.2 % 12.1-15.4 H 788-0) PLT (test code = See_Comment [Automated 777-3) message] The system which generated this result transmit saad reference range : 150 - 328 10*3/ ?L. The reference range was not u sed to interpret th is result as normal/abnormal . MPV (test code = 10.4 fL 9.8-13 41918-9) NRBC/100 WBC (test See_Comment [Automat ed code = 9831897489) message] The system which generated this result transmit saad reference range : 0.0 - 10.0 /100 WBCs. The reference range was not used to interpret this result as normal/abnormal . NRBC x10^3 (test code <0.01 See_Comment [Auto mated = 6083785014) message] The system which generated this result transmit saad reference range : 10*3/?L. The reference range was not used to interpret this result as normal/abnormal . GRAN MAT (NEUT) % 88.5 % (test code = 770-8) IMM GRAN % (test code 2.90 % = 4150641500) LYMPH % (test code = 4.6 % 736-9) MONO % (test code = 3.5 % 5905-5) EOS % (test code = 0.3 % 713-8) BASO % (test code = 0.2 % 706-2) GRAN MAT x10^3(ANC) 39.40 10*3/uL 1.99-6.95 H (test code = 7185261201) IMM GRAN x10^3 (test 1.30 10*3/uL 0-0.06 H code = 8805925070) LYMPH x10^3 (test code 2.06 10*3/uL 1.09-3.23 = 731-0) MONO x10^3 (test code 1.54 10*3/uL 0.36-1.02 H = 742-7) EOS x10^3 (test code = 0.12 10*3/uL 0.06-0.53 711-2) BASO x10^3 (test code 0.08 10*3/uL 0.01-0.09 = 704-7) SIDEROTIC GRAN (test Suggestive of A RBC in clusions code = 7795-8) suggestive of siderotic granules. Iron stain required for positive identification. HYPERSEG NEUTS (test Present See_Comment A [Autom ated code = 765-8) message] The system which generated this result transmit saad reference range : (none). The reference range was not used to interpret this result as normal/abnormal . Lab Interpretation Abnormal (test code = 45487-8) [facility] METABOLIC PANEL (NA, K, CL, CO2, GLUCOSE, BUN, CREATININE, CA)2020-07-24 08:27:00 Test Item Value Reference Range Interpretation Comments NA (test code = 134 mmol/L 135-145 L 1543024748) K (test code = 3.7 mmol/L 3.5-5 4152402184) CL (test code = 103 mmol/L 98-108 1018307382) CO2 TOTAL (test code = 27 mmol/L 23-31 0686801292) AGAP (test code = 2-16 9781169686) BUN (test code = 14 mg/dL 7-23 2248424196) GLUCOSE (test code = 105 mg/dL 70-110 5699246741) CREATININE (test code = 0.64 mg/dL 0.6-1.25 2107497963) CALCIUM (test code = 6.8 mg/dL 8.6-10.6 L 4845658154) eGFR Calculation mL/min/1.73m2 (Non-) (test code = 7535645776) eGFR Calculation mL/min/1.73m2 () (test code = 5709100001) ASHLEY (test code = ASHLEY) Association of Glomerular Filtration Rate (GFR) and Staging of Kidney Disease* + --+ --+ ------+| GFR (mL/min/1.73 m2) ?| With Kidney Damage ?| ?Without Kidney Damage+ --------+ --------+ +| ?>90 ?| ?Stage one ?| ? Normal ?+ ---+ ---+ -------+| ?60-89 ?| ?Stage two ?| ? Decreased GFR ? + --+ --+ ------+| ?30-59 ?| ?Stage three ?| ? Stage three ? + --+ --+ ------+| ?15-29 ?| ?Stage four ? | ? Stage four ?+ ---+ ---+ -------+| ?<15 (or dialysis) ? ?| ?Stage five ? | ? Stage five ?+ ---+ ---+ -------+ *Each stage assumes the associated GFR level has been in effect for at least three months. ?Stages 1 to 5, with or without kidney disease, indicate chronic kidney disease. Notes: Determination of stages one and two (with eGFR >59mL/min/1.73 m2) requires estimation of kidney damage for at least three months as defined by structural or functional abnormalities of the kidney, manifested by either:Pathological abnormalities or Markers of kidney damage (including abnormalities in the composition of the blood or urine or abnormalities in imaging tests). Lab Interpretation Abnormal (test code = 98820-7) [facility]2020-09-19 08:27:00 Test Item Value Reference Range Interpretation Comments MAGNESIUM (test code = 1128429712) 1.3 mg/dL 1.7-2.4 L Lab Interpretation (test code = Abnormal 55998-6) [facility] HospitalLEGIONELLA URINARY ANTIGEN [id number] 23:56:00 Test Item Value Reference Range Interpretation Comments Legionella Urinary Negative Negative Antigen (test code = 5487858795) ASHLEY (test code = ASHLEY) Negative for L. pneumophilia serogroup I antigen in urine suggesting no recent or current infection. Infection due to Legionella cannot be ruled out since other serogroups and species may cause disease. Furthermore, antigens may not be present in urine during early stage of infection, or the level of antigen present in urine may be below the detection limit of the test. Lab Interpretation (test Normal code = 74471-0) [facility] HospitalPNEUMOCOCCAL [id number] 23:56:00 Test Item Value Reference Range Interpretation Comments S. pneumoniae antigen (test code = Negative Negative 8553390008) Lab Interpretation (test code = Normal 99961-4) [facility] HospitalCT ABDOMEN PELVIS W [id number] 23:19:47 1. ?Bilateral irregularly shaped patchy groundglass opacities, left greaterthan right, likely secondary to infectious process. 2. ?Focal heterogeneous appearance of the upper pole of the left kidneyleft ?may represent a focal acute or chronic pyelonephritis. Pleasecorrelate with UA.3. ?Age indeterminate compressive deformities of T7 and T10 vertebralbodies.4. ?Hepatic steatosis with hepatomegaly.5. ?Third spacing with anasarca, , small ascites and bilateral pleuraleffusions.6. ?Left atrial enlargement. Preliminary Report Dictated by Resident: Pablo Martínez I, Derik ?MD Tianna., have reviewed this study and agree with theabove report.EXAM: CT ABDOMEN/PELVIS WITH CONTRAST HISTORY: ?eval forinfection ? COMPARISON: Abdominal radiograph 07/22/2020. TECHNIQUE AND FINDINGS: Contiguous axial imaging from the level of the lungbases through the proximal thighs was performed after the administration of100 cc of intravenous Omnipaque contrast. Coronal and sagittalreconstructions were obtained. ?Auto mA and/or iterative reconstructionwere used to reduce radiation dose. FINDINGS: LOWER THORAX: Bilateral geographic groundglass opacities, left greater thanright. Moderate bilateral pleural effusion with adjacent compressiveatelectasis. Multivessel coronary artery opacifications left atrialenlargement, measuring 5.1 cm in AP dimension. LIVER: Normal contour. Diffusely hypoattenuating liver parenchyma, sparingthe gallbladder fossa. No focal hepatic lesion. The liver is enlarged,measuring 22 cm in craniocaudal dimension at the midclavicular line. GALLBLADDER AND BILIARY TREE: No biliary ductal dilation. ?No gallbladderwall thickening. SPLEEN: No splenomegaly. Radiopaque densities in the splenic parenchyma,calcifications versus metallic foreign bodies PANCREAS: No ductal dilation or masses. Punctate radiodensities noted atthe pancreatic tail. ADRENAL GLANDS: No adrenal nodules. KIDNEYS: Heterogeneous renal cortical enhancement, at the left superiorpole (2:119 and 601:60). Bilateral perinephric fat stranding. A 1.6 cmhypodensity with fluid attenuation the left inferior pole, likely a renalcyst. No nephrolithiasis or hydronephrosis. PERITONEUM AND RETROPERITONEUM: Small volume ascites adjacent to the liver,in the right paracolic gutter, and vesicorectal space with simple fluiddensity. LYMPH NODES: No lymphadenopathy. GI TRACT: No dilation or wall thickening. Normal appendix. PELVIS/BLADDER: Theurinary bladder is distended. Subtle wall thickeningwith enhancement. The prostate is normal in size. VESSELS: Atherosclerotic calcifications in the abdominal aorta. BONES AND SOFT TISSUES: No suspicious lytic or sclerotic bony lesions.Diffuse subcutaneous soft tissue fat stranding (anasarca). Ageindeterminate compressive deformities of T7 and T10. Degenerative changesin the spine. [facility], Radiant Results Inft User - 07/23/2020 6:20 PM CDTEXAM: CT ABDOMEN/PELVIS WITH CONTRASTHISTORY: eval for infection COMPARISON: Abdominal radiograph 07/22/2020.TECHNIQUE AND FINDINGS: Contiguous axial imaging fromthe level of the lungbases through the proximal thighs was performed after the administration of100 cc of intravenous Omnipaque contrast. Coronal and sagittalreconstructions were obtained. Auto mA and/or iterative reconstructionwere used to reduce radiation dose.FINDINGS:LOWER THORAX: Bilateral geographic groundglass opacities, left greater thanright. Moderate bilateral pleural effusion with adjacent compressiveatelectasis. Multivessel coronary artery opacifications left atrialenlargement, measuring 5.1 cm in AP dimension.LIVER: Normal contour. Diffusely hypoattenuating liver parenchyma, sparingthe gallbladder fossa. No focal hepatic lesion. The liver is enlarged,measuring 22 cm in craniocaudal dimension at the midclavicular line.GALLBLADDER AND BILIARY TREE: No biliary ductal dilation. No gallb ladderwall thickening.SPLEEN: No splenomegaly. Radiopaque densities in the splenic parenchyma,calcifications versus metallic foreign bodiesPANCREAS: No ductal dilation or masses. Punctate radiodensities noted atthe pancreatic tail.ADRENAL GLANDS: No adrenal nodules.KIDNEYS: Heterogeneous renal cortical enhancement, at the left superiorpole (2:119 and 601:60). Bilateral perinephric fat stranding. A 1.6 cmhypodensity with fluid attenuation the left inferior pole, likely a renalcyst. No nephrolithiasisor hydronephrosis.PERITONEUM AND RETROPERITONEUM: Small volume ascites adjacent to the liver,in the right paracolic gutter, and vesicorectal space with simple fluiddensity.LYMPH NODES: No lymphadenopathy.GI TRACT: No dilation or wall thickening. Normal appendix.PELVIS/BLADDER: The urinary bladder is distended. Subtle wall thickeningwith enhancement. The prostate is normal in size.VESSELS: Atherosclero tic calcifications in the abdominal aorta.BONES AND SOFT TISSUES: No suspicious lytic or sclerotic bony lesions.Diffuse subcutaneous soft tissue fat stranding (anasarca). Ageindeterminate compressive deformities of T7 and T10. Degenerative changesin the spine.IMPRESSION1. Bilateral irregularly shapedpatchy groundglass opacities, left greaterthan right, likely secondary to infectious process. 2. Focal heterogeneous appearance of the upper pole of the left kidneyleft may represent a focal acute orchronic pyelonephritis. Pleasecorrelate with UA.3. Age indeterminate compressive deformities of T7 and T10 vertebralbodies.4. Hepatic steatosis with hepatomegaly.5. Third spacing with anasarca, , small ascites and bilateral pleuraleffusions.6. Left atrial enlargement.Preliminary Report Dictated byResident: Pablo Wheeler, Derik Wynn MD., have reviewed this study and agree with theabove report.[facility]OL[facility] PANEL (NA, K, CL, CO2, GLUCOSE, BUN, CREATININE, CA) 2020-07-23 21:16:00 Test Item Value Reference Range Interpretation Comments NA (test code = 142 mmol/L 135-145 0214520937) K (test code = 3.1 mmol/L 3.5-5 L 7708629285) CL (test code = 107 mmol/L 98-108 7756227769) CO2 TOTAL (test code = 25 mmol/L 23-31 0933751979) AGAP (test code = 2-16 0190597666) BUN (test code = 13 mg/dL 7-23 8459194067) GLUCOSE (test code = 106 mg/dL 70-110 5829307842) CREATININE (test code = 0.56 mg/dL 0.6-1.25 L 5650809411) CALCIUM (test code = 5.8 mg/dL 8.6-10.6 LL 8695072920) eGFR Calculation mL/min/1.73m2 (Non-) (test code = 6195386737) eGFR Calculation mL/min/1.73m2 () (test code = 3404345819) ASHLEY (test code = ASHLEY) Association of Glomerular Filtration Rate (GFR) and Staging of Kidney Disease* + --+ --+ ------+| GFR (mL/min/1.73 m2) ?| With Kidney Damage ?| ?Without Kidney Damage+ --------+ --------+ +| ?>90 ?| ?Stage one ?| ? Normal ?+ ---+ ---+ -------+| ?60-89 ?| ?Stage two ?| ? Decreased GFR ? + --+ --+ ------+| ?30-59 ?| ?Stage three ?| ? Stage three ? + --+ --+ ------+| ?15-29 ?| ?Stage four ? | ? Stage four ?+ ---+ ---+ -------+| ?<15 (or dialysis) ? ?| ?Stage five ? | ? Stage five ?+ ---+ ---+ -------+ *Each stage assumes the associated GFR level has been in effect for at least three months. ?Stages 1 to 5, with or without kidney disease, indicate chronic kidney disease. Notes: Determination of stages one and two (with eGFR >59mL/min/1.73 m2) requires estimation of kidney damage for at least three months as defined by structural or functional abnormalities of the kidney, manifested by either:Pathological abnormalities or Markers of kidney damage (including abnormalities in the composition of the blood or urine or abnormalities in imaging tests). Lab Interpretation Abnormal (test code = 62721-4) [facility] WITH [id number] 12:02:00 Test Item Value Reference Range Interpretation Comments WBC (test code = See_Comment H [Automated 6877-2) message] The system which generated this result transmit saad reference range : 4.20 - 10.70 10*3/?L. The reference range was not used to interpret this result as normal/abnormal . RBC (test code = See_Comment L [Automated 429-8) message] The system which generated this result transmit saad reference range : 4.26 - 5.52 10*6/?L. The reference range was not used to interpret this result as normal/abnormal . HGB (test code = 7.4 g/dL 12.2-16.4 L 718-7) HCT (test code = 21.2 % 38.4-49.3 L 4544-3) MCV (test code = 93.8 fL 81.7-95.6 787-2) MCH (test code = 32.7 pg 26.1-32.7 785-6) MCHC (test code = 34.9 g/dL 31.2-35 786-4) RDW-SD (test code = 89.1 fL 38.5-51.6 H 57561-7) RDW-CV (test code = 26.8 % 12.1-15.4 H 788-0) PLT (test code = See_Comment [Automated 777-3) message] The system which generated this result transmit saad reference range : 150 - 328 10*3/ ?L. The reference range was not u sed to interpret th is result as normal/abnormal . MPV (test code = 10.3 fL 9.8-13 05467-5) NRBC/100 WBC (test See_Comment [Automat ed code = 7783271491) message] The system which generated this result transmit saad reference range : 0.0 - 10.0 /100 WBCs. The reference range was not used to interpret this result as normal/abnormal . NRBC x10^3 (test code See_Comment [Auto mated = 9459486529) message] The system which generated this result transmit saad reference range : 10*3/?L. The reference range was not used to interpret this result as normal/abnormal . GRAN MAT (NEUT) % 83.7 % (test code = 770-8) IMM GRAN % (test code 3.20 % = 8102982147) LYMPH % (test code = 7.8 % 736-9) MONO % (test code = 5.0 % 5905-5) EOS % (test code = 0.2 % 713-8) BASO % (test code = 0.1 % 706-2) GRAN MAT x10^3(ANC) 28.10 10*3/uL 1.99-6.95 H (test code = 0154276909) IMM GRAN x10^3 (test 1.09 10*3/uL 0-0.06 H code = 2284022756) LYMPH x10^3 (test code 2.62 10*3/uL 1.09-3.23 = 731-0) MONO x10^3 (test code 1.68 10*3/uL 0.36-1.02 H = 742-7) EOS x10^3 (test code = 0.08 10*3/uL 0.06-0.53 711-2) BASO x10^3 (test code 0.04 10*3/uL 0.01-0.09 = 704-7) HYPERSEG NEUTS (test Present See_Comment A [Autom ated code = 765-8) message] The system which generated this result transmit saad reference range : (none). The reference range was not used to interpret this result as normal/abnormal . TOXIC CHANGES (test Present A code = 803-7) Lab Interpretation Abnormal (test code = 26510-5) [facility] METABOLIC PANEL (NA, K, CL, CO2, GLUCOSE, BUN, CREATININE, CA)2020-07-23 11:36:00 Test Item Value Reference Range Interpretation Comments NA (test code = 135 mmol/L 135-145 6160533649) K (test code = 3.7 mmol/L 3.5-5 Slight 5304973805) hemolysis CL (test code = 102 mmol/L 98-108 7816161554) CO2 TOTAL (test code 27 mmol/L 23-31 = 9650906194) AGAP (test code = 2-16 5449651664) BUN (test code = 12 mg/dL 7-23 Slight 9645687164) hemolysis GLUCOSE (test code = 93 mg/dL 70-110 2050315344) CREATININE (test code 0.64 mg/dL 0.6-1.25 = 7469671045) CALCIUM (test code = 6.6 mg/dL 8.6-10.6 L 5741660947) eGFR Calculation mL/min/1.73m2 (Non-) (test code = 2073118174) eGFR Calculation mL/min/1.73m2 () (test code = 8279698992) ASHLEY (test code = ASHLEY) Association of Glomerular Filtration Rate (GFR) and Staging of Kidney Disease* + -----+ --------+ +| GFR (mL/min/1.73 m2) ?| With Kidney Damage ?| ?Without Kidney Damage+ +------- +---- --+| ?>90 ?| ?Stage one ?| ? Normal ?+ ------+ ---------+--------- +| ?60-89 ?| ?Stage two ?| ? Decreased GFR ? + -----+ --------+ +| ?30-59 ?| ?Stage three ?| ? Stage three ? + -----+ --------+ +| ?15-29 ?| ?Stage four ? | ? Stage four ?+ ------+ ---------+--------- +| ?<15 (or dialysis) ? ?| ?Stage five ? | ? Stage five ?+ ------+ ---------+--------- + *Each stage assumes the associated GFR level has been in effect for at least three months. ?Stages 1 to 5, with or without kidney disease, indicate chronic kidney disease. Notes: Determination of stages one and two (with eGFR >59mL/min/1.73 m2) requires estimation of kidney damage for at least three months as defined by structural or functional abnormalities of the kidney, manifested by either:Pathological abnormalities or Markers of kidney damage (including abnormalities in the composition of the blood or urine or abnormalities in imaging tests). Lab Interpretation Abnormal (test code = 08127-0) [facility] [id number] 08:02:00 Test Item Value Reference Range Interpretation Comments Blood Culture-Aerobic No organisms No growth Previo us (test code = 30328-4) isolated prelim inary verified result was Culture In Progress on 07/18/2020 at 04 05 CDTPrevious preliminary verified result was No growth a t 24 hours on 07/19/2020 at 01 03 CDTPrevious preliminary verified result was No growth a t 48 hours on 07/20/2020 at 01 03 CDTPrevious preliminary verified result was No growth a t 72 hours on 07/21/2020 at 01 03 CDT Blood No organisms No growth Previous Culture-Anaerobic isolated preliminar y (test code = 21721-7) verifi ed result was Culture In Progress on 07/18/2020 at 04 05 CDTPrevious preliminary verified result was No growth a t 24 hours on 07/19/2020 at 01 03 CDTPrevious preliminary verified result was No growth a t 48 hours on 07/20/2020 at 01 03 CDTPrevious preliminary verified result was No growth a t 72 hours on 07/21/2020 at 03 01 CDT Lab Interpretation Normal (test code = 50146-2) [facility] Vein # [id number] 08:02:00 Test Item Value Reference Range Interpretation Comments Blood Culture-Aerobic No organisms No growth Previo us (test code = 62910-5) isolated prelim inary verified result was Culture In Progress on 07/18/2020 at 06 CDTPrevious preliminary verified result was No growth a t 24 hours on 07/19/2020 at 01 03 CDTPrevious preliminary verified result was No growth a t 48 hours on 07/20/2020 at 03 CDTPrevious preliminary verified result was No growth a t 72 hours on 07/21/2020 at 03 CDT Blood No organisms No growth Previous Culture-Anaerobic isolated preliminar y (test code = 51268-0) verifi ed result was Culture In Progress on 07/18/2020 at 06 CDTPrevious preliminary verified result was No growth a t 24 hours on 07/19/2020 at 01 03 CDTPrevious preliminary verified result was No growth a t 48 hours on 07/20/2020 at 03 CDTPrevious preliminary verified result was No growth a t 72 hours on 07/21/2020 at 03 01 CDT Lab Interpretation Normal (test code = 38705-5) [facility] HospitalVIT[facility]IN B6, [id number] 01:43:00 Test Item Value Reference Range Interpretation Comments VIT B6 (test code = 6.3 nmol/L 20.0-125.0 L INTERPRE TIVE 59801-9) INFORMATION: Vi tamin B6 (Pyridoxal 5-Phosphate) Py ridoxal 5'-phosphate me asured in a specimen collected follo wing an 8-hour or overn ight fast accurately indicates vitam in B6 nutritional sta tus. Non-fasting spe cimen concentration r eflects recent vitamin intake. Test developed and characteristics determined by [employer]. S ee Compliance Stat ement B: [employer]/REYNA erforme d By: [facility] [place] [id number] Director: Skye Mcdonnell MD Lab Interpretation Abnormal (test code = 38597-1) [facility] METABOLIC PANEL (NA, K, CL, CO2, GLUCOSE, BUN, CREATININE, CA)2020-07-23 01:30:00 Test Item Value Reference Range Interpretation Comments NA (test code = 133 mmol/L 135-145 L 4911664018) K (test code = 3.8 mmol/L 3.5-5 9833163787) CL (test code = 101 mmol/L 98-108 8054215985) CO2 TOTAL (test code = 27 mmol/L 23-31 3845814650) AGAP (test code = 2-16 2072842511) BUN (test code = 11 mg/dL 7-23 1602775480) GLUCOSE (test code = 106 mg/dL 70-110 9168623349) CREATININE (test code = 0.61 mg/dL 0.6-1.25 7539282656) CALCIUM (test code = 6.8 mg/dL 8.6-10.6 L 7197429980) eGFR Calculation mL/min/1.73m2 (Non-) (test code = 7470899718) eGFR Calculation mL/min/1.73m2 () (test code = 9992843515) ASHLEY (test code = ASHLEY) Association of Glomerular Filtration Rate (GFR) and Staging of Kidney Disease* + --+ --+ ------+| GFR (mL/min/1.73 m2) ?| With Kidney Damage ?| ?Without Kidney Damage+ --------+ --------+ +| ?>90 ?| ?Stage one ?| ? Normal ?+ ---+ ---+ -------+| ?60-89 ?| ?Stage two ?| ? Decreased GFR ? + --+ --+ ------+| ?30-59 ?| ?Stage three ?| ? Stage three ? + --+ --+ ------+| ?15-29 ?| ?Stage four ? | ? Stage four ?+ ---+ ---+ -------+| ?<15 (or dialysis) ? ?| ?Stage five ? | ? Stage five ?+ ---+ ---+ -------+ *Each stage assumes the associated GFR level has been in effect for at least three months. ?Stages 1 to 5, with or without kidney disease, indicate chronic kidney disease. Notes: Determination of stages one and two (with eGFR >59mL/min/1.73 m2) requires estimation of kidney damage for at least three months as defined by structural or functional abnormalities of the kidney, manifested by either:Pathological abnormalities or Markers of kidney damage (including abnormalities in the composition of the blood or urine or abnormalities in imaging tests). Lab Interpretation Abnormal (test code = 06731-5) [facility] HospitalANATOLIY, [id number] 20:45:00 Test Item Value Reference Range Interpretation Comments ZINC (test code = 37.6 ug/dL 60.0-120.0 L INTERPRETI VE 5763-8) INFORMATION: Zi nc, Serum or Plasma Elevated result s may be due to skin or collection-rela saad contamination, including the u se of a noncertified metal-free collection/arroyo sport tube. If contam ination concerns exist due to elevated levels of serum/plasma zi nc, confirmation wi th a second specimen collected in a certified metal -free tube is recomme nded. Circulating zin c concentrations are dependent on al bumin status and are depressed with malnutrition. ? Zinc may also be low ered with infection, inflammation, s tress, oral contracept monico, and . ?Zinc may be elevated with zinc supplement ation or fasting. ?El evated zinc concentrat ions may interfere w ith copper absorpti on. Test developed and characteristics determined by [employer]. S ee Compliance Stat ement B: [employer] erforme d By: [facility] [place] [id number] Director: Skye Mcdonnell MD Lab Interpretation Abnormal (test code = 02484-2) [facility] HospitalHSV 1&2, VZV BY [id number] 19:56:00 Test Item Value Reference Range Interpretation Comments Herpes simplex virus type 1 Nucleic Negative Negative Acid (test code = 0846242986) Herpes simplex virus type 2 Nucleic Negative Negative Acid (test code = 8913817037) Varicella zoster virus Nucleic Acid Negative Negative (test code = 60141-3) Lab Interpretation (test code = Normal 72819-8) [facility] METABOLIC PANEL (NA, K, CL, CO2, GLUCOSE, BUN, CREATININE, CA)2020-07-22 17:50:00 Test Item Value Reference Range Interpretation Comments NA (test code = 134 mmol/L 135-145 L 8493830670) K (test code = 4.2 mmol/L 3.5-5 1669984985) CL (test code = 101 mmol/L 98-108 0609688992) CO2 TOTAL (test code = 28 mmol/L 23-31 0599439062) AGAP (test code = 2-16 7232437609) BUN (test code = 11 mg/dL 7-23 0754094608) GLUCOSE (test code = 108 mg/dL 70-110 4701630369) CREATININE (test code = 0.56 mg/dL 0.6-1.25 L 4313820845) CALCIUM (test code = 6.8 mg/dL 8.6-10.6 L 0625091359) eGFR Calculation mL/min/1.73m2 (Non-) (test code = 2855392083) eGFR Calculation mL/min/1.73m2 () (test code = 2393419905) ASHLEY (test code = ASHLEY) Association of Glomerular Filtration Rate (GFR) and Staging of Kidney Disease* + --+ --+ ------+| GFR (mL/min/1.73 m2) ?| With Kidney Damage ?| ?Without Kidney Damage+ --------+ --------+ +| ?>90 ?| ?Stage one ?| ? Normal ?+ ---+ ---+ -------+| ?60-89 ?| ?Stage two ?| ? Decreased GFR ? + --+ --+ ------+| ?30-59 ?| ?Stage three ?| ? Stage three ? + --+ --+ ------+| ?15-29 ?| ?Stage four ? | ? Stage four ?+ ---+ ---+ -------+| ?<15 (or dialysis) ? ?| ?Stage five ? | ? Stage five ?+ ---+ ---+ -------+ *Each stage assumes the associated GFR level has been in effect for at least three months. ?Stages 1 to 5, with or without kidney disease, indicate chronic kidney disease. Notes: Determination of stages one and two (with eGFR >59mL/min/1.73 m2) requires estimation of kidney damage for at least three months as defined by structural or functional abnormalities of the kidney, manifested by either:Pathological abnormalities or Markers of kidney damage (including abnormalities in the composition of the blood or urine or abnormalities in imaging tests). Lab Interpretation Abnormal (test code = 42479-1) [facility] HospitalC-REACTIVE [id number] 16:22:00 Test Item Value Reference Range Interpretation Comments CRP (test code = 3417259010) 9.8 mg/dL <0.8 H Lab Interpretation (test code = Abnormal 28898-8) [facility] HospitalDIFF CONSULT [id number] 16:09:00 WBC: Leukocytosis with absolute toxic neutrophilia, toxic left shift, absolute reactive monocytosisand reactive lymphocytes suggestive of systemic inflammation/infection. Exclude sepsis. RBC: Normocytic normochromic anemia with polychromasia and anisopoikilocytosis including occasional target cells, ovalocytes, elliptocytes, spherocytes and rare teardrops. Platelets: Adequate number.[facility] HospitalVITAMIN B1 (THIAMINE), WHOLE BLOOD 2020-07-22 14:26:00 Test Item Value Reference Range Interpretation Comments Vitamin B1, Whole 74 nmol/L 70-180 INTERPRETI VE INFORMATION: Blood (test code = Vitamin B 1, Whole Blood 14426-2) This assay cole ures the concentration o f thiamine diphosphate (TD P), the primary active form of vitamin B1. Nhung roximately 90 percent of v itamin B1 present in whol e blood is TDP. Thiamine a nd thiamine monophosphate, which comprise the re maining 10 percent, are no t measured. Test developed and characteristics determined by [facility]. See Compliance Stat ement B: [employer]/CSP erformed By: [facility] Randhawa [address] [place], [place] [address]Hjolsuq [facility] Director: Skye Mcdonnell MD [facility] HospitalXR [id number] 14:09:02 No acute radiographic abnormality Preliminary Report Dictated by Resident: Alissa Yip I reviewed this study and agree. Kirby Christian MD., have reviewed this study and agree with theabove report.EXAM: XR KUB 07/22/2020 5:00 AM. INDICATION: 65 years-old Male, with Leukocytosis and abdominal discomfort COMPARISON: None. TECHNIQUE: Frontal radiograph of the lower abdomen. FINDINGS: Left lateral border of the abdomen is not included in the image. Nonobstructive gas pattern without luminal dilatation. No abnormal calcification or acute osseous abnormality is detected. No organomegaly or mass effect. [facility], Radiant Results Inft User - 07/22/2020 9:10 AM CDTEXAM: XR KUB 07/22/2020 5:00 AM. INDICATION: 65 years-old Male, with Leukocytosis and abdominal discomfort COMPARISON: None.TECHNIQUE: Frontal radiograph of the lower abdomen. FINDINGS:Left lateral border of the abdomen is not included in the image.Nonobstructive gas pattern without luminal dilatation.No abnormal calcification or acute osseous abnormality is detected.No organomegaly or mass effect.IMPRESSIONNo acute radiographic abnormalityPreliminary Report Dictated by Resident: Alissa Bravo reviewed this study and agree.I, Kirby Pierre MD., have reviewed this study and agree with theabove report. [facility] HospitalPROCALCITONIN2020-09-17 14:06:00 Test Item Value Reference Range Interpretation Comments Procalcitonin (test 0.38 ng/mL <0.07 H code = 8475909505) ASHLEY (test code = ASHLEY) INTERPRETATION OF PROCALCITONIN RESULTS IN ADULTS >= 18 YEARS OF AGE Initiation and discontinuation of antibiotics on patients with suspected or confirmed Lower Respiratory Tract Infection in Adults >= 18 years of age. + +-------- --------+ + -----+|Procalcitonin |Interpretation ?|Antibiotic ? ? |Considerations ? |ng/mL ? | ?|recommendation | ? + +-------- --------+ + -----+| <0.1 ? | Bacterial ? ? ?| Strongly ? ? ?| ? | ?| infection very | discouraged ? | Overruling: ? | ?| unlikely ? ? ? | ? | ? Clinically unstable ? ? ? + +-------- --------+ + ? High risk for adverse ? ? | <0.25 ?| Bacterial ? ? ?| Discouraged ? | ? outcome ? | ?| infection ? ? ?| ? | ? SEE IMPORTANT NOTE ?| ?| unlikely ? ? ? | ? | ? + +-------- --------+ + -----+| >=0.25 ? ? ? | Bacterial ? ? ?| Encouraged ? ?| ? | ?| infection ? ? ?| ? | ? | ?| likely ? | ? | Consider treatment failure ?+ +------- ---------+ -+ if levels does not decrease | >0.5 ? | Bacterial ? ? ?| Strongly ? ? ?| appropriately ? | ?| infection very | encouraged ? ?| ? | ?| likely ? | ? | ? + +-------- --------+ + -----+ Discontinuation of antibiotics in high-acuity patients with suspected or confirmed sepsis in Adults >= 18 years of age. + +-------- --------+ + -----+|Procalcitonin |Interpretation ?|Antibiotic ? ? |Considerations ? |ng/mL ? | ?|recommendation | ? + +-------- --------+ + -----+| <0.25 ?| Bacterial ? ? ?| Strongly ? ? ?| ? | ?| infection very | discouraged ? | Overruling: ? | ?| unlikely ? ? ? | ? | ? Clinically unstable ? ? ? + +-------- --------+ + ? High risk for adverse ? ? | <0.5 or drop | Bacterial ? ? ?| Discouraged ? | ? outcome ? | >80% from ? ?| infection ? ? ?| ? | ? SEE IMPORTANT NOTE ?| highest PCT ?| unlikely ? ? ? | ? | ? | level ?| ?| ? | ? + +-------- --------+ + -----+| >=0.5 ?| Bacterial ? ? ?| Encouraged ? ?| ? | ?| infection ? ? ?| ? | ? | ?| likely ? | ? | Consider treatment failure ?+ +------- ---------+ -+ if levels does not decrease | >1.0 ? | Bacterial ? ? ?| Strongly ? ? ?| appropriately ? | ?| infection very | encouraged ? ?| ? | ?| likely ? | ? | ? + +-------- --------+ + -----+ Percentage of drop of Procalcitonin calculation for Discontinuation of antibiotics in high-acuity patients with suspected or confirmed sepsis in Adults >= 18 years of age. ? Procalcitonin highest{}-Procalcitonin current{}Delta Procalcitonin = x100% ? Procalcitonin current {} IMPORTANT NOTE: Procalcitonin may be elevated without bacterial infection by physiologic stress related to trauma, kerr, chronic dialysis, metastatic cancer, surgery in the past seven days, malaria, some fungal infections, and some forms of vasculitis. The interpretation algorithm may not apply to patients with immunosuppression (equivalent of >10 mg of prednisone daily), HIV with CD4 cell count < 350 cells/mm3, active malignancy on systemic chemotherapy, solid organ transplant or hematopoietic stem cell transplantation, or hospital acquired pneumonia. Additionally, some clinical trials of procalcitonin have excluded patients with shock requiring vasopressor use, acute respiratory failure requiring mechanical ventilation, or those with known lung abscess/empyema. For further information please refer to:[email or web address] Lab Interpretation Abnormal (test code = 85891-5) [facility] HospitalXR CHEST 1 [id number] 13:20:58EXAM: XR CHEST 1 VW HISTORY: Increased supplemental oxygen demand COMPARISON: None. FINDINGS: Interstitial and alveolar pulmonary edema persist on both sides, much moremarked on the left and much moremarked than noted previously. The heartand great vessels are normal. ? [facility], Radiant Results Inft User - 07/22/2020 8:22 AM CDTEXAM: XR CHEST 1 VWHISTORY: Increased supplemental oxygen demand COMPARISON: None.FINDINGS:Interstitial and alveolar pulmonary edema persist on both sides, much moremarked on the left and much more marked than noted previously. The heartand great vessels are normal.[facility] HospitalHEPATIC FUNCTION PANEL (87771) (ALB,T.PRO,BILI T,BU/BC,ALT,AST,ALK PHOS)2020-07-22 12:43:00 Test Item Value Reference Range Interpretation Comments TOTAL BILI (test code = 5488196845) 2.7 mg/dL 0.1-1.1 H BILI UNCON (test code = 4384465786) 1.2 mg/dL 0.1-1.1 H BILI CONJ (test code = 1839122697) 0.2 mg/dL 0-0.3 T PROTEIN (test code = 7636601145) 5.4 g/dL 6.3-8.2 L ALBUMIN (test code = 4743023375) 2.4 g/dL 3.5-5 L ALK PHOS (test code = 2348465358) 95 U/L 34-122 ALTv (test code = 1742-6) 26 U/L 5-50 AST(SGOT) (test code = 9355694701) 96 U/L 13-40 H Lab Interpretation (test code = Abnormal 79811-0) [facility] HospitalSEDIMENTATION [id number] 12:17:00 Test Item Value Reference Range Interpretation Comments ESR (test code = See_Comment H [Automated message] 9667784004) The system [employer] generated this result transmitted ref erence range: 0 - 10 m m/HR. The reference r tyler was not used to interpret this result as normal/abnor mal. Lab Interpretation (test Abnormal code = 51921-8) [facility] HospitalHCV BY [id number] 12:02:00 Test Item Value Reference Range Interpretation Comments HCV by Real-Time Not Detected Not detected IU/mL PCR (test code = 7860736754) ASHLEY (test code = HCV-PCR was performed ASHLEY) using a sample reflexed from HCV antibody test. We recommend a new sample to confirm the test result. [employer] m2000 RealTime HCV reverse charge nurse-polymerase chain reaction(RT-PCR) assay is used. It is FDA approved for the quantitation of HCVin plasma and serum samples for HCV-infected individuals. The FDA approveddynamic range of this test is 12 IU/mL to 100,000,000 IU/mL (1.08-8.00 LogIU/mL). Assay results are reported in IU/mL..Result Interpretation:Not Detected: Target not detected (not the same as negative),<12 IU/mL: Detected (but not quantifiable)12-100,000,00 0 IU/mL,>100,000,000 IU/mL: >upper limit of quantification. [facility] WITH [id number] 10:10:00 Test Item Value Reference Range Interpretation Comments WBC (test code = See_Comment H [Automated 6690-2) message] The system which generated this result transmit saad reference range : 4.20 - 10.70 10*3/?L. The reference range was not used to interpret this result as normal/abnormal . RBC (test code = See_Comment L [Automated 789-8) message] The system which generated this result transmit saad reference range : 4.26 - 5.52 10*6/?L. The reference range was not used to interpret this result as normal/abnormal . HGB (test code = 8.0 g/dL 12.2-16.4 L 718-7) HCT (test code = 22.2 % 38.4-49.3 L 4544-3) MCV (test code = 91.0 fL 81.7-95.6 787-2) MCH (test code = 32.8 pg 26.1-32.7 H 785-6) MCHC (test code = 36.0 g/dL 31.2-35 H 786-4) RDW-SD (test code = 82.8 fL 38.5-51.6 H 41902-0) RDW-CV (test code = 25.7 % 12.1-15.4 H 788-0) PLT (test code = See_Comment [Automated 777-3) message] The system which generated this result transmit saad reference range : 150 - 328 10*3/ ?L. The reference range was not u sed to interpret th is result as normal/abnormal . MPV (test code = 9.5 fL 9.8-13 L 69487-0) NRBC/100 WBC (test See_Comment [Automat ed code = 4836437164) message] The system which generated this result transmit saad reference range : 0.0 - 10.0 /100 WBCs. The reference range was not used to interpret this result as normal/abnormal . NRBC x10^3 (test code See_Comment [Auto mated = 3754494333) message] The system which generated this result transmit saad reference range : 10*3/?L. The reference range was not used to interpret this result as normal/abnormal . GRAN MAT (NEUT) % 76.0 % (test code = 770-8) IMM GRAN % (test code 6.70 % = 6403939514) LYMPH % (test code = 9.6 % 736-9) MONO % (test code = 7.2 % 5905-5) EOS % (test code = 0.2 % 713-8) BASO % (test code = 0.3 % 706-2) GRAN MAT x10^3(ANC) 25.45 10*3/uL 1.99-6.95 H (test code = 9975936339) IMM GRAN x10^3 (test 2.23 10*3/uL 0-0.06 H code = 3779177886) LYMPH x10^3 (test code 3.22 10*3/uL 1.09-3.23 = 731-0) MONO x10^3 (test code 2.40 10*3/uL 0.36-1.02 H = 742-7) EOS x10^3 (test code = 0.08 10*3/uL 0.06-0.53 711-2) BASO x10^3 (test code 0.10 10*3/uL 0.01-0.09 H = 704-7) Lab Interpretation Abnormal (test code = 50935-4) [facility] METABOLIC PANEL (NA, K, CL, CO2, GLUCOSE, BUN, CREATININE, CA)2020-07-22 09:26:00 Test Item Value Reference Range Interpretation Comments NA (test code = 132 mmol/L 135-145 L 7640265533) K (test code = 4.0 mmol/L 3.5-5 1870342040) CL (test code = 99 mmol/L 98-108 3254476910) CO2 TOTAL (test code = 29 mmol/L 23-31 9975159592) AGAP (test code = 2-16 8609556567) BUN (test code = 11 mg/dL 7-23 5335412197) GLUCOSE (test code = 115 mg/dL 70-110 H 2728918994) CREATININE (test code = 0.58 mg/dL 0.6-1.25 L 7088953303) CALCIUM (test code = 7.3 mg/dL 8.6-10.6 L 7241673208) eGFR Calculation mL/min/1.73m2 (Non-) (test code = 6274246890) eGFR Calculation mL/min/1.73m2 () (test code = 4747007482) ASHLEY (test code = ASHLEY) Association of Glomerular Filtration Rate (GFR) and Staging of Kidney Disease* + --+ --+ ------+| GFR (mL/min/1.73 m2) ?| With Kidney Damage ?| ?Without Kidney Damage+ --------+ --------+ +| ?>90 ?| ?Stage one ?| ? Normal ?+ ---+ ---+ -------+| ?60-89 ?| ?Stage two ?| ? Decreased GFR ? + --+ --+ ------+| ?30-59 ?| ?Stage three ?| ? Stage three ? + --+ --+ ------+| ?15-29 ?| ?Stage four ? | ? Stage four ?+ ---+ ---+ -------+| ?<15 (or dialysis) ? ?| ?Stage five ? | ? Stage five ?+ ---+ ---+ -------+ *Each stage assumes the associated GFR level has been in effect for at least three months. ?Stages 1 to 5, with or without kidney disease, indicate chronic kidney disease. Notes: Determination of stages one and two (with eGFR >59mL/min/1.73 m2) requires estimation of kidney damage for at least three months as defined by structural or functional abnormalities of the kidney, manifested by either:Pathological abnormalities or Markers of kidney damage (including abnormalities in the composition of the blood or urine or abnormalities in imaging tests). Lab Interpretation Abnormal (test code = 21536-3) [facility] HospitalAMMONIA, [id number] 09:18:00 Test Item Value Reference Range Interpretation Comments AMMONIA (test code = 0006440273) <9 9-33 L Lab Interpretation (test code = Abnormal 73329-9) [facility] HospitalHCV [id number] 08:05:00 Test Item Value Reference Range Interpretation Comments HCV Ab (test code = Positive 25924-1) HCV Semi-Quantitative (test code = 98872-0) APRI (test code = 1044529493) ASHLEY (test code = Positive for HCV antibody ASHLEY) with a high signal to cutoff ratio (s/c). ?Supplementary test for Hepatitis C Virus RNA Real-Time PCR is recommended if clinically indicated. ?If any questions, please contact Clinical Chemistry Director medical radiation dosimetrist at [phone].APRI score < 0.5: Suggestive of little to no fibrosisAPRI score > 1.5: Suggestive of moderate to severe fibrosisAPRI score > 2.0: Highly suggestive of cirrhosis. [facility] METABOLIC PANEL (NA, K, CL, CO2, GLUCOSE, BUN, CREATININE, CA)2020-07-22 04:10:00 Test Item Value Reference Range Interpretation Comments NA (test code = 130 mmol/L 135-145 L 9829218181) K (test code = 3.9 mmol/L 3.5-5 9484278095) CL (test code = 98 mmol/L 98-108 7765269171) CO2 TOTAL (test code = 28 mmol/L 23-31 9112531764) AGAP (test code = 2-16 1179902051) BUN (test code = 11 mg/dL 7-23 4155933539) GLUCOSE (test code = 118 mg/dL 70-110 H 0911277944) CREATININE (test code = 0.61 mg/dL 0.6-1.25 6701729759) CALCIUM (test code = 6.9 mg/dL 8.6-10.6 L 5193770174) eGFR Calculation mL/min/1.73m2 (Non-) (test code = 0122249635) eGFR Calculation mL/min/1.73m2 () (test code = 7073386477) ASHLEY (test code = ASHLEY) Association of Glomerular Filtration Rate (GFR) and Staging of Kidney Disease* + --+ --+ ------+| GFR (mL/min/1.73 m2) ?| With Kidney Damage ?| ?Without Kidney Damage+ --------+ --------+ +| ?>90 ?| ?Stage one ?| ? Normal ?+ ---+ ---+ -------+| ?60-89 ?| ?Stage two ?| ? Decreased GFR ? + --+ --+ ------+| ?30-59 ?| ?Stage three ?| ? Stage three ? + --+ --+ ------+| ?15-29 ?| ?Stage four ? | ? Stage four ?+ ---+ ---+ -------+| ?<15 (or dialysis) ? ?| ?Stage five ? | ? Stage five ?+ ---+ ---+ -------+ *Each stage assumes the associated GFR level has been in effect for at least three months. ?Stages 1 to 5, with or without kidney disease, indicate chronic kidney disease. Notes: Determination of stages one and two (with eGFR >59mL/min/1.73 m2) requires estimation of kidney damage for at least three months as defined by structural or functional abnormalities of the kidney, manifested by either:Pathological abnormalities or Markers of kidney damage (including abnormalities in the composition of the blood or urine or abnormalities in imaging tests). Lab Interpretation Abnormal (test code = 17930-9) [facility] HospitalVITAMIN D, [id number] 23:06:00 Test Item Value Reference Range Interpretation Comments VIT D 25OH (test code = 15 ng/mL 25-80 L 66681-6) ASHLEY (test code = ASHLEY) Deficiency: <20 ng/mLInsufficiency: 20-24 ng/mLOptimal: 25-80 ng/mL Lab Interpretation (test Abnormal code = 50548-9) [facility]OLIC PANEL (NA, K, CL, CO2, GLUCOSE, BUN, CREATININE, CA)2020-07-21 22:49:00 Test Item Value Reference Range Interpretation Comments NA (test code = 131 mmol/L 135-145 L 3985978985) K (test code = 3.9 mmol/L 3.5-5 0579404470) CL (test code = 98 mmol/L 98-108 1297548490) CO2 TOTAL (test code = 29 mmol/L 23-31 8995381733) AGAP (test code = 2-16 5703701096) BUN (test code = 11 mg/dL 7-23 2597225040) GLUCOSE (test code = 110 mg/dL 70-110 3695499544) CREATININE (test code = 0.62 mg/dL 0.6-1.25 9153275763) CALCIUM (test code = 6.7 mg/dL 8.6-10.6 L 1641438348) eGFR Calculation mL/min/1.73m2 (Non-) (test code = 1656277775) eGFR Calculation mL/min/1.73m2 () (test code = 2428299897) ASHLEY (test code = ASHLEY) Association of Glomerular Filtration Rate (GFR) and Staging of Kidney Disease* + --+ --+ ------+| GFR (mL/min/1.73 m2) ?| With Kidney Damage ?| ?Without Kidney Damage+ --------+ --------+ +| ?>90 ?| ?Stage one ?| ? Normal ?+ ---+ ---+ -------+| ?60-89 ?| ?Stage two ?| ? Decreased GFR ? + --+ --+ ------+| ?30-59 ?| ?Stage three ?| ? Stage three ? + --+ --+ ------+| ?15-29 ?| ?Stage four ? | ? Stage four ?+ ---+ ---+ -------+| ?<15 (or dialysis) ? ?| ?Stage five ? | ? Stage five ?+ ---+ ---+ -------+ *Each stage assumes the associated GFR level has been in effect for at least three months. ?Stages 1 to 5, with or without kidney disease, indicate chronic kidney disease. Notes: Determination of stages one and two (with eGFR >59mL/min/1.73 m2) requires estimation of kidney damage for at least three months as defined by structural or functional abnormalities of the kidney, manifested by either:Pathological abnormalities or Markers of kidney damage (including abnormalities in the composition of the blood or urine or abnormalities in imaging tests). Lab Interpretation Abnormal (test code = 75859-3) [facility] HospitalMifl. Sendout- Hemoglobin A1c #[id number] 19:06:00 Test Item Value Reference Range Interpretation Comments Miscellaneous Test (test See scanned report code = 1886001973) Performing Lab (test code ARUP = 6643573896) [facility] HospitalLIPID PANEL (17401)(TOTAL CHOLESTEROL, TRIGLYCERIDES, HDL)2020-07-21 15:53:00 Test Item Value Reference Range Interpretation Comments CHOL (test code = 112 mg/dL 120-200 L 9064707719) HDL (test code = 8 mg/dL >40 L 3694528130) HDLC RATIO (test code = See_Comment H [Au tomated message] 3480244288) The system [employer] generated this result transmit saad reference range : <=5.0. The refe rence range was not u sed to interpret th is result as normal/abnormal . TRIG (test code = 165 mg/dL 30-170 4757986063) LDL CHOL (test code = 71 mg/dL See_Comment [Auto mated message] 23959-3) The system [employer] generated this result transmit saad reference range : <=160. The refe rence range was not u sed to interpret th is result as normal/abnormal . VLDL (test code = 33 mg/dL 5-60 3018330720) Lab Interpretation (test Abnormal code = 80373-2) [facility] HospitalLACTATE [id number] 11:03:00 Test Item Value Reference Range Interpretation Comments LDH (test code = 1543115772) 933 U/L 300-600 H Lab Interpretation (test code = Abnormal 91536-3) [facility] METABOLIC PANEL (NA, K, CL, CO2, GLUCOSE, BUN, CREATININE, CA)2020-07-21 10:52:00 Test Item Value Reference Range Interpretation Comments NA (test code = 129 mmol/L 135-145 L 4966482869) K (test code = 3.5 mmol/L 3.5-5 9557077407) CL (test code = 96 mmol/L 98-108 L 6210410166) CO2 TOTAL (test code = 29 mmol/L 23-31 1155651736) AGAP (test code = 2-16 0701390893) BUN (test code = 15 mg/dL 7-23 4507944626) GLUCOSE (test code = 114 mg/dL 70-110 H 9715113555) CREATININE (test code = 0.68 mg/dL 0.6-1.25 0334670532) CALCIUM (test code = 7.0 mg/dL 8.6-10.6 L 2668930767) eGFR Calculation mL/min/1.73m2 (Non-) (test code = 0986229115) eGFR Calculation mL/min/1.73m2 () (test code = 5320185061) ASHLEY (test code = ASHLEY) Association of Glomerular Filtration Rate (GFR) and Staging of Kidney Disease* + --+ --+ ------+| GFR (mL/min/1.73 m2) ?| With Kidney Damage ?| ?Without Kidney Damage+ --------+ --------+ +| ?>90 ?| ?Stage one ?| ? Normal ?+ ---+ ---+ -------+| ?60-89 ?| ?Stage two ?| ? Decreased GFR ? + --+ --+ ------+| ?30-59 ?| ?Stage three ?| ? Stage three ? + --+ --+ ------+| ?15-29 ?| ?Stage four ? | ? Stage four ?+ ---+ ---+ -------+| ?<15 (or dialysis) ? ?| ?Stage five ? | ? Stage five ?+ ---+ ---+ -------+ *Each stage assumes the associated GFR level has been in effect for at least three months. ?Stages 1 to 5, with or without kidney disease, indicate chronic kidney disease. Notes: Determination of stages one and two (with eGFR >59mL/min/1.73 m2) requires estimation of kidney damage for at least three months as defined by structural or functional abnormalities of the kidney, manifested by either:Pathological abnormalities or Markers of kidney damage (including abnormalities in the composition of the blood or urine or abnormalities in imaging tests). Lab Interpretation Abnormal (test code = 35370-0) [facility] HospitalHEPATIC FUNCTION PANEL (29884) (ALB,T.PRO,BILI T,BU/BC,ALT,AST,ALK PHOS)2020-07-21 10:52:00 Test Item Value Reference Range Interpretation Comments TOTAL BILI (test code = 6655123644) 3.8 mg/dL 0.1-1.1 H BILI UNCON (test code = 9309238598) 1.3 mg/dL 0.1-1.1 H BILI CONJ (test code = 8898543757) 1.0 mg/dL 0-0.3 H T PROTEIN (test code = 8800727741) 5.3 g/dL 6.3-8.2 L ALBUMIN (test code = 1972682717) 2.3 g/dL 3.5-5 L ALK PHOS (test code = 8794077578) 111 U/L 34-122 ALTv (test code = 1742-6) 27 U/L 5-50 AST(SGOT) (test code = 0983201385) 117 U/L 13-40 H Lab Interpretation (test code = Abnormal 34035-6) [facility] WITH [id number] 10:42:00 Test Item Value Reference Range Interpretation Comments WBC (test code = See_Comment H [Automated 6690-2) message] The system which generated this result transmit saad reference range : 4.20 - 10.70 10*3/?L. The reference range was not used to interpret this result as normal/abnormal . RBC (test code = See_Comment L [Automated 789-8) message] The system which generated this result transmit saad reference range : 4.26 - 5.52 10*6/?L. The reference range was not used to interpret this result as normal/abnormal . HGB (test code = 8.0 g/dL 12.2-16.4 L 718-7) HCT (test code = 21.8 % 38.4-49.3 L 4544-3) MCV (test code = 91.6 fL 81.7-95.6 787-2) MCH (test code = 33.6 pg 26.1-32.7 H 785-6) MCHC (test code = 36.7 g/dL 31.2-35 H 786-4) RDW-SD (test code = 81.0 fL 38.5-51.6 H 44097-5) RDW-CV (test code = 25.3 % 12.1-15.4 H 788-0) PLT (test code = See_Comment [Automated 777-3) message] The system which generated this result transmit saad reference range : 150 - 328 10*3/ ?L. The reference range was not u sed to interpret th is result as normal/abnormal . MPV (test code = 9.4 fL 9.8-13 L 36035-9) NRBC/100 WBC (test See_Comment [Automat ed code = 8255068031) message] The system which generated this result transmit saad reference range : 0.0 - 10.0 /100 WBCs. The reference range was not used to interpret this result as normal/abnormal . NRBC x10^3 (test code <0.01 See_Comment [Auto mated = 1365852616) message] The system which generated this result transmit saad reference range : 10*3/?L. The reference range was not used to interpret this result as normal/abnormal . GRAN MAT (NEUT) % 75.2 % (test code = 770-8) IMM GRAN % (test code 7.30 % = 8249312927) LYMPH % (test code = 9.8 % 736-9) MONO % (test code = 7.5 % 5905-5) EOS % (test code = 0.1 % 713-8) BASO % (test code = 0.1 % 706-2) GRAN MAT x10^3(ANC) 22.00 10*3/uL 1.99-6.95 H (test code = 3782624947) IMM GRAN x10^3 (test 2.13 10*3/uL 0-0.06 H code = 2221341188) LYMPH x10^3 (test code 2.86 10*3/uL 1.09-3.23 = 731-0) MONO x10^3 (test code 2.19 10*3/uL 0.36-1.02 H = 742-7) EOS x10^3 (test code = 0.04 10*3/uL 0.06-0.53 L 711-2) BASO x10^3 (test code 0.04 10*3/uL 0.01-0.09 = 704-7) TOXIC CHANGES (test Present A code = 803-7) Lab Interpretation Abnormal (test code = 49925-8) [facility] METABOLIC PANEL (NA, K, CL, CO2, GLUCOSE, BUN, CREATININE, CA)2020-07-21 01:37:00 Test Item Value Reference Range Interpretation Comments NA (test code = 131 mmol/L 135-145 L 3975964362) K (test code = 3.7 mmol/L 3.5-5 1655973457) CL (test code = 96 mmol/L 98-108 L 7889148166) CO2 TOTAL (test code = 29 mmol/L 23-31 8137068783) AGAP (test code = 2-16 9168693358) BUN (test code = 17 mg/dL 7-23 8295245092) GLUCOSE (test code = 110 mg/dL 70-110 7061353144) CREATININE (test code = 0.70 mg/dL 0.6-1.25 4914993344) CALCIUM (test code = 6.5 mg/dL 8.6-10.6 L 3639474112) eGFR Calculation mL/min/1.73m2 (Non-) (test code = 4829002291) eGFR Calculation mL/min/1.73m2 () (test code = 5783544028) ASHLEY (test code = ASHLEY) Association of Glomerular Filtration Rate (GFR) and Staging of Kidney Disease* + --+ --+ ------+| GFR (mL/min/1.73 m2) ?| With Kidney Damage ?| ?Without Kidney Damage+ --------+ --------+ +| ?>90 ?| ?Stage one ?| ? Normal ?+ ---+ ---+ -------+| ?60-89 ?| ?Stage two ?| ? Decreased GFR ? + --+ --+ ------+| ?30-59 ?| ?Stage three ?| ? Stage three ? + --+ --+ ------+| ?15-29 ?| ?Stage four ? | ? Stage four ?+ ---+ ---+ -------+| ?<15 (or dialysis) ? ?| ?Stage five ? | ? Stage five ?+ ---+ ---+ -------+ *Each stage assumes the associated GFR level has been in effect for at least three months. ?Stages 1 to 5, with or without kidney disease, indicate chronic kidney disease. Notes: Determination of stages one and two (with eGFR >59mL/min/1.73 m2) requires estimation of kidney damage for at least three months as defined by structural or functional abnormalities of the kidney, manifested by either:Pathological abnormalities or Markers of kidney damage (including abnormalities in the composition of the blood or urine or abnormalities in imaging tests). Lab Interpretation Abnormal (test code = 75494-3) [facility] [id number] 18:27:00 Test Item Value Reference Range Interpretation Comments HAPTOGLOB (test code = 2859542093) 166 mg/dL 16-200 Lab Interpretation (test code = Normal 57322-1) [facility] HospitalDIFF CONSULT [id number] 18:11:00 LEUKOCYTOSIS WITH ABSOLUTE TOXIC NEUTROPHILIA, TOXIC LEFT SHIFT, ABSOLUTE REACTIVE MONOCYTOSIS AND REACTIVE LYMPHOCYTES SUGGESTIVE OF SYSTEMIC INFECTION/INFLAMMATION. MACROCYTIC ANEMIA WITH POLYCHROMASIA AND ANISOPOIKILOCYTOSIS INCLUDING TEARDROP CELLS, FREQUENT TARGET CELLS, OVALOCYTES AND OCCASIONALSPHEROCYTES SUGGESTIVE OF LIVER DYSFUNCTION. EXCLUDE HEMOLYSIS/BLOOD LOSS. AMPLE PLATELETS.[facility] [id number] 16:39:00 Test Item Value Reference Range Interpretation Comments MAGNESIUM (test code = 1598320677) 1.9 mg/dL 1.7-2.4 Lab Interpretation (test code = Normal 53035-9) [facility] HospitalBAS[facility]OLIC PANEL (NA, K, CL, CO2, GLUCOSE, BUN, CREATININE, CA)2020-07-20 15:38:00 Test Item Value Reference Range Interpretation Comments NA (test code = 127 mmol/L 135-145 L 4611800418) K (test code = 3.4 mmol/L 3.5-5 L 1827951829) CL (test code = 93 mmol/L 98-108 L 7560857962) CO2 TOTAL (test code = 30 mmol/L 23-31 4954566878) AGAP (test code = 2-16 0535204485) BUN (test code = 21 mg/dL 7-23 5046661312) GLUCOSE (test code = 146 mg/dL 70-110 H 5220385696) CREATININE (test code = 0.68 mg/dL 0.6-1.25 8988175046) CALCIUM (test code = 6.6 mg/dL 8.6-10.6 L 5393967665) eGFR Calculation mL/min/1.73m2 (Non-) (test code = 8749204228) eGFR Calculation mL/min/1.73m2 () (test code = 5104105967) ASHLEY (test code = ASHLEY) Association of Glomerular Filtration Rate (GFR) and Staging of Kidney Disease* + --+ --+ ------+| GFR (mL/min/1.73 m2) ?| With Kidney Damage ?| ?Without Kidney Damage+ --------+ --------+ +| ?>90 ?| ?Stage one ?| ? Normal ?+ ---+ ---+ -------+| ?60-89 ?| ?Stage two ?| ? Decreased GFR ? + --+ --+ ------+| ?30-59 ?| ?Stage three ?| ? Stage three ? + --+ --+ ------+| ?15-29 ?| ?Stage four ? | ? Stage four ?+ ---+ ---+ -------+| ?<15 (or dialysis) ? ?| ?Stage five ? | ? Stage five ?+ ---+ ---+ -------+ *Each stage assumes the associated GFR level has been in effect for at least three months. ?Stages 1 to 5, with or without kidney disease, indicate chronic kidney disease. Notes: Determination of stages one and two (with eGFR >59mL/min/1.73 m2) requires estimation of kidney damage for at least three months as defined by structural or functional abnormalities of the kidney, manifested by either:Pathological abnormalities or Markers of kidney damage (including abnormalities in the composition of the blood or urine or abnormalities in imaging tests). Lab Interpretation Abnormal (test code = 37227-7) [facility] HospitalHEPATIC FUNCTION PANEL (72464) (ALB,T.PRO,BILI T,BU/BC,ALT,AST,ALK PHOS)2020-07-20 15:38:00 Test Item Value Reference Range Interpretation Comments TOTAL BILI (test code = 8380607234) 4.4 mg/dL 0.1-1.1 H BILI UNCON (test code = 2764740881) 1.2 mg/dL 0.1-1.1 H BILI CONJ (test code = 7105193590) 1.5 mg/dL 0-0.3 H T PROTEIN (test code = 3610846454) 5.2 g/dL 6.3-8.2 L ALBUMIN (test code = 7234132374) 2.2 g/dL 3.5-5 L ALK PHOS (test code = 6163869867) 93 U/L 34-122 ALTv (test code = 1742-6) 27 U/L 5-50 AST(SGOT) (test code = 3847954214) 107 U/L 13-40 H Lab Interpretation (test code = Abnormal 20418-9) [facility] HospitalLACTATE [id number] 15:33:00 Test Item Value Reference Range Interpretation Comments LDH (test code = 0591918111) 889 U/L 300-600 H Lab Interpretation (test code = Abnormal 83134-6) [facility] HospitalRETICULOCYTES [id number] 15:14:00 Test Item Value Reference Range Interpretation Comments RETIC Count Automated 0.36 % 0.59-2.24 L (test code = 6032308386) RETIC Absolute Count <0.0100 See_Comment L [Autom ated message] (test code = 0285739320) The system which generated this result transmitted ref erence range: 0.0260 - 0.1170 10*6/?L. The reference range was not used to int erpret this result as normal/abnormal . IRF % (test code = 3.20 % 2-19.7 1189122128) RETIC-HE (test code = 39.9 pg 27.3-36.4 H 1197627869) Lab Interpretation (test Abnormal code = 73688-0) [facility] HospitalPrepar Packed RBC (in units), 1 Units 2020-07-20 15:07:20 Test Item Value Reference Range Interpretation Comments Cross Match Result Compatible (test code = 4409) ISBT Blood Type Code (test code = 701171) Unit Blood Type (test O Pos code = 4410) Unit Number (test [id number] code = 4411) Blood Expiration Date & Time (test code = 157148) Status Information Issued (test code = 4412) Product Red Blood Cells Identification (test code = 4413) Product Code (test [id number] Performed at [facility] code = 4414) Laboratory Services - [facility] Blood [address] [place] [address]Pbvg Free: [phone] A No. [id number] [facility] HospitalCB WITHOUT [id number] 13:41:00 Test Item Value Reference Range Interpretation Comments WBC (test code = 6690-2) See_Comment H [A utomated message] The system [facility] generated this result transmit saad reference range : 4.20 - 10.70 10*3/?L. The reference range was not used to interpret this result as normal/abnormal . RBC (test code = 789-8) See_Comment L [Au tomated message] The system [facility] generated this result transmit saad reference range : 4.26 - 5.52 10* 6/?L. The reference r tyler was not used to interpret this result as normal/abnormal . HGB (test code = 718-7) 6.7 g/dL 12.2-16.4 L HCT (test code = 4544-3) 18.0 % 38.4-49.3 L MCH (test code = 785-6) 35.4 pg 26.1-32.7 H MCV (test code = 787-2) 95.2 fL 81.7-95.6 MCHC (test code = 786-4) 37.2 g/dL 31.2-35 H PLT (test code = 777-3) See_Comment [Au tomated message] The system [facility] generated this result transmit saad reference range : 150 - 328 10*3/?L. The reference range was not used to interpret this result as normal/abnormal . MPV (test code = 9.8 fL 9.8-13 64096-3) RDW-CV (test code = 16.3 % 12.1-15.4 H 788-0) RDW-SD (test code = 56.7 fL 38.5-51.6 H 89948-8) NRBC x10^3 (test code = <0.01 See_Comment [Au tomated message] 3156599643) The system [facility] generated this result transmit saad reference range : 10*3/?L. The reference range was not used to interpret this result as normal/abnormal . NRBC/100 WBC (test code See_Comment [Au tomated message] = 7993760969) The system [facility] generated this result transmit saad reference range : 0.0 - 10.0 /100 WBC s. The reference r tyler was not used to interpret this result as normal/abnormal . IPF % (test code = 8689750147) Lab Interpretation (test Abnormal code = 14195-1) [facility] HospitalVancomycin Trough Level - Draw immediately prior to the 4TH dose, but, no more than 60 minutes before the 4TH dose. 2020-07-20 12:11:00 Test Item Value Reference Range Interpretation Comments VANCO TROUGH (test code 16.7 ug/mL 10-20 = 8120619364) ASHLEY (test code = ASHLEY) Toxic Range: ?>20 ug/mL 15-20 ug/mL is recommended for severe infection or when Vancomycin ALTAF is greater than or equal to 2. Lab Interpretation (test Normal code = 89913-9) [facility] (NA, K, CL, CO2, GLUCOSE, BUN, CREATININE, CA)2020-07-20 12:06:00 Test Item Value Reference Range Interpretation Comments NA (test code = 128 mmol/L 135-145 L 2107314996) K (test code = 3.8 mmol/L 3.5-5 8580546401) CL (test code = 93 mmol/L 98-108 L 2313732365) CO2 TOTAL (test code = 28 mmol/L 23-31 9891589668) AGAP (test code = 2-16 1871989767) BUN (test code = 22 mg/dL 7-23 3405643217) GLUCOSE (test code = 109 mg/dL 70-110 2042948438) CREATININE (test code = 0.71 mg/dL 0.6-1.25 1660758871) CALCIUM (test code = 6.3 mg/dL 8.6-10.6 L 6581123405) eGFR Calculation mL/min/1.73m2 (Non-) (test code = 8025820691) eGFR Calculation mL/min/1.73m2 () (test code = 3333397291) ASHLEY (test code = ASHLEY) Association of Glomerular Filtration Rate (GFR) and Staging of Kidney Disease* + --+ --+ ------+| GFR (mL/min/1.73 m2) ?| With Kidney Damage ?| ?Without Kidney Damage+ --------+ --------+ +| ?>90 ?| ?Stage one ?| ? Normal ?+ ---+ ---+ -------+| ?60-89 ?| ?Stage two ?| ? Decreased GFR ? + --+ --+ ------+| ?30-59 ?| ?Stage three ?| ? Stage three ? + --+ --+ ------+| ?15-29 ?| ?Stage four ? | ? Stage four ?+ ---+ ---+ -------+| ?<15 (or dialysis) ? ?| ?Stage five ? | ? Stage five ?+ ---+ ---+ -------+ *Each stage assumes the associated GFR level has been in effect for at least three months. ?Stages 1 to 5, with or without kidney disease, indicate chronic kidney disease. Notes: Determination of stages one and two (with eGFR >59mL/min/1.73 m2) requires estimation of kidney damage for at least three months as defined by structural or functional abnormalities of the kidney, manifested by either:Pathological abnormalities or Markers of kidney damage (including abnormalities in the composition of the blood or urine or abnormalities in imaging tests). Lab Interpretation Abnormal (test code = 01930-7) [facility] WITH [id number] 11:47:00 Test Item Value Reference Range Interpretation Comments WBC (test code = See_Comment H [Automated 6690-2) message] The system which generated this result transmit saad reference range : 4.20 - 10.70 10*3/?L. The reference range was not used to interpret this result as normal/abnormal . RBC (test code = See_Comment L [Automated 789-8) message] The system which generated this result transmit saad reference range : 4.26 - 5.52 10*6/?L. The reference range was not used to interpret this result as normal/abnormal . HGB (test code = 6.6 g/dL 12.2-16.4 L 718-7) HCT (test code = 17.5 % 38.4-49.3 L 4544-3) MCV (test code = 96.2 fL 81.7-95.6 H 787-2) MCH (test code = 36.3 pg 26.1-32.7 H 785-6) MCHC (test code = 37.7 g/dL 31.2-35 H 786-4) RDW-SD (test code = 56.7 fL 38.5-51.6 H 46333-9) RDW-CV (test code = 16.3 % 12.1-15.4 H 788-0) PLT (test code = See_Comment [Automated 777-3) message] The system which generated this result transmit saad reference range : 150 - 328 10*3/ ?L. The reference range was not u sed to interpret th is result as normal/abnormal . MPV (test code = 9.7 fL 9.8-13 L 51703-4) NRBC/100 WBC (test See_Comment [Automat ed code = 1906705969) message] The system which generated this result transmit saad reference range : 0.0 - 10.0 /100 WBCs. The reference range was not used to interpret this result as normal/abnormal . NRBC x10^3 (test code <0.01 See_Comment [Auto mated = 3200331406) message] The system which generated this result transmit saad reference range : 10*3/?L. The reference range was not used to interpret this result as normal/abnormal . GRAN MAT (NEUT) % 81.8 % (test code = 770-8) IMM GRAN % (test code 3.70 % = 6071406919) LYMPH % (test code = 8.2 % 736-9) MONO % (test code = 5.9 % 5905-5) EOS % (test code = 0.3 % 713-8) BASO % (test code = 0.1 % 706-2) GRAN MAT x10^3(ANC) 17.22 10*3/uL 1.99-6.95 H (test code = 1234892027) IMM GRAN x10^3 (test 0.79 10*3/uL 0-0.06 H code = 4956707892) LYMPH x10^3 (test code 1.73 10*3/uL 1.09-3.23 = 731-0) MONO x10^3 (test code 1.25 10*3/uL 0.36-1.02 H = 742-7) EOS x10^3 (test code = 0.06 10*3/uL 0.06-0.53 711-2) BASO x10^3 (test code 0.03 10*3/uL 0.01-0.09 = 704-7) Lab Interpretation Abnormal (test code = 96284-3) [facility] METABOLIC PANEL (NA, K, CL, CO2, GLUCOSE, BUN, CREATININE, CA)2020-07-20 00:46:00 Test Item Value Reference Range Interpretation Comments NA (test code = 125 mmol/L 135-145 L 7650345176) K (test code = 3.5 mmol/L 3.5-5 4986289977) CL (test code = 91 mmol/L 98-108 L 7653392124) CO2 TOTAL (test code = 28 mmol/L 23-31 1793535628) AGAP (test code = 2-16 2665694347) BUN (test code = 27 mg/dL 7-23 H 0322093703) GLUCOSE (test code = 158 mg/dL 70-110 H 0025138417) CREATININE (test code = 0.77 mg/dL 0.6-1.25 5589253489) CALCIUM (test code = 6.1 mg/dL 8.6-10.6 L 8687157913) eGFR Calculation mL/min/1.73m2 (Non-) (test code = 9075844730) eGFR Calculation mL/min/1.73m2 () (test code = 7664899595) ASHLEY (test code = ASHLEY) Association of Glomerular Filtration Rate (GFR) and Staging of Kidney Disease* + --+ --+ ------+| GFR (mL/min/1.73 m2) ?| With Kidney Damage ?| ?Without Kidney Damage+ --------+ --------+ +| ?>90 ?| ?Stage one ?| ? Normal ?+ ---+ ---+ -------+| ?60-89 ?| ?Stage two ?| ? Decreased GFR ? + --+ --+ ------+| ?30-59 ?| ?Stage three ?| ? Stage three ? + --+ --+ ------+| ?15-29 ?| ?Stage four ? | ? Stage four ?+ ---+ ---+ -------+| ?<15 (or dialysis) ? ?| ?Stage five ? | ? Stage five ?+ ---+ ---+ -------+ *Each stage assumes the associated GFR level has been in effect for at least three months. ?Stages 1 to 5, with or without kidney disease, indicate chronic kidney disease. Notes: Determination of stages one and two (with eGFR >59mL/min/1.73 m2) requires estimation of kidney damage for at least three months as defined by structural or functional abnormalities of the kidney, manifested by either:Pathological abnormalities or Markers of kidney damage (including abnormalities in the composition of the blood or urine or abnormalities in imaging tests). Lab Interpretation Abnormal (test code = 77716-9) [facility] METABOLIC PANEL (NA, K, CL, CO2, GLUCOSE, BUN, CREATININE, CA)2020-07-19 17:32:00 Test Item Value Reference Range Interpretation Comments NA (test code = 125 mmol/L 135-145 L 0295139924) K (test code = 3.7 mmol/L 3.5-5 3869285535) CL (test code = 91 mmol/L 98-108 L 0408931296) CO2 TOTAL (test code = 25 mmol/L 23-31 6497010696) AGAP (test code = 2-16 5810768094) BUN (test code = 32 mg/dL 7-23 H 6486753334) GLUCOSE (test code = 101 mg/dL 70-110 9957270750) CREATININE (test code = 0.80 mg/dL 0.6-1.25 3423746675) CALCIUM (test code = 6.4 mg/dL 8.6-10.6 L 1097550966) eGFR Calculation mL/min/1.73m2 (Non-) (test code = 1168338315) eGFR Calculation mL/min/1.73m2 () (test code = 2751453646) ASHLEY (test code = ASHLEY) Association of Glomerular Filtration Rate (GFR) and Staging of Kidney Disease* + --+ --+ ------+| GFR (mL/min/1.73 m2) ?| With Kidney Damage ?| ?Without Kidney Damage+ --------+ --------+ +| ?>90 ?| ?Stage one ?| ? Normal ?+ ---+ ---+ -------+| ?60-89 ?| ?Stage two ?| ? Decreased GFR ? + --+ --+ ------+| ?30-59 ?| ?Stage three ?| ? Stage three ? + --+ --+ ------+| ?15-29 ?| ?Stage four ? | ? Stage four ?+ ---+ ---+ -------+| ?<15 (or dialysis) ? ?| ?Stage five ? | ? Stage five ?+ ---+ ---+ -------+ *Each stage assumes the associated GFR level has been in effect for at least three months. ?Stages 1 to 5, with or without kidney disease, indicate chronic kidney disease. Notes: Determination of stages one and two (with eGFR >59mL/min/1.73 m2) requires estimation of kidney damage for at least three months as defined by structural or functional abnormalities of the kidney, manifested by either:Pathological abnormalities or Markers of kidney damage (including abnormalities in the composition of the blood or urine or abnormalities in imaging tests). Lab Interpretation Abnormal (test code = 91591-4) [id number] 16:36:37 No acute intracranial hemorrhage or mass effect. No acute fracture or traumatic malalignment of the cervical spine. Preliminary Report Dictated by Resident: Felicia Mitchell ?MD. Missy, have reviewed this study and agree with theabove report.EXAM: ?CT HEAD WO CONTRAST CT Cervical spine without contrast HISTORY: Altered mental status (AMS), unclear cause ?65 yo M PMH bipolar,alcohol use, COPD, HTN. COMPARISON: none available TECHNIQUE: Outside hospital images from [facility] obtained on 07/17/2020 at 19:00:50 and uploaded on 07/19/20 forinterpretation. No outside report was available at the time of dictation.5mm slices of the head were the only axials available. FINDINGS: CT Head Mild cerebral volume loss. No hydrocephalus, midline shift or pathologicalextra-axial fluid collection is present. The basal cisterns areunremarkable. There is no acute intracranial hemorrhage or significant mass effect.Scattered periventricular areas of hypoattenuation likely represent chronicmicrovascular disease. The sarmiento-white matter differentiation is preserved.Scattered lacunar infarcts in left basal ganglia and yeung radiata andright centrum semiovale. Mild carotid siphon atherosclerosis. Right maxillary sinus retention cyst. The calvarium and central skull baseare unremarkable. CT Cervical Spine Vertebral body height is unremarkable. Disc space narrowing withintervertebral disc vacuum phenomenon is present at C5-C6 and uncovertebralarthropathy. Intervertebral disc space is otherwise preserved.No acute fracture of the cervical spine. No traumatic malalignment of thecervical spineMultilevel degenerative changes of the cervical spine. Right C3-C4 andC4-C5 facet arthropathy. Fusion of the right C2-C3 facet. Left C5-C6 neuralforaminal narrowing. [facility], Radiant Results Inft User - 07/19/2020 11:37 AM CDTEXAM: CT HEAD WO CONTRAST CT Cervical spine without contrastHISTORY:Altered mental status (AMS), unclear cause 65 yo M PMH bipolar,alcohol use, COPD, HTN. COMPARISON: n one availableTECHNIQUE: [facility] at 19:00:50 and uploaded on 07/19/20 forinterpretation. No outside report was available at the time of dictation.5mm slices of the head were the only axials available. FINDINGS:CT HeadMild cerebral volume loss. No hydrocephalus, midline shift or pathologicalextra-axial fluid collection is present. The basal cisterns areunremarkable. There is no acute intracranial hemorrhage or significant mass effect.Scattered periventricular areas of hypoattenuation likely represent chronicmicrovascular disease. The sarmiento-white matter differentiation is preserved.Scattered lacunar infarcts in left basal ganglia and yeung radiata andright centrum semiovale. Mild carotid siphon atherosclerosis.Right maxillary sinus retention cyst. The calvarium and central skull baseare unremarkable.CT Cervical SpineVertebral body height is unremarkable. Disc space narrowing withintervertebral disc vacuum phenomenon is present at C5-C6 and uncovertebralarthropathy. Intervertebral disc space is otherwise preserved.No acute fracture of the cervical spine. No traumatic malalignment of thecervical spineMultilevel degenerative changes of the cervical spine. Right C3-C4 andC4-C5 facet arthropathy. Fusion of the right C2-C3 facet. Left C5-C6 neuralforaminal narrowing.IMPRESSIONNo acute intracranial hemorrhage or mass effect. No acute fracture or traumatic malalignment of the cervical spine.Preliminary Report Dictated by Resident: Felicia Hoskins MD., have reviewed this study and agree with theabove report.[facility] 13:11:00 Test Item Value Reference Range Interpretation Comments FOLATE SER (test code = 2.1 ng/mL 3-20 L Biot in has been 2812452591) reported to cau se a positive bias, interpret resul ts relative to patient's use o f biotin. Lab Interpretation (test Abnormal code = 66459-8) [facility]INE [id number] 12:02:00 Test Item Value Reference Range Interpretation Comments URINE CULTURE (test No aerobic growth (< code = 630-4) 1000 CFU/mL) [facility]OL[facility] (NA, K, CL, CO2, GLUCOSE, BUN, CREATININE, CA)2020-07-19 11:35:00 Test Item Value Reference Range Interpretation Comments NA (test code = 123 mmol/L 135-145 L 1740202682) K (test code = 3.4 mmol/L 3.5-5 L 7931202937) CL (test code = 87 mmol/L 98-108 L 2365556864) CO2 TOTAL (test code = 26 mmol/L 23-31 0010745147) AGAP (test code = 2-16 3350822360) BUN (test code = 35 mg/dL 7-23 H 1479672558) GLUCOSE (test code = 95 mg/dL 70-110 4669233904) CREATININE (test code = 0.86 mg/dL 0.6-1.25 1330512219) CALCIUM (test code = 6.2 mg/dL 8.6-10.6 L 4863595684) eGFR Calculation mL/min/1.73m2 (Non-) (test code = 1785802515) eGFR Calculation mL/min/1.73m2 () (test code = 1894628380) ASHLEY (test code = ASHLEY) Association of Glomerular Filtration Rate (GFR) and Staging of Kidney Disease* + --+ --+ ------+| GFR (mL/min/1.73 m2) ?| With Kidney Damage ?| ?Without Kidney Damage+ --------+ --------+ +| ?>90 ?| ?Stage one ?| ? Normal ?+ ---+ ---+ -------+| ?60-89 ?| ?Stage two ?| ? Decreased GFR ? + --+ --+ ------+| ?30-59 ?| ?Stage three ?| ? Stage three ? + --+ --+ ------+| ?15-29 ?| ?Stage four ? | ? Stage four ?+ ---+ ---+ -------+| ?<15 (or dialysis) ? ?| ?Stage five ? | ? Stage five ?+ ---+ ---+ -------+ *Each stage assumes the associated GFR level has been in effect for at least three months. ?Stages 1 to 5, with or without kidney disease, indicate chronic kidney disease. Notes: Determination of stages one and two (with eGFR >59mL/min/1.73 m2) requires estimation of kidney damage for at least three months as defined by structural or functional abnormalities of the kidney, manifested by either:Pathological abnormalities or Markers of kidney damage (including abnormalities in the composition of the blood or urine or abnormalities in imaging tests). Lab Interpretation Abnormal (test code = 96001-8) [facility] WITH [id number] 08:59:00 Test Item Value Reference Range Interpretation Comments WBC (test code = See_Comment H [Automated message] 6990-2) The system [employer] generated this result transmitted ref erence range: 4.20 - 1 0.70 10*3/?L. The reference range was not used to int erpret this result as normal/abnormal . RBC (test code = See_Comment L [Automated message] 919-8) The system [employer] generated this result transmitted ref erence range: 4.26 - 5 .52 10*6/?L. The reference range was not used to int erpret this result as normal/abnormal . HGB (test code = 7.2 g/dL 12.2-16.4 L 718-7) HCT (test code = 21.0 % 38.4-49.3 L 4544-3) MCV (test code = 106.1 fL 81.7-95.6 H 787-2) MCH (test code = 36.4 pg 26.1-32.7 H 785-6) MCHC (test code = 34.3 g/dL 31.2-35 Microhemat ocrit 786-4) protocol used t o correct RBC parameters for the presence of an interfering sub stance or condition. RDW-SD (test code = 52.0 fL 38.5-51.6 H 72484-5) RDW-CV (test code = 15.0 % 12.1-15.4 788-0) PLT (test code = See_Comment H [Automated message] 777-3) The system [employer] generated this result transmitted ref erence range: 150 - 32 8 10*3/?L. The reference range was not used to int erpret this result as normal/abnormal . MPV (test code = 9.6 fL 9.8-13 L 48061-9) NRBC/100 WBC (test See_Comment [Automat ed message] code = 6610119702) The syste m which generated this result transmitted ref erence range: 0.0 - 10 .0 /100 WBCs. The reference range was not used to int erpret this result as normal/abnormal . NRBC x10^3 (test <0.01 See_Comment [Automated message] code = 3652191578) The syste m which generated this result transmitted ref erence range: 10*3/?L. The reference range was not used to int erpret this result as normal/abnormal . GRAN MAT (NEUT) % 86.5 % (test code = 770-8) IMM GRAN % (test 1.50 % code = 2235082018) LYMPH % (test code = 5.8 % 736-9) MONO % (test code = 5.9 % 5905-5) EOS % (test code = 0.1 % 713-8) BASO % (test code = 0.2 % 706-2) GRAN MAT x10^3(ANC) 21.45 10*3/uL 1.99-6.95 H (test code = 5660403161) IMM GRAN x10^3 (test 0.36 10*3/uL 0-0.06 H code = 7350320176) LYMPH x10^3 (test 1.43 10*3/uL 1.09-3.23 code = 731-0) MONO x10^3 (test 1.45 10*3/uL 0.36-1.02 H code = 742-7) EOS x10^3 (test code <0.03 0.06-0.53 L = 711-2) BASO x10^3 (test 0.05 10*3/uL 0.01-0.09 code = 704-7) TOXIC CHANGES (test Present A code = 803-7) Lab Interpretation Abnormal (test code = 92815-1) [facility] METABOLIC PANEL (NA, K, CL, CO2, GLUCOSE, BUN, CREATININE, CA)2020-07-19 02:04:00 Test Item Value Reference Range Interpretation Comments NA (test code = 121 mmol/L 135-145 L 6288235533) K (test code = 2.9 mmol/L 3.5-5 LL 7736318202) CL (test code = 86 mmol/L 98-108 L 8964379939) CO2 TOTAL (test code = 26 mmol/L 23-31 8817232710) AGAP (test code = 2-16 5279195027) BUN (test code = 37 mg/dL 7-23 H 3560917893) GLUCOSE (test code = 100 mg/dL 70-110 1695114955) CREATININE (test code = 0.94 mg/dL 0.6-1.25 1156404840) CALCIUM (test code = 5.7 mg/dL 8.6-10.6 LL 3814833128) eGFR Calculation mL/min/1.73m2 (Non-) (test code = 4659622619) eGFR Calculation mL/min/1.73m2 () (test code = 7498495287) ASHLEY (test code = ASHLEY) Association of Glomerular Filtration Rate (GFR) and Staging of Kidney Disease* + --+ --+ ------+| GFR (mL/min/1.73 m2) ?| With Kidney Damage ?| ?Without Kidney Damage+ --------+ --------+ +| ?>90 ?| ?Stage one ?| ? Normal ?+ ---+ ---+ -------+| ?60-89 ?| ?Stage two ?| ? Decreased GFR ? + --+ --+ ------+| ?30-59 ?| ?Stage three ?| ? Stage three ? + --+ --+ ------+| ?15-29 ?| ?Stage four ? | ? Stage four ?+ ---+ ---+ -------+| ?<15 (or dialysis) ? ?| ?Stage five ? | ? Stage five ?+ ---+ ---+ -------+ *Each stage assumes the associated GFR level has been in effect for at least three months. ?Stages 1 to 5, with or without kidney disease, indicate chronic kidney disease. Notes: Determination of stages one and two (with eGFR >59mL/min/1.73 m2) requires estimation of kidney damage for at least three months as defined by structural or functional abnormalities of the kidney, manifested by either:Pathological abnormalities or Markers of kidney damage (including abnormalities in the composition of the blood or urine or abnormalities in imaging tests). Lab Interpretation Abnormal (test code = 18938-6) [facility]2020-[facility]-14 01:34:00 Test Item Value Reference Range Interpretation Comments MAGNESIUM (test code = 8158215711) 2.5 mg/dL 1.7-2.4 H Lab Interpretation (test code = Abnormal 18971-0) [facility] (NA, K, CL, CO2, GLUCOSE, BUN, CREATININE, CA)2020-07-19 00:00:00 Test Item Value Reference Range Interpretation Comments NA (test code = 119 mmol/L 135-145 LL 7425169923) K (test code = 4.3 mmol/L 3.5-5 9596544629) CL (test code = 85 mmol/L 98-108 L 9968457756) CO2 TOTAL (test code = 25 mmol/L 23-31 9029664268) AGAP (test code = 2-16 3634595159) BUN (test code = 39 mg/dL 7-23 H 2404604466) GLUCOSE (test code = 104 mg/dL 70-110 1052250471) CREATININE (test code = 0.98 mg/dL 0.6-1.25 0951811523) CALCIUM (test code = 5.6 mg/dL 8.6-10.6 LL 3699791764) eGFR Calculation mL/min/1.73m2 (Non-) (test code = 0978328351) eGFR Calculation mL/min/1.73m2 () (test code = 2693288844) ASHLEY (test code = ASHLEY) Association of Glomerular Filtration Rate (GFR) and Staging of Kidney Disease* + --+ --+ ------+| GFR (mL/min/1.73 m2) ?| With Kidney Damage ?| ?Without Kidney Damage+ --------+ --------+ +| ?>90 ?| ?Stage one ?| ? Normal ?+ ---+ ---+ -------+| ?60-89 ?| ?Stage two ?| ? Decreased GFR ? + --+ --+ ------+| ?30-59 ?| ?Stage three ?| ? Stage three ? + --+ --+ ------+| ?15-29 ?| ?Stage four ? | ? Stage four ?+ ---+ ---+ -------+| ?<15 (or dialysis) ? ?| ?Stage five ? | ? Stage five ?+ ---+ ---+ -------+ *Each stage assumes the associated GFR level has been in effect for at least three months. ?Stages 1 to 5, with or without kidney disease, indicate chronic kidney disease. Notes: Determination of stages one and two (with eGFR >59mL/min/1.73 m2) requires estimation of kidney damage for at least three months as defined by structural or functional abnormalities of the kidney, manifested by either:Pathological abnormalities or Markers of kidney damage (including abnormalities in the composition of the blood or urine or abnormalities in imaging tests). Lab Interpretation Abnormal (test code = 69182-3) [facility] WITHOUT [id number] 00:00:00 Test Item Value Reference Range Interpretation Comments WBC (test code = See_Comment H [Automated message] 6690-2) The system [employer] generated this result transmitted ref erence range: 4.20 - 1 0.70 10*3/?L. The re ference range was not u sed to interpret this result as normal/abnor mal. RBC (test code = See_Comment L [Automated message] 789-8) The system [employer] generated this result transmitted ref erence range: 4.26 - 5 .52 10*6/?L. The re ference range was not u sed to interpret this result as normal/abnor mal. HGB (test code = 7.1 g/dL 12.2-16.4 L 718-7) HCT (test code = 19.5 % 38.4-49.3 L 4544-3) MCH (test code = 37.0 pg 26.1-32.7 H 785-6) MCV (test code = 101.6 fL 81.7-95.6 H 787-2) MCHC (test code = 36.4 g/dL 31.2-35 H Microhemat ocrit 786-4) protocol used t o correct RBC par ameters for the presenc e of an interfering sub stance or condition. PLT (test code = See_Comment H [Automated message] 777-3) The system [employer] generated this result transmitted ref erence range: 150 - 32 8 10*3/?L. The re ference range was not u sed to interpret this result as normal/abnor mal. MPV (test code = 9.5 fL 9.8-13 L 21138-4) RDW-CV (test code = 14.6 % 12.1-15.4 788-0) RDW-SD (test code = 50.8 fL 38.5-51.6 52684-2) NRBC x10^3 (test code <0.01 See_Comment [Auto mated message] = 2611642201) The system [employer] generated this result transmitted ref erence range: 10*3/?L. The reference range was not used to int erpret this result as normal/abnormal . NRBC/100 WBC (test See_Comment [Automat ed message] code = 6521430838) The syste m which generated this result transmitted ref erence range: 0.0 - 10 .0 /100 WBCs. The refer ence range was not u sed to interpret this result as normal/abnor mal. IPF % (test code = 7792785611) Lab Interpretation Abnormal (test code = 62845-3) [facility] ABDOMEN [id number] 21:31:19 Hepatomegaly with steatosis. Gallbladder sludge. Preliminary Report Dictated by Resident: Donald Snowden MD., have reviewed this study and agree withthe above report.RIGHT UPPER QUADRANT ULTRASOUND HISTORY: ruling out hepatitis vs cirrhosis TECHNIQUE: Real-time grayscale ultrasound Doppler imaging of the rightupper quadrant was performed. COMPARISON: None. FINDINGS: LIVER: The liver is enlarged measuring 22.5 cm in craniocaudal dimensionwith possible portal triad echotexture and normal contour. No focal hepaticlesion. Normal hepatopetal flow is noted in the patent and normal calibermain portal vein 1.2 cm with peak velocity 34 cm/s. No intrahepatic biliaryductal dilation. GALLBLADDER: The gallbladder contains sludge with borderline wallthickening, likely related to chronic liver disease. No abnormalgallbladder wall distention or pericholecystic fluid. Nondi agnosticsonographic Voss sign. The proximal CBD measures 0.5 cm. RIGHT KIDNEY: The visualized portion of the right kidney is unremarkable. PANCREAS: The pancreatic head is poorly visualized. SPLEEN:The spleen is normal in size at 11.5 cm in length. AORTA: The suprarenal abdominal aorta measures normally at 1.9 cm. [facility], Radiant Results Inft User - 07/18/2020 4:32 PM CDTRIGHT UPPER QUADRANT ULTRASOUND HISTORY: ruling out hepatitis vs cirrhosis TECHNIQUE: Real- time grayscale ultrasound Doppler imaging of the rightupper quadrant was performed.COMPARISON: None. FINDINGS: LIVER: The liver is enlarged measuring 22.5 cm in craniocaudal dimensionwith possible portal triad echotexture and normal contour. No focal hepaticlesion. Normal hepatopetal flow is noted in the patent and normal calibermain portal vein 1.2 cm with peak velocity 34 cm/s. No intrahepatic biliaryductal dilation.GALLBLADDER: The gallbladder contains sludge with borderline wallthickening, likely related to chronic liver disease. No abnormalgallbladder wall distention or pericholecystic fluid. Nondiagnosticsonographic Voss sign. The proximal CBD measures 0.5 cm.RIGHT KIDNEY: The visualized portion of the right kidney is unremarkable. PANCREAS: The pancreatic head is poorly visualized.SPLEEN: The spleen is normal in size at 11.5 cm in length.AORTA: The suprarenal abdominal aorta measures normally at 1.9 cm.IMPRESSION Hepatomegaly with steatosis.Gallbladder sludge.Preliminary Report Dictated by Resident: Anabel Davidson, Donald Jacobson MD., have reviewed this study and agree withthe above report.[facility] (NA, K, CL, CO2, GLUCOSE, BUN, CREATININE, CA)2020-07-18 20:56:00 Test Item Value Reference Range Interpretation Comments NA (test code = 116 mmol/L 135-145 LL 5801607996) K (test code = 2.5 mmol/L 3.5-5 LL 1373736039) CL (test code = 79 mmol/L 98-108 L 2227078275) CO2 TOTAL (test code = 27 mmol/L 23-31 4070914437) AGAP (test code = 2-16 3850491416) BUN (test code = 39 mg/dL 7-23 H 9572305634) GLUCOSE (test code = 105 mg/dL 70-110 8233621983) CREATININE (test code = 1.02 mg/dL 0.6-1.25 4292823545) CALCIUM (test code = 5.7 mg/dL 8.6-10.6 LL 6559608022) eGFR Calculation mL/min/1.73m2 (Non-) (test code = 5401458235) eGFR Calculation mL/min/1.73m2 () (test code = 9640251029) ASHLEY (test code = ASHLEY) Association of Glomerular Filtration Rate (GFR) and Staging of Kidney Disease* + --+ --+ ------+| GFR (mL/min/1.73 m2) ?| With Kidney Damage ?| ?Without Kidney Damage+ --------+ --------+ +| ?>90 ?| ?Stage one ?| ? Normal ?+ ---+ ---+ -------+| ?60-89 ?| ?Stage two ?| ? Decreased GFR ? + --+ --+ ------+| ?30-59 ?| ?Stage three ?| ? Stage three ? + --+ --+ ------+| ?15-29 ?| ?Stage four ? | ? Stage four ?+ ---+ ---+ -------+| ?<15 (or dialysis) ? ?| ?Stage five ? | ? Stage five ?+ ---+ ---+ -------+ *Each stage assumes the associated GFR level has been in effect for at least three months. ?Stages 1 to 5, with or without kidney disease, indicate chronic kidney disease. Notes: Determination of stages one and two (with eGFR >59mL/min/1.73 m2) requires estimation of kidney damage for at least three months as defined by structural or functional abnormalities of the kidney, manifested by either:Pathological abnormalities or Markers of kidney damage (including abnormalities in the composition of the blood or urine or abnormalities in imaging tests). Lab Interpretation Abnormal (test code = 30707-6) [facility] HospitalXR CHEST 1 [id number] 20:29:19 Perihilar pulmonary edema predominant on left, a superimposed left-sidedinfection cannot be excluded.PROCEDURE: XR CHEST 1 VW CLINICAL INDICATION: SOB COMPARISON: None FINDINGS:Perihilar congestion, prominent on left. Also left lower lung zone airspaceand interstitial opacities. No pleural effusion or pneumothorax is seen. The mediastinum is relative wide likely related to positioning. The cardiacsi lhouette volume is normal for technique.No acute bony abnormality. [facility], Radiant Results Inft User -07/18/2020 3:30 PM CDTPROCEDURE: XR CHEST 1 VWCLINICAL INDICATION: SOB COMPARISON: NoneFINDINGS:Perihilar congestion, prominent on left. Also left lower lung zone airspaceand interstitial opacities. No pleural effusion or pneumothorax is seen. The mediastinum is relative wide likely related to positioning. The cardiacsilhouette volume is normal for technique.No acute bony abnormality.IMPRESSIONPerihilar pulmonary edema predominant on left, a superimposed left-sidedinfection cannot be excluded.[facility] HospitalPrepare Packed RBC (in units), 1 [id number] 20:22:49 Test Item Value Reference Range Interpretation Comments Cross Match Result Compatible (test code = 4409) ISBT Blood Type Code (test code = 246707) Unit Blood Type (test O Pos code = 4410) Unit Number (test [id number] code = 4411) Blood Expiration Date & Time (test code = 406867) Status Information Issued (test code = 4412) Product Red Blood Cells Identification (test code = 4413) Product Code (test J5915Y50 Performed at [facility] code = 4414) Laboratory Services - [facility] Blood [address] [place] [address] [id number] Free: [phone] A No. [id number] [facility] HospitalCBC WITHOUT [id number] 19:51:00 Test Item Value Reference Range Interpretation Comments WBC (test code = 6690-2) See_Comment H [A utomated message] The system [employer] generated this result transmit saad reference range : 4.20 - 10.70 10*3/?L. The reference range was not used to interpret this result as normal/abnormal . RBC (test code = 789-8) See_Comment L [Au tomated message] The system [employer] generated this result transmit saad reference range : 4.26 - 5.52 10* 6/?L. The reference r tyler was not used to interpret this result as normal/abnormal . HGB (test code = 718-7) 6.1 g/dL 12.2-16.4 L HCT (test code = 4544-3) 15.7 % 38.4-49.3 L MCH (test code = 785-6) 36.7 pg 26.1-32.7 H MCV (test code = 787-2) 94.6 fL 81.7-95.6 MCHC (test code = 786-4) 38.9 g/dL 31.2-35 H RBC parameters may be affected by the presence of an interfering substance or condition. PLT (test code = 777-3) See_Comment H [Au tomated message] The system [employer] generated this result transmit saad reference range : 150 - 328 10*3/?L. The reference range was not used to interpret this result as normal/abnormal . MPV (test code = 9.7 fL 9.8-13 L 78911-3) RDW-CV (test code = 14.6 % 12.1-15.4 788-0) RDW-SD (test code = 50.0 fL 38.5-51.6 33338-0) NRBC x10^3 (test code = See_Comment [Au tomated message] 5581011271) The system [employer] generated this result transmit saad reference range : 10*3/?L. The reference range was not used to interpret this result as normal/abnormal . NRBC/100 WBC (test code See_Comment [Au tomated message] = 2030442346) The system [facility] generated this result transmit saad reference range : 0.0 - 10.0 /100 WBC s. The reference r tyler was not used to interpret this result as normal/abnormal . IPF % (test code = 6807227606) Lab Interpretation (test Abnormal code = 10093-5) [facility] [id number] 19:37:00 Test Item Value Reference Range Interpretation Comments HAPTOGLOB (test code = 2736108559) 140 mg/dL 16-200 Lab Interpretation (test code = Normal 45339-5) [facility] METABOLIC PANEL (NA, K, CL, CO2, GLUCOSE, BUN, CREATININE, CA)2020-07-18 19:37:00 Test Item Value Reference Range Interpretation Comments NA (test code = 117 mmol/L 135-145 LL 9379595294) K (test code = 2.3 mmol/L 3.5-5 LL 6328361971) CL (test code = 80 mmol/L 98-108 L 1914703479) CO2 TOTAL (test code = 29 mmol/L 23-31 2314392192) AGAP (test code = 2-16 0432079575) BUN (test code = 42 mg/dL 7-23 H 2872225816) GLUCOSE (test code = 104 mg/dL 70-110 9704654203) CREATININE (test code = 0.98 mg/dL 0.6-1.25 0856447823) CALCIUM (test code = 5.8 mg/dL 8.6-10.6 LL 8941157196) eGFR Calculation mL/min/1.73m2 (Non-) (test code = 9311685897) eGFR Calculation mL/min/1.73m2 () (test code = 5353818230) ASHLEY (test code = ASHLEY) Association of Glomerular Filtration Rate (GFR) and Staging of Kidney Disease* + --+ --+ ------+| GFR (mL/min/1.73 m2) ?| With Kidney Damage ?| ?Without Kidney Damage+ --------+ --------+ +| ?>90 ?| ?Stage one ?| ? Normal ?+ ---+ ---+ -------+| ?60-89 ?| ?Stage two ?| ? Decreased GFR ? + --+ --+ ------+| ?30-59 ?| ?Stage three ?| ? Stage three ? + --+ --+ ------+| ?15-29 ?| ?Stage four ? | ? Stage four ?+ ---+ ---+ -------+| ?<15 (or dialysis) ? ?| ?Stage five ? | ? Stage five ?+ ---+ ---+ -------+ *Each stage assumes the associated GFR level has been in effect for at least three months. ?Stages 1 to 5, with or without kidney disease, indicate chronic kidney disease. Notes: Determination of stages one and two (with eGFR >59mL/min/1.73 m2) requires estimation of kidney damage for at least three months as defined by structural or functional abnormalities of the kidney, manifested by either:Pathological abnormalities or Markers of kidney damage (including abnormalities in the composition of the blood or urine or abnormalities in imaging tests). Lab Interpretation Abnormal (test code = 36085-4) [facility] HospitalCORONAVIRUS COVID-19 [id number] 18:47:00 Test Item Value Reference Range Interpretation Comments SARS-CoV-2 PCR (test Not Detected Not Detected code = 35627-9) ASHLEY (test code = ASHLEY) [employer] SARS-CoV-2 Assay is a nucleic acid amplification test intended for the qualitative detection of RNA from SARS-CoV-2 from nasopharyngeal (LEAD BASED PAINT TECHNICIAN) specimens. ?It is used under Emergency Use Authorization (EUA) by FDA. A positive result is indicative of the presence of SARS-CoV-2 RNA. ?Clinical correlation with patient history and other diagnostic information is necessary to determine patient infection status. A negative (Not Detected) result does not preclude SARS-CoV-2 infection. ?Clinical correlation with patient history and other diagnostic information should be used in patient management decisions. Invalid: Unable to generate a valid test result on this specimen. ?Please submit a new specimen for repeat testing if clinically indicated. Lab Interpretation Normal (test code = 54493-7) [facility] HospitalCORTISOL [id number] 18:34:00 Test Item Value Reference Range Interpretation Comments YOLANDA AM (test code = 34.7 ug/dL 4.5-23 H 3533264285) ASHLEY (test code = ASHLEY) Biotin has been reported to cause a positive bias, interpret results relative to patient's use of biotin. Lab Interpretation (test Abnormal code = 02306-3) [facility] (NA, K, CL, CO2, GLUCOSE, BUN, CREATININE, CA)2020-07-18 17:27:00 Test Item Value Reference Range Interpretation Comments NA (test code = 115 mmol/L 135-145 LL 3460390150) K (test code = 2.0 mmol/L 3.5-5 LL 4266381869) CL (test code = 77 mmol/L 98-108 L 5084289138) CO2 TOTAL (test code = 29 mmol/L 23-31 2120603828) AGAP (test code = 2-16 6823443190) BUN (test code = 42 mg/dL 7-23 H 8620533814) GLUCOSE (test code = 103 mg/dL 70-110 4681687604) CREATININE (test code = 1.00 mg/dL 0.6-1.25 1682094191) CALCIUM (test code = 5.7 mg/dL 8.6-10.6 LL 8298827814) eGFR Calculation mL/min/1.73m2 (Non-) (test code = 4827018706) eGFR Calculation mL/min/1.73m2 () (test code = 9821720230) ASHLEY (test code = ASHLEY) Association of Glomerular Filtration Rate (GFR) and Staging of Kidney Disease* + --+ --+ ------+| GFR (mL/min/1.73 m2) ?| With Kidney Damage ?| ?Without Kidney Damage+ --------+ --------+ +| ?>90 ?| ?Stage one ?| ? Normal ?+ ---+ ---+ -------+| ?60-89 ?| ?Stage two ?| ? Decreased GFR ? + --+ --+ ------+| ?30-59 ?| ?Stage three ?| ? Stage three ? + --+ --+ ------+| ?15-29 ?| ?Stage four ? | ? Stage four ?+ ---+ ---+ -------+| ?<15 (or dialysis) ? ?| ?Stage five ? | ? Stage five ?+ ---+ ---+ -------+ *Each stage assumes the associated GFR level has been in effect for at least three months. ?Stages 1 to 5, with or without kidney disease, indicate chronic kidney disease. Notes: Determination of stages one and two (with eGFR >59mL/min/1.73 m2) requires estimation of kidney damage for at least three months as defined by structural or functional abnormalities of the kidney, manifested by either:Pathological abnormalities or Markers of kidney damage (including abnormalities in the composition of the blood or urine or abnormalities in imaging tests). Lab Interpretation Abnormal (test code = 59310-0) [facility] HospitalVITAMIN B12, [id number] 16:50:00 Test Item Value Reference Range Interpretation Comments VIT B12 (test code = 934 pg/mL 240-930 H 9771818226) ASHLEY (test code = ASHLEY) Biotin has been reported to cause a positive bias, interpret results relative to patient's use of biotin. Lab Interpretation (test Abnormal code = 45355-7) [facility] HospitalMAGNESIUM2020-09-13 15:41:00 Test Item Value Reference Range Interpretation Comments MAGNESIUM (test code = 6224886389) 1.6 mg/dL 1.7-2.4 L Lab Interpretation (test code = Abnormal 80971-9) [facility] HospitalLIPASE2020-09-13 15:41:00 Test Item Value Reference Range Interpretation Comments LIPASE (test code = 8851259421) 1745 U/L 0-220 H Lab Interpretation (test code = Abnormal 67609-1) [facility] HospitalABORH [id number] 15:16:29 Test Item Value Reference Range Interpretation Comments ABO & RH (test code O Positive Performe d at [facility] = 20) Laboratory [facility] Blood Bank[address] [place] [address] 101[address]Izkl Free: [phone] A No. [id number] [facility] HospitalType and Screen - ONCE [id number] 14:15:56 Test Item Value Reference Range Interpretation Comments ABO & RH (test code O POSITIVE Performe d at [facility] = 20) Laboratory [facility] Blood [facility] [place] [address] s [id number] Free: [phone] A No. [id number] IAT (test code = Negative Performed a t [facility] 1185) Laboratory [facility] Blood Bank[address] [place] [address] s [id number] Free: [phone] A No. [id number] [facility] HospitalBASIC METABOLIC PANEL (NA, K, CL, CO2, GLUCOSE, BUN, CREATININE, CA)2020-07-18 14:13:00 Test Item Value Reference Range Interpretation Comments NA (test code = 114 mmol/L 135-145 LL 4055738210) K (test code = 2.1 mmol/L 3.5-5 LL 9252458772) CL (test code = 76 mmol/L 98-108 L 2989878414) CO2 TOTAL (test code = 26 mmol/L 23-31 5087813144) AGAP (test code = 2-16 4061126731) BUN (test code = 40 mg/dL 7-23 H 1463186076) GLUCOSE (test code = 98 mg/dL 70-110 9737460506) CREATININE (test code = 1.07 mg/dL 0.6-1.25 2556351560) CALCIUM (test code = 5.5 mg/dL 8.6-10.6 LL 1665596081) eGFR Calculation mL/min/1.73m2 (Non-) (test code = 3893778451) eGFR Calculation mL/min/1.73m2 () (test code = 4228969485) ASHLEY (test code = ASHLEY) Association of Glomerular Filtration Rate (GFR) and Staging of Kidney Disease* + --+ --+ ------+| GFR (mL/min/1.73 m2) ?| With Kidney Damage ?| ?Without Kidney Damage+ --------+ --------+ +| ?>90 ?| ?Stage one ?| ? Normal ?+ ---+ ---+ -------+| ?60-89 ?| ?Stage two ?| ? Decreased GFR ? + --+ --+ ------+| ?30-59 ?| ?Stage three ?| ? Stage three ? + --+ --+ ------+| ?15-29 ?| ?Stage four ? | ? Stage four ?+ ---+ ---+ -------+| ?<15 (or dialysis) ? ?| ?Stage five ? | ? Stage five ?+ ---+ ---+ -------+ *Each stage assumes the associated GFR level has been in effect for at least three months. ?Stages 1 to 5, with or without kidney disease, indicate chronic kidney disease. Notes: Determination of stages one and two (with eGFR >59mL/min/1.73 m2) requires estimation of kidney damage for at least three months as defined by structural or functional abnormalities of the kidney, manifested by either:Pathological abnormalities or Markers of kidney damage (including abnormalities in the composition of the blood or urine or abnormalities in imaging tests). Lab Interpretation Abnormal (test code = 07512-9) [facility] HospitalLactic Acid Whole [id number] 13:30:00 Test Item Value Reference Range Interpretation Comments LACTIC ACID (test code = 3.62 mmol/L 0171363088) [facility] HospitalLactic Acid Whole [id number] 10:47:00 Test Item Value Reference Range Interpretation Comments LACTIC ACID (test code = 3.71 mmol/L 0166819248) [facility] HospitalFERRITIN [id number] 10:19:00 Test Item Value Reference Range Interpretation Comments FERRITIN (test code = 1770.0 ng/mL 18-464 H 6670875240) ASHLEY (test code = ASHLEY) Biotin has been reported to cause a negative bias, interpret results relative to patient's use of biotin. Lab Interpretation (test Abnormal code = 60606-1) [facility] HospitalHEPATITIS B SURFACE [id number] 09:45:00 Test Item Value Reference Range Interpretation Comments HBsAB (test code = Negative 5236029149) HBsAb mIU/mL Semi-Quantitative (test code = 7758877453) ASHLEY (test code = Interpretation: ASHLEY) ?Hepatitis B Surface Antibody ? Negative - Patient is considered to be not immune to infection with HBV. ? ? Positive - Anti-HBs detected at greater than or equal to 12 mIU/mL. ?Patient is considered to be immune to infection with HBV. ? [facility] HospitalHBC ANTIBODY (IGM & IGG)2020-07-18 09:45:00 Test Item Value Reference Range Interpretation Comments HBC (test code = 2758096129) Negative HBC Semi-Quantitative (test code = 7271203819) [facility] HospitalHCV [id number] 09:43:00 Test Item Value Reference Range Interpretation Comments HCV Ab (test code = Positive 30304-8) HCV Semi-Quantitative (test code = 65922-3) APRI (test code = 6425755670) ASHLEY (test code = Positive for HCV antibody. ASHLEY) This specimen has been reflexed to qualitative PCR test and submitted to [facility]. ?A report will be issued by that laboratory. ?If any questions, contact the Clinical Chemistry Director medical radiation dosimetrist at [phone].APRI score < 0.5: Suggestive of little to no fibrosisAPRI score > 1.5: Suggestive of moderate to severe fibrosisAPRI score > 2.0: Highly suggestive of cirrhosis. [facility] HospitalTHYROID STIMULATING [id number] 09:04:00 Test Item Value Reference Range Interpretation Comments TSH (test code = See_Comment [Automated message] 5114198745) The system [employer] generated this result transmitted ref erence range: 0.45 - 4 .70 mIU/L. The refe rence range was not u sed to interpret this result as normal/abnor mal. Lab Interpretation (test Normal code = 54889-6) [facility] HospitalHEPATITIS B SURFACE [id number] 09:04:00 Test Item Value Reference Range Interpretation Comments HBsAg Semi-Quantitative (test code = Negative Negative 5195-3) [facility] HospitalIRON [id number] 09:01:00 Test Item Value Reference Range Interpretation Comments IRON (test code = 1574640383) 135 ug/dL 50-160 TIBC (test code = 0404352039) 206 ug/dL 250-410 L % FE SAT (test code = 3184971088) 66 % 20-50 H Lab Interpretation (test code = Abnormal 52890-8) [facility] HospitalGALV/CLC ONLY - URINE DRUG (IMMUNOASSAY) - COMPREHENSIVE DRUG [id number] 09:00:00 Test Item Value Reference Range Interpretation Comments AMPHET (test code = Negative Negative 9627635751) MYA U (test code = Negative Negative 3361858567) BENZO U (test code = Negative Negative 6498932233) Cocaine Metabolite (test Negative Negative code = 1500152850) METHADONE (test code = Negative Negative 6746401928) OPIATES (test code = Negative Negative 7705414909) PCP (test code = Negative Negative 6290420284) THC (test code = Negative Negative 0091105051) ASHLEY (test code = ASHLEY) Urine Drug Cutoff Ranges Cocaine: ? 150 ng/mLBenzodiazepines: ? ? 200 ng/mLMethadone: ? 300 ng/mLAmphetamine: ? 1,000 ng/mLOpiates: ? 300 ng/mLCannabinoids: ?50 ng/mLPhencyclidine: ? ? ? 25 ng/mLBarbiturates: ?200 ng/mL The results are to be used only for medical (i.e., treatment) purposes. Unconfirmed screening results must not be used for non-medical purposes (e.g., employment testing, legal testing). Lab Interpretation (test Normal code = 78371-6) [facility] HospitalURINALYSIS2020-09-13 08:50:00 Test Item Value Reference Range Interpretation Comments APPEARANCE (test code = Hazy Clear A 4230737644) COLOR (test code = Sakshi Yellow A 8786223068) PH (test code = 4.8-8.0 8762863707) SP GRAVITY (test code = 1.003-1.030 7800817925) GLU U QUAL (test code = Normal Normal 7291330456) BLOOD (test code = 2+ Negative A 9030831670) KETONES (test code = Negative Negative 2758260562) PROTEIN (test code = Negative Negative 2887-8) UROBILIN (test code = 4.0 mg/dL Normal A 7302734375) BILIRUBIN (test code = 2 mg/dL Negative A 1026449220) NITRITE (test code = Negative Negative 3693670004) LEUK AGUILAR (test code = 500/uL Negative A 3981604421) RBC/HPF (test code = See_Comment [Autom ated message] 5379462804) The system [employer] generated this result transmit saad reference range : 0 - 3 HPF. The refe rence range was not u sed to interpret th is result as normal/abnormal . WBC/HPF (test code = See_Comment H [Autom ated message] 3643055436) The system [employer] generated this result transmit saad reference range : 0 - 5 HPF. The refe rence range was not u sed to interpret th is result as normal/abnormal . BACTERIA (test code = Negative Negative 2159712538) AMORPHOUS (test code = Rare Rare HPF 5373147880) SQ EPITH (test code = See_Comment [Auto mated message] 5886385165) The system [employer] generated this result transmit saad reference range : <=2 HPF. The refere nce range was not u sed to interpret th is result as normal/abnormal . WBC CLUMPS (test code = <1 See_Comment [Au tomated message] 7615018389) The system [employer] generated this result transmit saad reference range : <=1 HPF. The refere nce range was not u sed to interpret th is result as normal/abnormal . Ictotest (test code = Positive 7108971203) Lab Interpretation (test Abnormal code = 33289-6) [facility] HospitalHEPATIC FUNCTION PANEL (40214) (ALB,T.PRO,BILI T,BU/BC,ALT,AST,ALK PHOS)2020-07-18 08:48:00 Test Item Value Reference Range Interpretation Comments TOTAL BILI (test code = 4589835092) 5.6 mg/dL 0.1-1.1 H BILI UNCON (test code = 4486880852) 1.3 mg/dL 0.1-1.1 H BILI CONJ (test code = 5430919178) 2.6 mg/dL 0-0.3 H T PROTEIN (test code = 6431891722) 4.6 g/dL 6.3-8.2 L ALBUMIN (test code = 2340988647) 2.1 g/dL 3.5-5 L ALK PHOS (test code = 0660487150) 49 U/L 34-122 ALTv (test code = 1742-6) 28 U/L 5-50 AST(SGOT) (test code = 8430813823) 107 U/L 13-40 H Lab Interpretation (test code = Abnormal 80786-5) [facility] HospitalPHOSPHORUS2020-09-13 08:48:00 Test Item Value Reference Range Interpretation Comments PHOSPHORUS (test code = 1521442316) 2.4 mg/dL 2.5-5 L Lab Interpretation (test code = Abnormal 85113-3) [facility] HospitalSODIUM, URINE [id number] 08:29:00 Test Item Value Reference Range Interpretation Comments NA URINE (test code = 6563098737) <5 mmol/L [facility] HospitalETHANOL2020-09-13 08:28:00 Test Item Value Reference Range Interpretation Comments ALCOHOL (test code = <10 mg/dL 3889962333) ASHLEY (test code = Toxic Greater than or ASHLEY) equal to 80 mg/dL. NOTE: Whole blood values are approximately 10% to 15% lower than serum and plasma. [facility] HospitalGAMMA [id number] 08:28:00 Test Item Value Reference Range Interpretation Comments GGT (test code = 3283013987) 187 U/L 13-58 H Lab Interpretation (test code = Abnormal 37704-2) [facility] HospitalCREATININE, URINE [id number] 08:26:00 Test Item Value Reference Range Interpretation Comments CREAT U (test code = 8221311710) 89.8 mg/dL [facility] HospitalUREA NITROGEN, URINE [id number] 08:26:00 Test Item Value Reference Range Interpretation Comments UREA N UR (test code = 6830047792) 485 mg/dL [facility] HospitalAcute Care Arterial Blood Gas.2020-07-18 07:56:00 Test Item Value Reference Range Interpretation Comments PH (test code = 2) 7.35-7.45 H PCO2 (test code = See_Comment L [Automat ed message] 6059854792) The system [employer] generated this result transmitted ref erence range: 35 - 45 mmHg. The reference r tyler was not used to interpret this result as normal/abnor mal. PO2 (test code = See_Comment H [Automated message] 1887501631) The system [employer] generated this result transmitted ref erence range: 80 - 100 mmHg. The reference r tyler was not used to interpret this result as normal/abnor mal. HCO3 (test code = See_Comment [Automate d message] 4588147931) The system [employer] generated this result transmitted ref erence range: 22 - 26 mEq/L. The reference r tyler was not used to interpret this result as normal/abnor mal. BE (test code = See_Comment H [Automated message] 5603500020) The system [employer] generated this result transmitted ref erence range: -3.0 - 3 .0 mEq/L. The refe rence range was not u sed to interpret this result as normal/abnor mal. Lab Interpretation (test Abnormal code = 75959-1) [facility] HospitalMagnesium [id number] 07:55:00 Test Item Value Reference Range Interpretation Comments MAGNESIUM (test code = 3133793674) 1.0 mg/dL 1.7-2.4 L Lab Interpretation (test code = Abnormal 73967-5) [facility] Metabolic Panel (NA, K, CL, CO2, Glucose, BUN, Creatinine, CA)2020-07-18 07:54:00 Test Item Value Reference Range Interpretation Comments NA (test code = 113 mmol/L 135-145 LL 6168367077) K (test code = 1.8 mmol/L 3.5-5 LL 7117588693) CL (test code = 73 mmol/L 98-108 L 6240731723) CO2 TOTAL (test code = 26 mmol/L 23-31 5801445573) AGAP (test code = 2-16 8763654240) BUN (test code = 40 mg/dL 7-23 H [id number]) GLUCOSE (test code = 105 mg/dL 70-110 [id number]) CREATININE (test code = 1.08 mg/dL 0.6-1.25 [id number]) CALCIUM (test code = 5.5 mg/dL 8.6-10.6 LL [id number]) eGFR Calculation mL/min/1.73m2 (Non-) (test code = 0849326691) eGFR Calculation mL/min/1.73m2 () (test code = 4723777485) ASHLEY (test code = ASHLEY) Association of Glomerular Filtration Rate (GFR) and Staging of Kidney Disease* + --+ --+ ------+| GFR (mL/min/1.73 m2) ?| With Kidney Damage ?| ?Without Kidney Damage+ --------+ --------+ +| ?>90 ?| ?Stage one ?| ? Normal ?+ ---+ ---+ -------+| ?60-89 ?| ?Stage two ?| ? Decreased GFR ? + --+ --+ ------+| ?30-59 ?| ?Stage three ?| ? Stage three ? + --+ --+ ------+| ?15-29 ?| ?Stage four ? | ? Stage four ?+ ---+ ---+ -------+| ?<15 (or dialysis) ? ?| ?Stage five ? | ? Stage five ?+ ---+ ---+ -------+ *Each stage assumes the associated GFR level has been in effect for at least three months. ?Stages 1 to 5, with or without kidney disease, indicate chronic kidney disease. Notes: Determination of stages one and two (with eGFR >59mL/min/1.73 m2) requires estimation of kidney damage for at least three months as defined by structural or functional abnormalities of the kidney, manifested by either:Pathological abnormalities or Markers of kidney damage (including abnormalities in the composition of the blood or urine or abnormalities in imaging tests). Lab Interpretation Abnormal (test code = 11357-0) [facility] with [id number] 07:31:00 Test Item Value Reference Range Interpretation Comments WBC (test code = See_Comment H Previous 6690-2) preliminary verified result was 25.05 10*3/ ?L on 07/18/2020 at 0225 CDT [Automated message] The system which generated this result transmit saad reference range : 4.20 - 10.70 10*3/?L. The reference range was not used to interpret this result as normal/abnormal . RBC (test code = See_Comment L Previous 789-8) preliminary verified result was 1.72 10*6/? L on 07/18/2020 at 0225 CDT [Automated message] The system which generated this result transmit saad reference range : 4.26 - 5.52 10*6/?L. The reference range was not used to interpret this result as normal/abnormal . HGB (test code = 6.0 g/dL 12.2-16.4 L Previous 718-7) preliminary verified result was 6.5 g/dL on 07/18/2020 at 02 25 CDT HCT (test code = 16.0 % 38.4-49.3 L Previous 4544-3) preliminary verified result was 16.7 % on 07/18/2020 at 25 CDT MCV (test code = 97.0 fL 81.7-95.6 H Previous 787-2) preliminary verified result was 97.1 fL on 07/18/2020 at 25 CDT MCH (test code = 36.4 pg 26.1-32.7 H Previous 785-6) preliminary verified result was 37.8 pg on 07/18/2020 at 25 CDT MCHC (test code = 37.5 g/dL 31.2-35 H Previous 786-4) preliminary verified result was 38.9 g/dL o n 07/18/2020 at 02 25 CDT RDW-SD (test code = 46.4 fL 38.5-51.6 Previous 07782-3) preliminary verified result was 47.5 fL on 07/18/2020 at 25 CDT RDW-CV (test code = 14.0 % 12.1-15.4 Previous 788-0) preliminary verified result was 13.7 % on 07/18/2020 at 02 25 CDT PLT (test code = See_Comment H Previous 777-3) preliminary verified result was 493 10*3/?L on 07/18/2020 at 25 CDT [Automated message] The system which generated this result transmit saad reference range : 150 - 328 10*3/ ?L. The reference range was not u sed to interpret th is result as normal/abnormal . MPV (test code = 10.0 fL 9.8-13 Previous 39797-3) preliminary verified result was 9.7 fL on 07/18/2020 at 02 25 CDT NRBC/100 WBC (test See_Comment Previous code = 0057574356) prelimina ry verified result was 0.1 /100 WB Cs on 07/18/2020 at 0225 CDT [Automated message] The system which generated this result transmit saad reference range : 0.0 - 10.0 /100 WBCs. The reference range was not used to interpret this result as normal/abnormal . NRBC x10^3 (test code <0.01 See_Comment Previo us = [id number]) preliminary verified result was 0.03 10*3/? L on 07/18/2020 at 0225 CDT [Automated message] The system which generated this result transmit saad reference range : 10*3/?L. The reference range was not used to interpret this result as normal/abnormal . GRAN MAT (NEUT) % 91.2 % (test code = 770-8) IMM GRAN % (test code 1.60 % = 0582776918) LYMPH % (test code = 3.3 % 736-9) MONO % (test code = 3.9 % 5905-5) EOS % (test code = 0.0 % 713-8) BASO % (test code = 0.0 % 706-2) GRAN MAT x10^3(ANC) 22.20 10*3/uL 1.99-6.95 H (test code = 9596693675) IMM GRAN x10^3 (test 0.40 10*3/uL 0-0.06 H code = 7937006272) LYMPH x10^3 (test code 0.80 10*3/uL 1.09-3.23 L = 731-0) MONO x10^3 (test code 0.95 10*3/uL 0.36-1.02 = 742-7) EOS x10^3 (test code = <0.03 0.06-0.53 L 711-2) BASO x10^3 (test code <0.03 0.01-0.09 = 704-7) Lab Interpretation Abnormal (test code = 57742-4) [facility] HospitalPhosphorus [id number] 06:46:00 PHOSPHORUSComment: Please disregard previous result, specimen contaminated. Notified Dr. Ed Worthington regarding result correction. Notified JAH Lundberg for redraws on BMP and Mg tests. Patient will be credited. This is a corrected result. ?Previous result was 2.7 mg/dL on 07/18/[address] [place] [address] LABORATORY SERVICESAudie L. [facility] HospitalHepatic Function Panel (ALB, T.PRO, BILI T, BU/BC, ALT, AST, ALK, PHOS)2020-07-18 06:45:00TOTAL BILIComment: Please disregard previous result, specimen contaminated. Notified Dr. Ed Worthington regarding result correction. Notified JAH Lundberg for redraws on BMP and Mg tests. Patient will be credited. This is a corrected result. ?Previous result was 6.2 mg/dL on 07/18/[address] [place] [address] LABORATORY SERVICESBIL UNCONComment: Please disregard previous result, specimen contaminated. Notified Dr. Ed Worthington regarding result correction. Notified JAH Lundberg for redraws on BMP and Mg tests. Patient will be credited. This is a corrected result. ?Previous result was 1.4 mg/dL on 07/18/[address] [place] [address] LABORATORY [facility]ITALBIL CONJComment: Please disregard previous result, specimen contaminated.Notified Dr. Ed Worthington regarding result correction. Notified JAH Lundberg for redraws on BMP and Mg tests. Patient will be credited. This is a corrected result. ?Previous result was 2.9 mg/dL on 07/18/[address] [place] [address] LABORATORY SERVICEST PROTEINComment: Please disregard previous result, specimen contaminated. Notified Dr. Ed Worthington regarding result correction. Notified JAH Lundberg for redraws onBMP and Mg tests. Patient will be credited. This is a corrected result. ?Previous result was 4.9 g/dL on 07/18/[address] [place] [address] LABORATORY SERVICESALBUMINComment: Please disregard previous result, specimen contaminated. Notified Dr. Ed Worthington regarding result correction. Notified JAH Lundberg for redraws on BMP and Mg tests. Patient will be credited. This is a corrected result. ?Previous result was 2.2 g/dL on 07/18/[address] [place] [address] LABORATORY SERVICESALK PHOSComment: Please disregard previousresult, specimen contaminated. Notified Dr. Ed Worthington regarding result correction. Notified JAH Lundberg for redraws on BMP and Mg tests. Patient will be credited. This is a corrected result. ?Previous result was 59 U/L on 07/18/[address] [place] [address] LABORATORY SERVICESALTvComment: Please disregard previous result, specimen contaminated. Notified Dr. Ed Worthington regarding result correction. NotifiedRN Tamika for redraws on BMP and Mg tests. Patient will be credited. This is a corrected result. ?Previous result was 28 U/L on 07/18/[address] [place] [address] LABORATORY SERVICESAST(SGOT)Comment: Please disregard previous result, specimen contaminated. Notified Dr. Ed Worthington regarding result correction.Notified JAH Lundberg for redraws on BMP and Mg tests. Patient will be credited. This is a corrected result. ?Previous result was 124 U/L on 07/18/[address] [place] [address] LABORATORY SERVICESPlease disregard previous result, specimen contaminated. Notified Dr. Ed Worthington regarding result correction. Notified JAH Lundberg for redraws on BMP and Mg tests. Patient will be credited.[facility] HospitalaPTT2020-09-13 06:17:00 Test Item Value Reference Range Interpretation Comments APTT Patient (test code See_Comment H [Au tomated message] = 3173-2) The system [employer] generated this result transmitted ref erence range: 26 - 36 Seconds. The reference range was not used to int erpret this result as normal/abnormal . Lab Interpretation (test Abnormal code = 35573-2) [facility] HospitalProthrombin Time / [id number] 06:17:00 Test Item Value Reference Range Interpretation Comments PROTIME PATIENT (test See_Comment H [Auto mated message] code = 5964-2) The system [facility] generated this result transmitted ref erence range: 10.1 - 1 2.6 Seconds. The reference range was not used to int erpret this result as normal/abnormal . INR (test code = 6301-6) Nor mal INR <1.1; Warfarin Therap eutic range 2.0 to 3. 0 or 2.5 to 3.5, dep ending upon the indica tions. Lab Interpretation (test Abnormal code = 86085-2) [facility] HospitalLactic Acid Whole [id number] 05:55:00 Test Item Value Reference Range Interpretation Comments LACTIC ACID (test code = 4.37 mmol/L [id number]) [facility]
[2022-02-25] MEDS ORDERED: ONDANSETRON 4 MG/2 ML VIAL ONE (17:25)
[2022-02-25] MEDS ORDERED: DIAZEPAM 10 MG/2 ML INJ SYRINGE ONE (17:40)
[2022-02-25] MEDS ORDERED: NA CHLORIDE 0.9% 250 ML ONE (17:41)
[2022-02-25] MEDS ORDERED: VANCOMYCIN 1 GM/VIAL ONE (17:41)
[2022-02-25] MEDS ORDERED: LEVETIRACETAM 500 MG/5 ML VIAL IV ONE (17:41)
[2022-02-25] MEDS ORDERED: NA CHLORIDE 0.9% 200 ML IV ONE (17:41)
[2022-02-25] MEDS ORDERED: CEFEPIME 1 GM/VIAL ONE (17:42)
[2022-02-25 17:44] LABS: Absolute Lymphocytes (CBC) 1.7 K/uL (0.7-4.9); Hematocrit 37.5 % (39.6-49.0); Lymphocytes % 8.7 % (15.3-44.8); MPV 8.3 fL (7.6-11.3); RBC Red Blood Cell Count 4.17 M/uL (4.33-5.43)
[2022-02-25 17:49] LABS: Protime INR 1.19
--- NOTE | 2022-02-25 18:06 | RAD REPORT ---
EXAM DESCRIPTION: CT - Head Brain Wo Cont - 02/25/2022 5:56 pm CLINICAL HISTORY: Delirium Headache, drowsiness COMPARISON: Head Brain Wo Cont dated 01/18/2021; Head Brain Wo Cont dated 03/13/2019 TECHNIQUE: All CT scans are performed using dose optimization technique as appropriate and may inclu de automated exposure control or mA/KV adjustment according to patient size. FINDINGS: There is a very large left sided intracranial hemorrhage present within the left cerebral hemisphere measuring 9.4 x 6.5 cm. There is associated intraventricular hemorrhage as well as subarac hnoid hemorrhage present. 14 mm of pnsg-mu-bqwnu midline shift is evident. The paranasal sinuses and mastoids are clear. The calvarium is intact. IMPRESSION: Very large left intracranial hematoma is present with intraventricular and subarachnoid blood also present. 14 mm hvwr-ti-fbtat subfalcine herniation noted. The findings were discussed with Ed Zacarias in the Er on 02/25/2022 at 6 p.m. by telephone.
--- NOTE | 2022-02-25 18:13 | RAD REPORT ---
EXAM DESCRIPTION: RAD - Chest Single View - 02/25/2022 5:58 pm CLINICAL HISTORY: CONGESTION Chest pain. COMPARISON: Chest Single View dated 07/17/2020; Chest Single View dated 03/19/2019; Chest Single View dated 03/18/2019; Chest Single View dated 03/13/2019 FINDINGS: Portable technique limits examination quality. The lungs are grossly clear. The heart is normal in size. No displaced fractures.Tip of the ET tube i s at the level of the superior aortic arch. Enteric tube descends in the stomach.
[2022-02-25 18:22] LABS: Arterial Blood Carboxyhemoglob 1.8 % (0-1.5); Blood Gas Oxyhemoglobin 96.9 % (94-97)
--- NOTE | 2022-02-25 18:23 | EDPHYS ---
Physician Documentation [facility] Name: Jose Baig Age: 66 yrs Sex: Male : 1955 Arrival Date: 02/25/2022 Time: 17:14 Bed 2 Private MD: ED Physician Caitlin Nunez HPI: 02/25 17:52 This 66 yrs old Male presents to ER via EMS with complaints of Unresponsive. ma2 17:52 brought in by EMS for altered mental status for 1 day sudden constant, severe, when EMS ma2 arrived patient was delirious tachycardic to 140s, roommate states he drinks alcohol has not been drinking over the last 2 days, he also had witnessed seizure by roommate.. Historical: - Allergies: 17:32 No Known Allergies; ss - Home Meds: 17:32 Unable to obtain [Active]; ss - PMHx: 17:32 Anxiety; Bipolar disorder; COPD; Hepatitis; Ulcers; ss - PSHx: 17:32 Unable to Obtain; ss - Immunization history:: Adult Immunizations unknown. - Social history:: Smoking status: unknown. - Family history:: not pertinent. ROS: 17:52 Unable to obtain ROS due to altered mental status. ma2 Exam: 17:52 Head/Face: Normocephalic, atraumatic. Eyes: Pupils equal round and reactive to light, ma2 extra-ocular motions intact. Lids and lashes normal. Conjunctiva and sclera are non-icteric and not injected. Cornea within normal limits. Periorbital areas with no swelling, redness, or edema. ENT: There is dried blood in the mouth procedure and biting tongue , patient actively vomiting, nares patent. No nasal discharge, no septal abnormalities noted. Tympanic membranes are normal and external auditory canals are clear. Oropharynx with no redness, swelling, or masses, exudates, or evidence of obstruction, uvula midline. Mucous membranes moist. Cardiovascular: Sinus tachycardia to 130 regular rate and rhythm with a normal S1 and S2. No gallops, murmurs, or rubs. Normal PMI, no JVD. No pulse deficits. Respiratory: Lungs have equal breath sounds bilaterally, clear to auscultation and percussion. No rales, rhonchi or wheezes noted. No increased work of breathing, no retractions or nasal flaring. Abdomen/GI: Soft, non-tender, with normal bowel sounds. No distension or tympany. No guarding or rebound. No evidence of tenderness throughout. Back: No spinal tenderness. No costovertebral tenderness. Full range of motion. MS/ Extremity: Pulses equal, no cyanosis. Neurovascular intact. Full, normal range of motion. Neuro: patient is altered and non verbal comatosed Psych: Awake, alert, with orientation to person, place and time. Behavior, mood, and affect are within normal limits. Vital Signs: 17:19 Pulse 131; ss 17:57 Weight 81.65 kg; ww 18:13 BP 153 / 90; Pulse 95; Resp 24 A; Temp 97.0(TE); Pulse Ox 100% on 100% FiO2 ETT vent; ss 18:27 BP 190 / 98; Pulse 93; Pulse Ox 100% on ETT vent; jg9 18:30 BP 185 / 95; Pulse 90; Resp 24 A; Pulse Ox 100% on ETT vent; jg9 Procedures: 17:52 Intubation: Ventilated with 100% NRB prior to procedure. O2 saturation prior to ma2 procedure was 100 %. Intubated using # 4 Luma blade with 7.5 mm ETT. was successful on first attempt. Ventilated with ventilator. Tube secured with ETT mcfadden Placement verified by CXR, CO2 detector with (+) color change, auscultating bilateral breath sounds, Patient tolerated well. MDM: 17:25 Patient medically screened. [facility] 17:52 Differential Diagnosis: electrolyte abnormality, hypoglycemia, pneumonia, seizure, ma2 sepsis, TIA. 18:20 Data reviewed: vital signs, nurses notes. Counseling: I had a detailed discussion with ma2 the patient and/or guardian regarding: the historical points, exam findings, and any diagnostic results supporting the discharge/admit diagnosis, the presence of at least one elevated blood pressure reading (>120/80) during this emergency department visit, the need for outpatient follow up. Response to treatment: the patient's symptoms have markedly improved after treatment. ED course: Patient has recurrent bleeding with midline shift, will start him on Cardene drip for blood pressure is 153/90. Discussed with Dr. Rodriguez with neurosurgery at [facility]. . 02/25 17:25 Order name: Blood Culture Adult (2) ma2 02/25 17:25 Order name: CBC with Diff; Complete Time: 18:04 il2 02/25 17:25 Order name: CMP [facility] 02/25 17:25 Order name: Lactate [facility] 02/25 17:25 Order name: Protime (+inr); Complete Time: 18:04 il2 02/25 17:25 Order name: Ptt, Activated; Complete Time: 18:04 il2 02/25 17:25 Order name: Urine Microscopic Only [facility] 02/25 17:25 Order name: Chest Single View XRAY; Complete Time: 18:16 il2 02/25 17:25 Order name: SARS-COV-2 RT PCR (Document "Date of Onset" if Symptomatic) [facility] 02/25 17:25 Order name: CT Head Brain wo Cont; Complete Time: 18:16 il2 02/25 17:25 Order name: Alcohol Level; Complete Time: 18:16 il2 02/25 17:25 Order name: AMMONIA; Complete Time: 18:16 il2 02/25 18:23 Order name: ABG Arterial Blood Gas [facility] 02/25 17:25 Order name: Accucheck; Complete Time: 17:50 il2 02/25 17:25 Order name: Cardiac monitoring; Complete Time: 17:50 il2 02/25 17:25 Order name: EKG - Nurse/Tech; Complete Time: 18:47 ma2 02/25 17:25 Order name: IV Saline Lock - Large Bore; Complete Time: 17:50 ma2 02/25 17:25 Order name: Labs collected and sent; Complete Time: 17:50 ma2 02/25 17:25 Order name: O2 Per Protocol; Complete Time: 17:50 il2 02/25 17:25 Order name: O2 Sat Monitoring; Complete Time: 17:50 ma2 Administered Medications: 17:19 Drug: Etomidate 20 mg Route: IVP; Site: right antecubital; ss 18:24 Follow up: Response: RASS: Deep sedation (-4) jg9 17:20 Drug: Succinylcholine 100 mg Route: IVP; Site: right antecubital; ss 18:24 Follow up: Response: No adverse reaction; RASS: Deep sedation (-4) jg9 17:50 Drug: Zofran (Ondansetron) 4 mg Route: IVP; Site: left antecubital; ww 18:23 Follow up: Response: No adverse reaction; Nausea is decreased j9 17:57 Drug: Cefepime 1 grams Route: IVPB; Rate: 200 ml/hr; Infused Over: 30 mins; Site: left ww antecubital; 18:32 Follow up: Response: No adverse reaction; IV Status: Completed infusion; IV Intake: jg9 100ml 17:57 Drug: Keppra (levETIRAcetam) 1000 mg Route: IV; Rate: calculated rate; Site: right ww antecubital; 18:31 Follow up: IV Status: Completed infusion; IV Intake: 500ml jg9 17:58 Drug: NS 0.9% (30 ml/kg) 30 ml/kg Route: IV; Rate: bolus; Site: right antecubital; ww 18:00 Drug: Valium (diazepam) 5 mg Route: IVP; Site: left antecubital; j9 18:31 Follow up: Response: No adverse reaction; Anxiety decreased j9 18:17 Drug: vancoMYCIN 1 grams Route: IVPB; Infused Over: 2 hrs; Site: right antecubital; 18:47 Drug: Mannitol 20% 1 g/kg Volume: 500 ml; Route: IV; Rate: bolus; Site: left 9 antecubital; 18:47 Drug: niCARdipine (25mg/250mL) 5 mg/h Route: IV; Rate: calculated rate; Site: right 9 antecubital; Disposition: 18:23 Critical Care:. ma2 Disposition Summary: 02/25/22 18:22 Transfer Ordered Transfer Location: [facility] ma2 Reason: Higher level of care ma2 Condition: Stable ma2 Problem: new ma2 Symptoms: are unchanged ma2 Accepting Physician: dr Rodriguez Neurosurgery(02/25/22 19:19) jg9 Diagnosis - Nontraumatic intracranial hemorrhage, unspecified ma2 Forms: - Medication Reconciliation Form ma2 - SBAR form ma2 Critical care time excluding procedures: 18:23 Critical care time: Bedside Care: 30 minutes, Consultation: 10 minutes, Family ma2 Intervention: 5 minutes. Total time: 45 minutes Signatures: Dispatcher [employer] Virginie Ervin RN RN Caitlin Nunez MD MD ma2 Gilmore, Jennifer, RN RN jg9 Conchita Parmar RN RN ww Corrections: (The following items were deleted from the chart) 18:22 dr Michael Lopez ma2 jg9
--- NOTE | 2022-02-25 18:23 | ER ---
Nurse's Notes [facility] Name: Jose Baig Age: 66 yrs Sex: Male : 1955 Arrival Date: 02/25/2022 Time: 17:14 Bed 2 Private MD: Diagnosis: Nontraumatic intracranial hemorrhage, unspecified Presentation: 02/25 17:19 Method Of Arrival: EMS: [facility] ss 17:19 Chief complaint: EMS states: found unresponsive with agonal respirations on cough by a ss friend. Unknown downtime. Bloody emesis noted around mouth. No obvious trauma noted. EMS states they are basic crew and are unable to perform advanced interventions, but applied NRB \T\ 15 L. Coronavirus screen: Client denies travel out of the [place] in the last 14 days. Ebola Screen: Patient denies exposure to infectious person. Patient denies travel to an Ebola-affected area in the 21 days before illness onset. Initial Sepsis Screen: Does the patient meet any 2 criteria? No. Patient's initial sepsis screen is negative. Does the patient have a suspected source of infection? No. Patient's initial sepsis screen is negative. Risk Assessment: Do you want to hurt yourself or someone else? Patient reports no desire to harm self or others. Onset of symptoms is unknown. Care prior to arrival: Placed on backboard by [facility]. Removed upon arrival by ED staff. 17:19 Acuity: SONIA 1 ss Triage Assessment: 17:20 General: Appears distressed, unkempt, Behavior is unresponsive. jg9 Historical: - Allergies: 17:32 No Known Allergies; ss - Home Meds: 17:32 Unable to obtain [Active]; ss - PMHx: 17:32 Anxiety; Bipolar disorder; COPD; Hepatitis; Ulcers; ss - PSHx: 17:32 Unable to Obtain; ss - Immunization history:: Adult Immunizations unknown. - Social history:: Smoking status: unknown. - Family history:: not pertinent. Screenin:26 Abuse screen: UNABLE TO DETERMINE. Nutritional screening: No deficits noted. jg9 Tuberculosis screening: No symptoms or risk factors identified. Fall Risk Fall in past 12 months (25 points). Assessment: 18:26 Reassessment: No changes from previously documented assessment. Patient and/or family jg9 updated on plan of care and expected duration. Pain level reassessed. Patient is alert, oriented x 3, equal unlabored respirations, skin warm/dry/pink. Patient is stable at this time, vitals wnl. Pain: Unable to use pain scale. Patient is unresponsive. Vital Signs: 17:19 Pulse 131; ss 17:57 Weight 81.65 kg; ww 18:13 BP 153 / 90; Pulse 95; Resp 24 A; Temp 97.0(TE); Pulse Ox 100% on 100% FiO2 ETT vent; ss 18:27 BP 190 / 98; Pulse 93; Pulse Ox 100% on ETT vent; jg9 18:30 BP 185 / 95; Pulse 90; Resp 24 A; Pulse Ox 100% on ETT vent; jg9 ED Course: 17:10 Inserted saline lock: 18 gauge in right antecubital area, using aseptic technique. ss ,using aseptic technique. Insertion by Anabel Kelley RN Blood collected. 17:14 Patient arrived in ED. jg9 17:15 Inserted saline lock: 20 gauge in left antecubital area, using aseptic technique. ss ,using aseptic technique. inserted by JAKOB Mcmahon tech. 17:19 Assisted provider with intubation using 7.5 mm ETT via oral route. ET tube secured at ss 23cm at the teeth. Set up intubation tray. Intubated by Duane DORSEY Placement verified by CO2 detector w/ + color change, auscultating bilateral breath sounds, Patient tolerated Sedated. 17:20 Caitlin Nunez MD is Attending Physician. eb 17:24 16 F OG tube inserted, gastric contents returned. ss 17:32 Triage completed. ss 17:32 Arm band placed on left wrist. ss 17:58 CT Head Brain wo Cont In Process Unspecified. EDMS 18:00 Chest Single View XRAY In Process Unspecified. EDMS 18:05 initiated a transfer with Josué Lan from the [facility]. eb 18:[address] Donahue the neuro crm solution architect with [facility] with Dr. Nunez for patient eb transfer consultation. 18:23 Anabel Vazquez RN is Primary Nurse. jg9 18:26 Patient has correct armband on for positive identification. Placed in gown. Bed in low ww position. Call light in reach. Side rails up X2. log peeler on. Pulse ox on. NIBP on. Warm blanket given. Cleaned of incontinence. Linen changed. 18:30 administrative approval given Josué Contreras/ patient has been accepted to [facility] bed 7513/ Dr. Donahue has accepted the patient in transfer/ report to be called to [phone]. 18:50 Patient transferred, IV remains in place. jg9 18:50 Monterroso cath unable to insert Monterroso or coud due to enlarged prostate. jg9 Administered Medications: 17:19 Drug: Etomidate 20 mg Route: IVP; Site: right antecubital; 18:24 Follow up: Response: RASS: Deep sedation (-4) j9 17:20 Drug: Succinylcholine 100 mg Route: IVP; Site: right antecubital; 18:24 Follow up: Response: No adverse reaction; RASS: Deep sedation (-4) j9 17:50 Drug: Zofran (Ondansetron) 4 mg Route: IVP; Site: left antecubital; 18:23 Follow up: Response: No adverse reaction; Nausea is decreased j9 17:57 Drug: Cefepime 1 grams Route: IVPB; Rate: 200 ml/hr; Infused Over: 30 mins; Site: left antecubital; 18:32 Follow up: Response: No adverse reaction; IV Status: Completed infusion; IV Intake: jg9 100ml 17:57 Drug: Keppra (levETIRAcetam) 1000 mg Route: IV; Rate: calculated rate; Site: right antecubital; 18:31 Follow up: IV Status: Completed infusion; IV Intake: 500ml j9 17:58 Drug: NS 0.9% (30 ml/kg) 30 ml/kg Route: IV; Rate: bolus; Site: right antecubital; 18:00 Drug: Valium (diazepam) 5 mg Route: IVP; Site: left antecubital; 9 18:31 Follow up: Response: No adverse reaction; Anxiety decreased j9 18:17 Drug: vancoMYCIN 1 grams Route: IVPB; Infused Over: 2 hrs; Site: right antecubital; 18:47 Drug: Mannitol 20% 1 g/kg Volume: 500 ml; Route: IV; Rate: bolus; Site: left [facility] antecubital; 18:47 Drug: niCARdipine (25mg/250mL) 5 mg/h Route: IV; Rate: calculated rate; Site: right 9 antecubital; Intake: 18:31 IV: 500ml; Total: 500ml. jg9 18:32 IV: 100ml; Total: 600ml. j9 Outcome: 18:22 ER care complete, transfer ordered by . daniel 18:49 Transferred by helicopter to [facility], Note: [address]-report called to Maria G Cintron RN 18:49 Condition: stable 19:19 Patient left the ED. [facility] Signatures: Dispatcher [employer] EDMS Virginie Bray RN RN Caitlin Nunez MD MD ma2 Botello, Elizabeth eb Gilmore, Jennifer, RN RN j Conchita Parmar RN RN ww Corrections: (The following items were deleted from the chart) 18:49 18:32 BP 190 / 98; Pulse 93bpm; Pulse Ox 100% ET / Ventilator; [facility] 18:50 18:49 Transferred by helicopter to [facility], Note: [place] [id number] 18:51 17:26 Monterroso cath inserted, using sterile technique, 16 Fr., by ED staff, balloon jg9 inflated, to gravity drainage,
[2022-02-25 18:24] LABS: Albumin 4.3 g/dL (3.4-5.0); Bilirubin Total 1.5 mg/dL (0.2-1.0); Potassium 3.1 mmol/L (3.5-5.1)
[2022-02-25] MEDS ORDERED: Nicardipine/NS 25 MG/250 ML KIT IV ONE (18:49)
[2022-02-25] MEDS ORDERED: MANNITOL 20% 500 ML IV ONE (18:49)
[2022-02-25] MEDS ORDERED: FAMOTIDINE 20 MG TAB ONE (19:08)
[2022-02-25 19:27] LABS: Urine Bacteria <20 /HPF (NONE SEEN); Urine RBC >50 /HPF (NONE SEEN)
[2022-02-25 19:28] VITALS: TEMP 97; O2SAT 100
[2022-02-25 19:31] VITALS: BP 185/95
== END 2022-02-25 19:19 | disposition short-term general hospital (02) ==
LOC: ER 17:13
DX: I62.9 Nontraumatic intracranial hemorrhage, unspecified (principal); J44.9 Chronic obstructive pulmonary disease, unspecified; F31.9 Bipolar disorder, unspecified; Z20.822 Contact with and (suspected) exposure to COVID-19
CPT/HCPCS: 93005; 87040 ×2; 85025; 36415; 80320; 82140; 85610; 83605; 85730; 81015; 80053; 70450; 71045; 94002; 82805; 31500; 99291; U0003; J0330; J3360; J3370; J1953; J7050; J7030 ×2; J2405; J0692